=== PATIENT | female | born 1970 | race Caucasian/White ===

== ENCOUNTER → 2020-03-21 22:02 | Outpatient (CLI) | payer BC, SELFPAY ==
[2020-03-21 15:21] VITALS: BMI 25.7
[2020-03-24 16:47] LABS: HPV Reflexed? NOT INDICATED
== END ==
PROVIDERS: PCP Nurse Practitioner; Referring Provider Nurse Practitioner; Visit Provider Nurse Practitioner
DX: Z01.419 Encounter for gynecological examination (general) (routine) without abnormal findings (principal)
CPT/HCPCS: 88175; G0145

== ENCOUNTER → 2020-04-12 22:28 | Outpatient (CLI) | payer BC, SELFPAY ==
[2020-04-12 19:00] VITALS: BMI 26.8
[2020-04-12 22:37] LABS: Absolute Lymphocyte Count 1.25 X10^3/uL (0.83-4.51); Absolute Neutrophil Count 3.4 X10^3/uL (2.0-7.7); Basophil# 0.03 X10^3/uL; Basophil% 0.6 % (0-1); Eosinophil# 0.11 X10^3/uL; Eosinophils% 2.1 % (0-5); Hematocrit 29.5 % (37-47); Hemoglobin 8.8 g/dL (12.0-15.0); Lymphocyte # 1.25 X10^3/ul (4.0); Lymphocyte % 23.6 % (19-41); Mean Corp Hgb Conc 29.8 g/dL (32-36); Mean Corpuscular Hgb 23.1 pg (27.0-32.0); Mean Corpuscular Volume 77.4 fL (81-99); Monocyte# 0.45 X10^3/uL; Monocyte% 8.5 % (0-10); NRBC Flagged by Analyzer 0 % (0-5); Neutrophil # 3.44 X10^3/uL (2.7-7.7); Neutrophil % 64.8 % (47-70); Platelet Count 357 K/mm3 (150-450); RBC Distribution Width CV 15.8 % (11.6-14.6); RBC Distribution Width SD 42.4 fl (35.1-43.9); Red Blood Count 3.81 M/mm3 (4.2-5.4); White Blood Count 5.3 K/mm3 (4.4-11.0)
[2020-04-12 22:59] LABS: ALB/GLOB Ratio 1.3 RATIO (0.9-2.4); AST(SGOT) 9 U/L (15-37); Alanine Aminotransfer ALT/SGPT 24 U/L (13-56); Albumin, Serum 3.7 g/dL (3.2-5.0); Alkaline Phosphatase 51 U/L (45-117); Anion Gap 6 (5-15); BUN 19 mg/dL (7-18); BUN/Creat Ratio 19.6 RATIO (10-20); Calcium,Total 8.4 mg/dL (8.5-10.1); Chloride 109 mmol/L (98-107); Creatinine, Serum 0.97 mg/dL (0.55-1.02); EST Glomerular Filtration Rate 65 mL/min (>60); Est Glom Filt Rate - Afr Amer 79 mL/min (>60); Globulin 2.9 g/dL (2.2-4.2); Glucose 87 mg/dL (74-106); Potassium 3.9 mmol/L (3.5-5.1); Protein, Total 6.6 g/dL (6.4-8.2); Sodium Level 142 mmol/L (136-145); Thyroid Stim Hormone (TSH) 0.95 uIU/mL (0.358-3.74)
[2020-04-14 12:28] LABS: Ferritin 6 ng/mL (8-252); Iron Binding Capacity,Total 370 ug/dL (250-450)
[2020-04-15 10:33] LABS: EBV Acute VCA IgM < 36.0 U/mL (0.0-35.9); EBV Nuclear Antigen IgG < 18.0 U/mL (0.0-17.9); EBV-VCA IgG < 18.0 U/mL (0.0-17.9)
[2020-04-15 12:47] LABS: Vitamin D 1,25-Dihydroxy 40.1 pg/mL (19.9-79.3)
== END ==
PROVIDERS: PCP Nurse Practitioner; Referring Provider Nurse Practitioner; Visit Provider Nurse Practitioner
DX: E55.9 Vitamin D deficiency, unspecified (principal); D64.9 Anemia, unspecified; R42 Dizziness and giddiness; R53.83 Other fatigue; R06.02 Shortness of breath
CPT/HCPCS: 80053; 82652; 82728; 83550; 84443; 85025; 86664; 86665

== ENCOUNTER 2020-07-28 08:00 | Outpatient (RCR) | payer BC, SELFPAY ==
[2020-04-12 19:00] VITALS: BMI 26.8
== END 2020-10-10 23:59 ==
LOC: IMMUN 08:00
PROVIDERS: PCP Internal Medicine; Visit Provider Family Medicine
DX: Z23 Encounter for immunization (principal)
CPT/HCPCS: 0001A; 0002A; 91300

== ENCOUNTER 2020-11-23 09:25 | Day surgery (SDC) | payer BC, SELFPAY ==
[2020-04-12 19:00] VITALS: BMI 26.8
--- NOTE | 2020-11-17 11:53 | PCM.HP.BLA ---
History and Physical Date of Admission: 11/23/20 History and physical. Nataly West MD (Physician) ? ? SYNTHETIC [employer]ENT [employer]INNER Expand AllCollapse All Expand All by Default Amanda Dean is a 50 year old female who presents for concerns regarding heavy and irregular uterine bleeding. Patient had the Mirena IUD removed October 24, 2020 has since had episodes of heavy vaginal bleeding with clots. Patient states overall she was happy with the Mirena however emotionally she was struggling and felt that impacted her mood too much. Patient is interested in Ginny ablation. Patient states still feels dizzy but this is her normal. Patient offers no other concerns today. Denies any chest pain or shortness of breath. Patient is accompanied by her . Patient currently uses vasectomy for control. Pt would like to proceed with surgical intervention. ? PAST MEDICAL HISTORY PAST MEDICAL HISTORY Diagnosis Date ? Anemia ? ? COVID-19 ? ? Intractable migraine with aura ? ? Kidney stone ? ? PAST SURGICAL HISTORY PAST SURGICAL HISTORY Procedure Laterality Date ? COLONOSCOPY - DIAGNOSTIC ? 05/17/2020 ? EGD ? 05/17/2020 ? EYE SURGERY HX ? ? ? LASIK ? ? ? UNSPECIFIED ORAL SURGERY PROCEDURE, BY REPORT ? ? ? wisdom teeth ? FAMILY HISTORY FAMILY HISTORY Problem Relation Age of Onset ? Hypertension Mother ? ? Thyroid Mother ? ? Breast Cancer Mother ? ? Ischemic Heart Disease Father ? ? Diabetes Father ? ? Colon Cancer Father 63 ? Stroke Maternal Grandmother ? ? other (parkinson's) Maternal Grandfather ? ? Diabetes Paternal Grandmother ? ? Cancer Paternal Grandmother ? ? ovarian ? other (kidney stone) Sister ? ? Breast Cancer Paternal Aunt ? ? in her 60s ? SOCIAL HISTORY Social History ? Tobacco Use ? Smoking status: Never Smoker ? Smokeless tobacco: Never Used Vaping Use ? Vaping Use: Never used Substance Use Topics ? Alcohol use: Yes ? ? Comment: socially ? Drug use: No ? CURRENT MEDICATIONS Current Outpatient Medications Medication Sig ? ibuprofen (MOTRIN) 600 mg tablet Take 1 tablet by mouth every 6 hours as needed. ? levonorgestrel (MIRENA) 20 mcg/24 hours (6 yrs) 52 mg IUD 1 Each by INTRAUTERINE route as directed. (Patient not taking: Reported on 10/24/2020 ) ? loratadine (CLARITIN) 10 mg tablet Take 10 mg by mouth once daily. ? Cetirizine (ZYRTEC) 10 mg cap Take by mouth. ? diphenhydrAMINE (BENADRYL) 25 mg capsule Take 25 mg by mouth every 6 hours as needed. ? iron bis-glycinat/vit C/FA/B12 (GENTLE IRON ORAL) Take by mouth. ? OTC NUTRITIONAL SUPPLEMENT [employer] ? No current facility-administered medications for this visit. ? Allergies As of Date: 11/03/2020 (No Known Allergies) Fully Assessed 10/24/2020 ? ? REVIEW OF SYSTEMS ? Expanded ROS: GENERAL: Negative for fever Allergies and current medication updated:Yes ? EXAM: BP 110/60 Wt 149 lb (67.6kg) LMP 06/06/2020 GENERAL: pleasant, female in no apparent distress HEENT: Normocephalic, atraumatic, mucus membranes moist and no lesions NECK: full range of motion DERMATOLOGY: Normal and without lesions NEURO: alert and oriented x3,exam grossly non-focal EXTREMITIES: normal ? ASSESSMENT AND PLAN: AUB, chornic anemia plan for hysteroscopy, Endometrial ablation at [facility] on 11/23/20 Pt was counseled on risks of surgery including but not limted to infection, bleeding, perforation of uterus with subsequent injury to pelvic structures which includes bladder, bowel, vessels which could require laparoscopy. Failure of surgery reviewed with patient as well. Pre and post op instructions reviewed consent signed. Covid vaccinated. ?
[2020-11-20 15:37] LABS: Hematocrit 31.9 % (37-47); Hemoglobin 10.5 g/dL (12.0-15.0); Mean Corp Hgb Conc 32.9 g/dL (32-36); Mean Corpuscular Hgb 29.6 pg (27.0-32.0); Mean Corpuscular Volume 89.9 fL (81-99); Mean Platelet Vol. 9.7 fl (6.2-12.0); Platelet Count 298 K/mm3 (150-450); RBC Distribution Width CV 12.2 % (11.6-14.6); RBC Distribution Width SD 39.8 fl (35.1-43.9); Red Blood Count 3.55 M/mm3 (4.2-5.4)
[2020-11-23] VITALS (7 sets, daily range): BP systolic 103–117; BP diastolic 66–86; PULSE 64–80; RESP 16; TEMP 36.2–36.7; O2SAT 97–99; BMI 26.8
[2020-11-23 09:55] LABS: Internal QC Validated? YES +Cl - CLEAR BKGD; Pregnancy, Urine Negative Negative
[2020-11-23] MEDS: Lactated Ringers 1,000 ML 100 ML IV (10:12)
--- NOTE | 2020-11-23 11:41 | OP.PCM_ITS ---
Problems Associated Problem List Diagnoses (1) Abnormal uterine bleeding (AUB): (2) Chronic anemia: Report of Operation Date of Procedure: 11/23/20 Pre-Operative Diagnosis: AUB, chronic anemia Post-Operative Diagnosis: same Surgery/Procedure Performed:: Hysteroscopy, Ginny endometrial ablation Description of Surgical Findings:: retroverted uterus. Cavity length set at 6cm. Surgeon: Nataly Dobson physical therapy technician: None Type of Anesthesia: MAC Specimen's removed: none Drains: none Estimated Blood Loss (mL): <5cc Fluids Replaced: 800 Description of Procedure: After informed consent was obtained patient taken to the operating room she is placed in supine position she is given anesthesia simply self insert she is prepped draped normal sterile fashion. Bladder was drained prior to the start of the procedure. At this time the weighted speculum was placed the posterior fornix of the vagina then a single-tooth tenaculum was used to grasp the anterior lip of the cervix. At this time the uterus was sounded to approximately 11 cm the endocervical canal sounded to 5 cm. Next cervix was dilated in incremental fashion. Once adequate dilatation was achieved the hysteroscope was inserted using normal saline as distention medium. On hysteroscopy difficult visualization due to blood in cavity. howevere there were no gross abnormalities that i could see. At this time the Ginny device was opened. The Ginny was set at 6cm. The device was activated. Prior to activation the field test was performed and cavity was intact. The device was t hen fired and activated for 120 seconds. Once the 120 seconds was completed the device was removed intact and the tenaculum was removed. Good hemostasis was appreciated. Weighted speculum was removed. Vaginal sweep was performed is negative. There were no complications. Anticipated normal postoperative course for this patient. Instrument and lap count were correct ?2. Grafts/Implants Used: none Procedure Start Time: 11:32 Procedure Stop Time: 11:41 Complications none Admit VTE Documentation VTE Present on Admission: Yes VTE Mechan Device Prophylaxis: SCD's VTE Pharm Prophylaxis ordered?: No
--- NOTE | 2020-11-23 11:46 | EX.PCM.DISCH ---
Discharge Instructions Procedure D&C Diet Discharge Diet: No restrictions Activity May resume sexual activity in: 1 week Dressing / Incision Call your doctor if you observe: Fever of 101 or Higher, Inability to urinate, Using more than 1 pad per hour and Uncontrolled pain Follow Up Care Please Follow Up With: Nataly Dobson MD When: 1-2 weeks post OP if you need an appointment please call [phone] Test Results: Test results from this visit will be discussed in further detail at your follow-up appointment, if applicable. Discharge Plan Admission Attending Provider: Nataly Dobson Primary Care Provider: Desire Ugarte Discharge Orders/Prescriptions Prescriptions: No Action cetirizine [Zyrtec] 10 mg Tablet 10 mg PO QHS RF: 0 famotidine [Pepcid AC] 20 mg Tablet 20 mg PO DAILY RF: 0 diphenhydramine HCl [Benadryl] 25 mg Capsule 50 mg PO QHS RF: 0 Excedrin Migraine 250-250-65 mg Tablet 1 tab PO Q6H PRN (Reason: Migraine Headache) RF: 0 loratadine [Claritin] 10 mg Tablet 10 mg PO DAILY RF: 0 Iron Repair Plus 1 tab PO/SL DAILY RF: 0 Referrals / Follow Up: Desire Ugarte MD [Primary Care Provider] - Disposition Disposition (needs filled in before D/C Order can be placed): Home, Self Care
== END 2020-11-23 13:06 | disposition home or self-care (01) ==
LOC: SDC 09:30 → AC 09:31
PROVIDERS: PCP Internal Medicine; Referring Provider Obstetrics & Gynecology; Visit Provider Obstetrics & Gynecology
PROC: 0U5B8ZZ Destruction of Endometrium, Via Natural or Artificial Opening Endoscopic (ICD-10-PCS; CPT 58558; principal; 2020-11-23 10:45)
DX: N93.9 Abnormal uterine and vaginal bleeding, unspecified (principal); D64.9 Anemia, unspecified; N85.4 Malposition of uterus; Z79.1 Long term (current) use of non-steroidal anti-inflammatories (NSAID); Z79.3 Long term (current) use of hormonal contraceptives; Z80.3 Family history of malignant neoplasm of breast; Z82.49 Family history of ischemic heart disease and other diseases of the circulatory system; Z83.3 Family history of diabetes mellitus; Z87.442 Personal history of urinary calculi; Z83.49 Family history of other endocrine, nutritional and metabolic diseases; Z86.16 Personal history of COVID-19
CPT/HCPCS: 00952; 58563; 36415; 81025; 85027; J7120; J2405

== ENCOUNTER → 2024-10-25 | Outpatient (CLI) | payer OTHER, SELFPAY ==
--- OUTSIDE RECORDS SUMMARY | 2024-10-25 23:15 | XMS RPT_ITS | CCD ---
Author Organization [facility] Care Team Providers Care Bar Tacker Name Role Phone Aron Ugarte MD Primary Care Provider Shanel EASON, Tanya Avalos Primary Care Provider Shanel EASON, Tanya Avalos Primary Care Provider Shanel EASON, Aron Avalos Primary Care Provider Shanel EASON, Aron Avalos Primary Care Provider Unava ilable Shanel EASON, Aron Avalos Primary Care Provider [phone] Aron Ugarte MD Primary Care Provider Nuria Gabriel DO Primary Care Provider ELE CM Attending Unavailable BRI DOVE Referring Unavailable ARON UGARTE Primary Care Unavailable NURIA GABRIEL Primary Care Unavailab ELE Caro Referring Unavailable NURIA GABRIEL Primary Care Unavailab JAROD Chairez Attending Unavailable EDUARDO ALVAREZ Referring Unavailable BRI DOVE Attending Unavailable ARON UGARTE Primary Care Unavailable BRI DOVE Referring Unavailable BRI DOVE Attending Unavailable ARON UGARTE Primary Care Unavailable EDUARDO ALVAREZ Attending Unavailable BRI DOVE Referring Unavailable NURIA GABRIEL Primary Care Unavailab NURIA Holt Primary Care Unavailab ELE Caro Referring Unavailable BRI DOVE Referring Unavailable ARON UGARTE Primary Care Unavailable Shanel EASON, Dr. Phipps Primary Care Provider [phone] Dr. Aron Ugarte MD Referring Provider Ericka Bryant Attending Provider [phone] Allergies Allergy Classification Reported Allergen(s) Allergy Type Date of Onset Reaction(s) Facility (1 source) Levonorgestrel Drug Allergy 5 Bleeding [facility] (1 source) topiramate Drug Allergy 5 sores in mouth [facility] Medications Current Medications Medication Drug Class(es) Dates Sig (Normalized) Sig (Original) amantadine hydrochloride 100 mg oral capsule (11 sources) Influenza A M2 Protein Inhibitor Start: 12-26-2021 End: 02-01-2022 take 1 capsule by mouth once daily, then take 1 capsule by mouth twice daily amantadine HCl (SYMMETREL) 100 mg capsule Take 1 capsule by mouth once daily for 7 days, THEN 1 capsule twice daily. 67 capsule 0 12/26/2021 02/01/2022 Active Start: 06-01-2021 End: 12-03-2021 take 1 capsule by mouth once daily, then take 1 capsule by mouth twice daily amantadine HCl (SYMMETREL) 100 mg capsule Take 1 capsule by mouth once daily for 7 days, THEN 1 capsule twice daily. 67 capsule 0 06/01/2021 12/03/2021 Discontinued (Side Effects) Comment on above: Take 1 capsule by mo ut once daily for 7 days, THEN 1 capsule twice daily. bacillus coagulans [id number] unt / inulin 250 mg oral capsule (1 source) Start: 09-29-2024 Bacillus Coagulans-Inulin (Probiotic With Prebiotic) 1 billion-250 cell-mg capsule Active NMA PO September 29, 2024 12:00am Calcium (1 source) Phosphate Binder, Calcium Start: 09-29-2024 Calcium 300 mg tablet,chewable Active mg PO September 29, 2024 12:00am cholecalciferol, vitamin D3, (VITAMIN D3 ORAL) (20 sources) cholecalciferol, vitamin D3, (VITAMIN D3 ORAL) Take 250 mcg by mouth. Active cholecalciferol, vitamin D3, (VITAMIN D3 ORAL) Take 250 mcg by mouth. 0 Active Comment on above: Take 250 mcg by mout h. cyproheptadine hydrochloride 4 mg oral tablet (15 sources) Start: 2 End: 3 take 2 tablets by mouth once daily at bedtime cyproheptadine (PERIACTIN) 4 mg tablet Take 2 tablets by mouth daily at bedtime. 180 tablet 1 04/01/2022 09/28/2022 Active Start: 12-03-2021 End: 04-01-2022 take 1 tablet by mouth once daily at bedtime cyproheptadine (PERIACTIN) 4 mg tablet Take 1 tablet by mouth daily at bedtime. 90 tablet 1 03/01/2022 04/01/2022 Discontinued (Course of therapy completed) Comment on above: Take 1 tablet by inoc[facility] daily at bedtime. Take 2 tablets by [facility] daily at bedtime. gabapentin 600 mg oral tablet (20 sources) Anti-epileptic Agent Start: 09-29-2024 take 1 tablet by mouth once daily Gabapentin 600 mg tablet Active 600 mg PO daily September 29, 2024 12:00am Start: 12-17-2023 End: 12-12-2024 take 6 capsules by mouth once daily at bedtime gabapentin (NEURONTIN) 100 mg capsule Take 6 capsules by mouth daily at bedtime for 180 days. 540 capsule 1 06/15/2024 12/12/2024 Active Start: 10-14-2023 End: 12-11-2023 take 4 capsules by mouth once daily at bedtime, then take 5 capsules by mouth once daily at bedtime, then take 6 capsules by mouth once daily at bedtime gabapentin (NEURONTIN) 100 mg capsule Take 4 capsules by mouth daily at bedtime for 14 days, THEN 5 capsules daily at bedtime for 14 days, THEN 6 capsules daily at bedtime for 30 days. 306 capsule 0 10/14/2023 12/11/2023 Active Start: 10-11-2022 End: 10-14-2023 take 3 capsules by mouth twice daily gabapentin (NEURONTIN) 100 mg capsule Take 3 capsules by mouth twice daily for 180 days. 540 capsule 1 11/26/2022 10/14/2023 Discontinued Start: 05-22-2022 End: 05-22-2023 take 1 capsule by mouth twice daily gabapentin (NEURONTIN) 300 mg capsule Take 1 capsule by mouth twice daily. 180 capsule 3 05/22/2022 05/22/2023 Active Start: 02-11-2022 End: 05-12-2022 take 1 capsule by mouth twice daily gabapentin (NEURONTIN) 300 mg capsule Take 1 capsule by mouth twice daily for 90 days. 60 capsule 2 02/11/2022 05/12/2022 Active Start: 06-22-2021 End: 01-27-2022 take 1 capsule by mouth twice daily gabapentin (NEURONTIN) 300 mg capsule Take 1 capsule by mouth twice daily for 90 days. 60 capsule 2 10/29/2021 Active Comment on above: Take 1 capsule by [facility] twice daily for 90 days. Take 1 capsule by [facility] twice daily. Take 3 capsules by [facility] twice daily for 180 days. Bill extract (20 sources) Non-Standardized Food Allergenic Extract, Non-Standardized Plant Allergenic Extract BILL twice daily. Active BILL twice lorna ly. 0 Active Comment on above: twice daily. 24 hr guanFACINE 1 mg extended release oral tablet (1 source) Central alpha-2 Adrenergic Agonist Start: 4 End: 5 take 1 tablet by mouth once daily guanFACINE (INTUNIV) 1 mg ER 24 hr tablet(s) Take 1 tablet by mouth once daily. 30 tablet 04/16/2024 05/16/2024 Active ibuprofen 600 mg oral tablet (20 sources) Nonsteroidal Anti-inflammatory Drug Start: 1 take 1 tablet by mouth every six hours as needed ibuprofen (MOTRIN) 600 mg tablet Take 1 tablet by mouth every 6 hours as needed. 60 tablet 09/28/2020 Active Comment on above: Take 1 tablet by [facility] every 6 hours as needed. iron bis-glycinat/vit C/FA/B12 (GENTLE IRON ORAL) (20 sources) iron bis-glycinat/vit C/FA/B12 (GENTLE IRON ORAL) Take by mouth. Active iron bis-glycina t/vit C/FA/B12 (GENTLE IRON ORAL) Take by mouth. 0 Active Comment on above: Take by mouth. Magnesium glycinate (20 sources) take 350 mg by mouth once daily at bedtime MAGNESIUM GLYCINATE ORAL Take 350 mg by mouth daily at bedtime. Active take 350 mg by mouth once daily at bedtime MAGNESIUM GLYCINATE ORAL Take 350 mg by mouth daily at bedtime. 0 Active Comment on above: Take 350 mg by mouth daily at bedtime. mecobalamin 1 mg chewable tablet (1 source) Start: 09-29-2024 take 1 tablet by mouth once daily Mecobalamin (Vitamin B12) 1,000 mcg tablet,chewable Active 1000 ug PO daily September 29, 2024 12:00am melatonin 3 mg oral capsule (20 sources) Start: 09-29-2024 take 1 capsule by mouth at bedtime as needed Melatonin 3 mg capsule Active 3 mg PO BEDTIME as needed September 29, 2024 12:00am Melatonin 5 mg c ap Take by mouth. Active Comment on above: Take by mouth. memantine hydrochloride 5 mg oral tablet (1 source) U-yzpeeo-D-aspartat e Receptor Antagonist Start: 3 End: 4 take 1 tablet by mouth once daily, then take 1 tablet by mouth twice daily memantine (NAMENDA) 5 mg tablet Take 1 tablet by mouth once daily for 7 days, THEN 1 tablet two times a day. 67 tablet 0 04/07/2023 05/14/2023 Active Comment on above: Take 1 tablet by inocencia th once daily for 7 days, THEN 1 tablet two times a day. modafinil 100 mg oral tablet (3 sources) Sympathomimetic-lik e Agent Start: 2 End: 2 take 1 tablet by mouth once daily modafinil (PROVIGIL) 100 mg tablet Indications: Post-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) , Postviral fatigue syndrome Take 1 tablet by mouth once daily for 90 days. 30 tablet 2 01/28/2022 04/28/2022 Active Comment on above: Take 1 tablet by inocencia once daily for 90 days. Naltrexone (20 sources) Opioid Antagonist Start: 5 Naltrexone 4.5 mg capsule Active mg PO September 29, 2024 12:00am Start: 09-14-2024 take 1 tablet by inocencia th once daily naltrexone 6 mg (CPD) Indications: Post-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) , Malaise and fatigue , Brain fog , Myalgias , Dizziness Take 1 tablet by mouth once daily. 90 tablet 3 09/14/2024 Active take 1 capsule by mo ut once daily naltrexone capsule 4.5 mg (CPD) Take 4.5 mg by mouth once daily. Active take 1 capsule by mo uth once daily naltrexone capsule 4.5 mg (CPD) Take 4.5 mg by mouth once daily. 0 Active Comment on above: Take 4.5 mg by mouth once daily. [place]-3 Fatty Acids 1,000 mg capsule (1 source) Start: 09-29-2024 take 1 capsule by mouth once daily [place]-3 Fatty Acids 1,000 mg capsule Active 1000 mg PO daily September 29, 2024 12:00am riboflavin, vitamin B2, (VITAMIN B-2 ORAL) (20 sources) riboflavin, vitamin B2, (VITAMIN B-2 ORAL) Take by mouth. Active riboflavin, joe min B2, (VITAMIN B-2 ORAL) Take by mouth. 0 Active Comment on above: Take by mouth. SUMAtriptan 50 mg oral tablet (20 sources) Serotonin-1b and Serotonin-1d Receptor Agonist Start: 09-29-2024 take 1 tablet by mouth once Sumatriptan Succinate 50 mg tablet Active 50 mg PO ONCE September 29, 2024 12:00am Start: 02-25-2024 End: 08-23-2024 take 1 tablet by mouth every two hours as needed for headache SUMAtriptan (IMITREX) 50 mg tablet Indications: Menstrual migraine without status migrainosus, not intractable Take 1 tablet by mouth as needed (at onset of headache. May repeat after 2 hours.). 8 tablet 5 02/25/2024 08/23/2024 Active Start: 03-01-2022 End: 09-28-2022 take 1 tablet by mouth every two hours as needed for headache SUMAtriptan (IMITREX) 50 mg tablet Indications: Menstrual migraine without status migrainosus, not intractable Take 1 tablet by mouth as needed (at onset of headache. May repeat after 2 hours.). 8 tablet 5 04/01/2022 09/28/2022 Active Start: 10-05-2021 End: 12-30-2021 take 1 tablet by mouth every two hours as needed for headache SUMAtriptan (IMITREX) 50 mg tablet Indications: Menstrual migraine without status migrainosus, not intractable Take 1 tablet by mouth as needed (at onset of headache. May repeat after 2 hours.). 8 tablet 0 12/31/2021 Active Start: 08-17-2021 take 1 tablet by inocencia th every two hours as needed for headache SUMAtriptan (IMITREX) 50 mg tablet Indications: Menstrual migraine without status migrainosus, not intractable Take 1 tablet by mouth as needed (at onset of headache. May repeat after 2 hours.). 8 tablet 0 08/17/2021 Active Start: 07-11-2021 End: 08-17-2021 take 1 tablet by mouth every two hours as needed for headache SUMAtriptan (IMITREX) 50 mg tablet Indications: Menstrual migraine without status migrainosus, not intractable Take 1 tablet by mouth as needed (at onset of headache. May repeat after 2 hours.). 8 tablet 0 07/11/2021 08/17/2021 Discontinued Comment on above: Take 1 tablet by inocencia th as needed (at onset of headache. May repeat after 2 hours.). testosterone 200 mg drug implant (19 sources) Androgen testosterone 200 mg pllt by IMPLANTATION route. Active Comment on above: by IMPLANTATION rout e. tiZANidine 4 mg oral capsule (20 sources) Central alpha-2 Adrenergic Agonist Start: 09-30-19 take 2 capsules by mouth at bedtime as needed Tizanidine 4 mg capsule Active 8 mg PO AT BEDTIME as needed September 29, 2024 12:00am Start: 12-03-2021 End: 11-30-2024 take 2 tablets by mouth once daily at bedtime tiZANidine (ZANAFLEX) 4 mg tablet Take 2 tablets by mouth daily at bedtime. 180 tablet 3 12/01/2023 11/30/2024 Active Start: 10-30-2021 End: 11-29-2021 take 2 tablets by mouth once daily at bedtime tiZANidine (ZANAFLEX) 4 mg tablet Take 2 tablets by mouth daily at bedtime. 60 tablet 0 10/30/2021 11/29/2021 Active Start: 10-05-2021 End: 11-04-2021 take 1 tablet by mouth once daily at bedtime tiZANidine (ZANAFLEX) 4 mg tablet Take 1 tablet by mouth daily at bedtime. 30 tablet 0 10/05/2021 11/04/2021 Active Comment on above: Take 1 tablet by inocencia th daily at bedtime. Take 2 tablets by mo uth daily at bedtime. topiramate 25 mg oral tablet (2 sources) Start: 2 End: 2 take 1 tablet by mouth once daily at bedtime, then take 2 tablets by mouth once daily at bedtime, then take 3 tablets by mouth once daily at bedtime, then take 4 tablets by mouth once daily at bedtime topiramate (TOPAMAX) 25 mg tablet Take 1 tablet by mouth daily at bedtime for 7 days, THEN 2 tablets daily at bedtime for 7 days, THEN 3 tablets daily at bedtime for 7 days, THEN 4 tablets daily at bedtime for 7 days. 70 tablet 0 08/13/2021 09/10/2021 Active Comment on above: Take 1 tablet by inocencia th daily at bedtime for 7 days, THEN 2 tablets daily at bedtime for 7 days, THEN 3 tablets daily at bedtime for 7 days, THEN 4 tablets daily at bedtime for 7 days. ubidecarenone 10 mg oral capsule (1 source) Start: Coenzyme Q10 10 mg capsule Active 10 mg PO ONCE September 29, 2024 12:00am ubiquinol 200 mg oral capsule (20 sources) take 200 mg by mouth twice daily COQ10, UBIQUINOL, ORAL Take 200 mg by mouth twice daily. Active Comment on above: Take 200 mg by mouth twice daily. Completed/Discontinued Medications Medication Drug Class(es) Dates Sig (Normalized) Sig (Original) acetaminophen 250 mg / aspirin 250 mg / caffeine 65 mg oral tablet (1 source) Platelet Aggregation Inhibitor, Nonsteroidal Anti-inflammatory Drug, Central Nervous System Stimulant, Methylxanthine Start: 11-16-2020 End: 09-29-2024 Aspirin-Acetamino phen-Caffeine (Excedrin Migraine) 250-250-65 mg Tablet Discontinued 1 {tbl} PO EVERY 6 HOURS as needed for Migraine Headache November 16, 2020 12:00am September 29, 2024 8:55am 24 hr buPROPion hydrochloride 300 mg extended release oral tablet (13 sources) Aminoketone Start: 04-01-2022 End: 04-16-2024 take 1 tablet by mouth once daily buPROPion XL (WELLBUTRIN XL) 300 mg 24 hr tablet Take 1 tablet by mouth once daily. 90 tablet 1 04/01/2022 04/16/2024 Discontinued (Course of therapy completed) Start: 03-01-2022 End: 04-01-2022 take 1 tablet by mouth once daily buPROPion XL (WELLBUTRIN XL) 150 mg 24 hr tablet Take 1 tablet by mouth once daily. 30 tablet 2 03/01/2022 04/01/2022 Discontinued (Course of therapy completed) Comment on above: Take 1 tablet by inocencia once daily. cetirizine hydrochloride 10 mg oral tablet (20 sources) Histamine-1 Receptor Antagonist Start: End: 5 take 1 tablet by mouth at bedtime Cetirizine (Zyrtec) 10 mg Tablet Discontinued 10 mg PO AT BEDTIME November 16, 2020 12:00am September 29, 2024 8:54am End: 09-06-2024 Cetirizine (ZYRTEC) 10 mg ca p Take by mouth. 09/06/2024 Discontinued Comment on above: Take by mouth. diphenhydrAMINE hydrochloride 25 mg oral capsule (12 sources) Histamine-1 Receptor Antagonist Start: 021 End: 025 take 2 capsules by mouth at bedtime Diphenhydramine Hcl (Benadryl) 25 mg Capsule Discontinued 50 mg PO AT BEDTIME November 16, 2020 12:00September 29, 2024 8:54am End: 12-03-2021 take 1 capsule by mouth every six hours as needed diphenhydrAMINE (BENADRYL) 25 mg capsule Take 25 mg by mouth every 6 hours as needed. 0 12/03/2021 Discontinued (Course of therapy completed) Comment on above: Take 25 mg by mouth every 6 hours as needed. famotidine 20 mg oral tablet (1 source) Histamine-2 Receptor Antagonist Start: End: 5 take 1 tablet by mouth once daily before mealtime Famotidine (Pepcid Ac) 20 mg Tablet Discontinued 20 mg PO DAILY November 16, 2020 12:00am September 29, 2024 8:54am Iron Repair Plus (1 source) Start: 1 End: 5 Iron Repair Plus Discontinued 1 {tbl} SL/PO DAILY November 16, 2020 12:00am September 29, 2024 8:54am loratadine 10 mg oral tablet (20 sources) Start: End: 5 take 1 tablet by mouth once daily Loratadine (Claritin) 10 mg Tablet Discontinued 10 mg PO DAILY November 16, 2020 12:00am September 29, 2024 8:55am Comment on above: Take 10 mg by mouth once daily. magnesium F-umirqs-iwukdjgwyd e 42 mg (500 mg)- 250 mg TbER (20 sources) End: magnesium A-kyxope-aprmpewymvn 42 mg (500 mg)- 250 mg TbER Take by mouth. 09/06/2024 Discontinued magnesium L-thre on-niacinamide 42 mg (500 mg)- 250 mg TbER Take by mouth. Active magnesium L-thre on-niacinamide 42 mg (500 mg)- 250 mg TbER Take by mouth. 0 Active Comment on above: Take by mouth. metFORMIN hydrochloride 500 mg oral tablet (14 sources) Biguanide End: 09-07-19 take 1 tablet by mouth once daily at breakfast metFORMIN (GLUCOPHAGE) 500 mg tablet Take 500 mg by mouth daily with breakfast. 09/06/2024 Discontinued Comment on above: Take 500 mg by mouth daily with breakfast. predniSONE 20 mg oral tablet (2 sources) Start: 03-21-20 End: 03-31-20 take 2 tablets by mouth once daily Prednisone 20 mg tablet Discontinued 40 mg PO DAILY 21 02March 21, 2020 1:00am March 30, 2020 1:00am March 31, 2020 1:03am Start: 03-17-2020 End: 03-21-2020 take 2 tablets by mouth twice daily as needed, then take 1 tablet by mouth twice daily as needed, then take 0.5 tablet by mouth once daily as needed Prednisone 10 mg tablet Discontinued 20 mg PO TWICE A DAY as needed for pruritus 30 March 17, 2020 1:00am March 20, 2020 1:00am March 21, 2020 1:03am 2 po bid 4D,1 po bid for 4 D, 1 po qd for 4D 1/2 po qd for2 D progesterone 200 mg oral capsule (20 sources) Progesterone Start: 09-29-2024 End: 10-25-2024 take 1 capsule by mouth at bedtime Progesterone Micronized 200 mg capsule Discontinued 200 mg PO AT BEDTIME September 29, 2024 12:00am October 25, 2024 9:24am Start: 07-18-2024 take 1 capsule by [facility] once daily at bedtime progesterone micronized (PROMETRIUM) 200 mg capsule Take 200 mg by mouth daily at bedtime. 07/18/2024 Active End: 09-14-2024 take 1 capsule by mouth once daily progesterone micronized (PROMETRIUM) 100 mg capsule Take 100 mg by mouth once daily. 09/14/2024 Discontinued Comment on above: Take 100 mg by mouth once daily. 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 09/06/2024 Discontinued Comment on above: Take 15 mg by mouth once daily. Problems Active Problems Problem Classification Problem Date Documented Date Episodic/Chronic Allergic reactions (1 source) Allergic reaction; Translations: [Allergy, unspecified, initial encounter] 03-17-2020 Episodic Conditions associated with dizziness or vertigo (20 sources) Dizziness; Translations: [Dizziness and giddiness] Onset: 04-05-2021 04-05-2021 Episodic Deficiency and other anemia (1 source) Chronic anemia; Translations: [Anemia, unspecified] 11-23-2020 Episodic Headache; including migraine (7 sources) Menstrual migraine; Translations: [Menstrual migraine, not intractable, without status migrainosus] Chronic Headache; including migraine (5 sources) Chronic daily headache; Translations: [Chronic daily headache] Episodic Malaise and fatigue (10 sources) Postviral fatigue syndrome; Translations: [Postviral fatigue syndrome] Onset: 09-06-2024 Chronic Malaise and fatigue (11 sources) Fatigue; Translations: [Other fatigue] Onset: 09-13-2024 Episodic Menopausal disorders (2 sources) Perimenopausal disorder; Translations: [Unspecified menopausal and perimenopausal disorder] Onset: 09-06-2024 09-06-2024 Chronic Menstrual disorders (2 sources) Irregular periods; Translations: [Irregular menstruation, unspecified] 10-25-2024 Chronic Miscellaneous mental health disorders (1 source) Chronic insomnia; Translations: [Psychophysiologic insomnia] Chronic Nonmalignant breast conditions (3 sources) Calcification of breast; Translations: [Mammographic calcification found on diagnostic imaging of breast] Episodic Nutritional deficiencies (5 sources) Vitamin D deficiency; Translations: [Vitamin D deficiency, unspecified] Onset: 09-06-2024 09-06-2024 Chronic Other connective tissue disease (4 sources) Muscle pain; Translations: [Myalgia, unspecified site] 09-13-2024 Episodic Other connective tissue disease (1 source) Myalgia, unspecified site; Translations: [Myalgias] Onset: 09-13-2024 Episodic Other female genital disorders (1 source) Abnormal uterine bleeding; Translations: [Abnormal uterine and vaginal bleeding, unspecified] 11-23-2020 Chronic Other infections; including parasitic (11 sources) Late effects of other and unspecified infectious and parasitic diseases; 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)] Chronic Other inflammatory condition of skin (1 source) Pruritus of skin; Translations: [Pruritus, unspecified] 03-17-2020 Episodic Other lower respiratory disease (1 source) Dyspnea; Translations: [Shortness of breath] 04-12-2020 Episodic Other nervous system disorders (2 sources) Neuropathy; Translations: [Polyneuropathy, unspecified] 09-13-2024 Chronic Other nervous system disorders (3 sources) Poor concentration; Translations: [Attention and concentration deficit] 09-13-2024 Chronic Other nervous system disorders (1 source) Attention and concentration deficit; Translations: [Difficulty concentrating] Onset: 09-13-2024 Chronic Other nervous system disorders (1 source) Polyneuropathy, unspecified; Translations: [Neuropathy] Onset: 09-13-2024 Chronic Other nervous system disorders (4 sources) Impaired cognition; Translations: [Other symptoms and signs involving cognitive functions and awareness] 09-13-2024 Episodic Other nervous system disorders (1 source) Other symptoms and signs involving cognitive functions and awareness; Translations: [Brain fog] Onset: 09-13-2024 Episodic Other screening for suspected conditions (not mental disorders or infectious disease) (14 sources) Mammography abnormal; Translations: [Other abnormal and inconclusive findings on diagnostic imaging of breast] Onset: 09-06-2024 Episodic Residual codes; unclassified (3 sources) Activity intolerance; Translations: [Other general symptoms and signs] 09-06-2024 Episodic Residual codes; unclassified (3 sources) Disturbance in sleep behavior; Translations: [Sleep disorder, unspecified] 09-06-2024 Episodic Residual codes; unclassified (2 sources) Other general symptoms and signs; Translations: [Activity intolerance] Onset: 09-06-2024 Episodic Residual codes; unclassified (3 sources) Sleep disorder, unspecified; Translations: [Sleep disturbance] Onset: 09-06-2024 Episodic Residual codes; unclassified (1 source) Physical deconditioning 09-13-2024 Episodic Unclassified (7 sources) Post-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) 08-19-2024 Unclassified (3 sources) Post-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); 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)] Onset: 10-20-2023 Unclassified (1 source) Headaches; Translations: [Headaches] Onset: 09-13-2024 Past or Other Problems Problem Classification Problem Date Documented Date Episodic/Chronic Other nervous system disorders (20 sources) Impairment of balance; Translations: [Other abnormalities of gait and mobility] Onset: 04-05-2021 04-05-2021 Episodic Results Test Name Value Interpretation Reference Range Facility 25(OH)D3 [facility] 2024 25-hydroxyvitamin D3 [Mass/Vol] 59.5 ng/mL Normal 31.0-80.0 [place] Comment on above: Order Comment: Speci men Type: BLOOD SPECIMEN Ordering Facility: [facility] Address: [address] [place] [address] Result Comment: Clas sification of 25 OH Vitamin D status: Deficiency/Insufficiency: < or = 30 ng/ml. Sufficiency/Optimal Levels: 31-80 ng/mL Toxicity: > 100 ng/mL. Test performed by chemiluminescent immunoassay. Performed By: #### [id number] [facility] CLIA [id number] [address] [place] [address] [place] 25-hydroxyvitamin D3 [Mass/V ol]on 09-13-2024 Interpretation and review of laboratory results Normal [facility] The reference range interval was based on an analysis of samples from healthy adults and may not pertain to children from 0-18 years old. [facility] CNOVon 09-13-2024 CNOV Office Visit (PUMBHT ) AMANDA DEAN ([id number]) 1970 F Date Time Provider Department 09/13/24 9:00 AM [facility] today, we recorded the following information about you: Temperature Pulse Blood pressure Last Period 98 degrees 72/minute 125/72 09/03/24 Eduardo Alvarez APRN.FINANCE CONTROLLER 09/13/2024 11:57 AM Signed [facility] Initial Evaluation Amanda Dean [facility] at the request of Bri Dove MD for evaluation of prolonged, > 28 days, symptoms attributed to COVID-19 infection. They have requested this consultation via eConsult and will be communicated to via the EMR or [place] Post Office Correspondence. Positive COVID-19 Test: yes Date of Positive Test: : 03/08/2020 (presumed, tested positive in ER) 12/2022 HISTORY OF PRESENT ILLNESS HPI: Amanda Dean is a 53 year old female with primary symptoms as listed below: Description of their course of COVID-19 illness. 1. Symptoms began on 2019 2. Hospitalization? No 3. Was the patient on oxygen? No 4. Was patient discharged on oxygen? No 5. Was there an ICU stay? No 6. Was the patient intubated? No 7. Were there any COVID-19 medications given? No 8. Were there significant complications from the patients COVID-19 Illness? No 9. Has the patient received the COVID Vaccine? Initial series, not sure which vaccine. COVID-19 Symptom Review Shortness of Breath or Dyspnea on Exertion Recurred intermittent Cough Never Chest discomfort/chest pain Never Palpitations Never Exertional intolerance Recurred intermittent Fatigue Recurred persistent Exhaustion/Prolonged fatigue Recurred persistent Dizziness Recurred intermittent Syncope or Near syncope Never Fever Never Joint pain/Body aches Present prior to COVID-19 infection and Intermittent Altered taste/smell Resolved Lack of concentration/brain fog Recurred intermittent Memory deficits Recurred recall Headaches Present prior to COVID-19 infection and intermittent Diarrhea or nausea Never Difficulty sleeping Present prior to COVID-19 infection and intermittent HF Symptoms - Orthopnea/Edema Never Erectile Dysfunction n/a Changes in mood Never SIGNIFICANT/PERSISTENT SYMPTOMS She denies SOB, but states that if she attempted to sing or exercise so would be winded. Fatigue: All day long fatigue. Wakes up tired goes to bed tired. Gets worse as the day goes on. Fatigue after activities. Has to take frequent sitting rest breaks lasting various times. She will need to stop and take a break She has chronic fatigue, denies snoring, has never been tested for TARA. She has trouble falling asleep and staying asleep, she takes medication to help with sleeping at night. Reports that her sleep is not effective, she feels that her mind is racing. History of nerve issues and neuropathy, the gabapentin helps significantly for the neuropathy. She has a Cytokine storm in March 2020, she went to a walk in clinic and this was treated as a allergic reaction. She is following with a local neurologist. She gets the low dose naltrexone from an online pharmacy, however LDN was not prescribed as a tapering dose, she been on the 4.5 mg for at least 2 years and does not notice a benefit She has had bobbing vertigo since she had the Cytokine storm She has been through the testing for vestibular testing but this provokes a migraine so she stopped, she has not seen an ENT provider She has occasionally back pain an neck pain fro overcorrecting her balance. Brain fog: Difficulty remembering conversations. Difficulty with name and word recall. Difficulty focusing. Task take longer to complete 2/2 difficulty focusing. No safety concerns, such as forgetting to lock door, turn stove off, or getting lost while driving. Headaches: Headaches occur intermittent Denies light and noise sensitivity. Yes, history of hormonal medication migraines. She is following with a neurologist and currently on imitrex. Recent/previously completed testing (I have personally reviewed the findings on all imaging, PFTs, and labs) EKG: No results found for this or any previous visit (from the past 8760 hours). ECHO: No results found for this or any previous visit (from the past 57374 hours). PFT: No textual results found for the specified procedure(s). CXR: Last XR Chest - Impression Only XR CHEST 2V FRONTAL/LAT Exam End: 07/21/2020 10:34 AM (Final result) Impression: IMPRESSION: No acute radiographic abnormality. ... CT CHEST: Last CT Chest - Impression Only No resulted procedures found. LABS: Established with the following specialists: Neurology Dermatology General surgery Neuromuscular PT Wellness OBGYN Review of Systems Constitutional: Positive for activity change and fatigue. PAST MEDICAL HISTORY Diagnosis Date Anemia COVID (more content not included)... [facility] (PUMBHT) AMANDA DEAN ([id number]) 1970 F Date Time Provider Department 09/13/24 EDUARDO ALVAREZ [facility] During your visit today, we recorded the following information about you: Klarissa Jacobs, DARIN 09/13/2024 2:48 PM Signed ----- Message from Eduardo Alvarez APRN.FINANCE CONTROLLER sent at 09/13/2024 11:56 AM EDT ----- Hi there, Please assist with scheduling the following appointments/ consults as ordered; Virtual follow up with myself in 6-8 weeks. Please respond when done Thanks, Eduardo Alvarez APRN.Klarissa Stevenson, [facility] 09/13/2024 2:48 PM Signed Called patient to schedule 6 week virtual follow up with Eduardo Alvarez, 1st attempt, left . Paulina Tate 09/17/2024 10:41 AM Signed 2nd attempt: [facility] to schedule 3rd attempt: Sent MC message Allergies As of Date: 09/13/2024 (No Known Allergies) Date Reviewed: 09/13/2024 Reviewed by: Melani Tena OCCA - Fully Assessed Reason for Visit: Appointment [186] Prescriptions as of 09/17/2024 - progesterone micronized (PROMETRIUM) 200 mg capsule Take 200 mg by mouth daily at bedtime. - naltrexone 6 mg (CPD) Take 1 tablet by mouth once daily. - gabapentin (NEURONTIN) 100 mg capsule Take 6 capsules by mouth daily at bedtime for 180 days. - tiZANidine (ZANAFLEX) 4 mg tablet Take 2 tablets by mouth daily at bedtime. - testosterone 200 mg pllt by IMPLANTATION route. - naltrexone capsule 4.5 mg (CPD) Take 4.5 mg by mouth once daily. - MAGNESIUM GLYCINATE ORAL Take 350 mg by mouth daily at bedtime. - cholecalciferol, vitamin D3, (VITAMIN D3 ORAL) Take 250 mcg by mouth. - COQ10, UBIQUINOL, ORAL Take 200 mg by mouth twice daily. - riboflavin, vitamin B2, (VITAMIN B-2 ORAL) Take by mouth. - Melatonin 5 mg cap Take by mouth. - BILL twice daily. - ibuprofen (MOTRIN) 600 mg tablet Take 1 tablet by mouth every 6 hours as needed. - loratadine (CLARITIN) 10 mg tablet Take 10 mg by mouth as needed. - iron bis-glycinat/vit C/FA/B12 (GENTLE IRON ORAL) Take by mouth. Problem List As Of Date 09/13/2024 Noted Resolved Dizziness [R42] 04/05/2021 Imbalance [R26.89] 04/05/2021 Encounter Status:Closed by KLARISSA JACOBS on 09/17/24 Normal [place] CRP SerPl-ncon 09-13-2024 CRP [Mass/Vol] mg/L Normal <0.9 [place] Comment on above: Order Comment: Speci men Type: BLOOD SPECIMEN Ordering Facility: [facility] Address: [address] [place] [address] Performed By: #### 1 988-5, 54446-6 #### [facility] CLIA [id number] [address] [place] [address] [place] Comprehensive metabolic 2000 panelon 09-13-2024 Albumin [Mass/Vol] 4.7 g/dL Normal 3.9-4.9 [facility] Comment on above: Order Comment: Speci men Type: BLOOD SPECIMEN Ordering Facility: [facility] Address: [address] [place] [address] Performed By: #### 1 988-5, 24100-3 #### [facility] CLIA [id number] [address] [id number], [place] [address] [place] ALP [Catalytic activity/Vol] 53 U/L Normal 34-123 [place] Comment on above: Order Comment: Speci men Type: BLOOD SPECIMEN Ordering Facility: [facility] Address: [address] [place] [address] Performed By: #### 1 988-5, 39083-0 #### [facility] CLIA [id number] [address] [place] [address] [place] ALT [Catalytic activity/Vol] 16 U/L Normal 7-38 [place] Comment on above: Order Comment: Speci men Type: BLOOD SPECIMEN Ordering Facility: [facility] Address: [address] [place] [address] Performed By: #### 1 988-5, 57439-8 #### [facility] CLIA [id number] [address] [place] [address] [place] Anion gap [Moles/Vol] 11 mmol/L Normal 8-15 [place] Comment on above: Order Comment: Speci men Type: BLOOD SPECIMEN Ordering Facility: [facility] Address: [address] [place] [address] Performed By: #### 1 988-5, 76377-6 #### [facility] CLIA [id number] [address] [place] [address] [place] AST [Catalytic activity/Vol] 16 U/L Normal 13-35 [place] Comment on above: Order Comment: Speci men Type: BLOOD SPECIMEN Ordering Facility: [facility] Address: [address] [place] [id number] Performed By: #### 1 988-5, 14189-9 #### [facility] CLIA [id number] [address] [place] [address] [place] Bilirubin [Mass/Vol] 0.3 mg/dL Normal 0.2-1.3 [facility] Comment on above: Order Comment: Speci men Type: BLOOD SPECIMEN Ordering Facility: [facility] Address: [address] [place] [address] Performed By: #### 1 988-5, 46061-7 #### [facility] CLIA [id number] [address] [place] [address] [place] Calcium [Mass/Vol] 10.2 mg/dL Normal 8.5-10.2 [facility] Comment on above: Order Comment: Speci men Type: BLOOD SPECIMEN Ordering Facility: [facility] Address: [address] [place] [address] Performed By: #### 1 988-5, 73628-7 #### [facility] CLIA [id number] [address] [place] [address] [place] Chloride [Moles/Vol] 104 mmol/L Normal 98-107 [facility] Comment on above: Order Comment: Speci men Type: BLOOD SPECIMEN Ordering Facility: [facility] Address: [address] [place] [address] Performed By: #### 1 988-5, 09752-8 #### [facility] CLIA [id number] [address] [place] [address] [place] CO2 [Moles/Vol] 24 mmol/L Normal 22-30 [place] Comment on above: Order Comment: Speci men Type: BLOOD SPECIMEN Ordering Facility: [facility] Address: [address] [place] [address] Performed By: #### 1 988-5, 74210-2 #### [facility] CLIA [id number] [address] [place] [address] [place] Creatinine [Mass/Vol] 0.81 mg/dL Normal 0.58-0.96 [place] Comment on above: Order Comment: Speci men Type: BLOOD SPECIMEN Ordering Facility: [facility] Address: [address] [place] [address] Performed By: #### 1 988-5, 16092-6 #### [facility] CLIA [id number] [address] [place] [address] [place] Creatinine and Glomerular filtration rate.predicted panel (S/P/Bld) 88 mL/min/1.73m??? Normal >=60 [place] Comment on above: Order Comment: Dre vázquez Type: BLOOD SPECIMEN Ordering Facility: [facility] Address: [address] [place] [address] Result Comment: Yajaira mated Glomerular Filtration Rate (eGFR) is calculated using the 2020 CKD-EPI creatinine equation. This equation utilizes serum creatinine, sex, and age as parameters. The creatinine assay has traceable calibration to isotope dilution-mass spectrometry. Refer to KDIGO guidelines for clinical interpretation. In patients with unstable renal function, e.g. those with acute kidney injury, the eGFR may not accurately reflect actual GFR. Performed By: #### 1 988-5, 98669-2 #### [facility] IA [id number] [address] [place] [address] [place] Glucose [Mass/Vol] 95 mg/dL Normal 74-99 [facility] Comment on above: Order Comment: Dre vázquez Type: BLOOD SPECIMEN Ordering Facility: [facility] Address: [address] [place] [address] Result Comment: The [place] Diabetes Association (ADA) provides guidance for cutoff values for fasting glucose and random glucose. The ADA defines fasting as no caloric intake for at least 8 hours. Fasting plasma glucose results between 100 to 125 mg/dL indicate increased risk for diabetes (prediabetes). Fasting plasma glucose results greater than or equal to 126 mg/dL meet the criteria for diagnosis of diabetes. In the absence of unequivocal hyperglycemia, results should be confirmed by repeat testing. In a patient with classic symptoms of hyperglycemia or hyperglycemic crisis, random plasma glucose results greater than or equal to 200 mg/dL meet the criteria for diagnosis of diabetes. Reference: Standards of Medical Care in Diabetes 2016, [place] Diabetes Association. Diabetes Care. 2016.39(Suppl 1). Performed By: #### 1 988-5, 61793-2 #### [facility] CLIA [id number] [address] [place], [place] [address] [place] Potassium [Moles/Vol] 4.1 mmol/L Normal 3.7-5.1 [place] Comment on above: Order Comment: Speci men Type: BLOOD SPECIMEN Ordering Facility: [facility] Address: [address] [place] [address] Performed By: #### 1 988-5, 72769-9 #### [facility] CLIA [id number] [address] [place] [address] [place] Protein [Mass/Vol] 7.0 g/dL Normal 6.3-8.0 [facility] Comment on above: Order Comment: Speci men Type: BLOOD SPECIMEN Ordering Facility: [facility] Address: [address] [place] [address] Performed By: #### 1 988-5, 27723-7 #### [facility] CLIA [id number] [address] [place] [address] [place] Sodium [Moles/Vol] 139 mmol/L Normal 136-144 [facility] Comment on above: Order Comment: Speci men Type: BLOOD SPECIMEN Ordering Facility: [facility] Address: [address] [place] [address] Performed By: #### 1 988-5, 90571-5 #### [facility] CLIA [id number] [address] [place] [address] [place] Urea nitrogen [Mass/Vol] 12 mg/dL Normal 7-21 [place] Comment on above: Order Comment: Speci men Type: BLOOD SPECIMEN Ordering Facility: [facility] Address: [address] [place] [address] Performed By: #### 1 988-5, 58359-7 #### [facility] CLIA [id number] [address] [place], [place] [address] [place] VITAMIN Con 09-13-2024 VITAMIN C 58 umol/L Normal 23-114 [place] Comment on above: Order Comment: Speci men Type: BLOOD SPECIMEN Ordering Facility: [facility] Address: [address] [place] [address] Result Comment: Joe min C concentrations lower than 11 umol/L indicate deficiency. Concentrations between 11 and 23 umol/L are consistent with a moderate risk of deficiency due to inadequate tissue stores. Vitamin C concentration is reported as micromoles per liter (umol/L). To convert concentration to milligrams per deciliter (mg/dL), multiply the result by 0.0176. This test was developed and its performance characteristics determined by [facility]. It has not been cleared or approved by the [place] Food and Drug Administration. This test was performed in a CLIA certified laboratory and is intended for clinical purposes. Performed By: [facility] [address] [place] [address] Human Relations Manager: Surendra Garcia MD, PhD CLIA Number: [id number] Performed By: #### V ITC #### [facility] CLIA [id number] [address] [place] [address] VITAMIN D 25 HYDROXYon 09-13 25-hydroxyvitamin D3 [Mass/Vol] 59.5 ng/mL 31.0 - 80.0 ng/mL [facility] Comment on above: Classification of 25 [place] Vitamin D status: Deficiency/Insufficiency: < or = 30 ng/ml. Sufficiency/Optimal Levels: 31-80 ng/mL Toxicity: > 100 ng/mL. Test performed by chemiluminescent immunoassay. CBC W Auto Differential pane l (Bld)on 09-10-2024 Basophils (Bld) [#/Vol] 0.04 10*3/uL Normal <0.11 [facility] Comment on above: Order Comment: Dre vázquez Type: BLOOD SPECIMEN Ordering Facility: [facility] Address: [address] [place] [address] Performed By: #### 5 763-8 #### [facility] CLIA [id number] [address] [place] [address] [place] [address] [place] Basophils/100 WBC (Bld) 0.9 % Normal [facility] Comment on above: Order Comment: Dre vázquez Type: BLOOD SPECIMEN Ordering Facility: [facility] Address: [address] [place] [address] Performed By: #### 5 763-8 #### [facility] CLIA [id number] [address] [place] [address] [place] Differential cell count method Nom (Bld) Auto Normal [facility] Comment on above: Order Comment: Speci men Type: BLOOD SPECIMEN Ordering Facility: [facility] Address: [address] [place] [address] Performed By: #### 5 763-8 #### [facility] CLIA [id number] [address] [place] [address] [place] Eosinophils (Bld) [#/Vol] 0.06 10*3/uL Normal <0.46 [facility] Comment on above: Order Comment: Speci men Type: BLOOD SPECIMEN Ordering Facility: [facility] Address: [address] [place] [address] Performed By: #### 5 763-8 #### [facility] CLIA [id number] [address] [place] [address] [place] Eosinophils/100 WBC (Bld) 1.4 % Normal [facility] Comment on above: Order Comment: Speci men Type: BLOOD SPECIMEN Ordering Facility: [facility] Address: [address] [place] [address] Performed By: #### 5 763-8 #### [facility] CLIA [id number] [address] [place] [address] [place] Erythrocyte distribution width (RBC) [Ratio] 12.2 % Normal 11.5-15.0 [facility] Comment on above: Order Comment: Speci men Type: BLOOD SPECIMEN Ordering Facility: [facility] Address: [address] [place] [address] Performed By: #### 5 763-8 #### [facility] CLIA [id number] [address] [id number] [address] [place] Hematocrit (Bld) [Volume fraction] 42.0 % Normal 36.0-46.0 [facility] Comment on above: Order Comment: Speci men Type: BLOOD SPECIMEN Ordering Facility: [facility] Address: [address] [place] [address] Performed By: #### 5 763-8 #### [facility] CLIA [id number] [address] [place] [address] [place] Hemoglobin (Bld) [Mass/Vol] 14.0 g/dL Normal 11.5-15.5 [facility] Comment on above: Order Comment: Speci men Type: BLOOD SPECIMEN Ordering Facility: [facility] Address: [address] [place] [address] Performed By: #### 5 763-8 #### [facility] CLIA [id number] [address] [place] [address] [place] Immature granulocytes (Bld) [#/Vol] 10*3/uL Normal <0.10 [facility] Comment on above: Order Comment: Speci men Type: BLOOD SPECIMEN Ordering Facility: [facility] Address: [address] [place] [address] Performed By: #### 5 763-8 #### [facility] CLIA [id number] [address] [place] [address] [place] Immature granulocytes/100 WBC (Bld) 0.2 % Normal [facility] Comment on above: Order Comment: Speci men Type: BLOOD SPECIMEN Ordering Facility: [facility] Address: [address] [place] [address] Performed By: #### 5 763-8 #### [facility] CLIA [id number] [address] [place] [address] [place] Lymphocytes (Bld) [#/Vol] 1.11 10*3/uL Normal 1.00-4.00 [facility] Comment on above: Order Comment: Speci men Type: BLOOD SPECIMEN Ordering Facility: [facility] Address: [address] [place] [address] Performed By: #### 5 763-8 #### [facility] CLIA [id number] [address] [place] [address] [place] Lymphocytes/100 WBC (Bld) 26.3 % Normal [facility] Comment on above: Order Comment: Speci men Type: BLOOD SPECIMEN Ordering Facility: [facility] Address: [address] [place] [address] Performed By: #### 5 763-8 #### [facility] CLIA [id number] [address] [place] [address] [place] MCH (RBC) [Entitic mass] 29.7 pg Normal 26.0-34.0 [facility] Comment on above: Order Comment: Speci men Type: BLOOD SPECIMEN Ordering Facility: [facility] Address: [address] [place] [address] Performed By: #### 5 763-8 #### [facility] CLIA [id number] [address] [place] [address] [place] MCHC (RBC) [Mass/Vol] 33.3 g/dL Normal 30.5-36.0 [facility] Comment on above: Order Comment: Speci men Type: BLOOD SPECIMEN Ordering Facility: [facility] Address: [address] [place] [address] Performed By: #### 5 763-8 #### [facility] CLIA [id number] [address] [place] [address] [place] MCV (RBC) [Entitic vol] 89.0 fL Normal 80.0-100.0 [facility] Comment on above: Order Comment: Speci men Type: BLOOD SPECIMEN Ordering Facility: [facility] Address: [address] [place] [address] Performed By: #### 5 763-8 #### [facility] CLIA [id number] [address] [place] [address] [place] Monocytes (Bld) [#/Vol] 0.32 10*3/uL Normal <0.87 [facility] Comment on above: Order Comment: Speci men Type: BLOOD SPECIMEN Ordering Facility: [facility] Address: [address] [place] [address] Performed By: #### 5 763-8 #### [facility] CLIA [id number] [address] [place] [address] [place] Monocytes/100 WBC (Bld) 7.6 % Normal [facility] Comment on above: Order Comment: Speci men Type: BLOOD SPECIMEN Ordering Facility: [facility] Address: [address] [place] [address] Performed By: #### 5 763-8 #### [facility] CLIA [id number] [address] [place] [address] [place] Neutrophils (Bld) [#/Vol] 2.68 10*3/uL Normal 1.45-7.50 [facility] Comment on above: Order Comment: Speci men Type: BLOOD SPECIMEN Ordering Facility: [facility] Address: [address] [place] [address] Performed By: #### 5 763-8 #### [facility] CLIA [id number] [address] [place] [address] [place] Neutrophils/100 WBC (Bld) 63.6 % Normal [facility] Comment on above: Order Comment: Speci men Type: BLOOD SPECIMEN Ordering Facility: [facility] Address: [address] [place] [address] Performed By: #### 5 763-8 #### [facility] CLIA [id number] [address] [place] [address] [place] Nucleated RBC (Bld) [#/Vol] Normal [facility] Comment on above: Order Comment: Speci men Type: BLOOD SPECIMEN Ordering Facility: [facility] Address: [address] [place] [address] Performed By: #### 5 763-8 #### [facility] CLIA [id number] [address] [place] [address] [place] Nucleated RBC/100 WBC (Bld) [Ratio] Normal [facility] Comment on above: Order Comment: Speci men Type: BLOOD SPECIMEN Ordering Facility: [facility] Address: [address] [id number] Performed By: #### 5 763-8 #### [facility] CLIA [id number] [address] [place] [address] [place] Platelet mean volume (Bld) [Entitic vol] 9.9 fL Normal 9.0-12.7 [facility] Comment on above: Order Comment: Speci men Type: BLOOD SPECIMEN Ordering Facility: [facility] Address: [address] [place], [place] [address] Performed By: #### 5 763-8 #### [facility] CLIA [id number] [address] [place] [address] [place] Platelets (Bld) [#/Vol] 313 10*3/uL Normal 150-400 [facility] Comment on above: Order Comment: Speci men Type: BLOOD SPECIMEN Ordering Facility: [facility] Address: [address] [place] [address] Performed By: #### 5 763-8 #### [facility] CLIA [id number] [address] [place] [address] [place] RBC (Bld) [#/Vol] 4.72 10*6/uL Normal 3.90-5.20 [facility] Comment on above: Order Comment: Speci men Type: BLOOD SPECIMEN Ordering Facility: [facility] Address: [address] [place] [address] Performed By: #### 5 763-8 #### [facility] CLIA [id number] [address] [place] [address] [place] WBC (Bld) [#/Vol] 4.22 10*3/uL Normal 3.70-11.00 [facility] Comment on above: Order Comment: Speci men Type: BLOOD SPECIMEN Ordering Facility: [facility] Address: [address] [place] [address] Performed By: #### 5 763-8 #### [facility] CLIA [id number] [address] [place] [address] [place] CRP SerPl HS-mCncon 09-11-19 25 CRP High sensitivity method [Mass/Vol] 0.5 mg/L Normal <3.1 [facility] Comment on above: Order Comment: Speci men Type: BLOOD SPECIMEN Ordering Facility: [facility] Address: [address] [place] [address] Result Comment: hsCR P < 1.0 mg/L, relative risk is low hsCRP 1.0-3.0 mg/L, relative risk is average hsCRP > 3.0 mg/L, relative risk is high Reference: Hamm TA, Cong GA, Gabriel RW, et al. Markers of Inflammation and Cardiovascular Disease. Application to Clinical and Public Health Practice. A Statement for Healthcare Professionals from the Centers for Disease Control and Prevention and the [place] [employer]. Circulation 2003;107:499-511. Performed By: #### 3 051-0, 3024-7, 47915-7 #### [facility] CLIA [id number] [address] [place] Folate SerPl-mCncon 09-11-19 25 Folate [Mass/Vol] 17.7 ng/mL Normal >4.7 [facility] Comment on above: Order Comment: Speci men Type: BLOOD SPECIMEN Ordering Facility: [facility] Address: [address] [place] [address] Performed By: #### 2 132-9, 2284-8 #### [facility] CLIA [id number] [address] [place] GLUTATHIONE TOTALon 09-11-19 25 GLUTATHIONE, TOTAL 677 uM Normal 373-838 [facility] Comment on above: Order Comment: Speci men Type: BLOOD SPECIMEN Ordering Facility: [facility] Address: [address] [place] [address] Result Comment: The performance characteristics of the listed assay was validated by [facility]. The [place] FDA has not approved or cleared this test. The results of this assay can be used for clinical diagnosis without FDA approval. [facility] is a CLIA certified, CAP accredited laboratory for performing high complexity assays such as this one. Testing Performed at: [facility] [address] [place] [address] Performed By: #### G TA #### [facility] CLIA [id number] [address] [place] [address] Hcys SerPl-sCncon 09-10-2024 Homocysteine [Moles/Vol] 8.5 umol/L Normal <15.1 [facility] Comment on above: Order Comment: Speci men Type: BLOOD SPECIMEN Ordering Facility: [facility] Address: [address] [place] [address] Performed By: #### 1 3965-9 #### [facility] CLIA [id number] [address] [place] [address] [place] Magnesium SerPl-mCncon 09-10 Magnesium [Mass/Vol] 2.3 mg/dL Normal 1.7-2.3 [facility] Comment on above: Order Comment: Speci men Type: BLOOD SPECIMEN Ordering Facility: [facility] Address: [address] [place] [address] Performed By: #### 1 9123-9, 3016-3 #### [facility] CLIA [id number] [address] [place] [address] [place] OMEGACHECKon 09-10-2024 ARACHIDONIC ACID 14.7 % by wt Normal 8.6-15.6 [facility] Comment on above: Order Comment: Speci men Type: BLOOD SPECIMEN Ordering Facility: [facility] Address: [address] [place] [address] Performed By: #### O MEGA #### [facility] CLIA [id number] [address] [place] [address] ARACHIDONIC ACID/EPA RATIO 39.0 Normal 3.7-40.7 [facility] Comment on above: Order Comment: Speci men Type: BLOOD SPECIMEN Ordering Facility: [facility] Address: [address] [place], [place] [id number] Result Comment: Rece ived Date: Performed By: #### O MEGAC #### [facility] CLIA [id number] [address] [place] [address] DHA 1.8 % by wt Normal 1.4-5.1 [facility] Comment on above: Order Comment: Speci men Type: BLOOD SPECIMEN Ordering Facility: [facility] Address: [address] [place] [address] Performed By: #### O MEGAC #### [facility] CLIA [id number] [address] [place] [address] DPA 1.2 % by wt Normal 0.8-1.8 [facility] Comment on above: Order Comment: Speci men Type: BLOOD SPECIMEN Ordering Facility: [facility] Address: [address] [place] [address] Performed By: #### O MEGAC #### [facility] CLIA [id number] [address] [place] [address] EPA 0.4 % by wt Normal 0.2-2.3 [facility] Comment on above: Order Comment: Speci men Type: BLOOD SPECIMEN Ordering Facility: [facility] Address: [address] [place], [place] [address] Performed By: #### O MEGAC #### [facility] CLIA [id number] [address] [place] [address] LINOLEIC ACID 26.4 % by wt Normal 18.6-29.5 [facility] Comment on above: Order Comment: Speci men Type: BLOOD SPECIMEN Ordering Facility: [facility] Address: [address] [place], [place] [id number] Performed By: #### O MEGAC #### [facility] CLIA [id number] [address] [place] [address] OMEGA-3 TOTAL 3.3 % by wt Normal [facility] Comment on above: Order Comment: Speci men Type: BLOOD SPECIMEN Ordering Facility: [facility] Address: [address] [place], [place] [id number] Performed By: #### O MEGAC #### [facility] CLIA [id number] [address] [place] [address] OMEGA-6 TOTAL 44.5 % by wt Normal [facility] Comment on above: Order Comment: Speci men Type: BLOOD SPECIMEN Ordering Facility: [facility] Address: [address] [place] [address] Result Comment: [employer] measures a number of omega-6 fatty acids with AA and LA being the two most abundant forms reported. Performed By: #### O MEGAC #### [facility] CLIA [id number] [address] [place] [address] OMEGA-6/OMEGA-3 RATIO 13.3 Normal 3.7-14.4 [facility] Comment on above: Order Comment: Speci men Type: BLOOD SPECIMEN Ordering Facility: [facility] Address: [address] [place] [address] Performed By: #### O MEGAC #### [facility] CLIA [id number] [address] [place] [address] OMEGACHECK 3.3 % by wt Low >5.4 [facility] Comment on above: Order Comment: Speci men Type: BLOOD SPECIMEN Ordering Facility: [facility] Address: [address] [place] [address] Result Comment: Incr easing blood levels of long-chain n-3 fatty acids are associated with a lower risk of sudden cardiac (1). Based on the top (75th percentile) and bottom (25th percentile) quartiles of the [facility] reference population, the following relative risk categories were established for OmegaCheck: A cut-off of >=5.5% by wt defines a population at optimal relative risk, 3.8-5.4% by wt defines a population at moderate relative risk, and <=3.7% by wt defines a population at high relative risk of sudden cardiac . The totality of the scientific evidence demonstrates that when consumption of fish oils is limited to 3 g/day or less of EPA and DHA, there is no significant risk for increased bleeding time beyond the normal range. A daily dosage of 1 gram of EPA and DHA lowers the circulating triglycerides by about 7-10% within 2 to 3 weeks. (Reference: 1-Reggie et al. [facility]. 2002; 346: 9180-5669).This test was developed and its analytical performance characteristics have been determined by [facility]. It has not been cleared or approved by the U.S. Food and Drug Administration. This assay has been validated pursuant to the CLIA regulations and is used for clinical purposes. Performed By: #### O [facility] #### [facility] CLIA [id number] [address] [place] [address] T3Free SerPl-mCncon 09-11-19 25 Free T3 [Mass/Vol] 3.0 pg/mL Normal 2.3-4.1 [facility] Comment on above: Order Comment: Speci men Type: BLOOD SPECIMEN Ordering Facility: [facility] Address: [address] [place] [address] Performed By: #### 5 763-8 #### [facility] CLIA [id number] [address] [place] [address] [place] T4 Free SerPl-mCncon 025 Free T4 [Mass/Vol] 1.3 ng/dL Normal 0.9-1.7 [facility] Comment on above: Order Comment: Speci men Type: BLOOD SPECIMEN Ordering Facility: [facility] Address: [address] [place] [address] Performed By: #### 5 763-8 #### [facility] CLIA [id number] [address] [place] [address] [place] TSH SerPl-aCncon 09-10-2024 TSH Qn 1.160 m[IU]/L Normal 0.270-4.200 [facility] Comment on above: Order Comment: Speci men Type: BLOOD SPECIMEN Ordering Facility: [facility] Address: [address] [place] [address] Performed By: #### 1 9123-9, 3016-3 #### [facility] CLIA [id number] [address] [place] [address] [place] VITAMIN B6/PYRIDOXINon 09-10 VITAMIN B6 65.0 nmol/L Normal 20.0-125.0 [facility] Comment on above: Order Comment: Speci men Type: BLOOD SPECIMEN Ordering Facility: [facility] Address: [address] [place] [address] Result Comment: INTE RPRETIVE INFORMATION: Vitamin B6 (Pyridoxal 5-Phosphate) Pyridoxal 5'-phosphate measured in a specimen collected following an 8-hour or overnight fast accurately indicates vitamin B6 nutritional status. Non-fasting specimen concentration reflects recent vitamin intake. This test was developed and its performance characteristics determined by [facility]. It has not been cleared or approved by the US Food and Drug Administration. This test was performed in a CLIA certified laboratory and is intended for clinical purposes. Performed By: [facility] [address] [place] [address] Human Relations Manager: Surendra Garcia MD, PhD CLIA Number: [id number] Performed By: #### 5 763-8 #### [facility] CLIA [id number] [address] [place] [address] [place] Vit B12 SerPl-mCncon 025 Cobalamin (Vitamin B12) [Mass/Vol] 681 pg/mL Normal 232-1245 [facility] Comment on above: Order Comment: Speci [facility] Type: BLOOD SPECIMEN Ordering Facility: [facility] Address: [address] [place] [address] Performed By: #### 2 132-9, 2284-8 #### [facility] CLIA [id number] [address] [place] [address] [place] Zinc SerPl-mCncon 09-10-2024 Zinc [Mass/Vol] 82 ug/dL Normal 60-120 [facility] Comment on above: Order Comment: Dre vázquez Type: BLOOD SPECIMEN Ordering Facility: [facility] Address: [address] [place] [address] Result Comment: This test was developed, and its performance characteristics determined by the [facility] Department of Pathology and Laboratory Medicine. It has not been cleared or approved by the FDA. The [facility] Department of Pathology and Laboratory Medicine is regulated under CLIA as qualified to perform high-complexity testing. This test is used for clinical purposes. It should not be regarded as investigational or for research. Performed By: #### 5 763-8 #### [facility] CLIA [id number] [address] [place] [address] [place] CNPFrances 09-07-2024 CNPN Telephone (PUMT) AMANDA DEAN ([id number]) 1970 F Date Time Provider Department 09/07/24 [facility] During your visit today, we recorded the following information about you: Chiquis Hernandez RN 09/07/2024 10:56 AM Signed Is this upcoming visit related to a covid vaccine reaction? No Did the patient have confirmed or presumed COVID-19 infection after June 2019 and are continuing to have symptoms for at least 90 days (antibody testing NOT accepted): Yes Date of positive test and/or presumed infection(s): 03/08/2020 (presumed, tested positive in ER) 12/2022 Type of test (home test or PCR): home With which COVID infection(s) did your long COVID symptoms begin: 03/08/2020 COVID vaccine type and dates (if not already on file): on file We have a few questions about any ongoing symptoms to help prepare you and your provider for your visit. 3. Is the patient seeing us for taste/smell changes? No 4. Is patient traveling far (1 hour+) or coming from another state*: Yes 4A. Does the patient have SOB? No 4B. Does the patient have any chest pain or palpitations? No 5. Please verify the following are on file in patient's chart, and enter if not found - medication list Yes - allergies Yes - preferred pharmacy Yes - PCP Yes 6. Please inform patient of the below information if they have not been sent [facility] appt reminder: [facility] functions as a referral service. You will have an initial visit as well as one follow-up visit in which all [facility] testing, imaging, and labs will be discussed. From there on it is expected that you continue to follow up with your PCP and the specialist(s) established through this program. 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 [facility] intake team is not able to assist with disability requests, including work restrictions or clearances as we do not do active treatment and management of long-COVID symptoms, and are not actively involved in long-term care after your 2 visits. Your primary care provider and the consulted specialists we discuss during our visit(s) are better suited for assisting with disability requests. Those providers are welcome use our office note and testing to help support their plans of care. Patients will be expected to have labs, testing, and consults done through [facility]; we cannot fax orders to outside facilities, and do not have access to outside providers. Please be prepared that you may need to travel to [place] multiple times to get all testing done and see the consulted specialist(s). Please arrive 15 minutes early to your appointment. If you are more than 10 minutes late to your appointment you may be asked to reschedule. One week prior to your appointment you should pre-check in via [facility] to complete questionnaires that will provide valuable information to your provider to aid in your visit. You may receive a telephone call to remind you if we see they have not been completed in advance of your visit. If you have outside testing you would like to be entered into your chart, please fax it to [phone]. Records brought in same day of visit may not be reviewed until after the visit due to time constraints. *FYI Current [facility] states are [place], [place], [place], and [place] as of 11/2023. This means patients can only be seen in-person for consults AND follow-ups due to state laws. Allergies As of Date: 09/07/2024 (No Known Allergies) Date Reviewed: 09/07/2024 Reviewed by: Chiquis Hernandez RN - Fully Assessed Reason for Visit: Intake [[id number]] Cmt: [facility] pre-visit phone call Prescriptions as of 09/07/2024 - gabapentin (NEURONTIN) 100 mg capsule Take 6 capsules by mouth daily at bedtime for 180 days. - tiZANidine (ZANAFLEX) 4 mg tablet Take 2 tablets by mouth daily at bedtime. - testosterone 200 mg pllt by IMPLANTATION route. - naltrexone capsule 4.5 mg (CPD) Take 4.5 mg by mouth once daily. - progesterone micronized (PROMETRIUM) 100 mg capsule Take 100 mg by mouth once daily. - MAGNESIUM GLYCINATE ORAL Take 350 mg by mouth daily at bedtime. - cholecalciferol, vitamin D3, (VITAMIN D3 ORAL) Take 250 mcg by mouth. - COQ10, UBIQUINOL, ORAL Take 200 mg by mouth twice daily. - riboflavin, vitamin B2, (VITAMIN B-2 ORAL) Take by mouth. - Melatonin 5 mg cap Take by mouth. - BILL twice daily. - ibuprofen (MOTRIN) 600 mg tablet Take 1 tablet by mouth every 6 hours as needed. - loratadine (CLARITIN) 10 mg tablet Take 10 mg by mouth as needed. - iron bis-glycinat/vit C/FA/B12 (GENTLE IRON ORAL) Take by mouth. Problem List As Of Date 09/07/2024 Noted Resolved Dizziness [R42] 04/05/2021 Imbalance [R26.89] 04/05/2021 Encounter Status:Closed by CHIQUIS HERNANDEZ on 09/07/24 [facility] CNOVon 09-06-2024 CNOV Office Visit (WELLME ) AMANDA DEAN ([id number]) 1970 F Date Time Provider Department 09/06/24 1:00 PM ELE CM During your visit today, we recorded the following information about you: Blood pressure Last Period 127/78 09/03/24 Ele Cm PA-C 09/06/2024 1:56 PM Signed Wellness Consultation Ms.Angela Adrianna Dean is a 53 year old female is here for a wellness and preventive medicine initial consultation. Consultation requested by Dr. Bri Dove for an opinion regarding post covid fatigue and dizziness. My final recommendations will be communicated back to the requesting physician by way of shared Medical record. Recording using [employer] software for draft documentation of the visit was discussed with the patient/authorized maintenance representative; all questions welcomed and answered. Patient/authorized maintenance representative agreed to proceed Chief complaint: fatigue, dizziness HPI: Alesha is a 53-year-old female, with a history of long COVID, presenting for evaluation of persistent symptoms. Alesha reports a history of COVID-19 infection in March 2020, during which she experienced a cytokine storm that she believes burned through her nervous system. At the time, she was not formally diagnosed with COVID-19, but her was, and she experienced anosmia, ageusia, and fatigue. She was not hospitalized and had minimal respiratory symptoms. Since the initial infection, she has experienced persistent symptoms, including chronic fatigue, vertigo described as a constant bobbing sensation, and memory issues. She also reports some brain fog. These symptoms have not improved since the initial infection. She has a history of anemia following her COVID-19 infection and reports low ferritin levels recently. Her hemoglobin is currently normal. She is taking iron supplements. She also reports low vitamin D levels and is taking supplements, but her levels have not improved. She is perimenopausal and has been experiencing heavy periods, with one lasting 87 days. She is currently menstruating. She has been under the care of a neurologist, Dr. Dove, who started her on gabapentin 600 mg in February 2021, which has helped with migraines and nerve pain. She also tried vestibular therapy from April 2021 to July or August 2021, but it triggered continuous migraines. She has been on naltrexone for at least 2 years and had an ALA infusion that really helped as well. Nutrition: She has made dietary changes, including cutting out caffeine and alcohol in May and adopting a low-carb, high-protein, low-sugar diet in July. Despite these changes, she has not noticed any improvement in her symptoms. Since July 2024 low carb, high protein, +gluten, +dairy, +eggs, +soy B: protein shake, [employer] L: salad, chicken D: meat, vegetables F: berries V: >2/3day HF: avocado, nuts, cream cheese, british virgin islander yogurt LES: Eating window: Water: not great Alcohol: 05/2024 stopped Beverages: 05/2024 stopped caffeine, Diet Coke (caffiene free x 3/day) Sleep: Alesha reports poor sleep quality, which she attributes to her medications, including melatonin, magnesium, and gabapentin. She denies snoring but reports that her brain feels like it is racing all night. She has not had a sleep study. Exercise: She also reports post-exertional malaise, which limits her ability to exercise. 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 GI: She denies any issues with gluten, dairy, or soy products. She reports normal bowel movements and denies bloating or belching. Social/toxin: She has a history of silver fillings, which were replaced 20 years ago. She denies any clotting issues. She lives with her and has a couple of children at home. She is a nonsmoker and denies any recent exposure to toxins, but does not pay attention to toxins from cleaning/beauty products. Family history: She denies any family history of autoimmune diseases, Alzheimer's disease, or high stress levels. She has a history of seasonal allergies since childhood and had strep throat 2-3 times as a child. ALLERGIES No Known Allergies Current Outpatient Medications on File Prior to Visit Medication Sig gabapentin (NEURONTIN) 100 mg capsule Take 6 capsules by mouth daily at bedtime for 180 days. tiZANidine (ZANAFLEX) 4 mg tablet Take 2 tablets by mouth daily at bedtime. testosterone 200 mg pllt by IMPLANTATION route. naltrexone capsule 4.5 mg (CPD) Take 4.5 mg by mouth once daily. progesterone micronized (PROMETRIUM) 100 mg capsule Take 100 mg by mouth once daily. MAGNESIUM GLYCINATE ORAL Take 350 mg by mouth daily at bedtime. cholecalciferol, vitamin D3, (VITAMIN D3 ORAL) Take 250 mcg by mouth. COQ10, UBIQUINOL, ORAL Take 200 mg by mouth twice lorna (more content not included)... Normal [facility] CBC panel Auto (Bld)on 10-19 Erythrocyte distribution width (RBC) [Ratio] 12.4 % Normal 11.5-15.0 [facility] Comment on above: Order Comment: Speci men Type: BLOOD SPECIMEN Ordering Facility: [facility] Address: [address] [place] [address] Performed By: #### 5 8410-2 #### [facility] CLIA [id number] [address] [place] [address] [place] Hematocrit (Bld) [Volume fraction] 40.8 % Normal 36.0-46.0 [facility] Comment on above: Order Comment: Dre vázquez Type: BLOOD SPECIMEN Ordering Facility: [facility] Address: [address] [place] [address] Performed By: #### 5 8410-2 #### [facility] CLIA [id number] [address] [place] [address] [place] Hemoglobin (Bld) [Mass/Vol] 14.3 g/dL Normal 11.5-15.5 [facility] Comment on above: Order Comment: Speci men Type: BLOOD SPECIMEN Ordering Facility: [facility] Address: [address] [place] [address] Performed By: #### 5 8410-2 #### [facility] CLIA [id number] [address] [place] [address] [place] MCH (RBC) [Entitic mass] 31.2 pg Normal 26.0-34.0 [facility] Comment on above: Order Comment: Speci men Type: BLOOD SPECIMEN Ordering Facility: [facility] Address: [address] [place] [address] Performed By: #### 5 8410-2 #### [facility] CLIA [id number] [address] [place] [address] [place] MCHC (RBC) [Mass/Vol] 35.0 g/dL Normal 30.5-36.0 [facility] Comment on above: Order Comment: Speci men Type: BLOOD SPECIMEN Ordering Facility: [facility] Address: [address] [place] [address] Performed By: #### 5 8410-2 #### [facility] CLIA [id number] [address] [place] [address] [place] MCV (RBC) [Entitic vol] 89.1 fL Normal 80.0-100.0 [facility] Comment on above: Order Comment: Speci men Type: BLOOD SPECIMEN Ordering Facility: [facility] Address: [address] [place] [address] Performed By: #### 5 8410-2 #### [facility] CLIA [id number] [address] [place] [address] [place] Platelet mean volume (Bld) [Entitic vol] 9.8 fL Normal 9.0-12.7 [facility] Comment on above: Order Comment: Speci men Type: BLOOD SPECIMEN Ordering Facility: [facility] Address: [address] [place] [address] Performed By: #### 5 8410-2 #### [facility] CLIA [id number] [address] [place] [address] [place] Platelets (Bld) [#/Vol] 261 10*3/uL Normal 150-400 [facility] Comment on above: Order Comment: Speci men Type: BLOOD SPECIMEN Ordering Facility: [facility] Address: [address] [place] [address] Performed By: #### 5 8410-2 #### [facility] CLIA [id number] [address] [place] [address] [place] RBC (Bld) [#/Vol] 4.58 10*6/uL Normal 3.90-5.20 [facility] Comment on above: Order Comment: Speci men Type: BLOOD SPECIMEN Ordering Facility: [facility] Address: [address] [place] [address] Performed By: #### 5 8410-2 #### [facility] CLIA [id number] [address] [place] [address] [facility] [place] WBC (Bld) [#/Vol] 7.66 10*3/uL Normal 3.70-11.00 [facility] Comment on above: Order Comment: Speci men Type: BLOOD SPECIMEN Ordering Facility: [facility] Address: [address] [place] [address] Performed By: #### 5 8410-2 #### [facility] CLIA [id number] [address] [place] [address] [facility] Comprehensive metabolic 2000 panelon 10-20-2023 Albumin [Mass/Vol] 4.5 g/dL Normal 3.9-4.9 [facility] Comment on above: Order Comment: Speci men Type: BLOOD SPECIMEN Ordering Facility: [facility] Address: [address] [place] [address] Performed By: #### 5 763-8 #### [facility] CLIA [id number] [address] [place] [address] [place] ALP [Catalytic activity/Vol] 61 U/L Normal 34-123 [facility] Comment on above: Order Comment: Speci men Type: BLOOD SPECIMEN Ordering Facility: [facility] Address: [address] [place] [address] Performed By: #### 5 763-8 #### [facility] CLIA [id number] [address] [place], [place] [id number] [place] ALT With P-5'-P [Catalytic activity/Vol] 12 U/L Normal 7-38 [facility] Comment on above: Order Comment: Speci men Type: BLOOD SPECIMEN Ordering Facility: [facility] Address: [address] [place] [address] Performed By: #### 5 763-8 #### [facility] CLIA [id number] [address] [place], [place] [address] [place] Anion gap [Moles/Vol] 10 mmol/L Normal 8-15 [facility] Comment on above: Order Comment: Speci men Type: BLOOD SPECIMEN Ordering Facility: [facility] Address: [address] [place] [address] Performed By: #### 5 763-8 #### [facility] CLIA [id number] [address] [place] [address] [place] AST With P-5'-P [Catalytic activity/Vol] 13 U/L Normal 13-35 [facility] Comment on above: Order Comment: Speci men Type: BLOOD SPECIMEN Ordering Facility: [facility] Address: [address] [place] [address] Performed By: #### 5 763-8 #### [facility] CLIA [id number] [address] [place] [address] [place] Bilirubin [Mass/Vol] 0.2 mg/dL Normal 0.2-1.3 [facility] Comment on above: Order Comment: Speci men Type: BLOOD SPECIMEN Ordering Facility: [facility] Address: [address] [place] [address] Performed By: #### 5 763-8 #### [facility] CLIA [id number] [address] [place] [address] [place] Calcium [Mass/Vol] 9.4 mg/dL Normal 8.5-10.2 [facility] Comment on above: Order Comment: Speci men Type: BLOOD SPECIMEN Ordering Facility: [facility] Address: [address] [place] [address] Performed By: #### 5 763-8 #### [facility] CLIA [id number] [address] [place] [address] [place] Chloride [Moles/Vol] 105 mmol/L Normal 98-107 [facility] Comment on above: Order Comment: Speci men Type: BLOOD SPECIMEN Ordering Facility: [facility] Address: [address] [place] [address] Performed By: #### 5 763-8 #### [facility] CLIA [id number] [address] [place] [address] [place] CO2 [Moles/Vol] 24 mmol/L Normal 22-30 [facility] Comment on above: Order Comment: Speci men Type: BLOOD SPECIMEN Ordering Facility: [facility] Address: [address] [place] [address] Performed By: #### 5 763-8 #### [facility] CLIA [id number] [address] [place] [address] [place] Creatinine [Mass/Vol] 0.88 mg/dL Normal 0.58-0.96 [facility] Comment on above: Order Comment: Speci men Type: BLOOD SPECIMEN Ordering Facility: [facility] Address: [address] [place] [address] Performed By: #### 5 763-8 #### [facility] CLIA [id number] [address] [place] [address] [place] Creatinine and Glomerular filtration rate.predicted panel (S/P/Bld) 80 mL/min/1.73m??? Normal >=60 [facility] Comment on above: Order Comment: Speci men Type: BLOOD SPECIMEN Ordering Facility: [facility] Address: [address] [place] [address] Result Comment: Yajaira mated Glomerular Filtration Rate (eGFR) is calculated using the 2020 CKD-EPI creatinine equation. This equation utilizes serum creatinine, sex, and age as parameters. The creatinine assay has traceable calibration to isotope dilution-mass spectrometry. Refer to KDIGO guidelines for clinical interpretation. In patients with unstable renal function, e.g. those with acute kidney injury, the eGFR may not accurately reflect actual GFR. Performed By: #### 5 763-8 #### [facility] CLIA [id number] [address] [place] [address] [place] Glucose [Mass/Vol] 104 mg/dL High 74-99 [facility] Comment on above: Order Comment: Dre vázquez Type: BLOOD SPECIMEN Ordering Facility: [facility] Address: [address] [place] [address] Result Comment: The [place] Diabetes Association (ADA) provides guidance for cutoff values for fasting glucose and random glucose. The ADA defines fasting as no caloric intake for at least 8 hours. Fasting plasma glucose results between 100 to 125 mg/dL indicate increased risk for diabetes (prediabetes). Fasting plasma glucose results greater than or equal to 126 mg/dL meet the criteria for diagnosis of diabetes. In the absence of unequivocal hyperglycemia, results should be confirmed by repeat testing. In a patient with classic symptoms of hyperglycemia or hyperglycemic crisis, random plasma glucose results greater than or equal to 200 mg/dL meet the criteria for diagnosis of diabetes. Reference: Standards of Medical Care in Diabetes 2016, [place] Diabetes Association. Diabetes Care. 2016.39(Suppl 1). Performed By: #### 5 763-8 #### [facility] CLIA [id number] [address] [place] [address] [place] Potassium [Moles/Vol] 4.1 mmol/L Normal 3.7-5.1 [facility] Comment on above: Order Comment: Dre vázquez Type: BLOOD SPECIMEN Ordering Facility: [facility] Address: [address] [place] [address] Performed By: #### 5 763-8 #### [facility] CLIA [id number] [address] [place] [address] [place] Protein [Mass/Vol] 6.8 g/dL Normal 6.3-8.0 [facility] Comment on above: Order Comment: Dre vázquez Type: BLOOD SPECIMEN Ordering Facility: [facility] Address: [address] [place] [address] Performed By: #### 5 763-8 #### [facility] CLIA [id number] [address] [place] [address] [place] Sodium [Moles/Vol] 139 mmol/L Normal 136-144 [facility] Comment on above: Order Comment: Speci men Type: BLOOD SPECIMEN Ordering Facility: [facility] Address: [address] [place] [address] Performed By: #### 5 763-8 #### [facility] CLIA [id number] [address] [place], [place] [address] [place] [facility] Urea nitrogen [Mass/Vol] 9 mg/dL Normal 7-21 [facility] Comment on above: Order Comment: Speci men Type: BLOOD SPECIMEN Ordering Facility: [facility] Address: [address] [place] [address] Performed By: #### 5 763-8 #### [facility] CLIA [id number] [address] [place] [address] [place] [facility] RTon 11-28-19 [facility] Discharge Instructionon 11-03 Discharge Instruction [facility] Medical Records Department [address] [place] [address] Instructions for Home/Discharge Instructions 11/23/20 1146 MR#: [id number] Acct: [id number] Name: AMANDA DEAN OCTOBER Rep #: [id number] : 1970 50 From: Nataly Dobson MD PCP: Dr. Aron Ugarte MD Status:[facility] Discharge Instructions Procedure D C Diet Discharge Diet: No restrictions Activity May resume sexual activity in: 1 week Dressing / Incision Call your doctor if you observe: Fever of 101 or Higher, Inability to urinate, Using more than 1 pad per hour and Uncontrolled pain Follow Up Care Please Follow Up With: Adi Dobson MD When: 1-2 weeks post OP if you need an appointment please call [phone] Test Results: Test results from this visit will be discussed in further detail at your follow-up appointment, if applicable. Discharge Plan Admission Attending Provider: Adi Dobson Primary Care Provider: Aron Ugarte Discharge Orders/Prescriptions Prescriptions: No Action cetirizine [Zyrtec] 10 mg Tablet 10 mg PO QHS RF: 0 famotidine [Pepcid AC] 20 mg Tablet 20 mg PO DAILY RF: 0 diphenhydramine HCl [Benadryl] 25 mg Capsule 50 mg PO QHS RF: 0 Excedrin Migraine 250-250-65 mg Tablet 1 tab PO Q6H PRN (Reason: Migraine Headache) RF: 0 loratadine [Claritin] 10 mg Tablet 10 mg PO DAILY RF: 0 Iron Repair Plus 1 tab PO/SL DAILY RF: 0 Referrals / Follow Up: Aron Ugarte MD [Primary Care Provider] - Disposition Disposition (needs filled in before D/C Order can be placed): Home, Self Care 11/23/20 1147 Nataly Dobson MD CC: Dr. Aron Ugarte MD Signed Normal [facility] Operative Reporton Operative Report [facility] Medical Records Department [address] [place] [address] Operative Report 11/23/20 1141 MR#: [id number] Acct: [id number] Name: AMANDA DEAN OCTOBER Rep #: [id number] : 1970 50 From: Nataly Dobson MD PCP: Dr. Aron Ugarte MD Status:[facility] Location: [place] [address] Problems Associated Problem List Diagnoses (1) Abnormal uterine bleeding (AUB): (2) Chronic anemia: Report of Operation Date of Procedure: 11/23/20 Pre-Operative Diagnosis: AUB, chronic anemia Post-Operative Diagnosis: same Surgery/Procedure Performed:: Hysteroscopy, Ginny endometrial ablation Description of Surgical Findings:: retroverted uterus. Cavity length set at 6cm. Surgeon: Adi Dobson insole rasper: None Type of Anesthesia: MAC Specimen's removed: none Drains: none Estimated Blood Loss (mL): <5cc Fluids Replaced: 800 Description of Procedure: After informed consent was obtained patient taken to the operating room she is placed in supine position she is given anesthesia simply self insert she is prepped draped normal sterile fashion. Bladder was drained prior to the start of the procedure. At this time the weighted speculum was placed the posterior fornix of the vagina then a single-tooth tenaculum was used to grasp the anterior lip of the cervix. At this time the uterus was sounded to approximately 11 cm the endocervical canal sounded to 5 cm. Next cervix was dilated in incremental fashion. Once adequate dilatation was achieved the hysteroscope was inserted using normal saline as distention medium. On hysteroscopy difficult visualization due to blood in cavity. howevere there were no gross abnormalities that i could see. At this time the Ginny device was opened. The Ginny was set at 6cm. The device was activated. Prior to activation the field test was performed and cavity was intact. The device was then fired and activated for 120 seconds. Once the 120 seconds was completed the device was removed intact and the tenaculum was removed. Good hemostasis was appreciated. Weighted speculum was removed. Vaginal sweep was performed is negative. There were no complications. Anticipated normal postoperative course for this patient. Instrument and lap count were correct ???2. Grafts/Implants Used: none Procedure Start Time: 11:32 Procedure Stop Time: 11:41 Complications none Admit VTE Documentation VTE Present on Admission: Yes VTE Mechan Device Prophylaxis: SCD's VTE Pharm Prophylaxis ordered?: No 11/23/20 1145 Cosigner Signature (if applicable): CC: Edmar Dobson; Dr. Aron Ugarte MD Signed Normal [facility] ,Urineon 11-23-2020 Beta HCG ( test) Ql (U) Negative Normal [facility] Comment on above: Result Comment: Very dilute urine specimens, as indicated by a low specific gravity, may not contain maintenance representative levels of hCG. If is still suspected, a first morning urine specimen should be collected 48 hours later and tested. Performed By: #### L 400.7600 #### [facility] [address] [place], [address] CBC-Complete Blood Cnt No Di ffon 11-20-2020 Erythrocyte distribution width (RBC) [Ratio] 12.2 % Normal 11.6-14.6 [facility] Comment on above: Performed By: #### L 100.0500 #### [facility] [address] [place], [address] Hematocrit (Bld) [Volume fraction] 31.9 % Low 37-47 [facility] Comment on above: Performed By: #### L 100.0500 #### [facility] [address] [place], [address] Hemoglobin (Bld) [Mass/Vol] 10.5 g/dL Low 12.0-15.0 [facility] Comment on above: Performed By: #### L 100.0500 #### [facility] [address] [place], [address] MCH (RBC) [Entitic mass] 29.6 pg Normal 27.0-32.0 [facility] Comment on above: Performed By: #### L 100.0500 #### [facility] [address] [place], [address] MCHC (RBC) [Mass/Vol] 32.9 g/dL Normal 32-36 [facility] Comment on above: Performed By: #### L 100.0500 #### [facility] [address] [place], [address] MCV (RBC) [Entitic vol] 89.9 fL Normal 81-99 [facility] Comment on above: Performed By: #### L 100.0500 #### [facility] [address] [place], [address] Platelet mean volume (Bld) [Entitic vol] 9.7 fL Normal 6.2-12.0 [facility] Comment on above: Performed By: #### L 100.0500 #### [facility] [address] [place], [address] Platelets (Bld) [#/Vol] 298 10*3/uL Normal 150-450 [facility] Comment on above: Performed By: #### L 100.0500 #### [facility] [address] [place], [address] RBC (Bld) [#/Vol] 3.55 10*6/uL Low 4.2-5.4 [facility] Comment on above: Performed By: #### L 100.0500 #### [facility] [address] [place], [place], [address] RDW SD 39.8 fl Normal 35.1-43.9 [facility] Comment on above: Performed By: #### L 100.0500 #### [facility] [address] [place], [address] WBC (Bld) [#/Vol] 5.0 10*3/uL Normal 4.4-11.0 [facility] Comment on above: Performed By: #### L 100.0500 #### [facility] [address] [place], [place], [address] Vital Signs Date Time Vital Sign Value Performing Clinician Facility 10-25-2024 09:01-0400 Body height 160.[address] Aron Uagrte MD Work Phone: [facility] 10-25-2024 08:57-0400 Body mass index (BMI) [Ratio] 26.5 kg/m2 Dr. Aron Ugarte MD Work Phone: [facility] 10-25-2024 08:57-0400 Body weight 68.[address] Aron Ugarte MD Work Phone: [facility] 10-25-2024 08:57-0400 Diastolic blood pressure 73 mm[Hg] Dr. Aron Ugarte MD Work Phone: [facility] 10-25-2024 08:57-0400 Systolic blood pressure 113 mm[Hg] Dr. Aron Ugarte MD Work Phone: [facility] 09-13-2024 08:40-0400 Body temperature 98.01 [degF] Eduardo Alvarez APRN.FINANCE CONTROLLER Work Phone: [facility] 09-13-2024 08:40-0400 Diastolic blood pressure 72 mm[Hg] Eduardo Cartagenabliss MEDICAL RECEPTION SPECIALIST.FINANCE CONTROLLER Work Phone: [facility] 09-13-2024 08:40-0400 Heart rate 72 /min Eduardo Ayalaiss MEDICAL RECEPTION SPECIALIST.FINANCE CONTROLLER Work Phone: [facility] 09-13-2024 08:40-0400 SaO2% (BldA) [Mass fraction] 99 % Eduardo Cartagenabliss MEDICAL RECEPTION SPECIALIST.FINANCE CONTROLLER Work Phone: [facility] 09-13-2024 08:40-0400 Systolic blood pressure 125 mm[Hg] Eduardo Cartagenabliss MEDICAL RECEPTION SPECIALIST.FINANCE CONTROLLER Work Phone: [facility] 09-06-2024 13:29-0400 Diastolic blood pressure 78 mm[Hg] Ele Cm PA-C Work Phone: [facility] 09-06-2024 13:29-0400 Systolic blood pressure 127 mm[Hg] Eleyair Cm PA-C Work Phone: [facility] 04-07-2023 11:27-0500 Diastolic blood pressure 82 mm[Hg] Bri Dove MD Work Phone: [facility] 04-07-2023 11:27-0500 Heart rate 81 /min Bri Dove MD Work Phone: [facility] 04-07-2023 11:27-0500 Respiratory rate 16 /min Bri Dove MD Work Phone: [facility] 04-07-2023 11:27-0500 SaO2% (BldA) [Mass fraction] 100 % Bri Dove MD Work Phone: [facility] 04-07-2023 11:27-0500 Systolic blood pressure 124 mm[Hg] Bri Dove MD Work Phone: [facility] 12-03-2021 11:09-0400 Body weight 75.3 kg Bri Dove MD Work Phone: [facility] 12-03-2021 11:09-0400 Diastolic blood pressure 73 mm[Hg] Bri Dove MD Work Phone: [facility] 12-03-2021 11:09-0400 Heart rate 81 /min Bri Dove MD Work Phone: [facility] 12-03-2021 11:09-0400 SaO2% (BldA) [Mass fraction] 99 % Bri Dove MD Work Phone: [facility] 12-03-2021 11:09-0400 Systolic blood pressure 139 mm[Hg] Bri Dove MD Work Phone: [facility] 08-13-2021 16:37-0400 Body weight 73.94 kg Bri Dove MD Work Phone: [facility] 08-13-2021 16:37-0400 Diastolic blood pressure 68 mm[Hg] Bri Dove MD Work Phone: [facility] 08-13-2021 16:37-0400 Heart rate 82 /min Bri Dove MD Work Phone: [facility] 08-13-2021 16:37-0400 SaO2% (BldA) [Mass fraction] 100 % Bri Dove MD Work Phone: [facility] 08-13-2021 16:37-0400 Systolic blood pressure 107 mm[Hg] Bri Dove MD Work Phone: [facility] Encounters Encounter Date Encounter Type Care Provider Facility Start: 10-25-2024 End: 10-25-[address] 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); Malaise and fatigue; Brain fog; Myalgias; Dizziness Start: 09-13-2024 End: 09-17-2024 Telephone encounter Eduardo Alvarez APRN.CNP Work Phone: [facility] Comment on above: Appointment Start: 09-13-2024 End: 09-13-2024 ambulatory NURIA GABRIEL Facility:[facility] Start: 09-13-2024 End: 09-13-2024 Office outpatient new 60 minutes Eduardo Alvarez APRN.CNP Work Phone: [facility] Comment on above: Malaise and fatigue (Primary Dx); Post-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); Myalgias; Lightheadedness; Physical deconditioning; Activity intolerance; Sleep disturbance; Dizziness; Difficulty concentrating; Brain fog; Headaches; Vitamin D deficiency; Vertigo; Chronic fatigue syndrome; Neuropathy Start: 09-13-2024 End: 09-13-2024 ambulatory EDUARDO ALVAREZ Facility:[facility] Start: 09-10-2024 End: 09-10-2024 E-mail encounter from caregiver Eduardo Alvarez APRN.CNP Work Phone: [facility] Start: 09-10-2024 End: 09-10-2024 Patient encounter procedure Eduardo Alvarez APRN.CNP Work Phone: [facility] Comment on above: Welcome to [facility]! 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); Chronic fatigue, unspecified; Activity intolerance; Dizziness; Screening for endocrine, nutritional, metabolic and immunity disorder; Sleep disturbance; Perimenopausal disorder; Vitamin D deficiency Start: 09-06-2024 End: 09-06-2024 ambulatory ELE CM Facility:[facility] Start: 08-18-2024 End: 08-19-2024 ambulatory Bri Dove MD Work Phone: Neurology Start: 08-18-2024 End: 08-19-2024 Patient encounter procedure Bri Dove MD Work Phone: Neurology Comment on above: Referral to Marjan vazquez [facility] Start: 08-11-2024 End: 08-11-2024 ambulatory Bri Dove MD Work Phone: Neurology Comment on above: Medical Records Start: 07-22-2024 End: 07-28-2024 ambulatory Bri Dove MD Work Phone: Neurology Comment on above: guanFACINE Update Start: 06-15-2024 End: 06-15-2024 Refill Bri Dove MD Work Phone: Neurology Comment on above: Refill Request Start: 04-16-2024 End: 04-16-2024 ambulatory Bri Dove MD Work Phone: Neurology Comment on above: Post-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) Start: 04-16-2024 End: 04-16-2024 Telemedicine consultation with patient Bri Dove MD Work Phone: Neurology Start: 02-25-2024 End: 02-25-2024 Refill Bri Dove MD Work Phone: Neurology Comment on above: Refill Request Start: 12-16-2023 Refill Bri Dove MD Work Phone: Neurology Comment on above: Refill Request Start: 11-28-2023 Refill Bri Dove MD Work Phone: Neurology Comment on above: Refill Request Start: 10-20-2023 End: 10-20-2023 ambulatory BRI DOVE Facility:[facility] Start: 10-14-2023 End: 10-14-2023 ambulatory Bri Dove MD Work Phone: Neurology Comment on above: 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) Start: 10-14-2023 End: 10-14-2023 Telemedicine consultation with patient Bri Dove MD Work Phone: Neurology Start: 04-07-2023 End: 04-07-2023 Patient encounter procedure Bri Dove MD Work Phone: Neurology Comment on above: 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); Chronic daily headache Start: 12-04-2022 Refill Bri Dove MD Work Phone: Neurology Comment on above: Refill Request Start: 11-12-2022 ambulatory Bri Dove MD Work Phone: Neurology Comment on above: Appt Needs Reschedul ed : 04/18/2023 Start: 11-12-2022 E-mail encounter fro m caregiver Bri Dove MD Work Phone: [facility] Start: 11-12-2022 Telephone encounter Bri Vazquez Work Phone: Neurology Start: 07-03-2022 ambulatory Bri Dove MD Work Phone: Neurology Comment on above: Health Update Start: 05-21-2022 Refill Bri Dove MD Work Phone: Neurology Comment on above: Refill Request Start: 04-05-2022 ambulatory Nataly West MD Work Phone: OB/Gynecology Comment on above: Mammogram Start: 04-01-2022 Telephone encounter Bri Vazquez Work Phone: Neurology Comment on above: Appointment Start: 04-01-2022 End: 04-01-2022 ambulatory Bri Dove MD Work Phone: Neurology Comment on above: 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 Start: 02-08-2022 Refill Bri Dove MD Work Phone: Neurology Comment on above: Refill Request Start: 01-29-2022 Telephone encounter Bri Vazquez Work Phone: Neurology Comment on above: Insurance Authorizat ion Start: 01-28-2022 Refill Bri Dove MD Work Phone: Neurology Comment on above: Refill Request Start: 01-25-2022 ambulatory Bir Dove MD Work Phone: Neurology Comment on above: Amantadine Update Start: 12-30-2021 Refill Bri Dove MD Work Phone: Neurology Comment on above: Refill Request Start: 12-25-2021 ambulatory Bri Dove MD Work Phone: Neurology Comment on above: Update Start: 12-03-2021 End: 12-03-2021 Patient encounter procedure Bri Dove MD Work Phone: Neurology Comment on above: 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); Menstrual migraine without status migrainosus, not intractable; Chronic daily headache Start: 11-30-2021 Refill Bri Dove MD Work Phone: Neurology Comment on above: Refill Request Start: 11-27-2021 Telephone encounter Melanie burnett APRN.FINANCE CONTROLLER Work Phone: OB/Gynecology Comment on above: Orders Start: 11-27-2021 End: 11-27-2021 Subsequent hospital visit by physician Diagnostic Mammo [facility] Mammogram Comment on above: Breast calcification s [R92.1] Start: 11-19-2021 Refill Bri Dove MD Work Phone: Neurology Comment on above: Refill Request Start: 10-29-2021 Refill Bri Dove MD Work Phone: Neurology Comment on above: Refill Request Start: 10-23-2021 Telephone encounter Nataly West MD Work Phone: Mammogram Comment on above: Orders Start: 08-16-2021 ambulatory Bri Dove MD Work Phone: [facility] Start: 08-16-2021 Follow-up encounter Bri Vazquez Work Phone: Neurology Comment on above: Follow-Up Question Start: 08-13-2021 End: 08-13-2021 Patient encounter procedure Bri Dove MD Work Phone: Neurology Comment on above: 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 Luann Ugarte MD Work Phone: [facility] Procedures Date Procedure Procedure Detail Performing Clinician Start: 12-01-2021 Adult depression scr eening assessment Bri Dove MD Work Phone: Start: 11-27-2021 Diagnostic mammograp hy computer-aided detcj uni Melanie Murciaf MEDICAL RECEPTION SPECIALIST.FINANCE CONTROLLER Work Phone: Start: 02-26-2021 Adult depression scr eening assessment Bri Dove MD Work Phone: Start: 07-21-2020 Lipid 1996 panel - S jan or Plasma Bri Dove MD Work Phone: Start: 05-17-2020 Colonoscopy Bri Vazquez Work Phone: Start: 03-28-2020 Mammography Bri Vazquez Work Phone: Plan of Treatment Date Care Activity Detail Author Start: 09-14-2027 Diabetes Screening Diabetes Screening [facility] Start: 10-19-2026 Diabetes Screening Diabetes Screening [facility] Start: 03-09-2026 HPV TESTING HPV TESTING [facility] Start: 03-09-2026 PAP TESTING PAP TESTING [facility] Start: 03-09-2026 Screening for malignant neoplasm of cervix Cervical Cancer Screening [facility] Start: 10-14-2025 DIABETES SCREEN DIABETES SCREEN [facility] Start: 10-14-2025 Diabetes Screening Diabetes Screening [facility] Start: 07-21-2025 Lipid 1996 panel - Serum or Plasma Lipid Screening [facility] Start: 07-21-2025 Lipid panel Lipid Screening [facility] Start: 07-21-2025 LIPID SCREEN LIPID SCREEN [facility] Start: 05-17-2025 Colonoscopy COLONOSCOPY [facility] Start: 05-17-2025 COLORECTAL CANCER SCREENING COLORECTAL CANCER SCREENING [facility] Start: 05-17-2025 Screening for malignant neoplasm of colon [facility] Start: 01-24-2025 End: 01-24-2025 Patient encounter procedure 01/24/2025 11:00 AM EDT Office Visit Sleep Disorders [facility] [address] [place] [address] Ally Martin DO [address] [place] [address] Dx: Post-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) [U09.9]; Malaise and fatigue [R53.81, R53.83]; Myalgias [M79.10]; Chronic fatigue syndrome [G93.32]; Neuropathy [G62.9] Sleep Disorders [facility] Comment on above: Dx: Post-acute 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 (PAS C) [U09.9]; Malaise and fatigue [R53.81, R53.83]; Myalgias [M79.10]; Chronic fatigue syndrome [G93.32]; Neuropathy [G62.9] Start: 01-03-2025 Influenza vaccination Influenza Vaccine (Season Ended) [facility] Start: 12-17-2024 End: 12-17-2024 Patient encounter procedure 12/17/2024 1:30 PM EDT Office Visit Otolaryngology [address] [address] Fortino Valderrama MD [address] [place] [address] Dx: Post-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) [U09.9]; Dizziness [R42]; Vertigo [R42] Otolaryngology Comment on above: Dx: Post-acute 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 (PAS C) [U09.9]; Dizziness [R42]; Vertigo [R42] Start: 12-17-2024 End: 12-17-2024 Patient encounter procedure Audiology Comment on above: Dx: Post-acute 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 (PAS C) [U09.9]; Dizziness [R42]; Vertigo [R42] Start: 11-23-2024 End: 11-23-2024 Patient encounter procedure 11/23/2024 11:30 AM EDT Office Visit Rheumatology [address] [address] Linda Headley PA-C [address] [place] [address] Dx: Post-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) [U09.9]; Malaise and fatigue [R53.81, R53.83]; Chronic fatigue syndrome [G93.32] Rheumatology Comment on above: Dx: Post-acute 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 (PAS C) [U09.9]; Malaise and fatigue [R53.81, R53.83]; Chronic fatigue syndrome [G93.32] Start: 11-01-2024 End: 11-01-2024 ambulatory 11/01/2024 11:30 AM EDT [facility] Neurology [address] [place] [address] Bri Dove MD [address] [place] [address] PASC f/u Neurology Comment on above: PASC f/u Start: 10-29-2024 End: 10-29-2024 Patient encounter procedure 10/29/2024 11:30 AM EDT Office Visit Neurology [address] [place] [address] Bri Dove MD [address] [place] [address] PASC f/u Neurology Comment on above: PASC f/u Start: 10-04-2024 End: 10-04-2024 ambulatory 10/04/2024 8:30 AM EDT OT/PT/Speech Visit Speech Therapy [facility] [address] [place] [address] Marina Bonilla, [facility] [employer]AT[employer] WORKER [address] [place] [address] Dx: Post-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) [U09.9]; Difficulty concentrating [R41.840]; Brain fog [R41.89] Speech Therapy [facility] Comment on above: Dx: Post-acute 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 (PAS C) [U09.9]; Difficulty concentrating [R41.840]; Brain fog [R41.89] Start: 09-14-2024 End: 09-14-2024 ambulatory 09/14/2024 2:30 PM EDT [facility] [address] [place] [address] Jarod Gordon MD [address] [place] [address] Dx: Post-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) [U09.9]; Malaise and fatigue [R53.81, R53.83]; Myalgias [M79.10]; Lightheadedness [R42]; Physical deconditioning [R53.81]; Activity intolerance [R68.89]; Sleep disturbance [G47.9]; Dizziness [R42]; Difficulty concentrating [R41.840]; Brain fog [R41.89]; Headaches [R51.9]; Vitamin D deficiency [E55.9]; Vertigo [R42]; Chronic fatigue syndrome [G93.32] [facility] Comment on above: Dx: Post-acute 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 (PAS C) [U09.9]; Malaise and fatigue [R53.81, R53.83]; Myalgias [M79.10]; Lightheadedness [R42]; Physical deconditioning [R53.81]; Activity intolerance [R68.89]; Sleep disturbance [G47.9]; Dizziness [R42]; Difficulty concentrating [R41.840]; Brain fog [R41.89]; Headaches [R51.9]; Vitamin D deficiency [E55.9]; Vertigo [R42]; Chronic fatigue syndrome [G93.32] Start: 09-13-2024 End: 12-13-2024 C reactive protein [Mass/volume] in Serum or Plasma [facility] Work Phone: Comment on above: Expected: 09/13/2024, Expires: Start: 09-13-2024 End: 09-13-2024 Patient encounter procedure Pulmonology [facility] Comment on above: [facility], [facility] Covid [facility], [facility], Start: 09-06-2024 End: 12-06-2024 Ascorbate [Mass/volume] in Serum or Plasma VITAMIN C Lab Routine Chronic fatigue, unspecified Activity intolerance Expected: 09/06/2024, Expires: 12/06/2024 [facility] Comment on above: Expected: 09/06/2024, Expires: Start: 09-06-2024 End: 12-06-2024 C reactive protein [Mass/volume] in Serum or Plasma by High sensitivity method HIGH SENSITIVITY C-REACTIVE PROTEIN Lab Routine Chronic fatigue, unspecified Screening for endocrine, nutritional, metabolic and immunity disorder Expected: 09/06/2024 (Approximate), Expires: 12/06/2024 [facility] Comment on above: Expected: 09/06/2024 (Approximate), Expi res: 12/06/2024 Start: 09-06-2024 End: 12-06-2024 CBC W Auto Differential panel - Blood COMPLETE BLOOD COUNT AND DIFFERENTIAL Lab Routine Chronic fatigue, unspecified Expected: 09/06/2024, Expires: 12/06/2024 [facility] Comment on above: Expected: 09/06/2024, Expires: Start: 09-06-2024 End: 12-06-2024 Cobalamin (Vitamin B12) [Mass/volume] in Serum or Plasma VITAMIN B12 Lab Routine Chronic fatigue, unspecified Screening for endocrine, nutritional, metabolic and immunity disorder Expected: 09/06/2024, Expires: 12/06/2024 [facility] Comment on above: Expected: 09/06/2024, Expires: Start: 09-06-2024 End: 12-06-2024 Comprehensive metabolic 2000 panel - Serum or Plasma COMPREHENSIVE METABOLIC PANEL Lab Routine Chronic fatigue, unspecified Expected: 09/06/2024, Expires: 12/06/2024 [facility] Comment on above: Expected: 09/06/2024, Expires: Start: 09-06-2024 End: 12-06-2024 Folate [Mass/volume] in Serum or Plasma FOLATE, SERUM Lab Routine Chronic fatigue, unspecified Screening for endocrine, nutritional, metabolic and immunity disorder Expected: 09/06/2024, Expires: 12/06/2024 [facility] Comment on above: Expected: 09/06/2024, Expires: Start: 09-06-2024 End: 12-06-2024 GLUTATHIONE TOTAL GLUTATHIONE TOTAL Lab Routine Chronic fatigue, unspecified Screening for endocrine, nutritional, metabolic and immunity disorder Expected: 09/06/2024, Expires: 12/06/2024 [facility] Comment on above: Expected: 09/06/2024, Expires: Start: 09-06-2024 End: 12-06-2024 Homocysteine [Moles/volume] in Serum or Plasma HOMOCYSTEINE Lab Routine Chronic fatigue, unspecified Screening for endocrine, nutritional, metabolic and immunity disorder Expected: 09/06/2024, Expires: 12/06/2024 [facility] Comment on above: Expected: 09/06/2024, Expires: Start: 09-06-2024 End: 12-06-2024 Magnesium [Mass/volume] in Serum or Plasma MAGNESIUM Lab Routine Chronic fatigue, unspecified Sleep disturbance Expected: 09/06/2024, Expires: 12/06/2024 [facility] Comment on above: Expected: 09/06/2024, Expires: Start: 09-06-2024 End: 12-06-2024 OMEGACHECK OMEGACHECK Lab Routine Chronic fatigue, unspecified Screening for endocrine, nutritional, metabolic and immunity disorder Expected: 09/06/2024, Expires: 12/06/2024 [facility] Comment on above: Expected: 09/06/2024, Expires: Start: 09-06-2024 End: 12-06-2024 Pyridoxine [Mass/volume] in Serum or Plasma VITAMIN B6/PYRIDOXIN Lab Routine Chronic fatigue, unspecified Screening for endocrine, nutritional, metabolic and immunity disorder Expected: 09/06/2024, Expires: 12/06/2024 [facility] Comment on above: Expected: 09/06/2024, Expires: Start: 09-06-2024 End: 12-06-2024 Thyrotropin [Units/volume] in Serum or Plasma THYROID STIMULATING HORMONE Lab Routine Chronic fatigue, unspecified Screening for endocrine, nutritional, metabolic and immunity disorder Expected: 09/06/2024, Expires: 12/06/2024 [facility] Comment on above: Expected: 09/06/2024, Expires: Start: 09-06-2024 End: 12-06-2024 Thyroxine (T4) free [Mass/volume] in Serum or Plasma T4 FREE/FREE THYROXINE Lab Routine Chronic fatigue, unspecified Screening for endocrine, nutritional, metabolic and immunity disorder Expected: 09/06/2024, Expires: 12/06/2024 [facility] Comment on above: Expected: 09/06/2024, Expires: Start: 09-06-2024 End: 12-06-2024 Triiodothyronine (T3) Free [Mass/volume] in Serum or Plasma T3, FREE Lab Routine Chronic fatigue, unspecified Screening for endocrine, nutritional, metabolic and immunity disorder Expected: 09/06/2024, Expires: 12/06/2024 [facility] Comment on above: Expected: 09/06/2024, Expires: Start: 09-06-2024 End: 12-06-2024 Zinc [Mass/volume] in Serum or Plasma ZINC BLD Lab Routine Chronic fatigue, unspecified Screening for endocrine, nutritional, metabolic and immunity disorder Expected: 09/06/2024, Expires: 12/06/2024 [facility] Work Phone: Comment on above: Expected: 09/06/2024, Expires: Start: 04-16-2024 End: 04-16-2024 ambulatory 04/16/2024 4:00 PM [facility] Neurology [address] [id number] Bri Dove MD [address] [id number] [facility] f/u Neurology Comment on above: [facility] Start: 01-04-2024 Covid-19 Vaccine () Covid-19 Vaccine () [facility] Start: 01-04-2024 Influenza vaccination [facility] Start: 10-20-2023 End: 10-20-2023 ambulatory 10/20/2023 1:00 PM EDT Results Only [facility] [address] [place] [id number] [facility] Start: 10-14-2023 End: 01-13-2024 CBC panel - Blood by Automated count COMPLETE BLOOD COUNT Lab Routine Post-acute 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 ([facility]) Expected: 10/14/2023, Expires: 01/13/2024 [facility] Work Phone: Comment on above: Expected: 10/14/2023, Expires: Start: 10-14-2023 End: 01-13-2024 Comprehensive metabolic 2000 panel - Serum or Plasma COMPREHENSIVE METABOLIC PANEL Lab Routine Post-acute 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 ([facility]) Expected: 10/14/2023, Expires: 01/13/2024 [facility] Comment on above: Expected: 10/14/2023, Expires: Start: 07-22-2023 DIABETES SCREEN DIABETES SCREEN [facility] Start: 06-12-2023 Screening for malignant neoplasm of breast Mammogram Screening [facility] Start: 05-05-2023 Behavioral Health Screening Behavioral Health Screening [facility] Start: 01-03-2023 Covid-19 Vaccine ( season) Covid-19 Vaccine ( season) [facility] Start: 01-03-2023 Influenza vaccination [facility] Start: 12-01-2022 Adult depression screening assessment DEPRESSION SCREENING [facility] Start: 2022 Pneumococcal Vaccine: 50+ (1 of 1 - PCV) Pneumococcal Vaccine: 50+ (1 of 1 - PCV) [facility] Start: 2022 SHINGRIX VACCINE (1 of 2) SHINGRIX VACCINE (1 of 2) [facility] Start: 05-05-2022 DEPRESSION ASSESSMENT DEPRESSION ASSESSMENT [facility] Start: 02-26-2022 Adult depression screening assessment DEPRESSION SCREENING [facility] Start: 01-08-2022 Urine microalbumin profile [facility] Start: 01-03-2022 Influenza vaccination INFLUENZA (#1) [facility] Start: 05-05-2021 DEPRESSION ASSESSMENT DEPRESSION ASSESSMENT [facility] Start: 03-28-2021 Mammography [facility] Start: 01-18-2021 COVID-19 VACCINE (3 - Booster for Pfizer series) COVID-19 VACCINE (3 - Booster for Pfizer series) [facility] Start: 10-13-2020 COVID-19 VACCINE (3 - Booster for Pfizer series) COVID-19 VACCINE (3 - Booster for Pfizer series) [facility] Start: 10-13-2020 COVID-19 VACCINE (3 - Pfizer series) COVID-19 VACCINE (3 - Pfizer series) [facility] Start: 2017 COLOGUARD (FIT-DNA) COLOGUARD (FIT-DNA) [facility] Start: [address] COLONOGRAPHY [facility] Start: 2017 FECAL OCCULT BLOOD FECAL OCCULT BLOOD [facility] Start: 2017 Screening for malignant neoplasm of colon [facility] Start: 2017 SIGMOIDOSCOPY SIGMOIDOSCOPY [facility] Start: 10-07-1991 Hepatitis B Vaccine (1 of 3 - 19+ 3-dose series) Hepatitis B Vaccine (1 of 3 - 19+ 3-dose series) [facility] Start: 1990 Anxiety Screening Anxiety Screening [facility] Start: 1990 Depression Screening Depression Screening [facility] Start: 1972 HEPATITIS B (1 of 3 - 3-dose series) HEPATITIS B (1 of 3 - 3-dose series) [facility] Start: 1972 Hepatitis B Vaccine (1 of 3 - 3-dose series) Hepatitis B Vaccine (1 of 3 - 3-dose series) [facility] CBC W Auto Different ial panel - Blood [facility] Comprehensive metabo lic 2000 panel - Serum or Plasma [facility] End: 11-22-2022 Diagnostic mammography computer-aided detcj uni [facility] DIAGNOSTIC RT Radiology Routine Breast calcifications 1 Occurrences starting 10/23/2021 until 11/22/2022 [facility] Work Phone: Comment on above: 1 Occurrences starting 10/23/2021 until 11/22/2022 End: 12-27-2022 Diagnostic mammography computer-aided detcj uni ELYSE DIAGNOSTIC RT Radiology Routine Follow-up examination of abnormal mammogram 1 Occurrences starting 11/27/2021 until 12/27/2022 [facility] Work Phone: Comment on above: 1 Occurrences starting 11/27/2021 until 12/27/2022 Liquid based cervica l cytology screening [facility] End: 05-05-2023 ELYSE SCREENING W DEBRA ELYSE SCREENING W DEBRA Radiology Routine Encounter for screening mammogram for malignant neoplasm of breast 1 Occurrences starting 04/08/2022 until 05/05/2023 [facility] Work Phone: Comment on above: 1 Occurrences starting 04/08/2022 until 05/05/2023 T4 free measurement [facility] Thyroid stimulating hormone measurement [facility] End: 12-27-2022 Us breast uni real time with image limited US BREAST LTD RT Radiology Routine Follow-up examination of abnormal mammogram 1 Occurrences starting 11/27/2021 until 12/27/2022 [facility] Work Phone: Comment on above: 1 Occurrences starting 11/27/2021 until 12/27/2022 US Pelvis [facility] Immunizations Immunization Date Immunization Notes Care Provider [place] 03-09-2021 influenza, injectabl e, quadrivalent, contains preservative Bri Dove MD Work Phone: [facility] 03-09-2021 influenza virus vaccine, unspecified formulation Bri Dove MD Work Phone: [facility] 08-18-2020 COVID-19 vaccine, ag e 12+ yr (PFIZER-BIONTECH - PURPLE TOP) Bri Dove MD Work Phone: [facility] Work Phone: 07-28-2020 COVID-19 vaccine, ag e 12+ yr (PFIZER-BIONTECH - PURPLE TOP) Bri Dove MD Work Phone: [facility] Work Phone: 01-09-2012 influenza virus vaccine, unspecified formulation Bri Dove MD Work Phone: [facility] 01-09-2012 tetanus toxoid, redu thiago diphtheria toxoid, and acellular pertussis vaccine, adsorbed Bri Dove MD Work Phone: [facility] Payers Date Payer Category Payer Private Health Insurance [employer] PPO [id number] 2024 Unknown [id number] 2020 [employer] BLUE ACCE PPO [id number] 2020 Unknown [facility] [id number] 2020-Present [phone] [address] [place] [id number] O [id number] 2020 Unknown [facility] [id number] 2020-Present [phone] [address] [place] [address] [facility] [id number] 2020 Unknown [id number] Social History Date Type Detail Facility Start: 01-09-2012 End: 10-25-2024 Tobacco smoking status NHIS Never smoked tobacco [facility] Start: 01-09-2012 Tobacco use and exposure Smoke less tobacco non-user [facility] Start: 06-01-2021 End: 09-13-2024 Alcohol intake Current drinker of alcohol (finding) [facility] Start: 01-09-2012 History SDOH Alcohol Comment socially [facility] Start: 1970 Sex Assigned At Female [facility] Start: 08-03-2021 End: 12-03-2021 Exposure to SARS-CoV-2 (event) Not sure [facility] Start: 10-11-2022 End: 09-07-2024 History of Social function [facility] [facility] Start: 10-11-2022 End: 09-07-2024 Tobacco use panel [facility] Adult Depression Screening Assessment 1 [facility] Start: 03-26-2020 Gender identity Identifies as female gender (finding) [facility] Start: 03-26-2020 Sexual orientation Heterosexual (gagan abarca) [facility] Clinical Notes 11-17-2020 to 09-17-2024 Telephone Encounter - Paulina Tate - 09/17/2024 10:41 AM EDTTelephone Encounter - Paulina Tate - 09/17/2024 10:41 AM EDTTelephone Encounter - Klarissa Jacobs PSS - 09/13/2024 2:48 PM EDT Note Date & Type Note Facility 09-17-2024 Telephone encounter Note 2nd attempt: LVM to schedule 3rd attempt: Sent MC message [facility] 09-17-2024 Miscellaneous Notes 2nd attempt: LVM to schedule 3rd attempt: Sent MC message Called patient to schedule 6 week virtual follow up with Eduardo Alvarez, 1st attempt, left VM. ----- Message from Eduardo Alvarez APRN.CNP sent at 09/13/2024 11:56 AM EDT ----- Hi there, Please assist with scheduling the following appointments/ consults as ordered; Virtual follow up with myself in 6-8 weeks. Please respond when done Thanks, Gilmar Alvarez APRN.CNP documented in this encounter [facility] 09-14-2024 History of Present illness Narrative Images from the original note were not included. Consultation requested by Eduardo Antonio, MEDICAL RECEPTION SPECIALIST, FINANCE CONTROLLER for an opinion regarding Long COVID. My final recommendations will be communicated back to the requesting physician by way of shared Medical record or letter to requesting physician via [place] mail. 53 year old female virtual visit for an Integrative Medicine consultation (Dept of Wellness & Preventive Medicine, [facility]) I have communicated my name and active licensure. The patient's identity and physical location were verified at the time of this visit. Either the patient or their legal maintenance representative has been informed of the risks and benefits of -- and alternatives to -- treatment through a remote evaluation and consents to proceed with the evaluation remotely. 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 Will increase LDN from 4.5 mg to 6 mg per day Add N-acetyl cysteine 600 mg 2 times a day Follow up after 2-3 weeks from the start date of LDN 6 mg (via Akimbo message) HISTORY OF PRESENT ILLNESS: Chief complaint -- Long COVID BW around 165 lbs Presumed COVID infection in Mar 2020 ( had COVID), tested positive in Dec 2022 Feeling lingering sx of fatigue, brain fog, dizziness, insomnia, myalgia since 2019 Has seen a holistic doctor Started LDN 4.5 mg per day since 2022 Migraine and insomnia got partially better but there was no improvement in fatigue and brain fog Saw Ele Barrett PA-C at Wellness dept on 09/06/2024 Visited [facility] first time on 09/14/2024 Patient-Entered Questionnaires 07/17/2021 04/13/2024 08/30/2024 [facility] Physical Function PROMIS Physical Function T-Score 41 (mild dysfunction) 44 (mild dysfunction) 41 (mild dysfunction) 03/26/2022 08/30/2024 [facility] Pain Interference PROMIS Pain Interference T-Score (range: 10 - 90) 62 (moderate) 53 (within normal limits) 06/13/2021 07/17/2021 08/30/2024 [facility] Fatigue PROMIS Fatigue T-Score 63 (moderate) 63 (moderate) 69 (moderate) 06/13/2021 07/17/2021 08/30/2024 [facility] Satisfaction with Social Roles PROMIS - Satisfaction with Participation in Social Roles T-Score 45 (Average) 42 (Average) 39 (Low) 08/30/2024 [facility] Anxiety PROMIS Anxiety T-Score 52 (within normal limits) 02/26/2021 08/30/2024 [facility] Sleep Disturbance PROMIS Sleep Disturbance T-Score 63 (moderate) 72 (severe) 08/30/2024 04/13/2024 10/12/2023 PROMIS NEUROQOL COGNITIVE T-SCORE PROMIS Neuroqol Cognitive T-Score 48 (within normal limits) 44 (mild dysfunction) 44 (mild dysfunction) REVIEW OF SYSTEMS See flow sheet for details GENERAL: + fatigue. No fever. No weight loss. HEENT: No headache, No Nasal congestion NECK: No neck pain RESPIRATORY: No cough or SOB. CARDIOVASCULAR: No CP, palpitations, or skipped heart beat. GI: no N/V. No Constipation, bloating, heartburn. No gassiness or pain. : No pain or frequency. MUSCULOSKELETAL: No Joint pain. No muscle aches and pain, arthritis, stiffness, or weakness. SKIN: No rash or hives. No hair loss. PSYCH: No anxiety, no depression. NEURO: + dizziness. PHYSICAL EXAMINATION (virtual) General Pleasant and in no acute distress, Well appearing, Alert, Well dressed and groomed HEENT Head normocephalic Chest and Lungs Symmetrical chest rise, Unlabored breathing, Speaking in full sentences, Neuro Normal in appearance Alert and oriented x 3, Normal gait, Normal speech Psych Normal motor behavior, Good eye contact, Attentive, Normal thought processes, Follows commands appropriately PAST MEDICAL HISTORY Diagnosis Date Anemia COVID-19 Intractable migraine with aura Kidney stone PAST SURGICAL HISTORY Procedure Laterality Date COLONOSCOPY - DIAGNOSTIC 05/17/2020 EGD 05/17/2020 EYE SURGERY HX HYSTEROSCOPY, DIAGNOSTIC (SEPARATE 11/23/2020 LASIK S ABLATION GINNY [id number] 11/23/2020 Hysteroscopy, Ginny endometrial ablation @ [facility]-Dr. West UNSPECIFIED ORAL SURGERY PROCEDURE, BY REPORT wisdom teeth ALLERGIES No Known Allergies Current Outpatient Medications on File Prior to Visit Medication Sig gabapentin (NEURONTIN) 100 mg capsule Take 6 capsules by mouth daily at bedtime for 180 days. tiZANidine (ZANAFLEX) 4 mg tablet Take 2 tablets by mouth daily at bedtime. testosterone 200 mg pllt by IMPLANTATION route. naltrexone capsule 4.5 mg (CPD) Take 4.5 mg by mouth once daily. progesterone micronized (PROMETRIUM) 100 mg capsule Take 100 mg by mouth once daily. MAGNESIUM GLYCINATE ORAL Take 350 mg by mouth daily at bedtime. cholecalciferol, vitamin D3, (VITAMIN D3 ORAL) Take 250 mcg by mouth. COQ10, UBIQUINOL, ORAL Take 200 mg by mouth twice daily. riboflavin, vitamin B2, (VITAMIN B-2 ORAL) Take by mouth. Melatonin 5 mg cap Take by mouth. BILL twice daily. ibuprofen (MOTRIN) 600 mg tablet Take 1 tablet by mouth every 6 hours as needed. loratadine (CLARITIN) 10 mg tablet Take 10 mg by mouth as needed. iron bis-glycinat/vit C/FA/B12 (GENTLE IRON ORAL) Take by mouth. No current facility-administered medications on file prior to visit. FAMILY HISTORY Problem Relation Age of Onset Hypertension Mother Thyroid Mother Breast Cancer Mother Ischemic Heart Disease Father Diabetes Father Colon Cancer Father 63 Stroke Maternal Grandmother other (parkinson's) Maternal Grandfather Diabetes Paternal Grandmother Cancer Paternal Grandmother ovarian other (kidney stone) Sister Breast Cancer Paternal Aunt in her 60s (Assessment and Plan are described above) I spent a total of 40 minutes on the date of the service which included preparing to see the patient, [id number] patient care, completing clinical documentation, obtaining and/or reviewing separately obtained history, performing a medically appropriate examination, counseling and educating the patient/family/caregiver, and ordering medications, tests, or procedures. Jarod Gordon MD 09/14/2024 Weight 144 5ft 3in documented in this encounter [facility] 09-14-2024 Note HNO ID: [id number] Author: JAROD GORDON MD Service: ? Author Type: Physician Type: Progress Notes Filed: 09/14/2024 14:59 Note Text: Consultation requested by Eduardo Alvarez APRN, ASMITA for an opinion regarding Long COVID. My final recommendations will be communicated back to the requesting physician by way of shared Medical record or letter to requesting physician via [place] mail. 53 year old female virtual visit for an Integrative Medicine consultation (Dept of Wellness AND Preventive Medicine, [facility]) I have communicated my name and active licensure. The patient's identity and physical location were verified at the time of this visit. Either the patient or their legal maintenance representative has been informed of the risks and benefits of -- and alternatives to -- treatment through a remote evaluation and consents to proceed with the evaluation remotely. 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 Will increase LDN from 4.5 mg to 6 mg per day Add N-acetyl cysteine 600 mg 2 times a day Follow up after 2-3 weeks from the start date of LDN 6 mg (via Akimbo message) HISTORY OF PRESENT ILLNESS: Chief complaint -- Long COVID BW around 165 lbs Presumed COVID infection in Mar 2020 ( had COVID), tested positive in Dec 2022 Feeling lingering sx of fatigue, brain fog, dizziness, insomnia, myalgia since 2019 Has seen a holistic doctor Started LDN 4.5 mg per day since 2022 Migraine and insomnia got partially better but there was no improvement in fatigue and brain fog Saw Ele Barrett PA-C at Wellness dept on 09/06/2024 Visited [facility] first time on 09/14/2024 Patient-Entered Questionnaires 07/17/2021 04/13/2024 08/30/2024 [facility] Physical Function PROMIS Physical Function T-Score 41 (mild dysfunction) 44 (mild dysfunction) 41 (mild dysfunction) 03/26/2022 08/30/2024 [facility] Pain Interference PROMIS Pain Interference T-Score (range: 10 - 90) 62 (moderate) 53 (within normal limits) 06/13/2021 07/17/2021 08/30/2024 [facility] Fatigue PROMIS Fatigue T-Score 63 (moderate) 63 (moderate) 69 (moderate) 06/13/2021 07/17/2021 08/30/2024 [facility] Satisfaction with Social Roles PROMIS - Satisfaction with Participation in Social Roles T-Score 45 (Average) 42 (Average) 39 (Low) 08/30/2024 [facility] Anxiety PROMIS Anxiety T-Score 52 (within normal limits) 02/26/2021 08/30/2024 [facility] Sleep Disturbance PROMIS Sleep Disturbance T-Score 63 (moderate) 72 (severe) 08/30/2024 04/13/2024 10/12/2023 PROMIS NEUROQOL COGNITIVE T-SCORE PROMIS Neuroqol Cognitive T-Score 48 (within normal limits) 44 (mild dysfunction) 44 (mild dysfunction) REVIEW OF SYSTEMS See flow sheet for details GENERAL: + fatigue. No fever. No weight loss. HEENT: No headache, No Nasal congestion NECK: No neck pain RESPIRATORY: No cough or SOB. CARDIOVASCULAR: No CP, palpitations, or skipped heart beat. GI: no N/V. No Constipation, bloating, heartburn. No gassiness or pain. : No pain or frequency. MUSCULOSKELETAL: No Joint pain. No muscle aches and pain, arthritis, stiffness, or weakness. SKIN: No rash or hives. No hair loss. PSYCH: No anxiety, no depression. NEURO: + dizziness. PHYSICAL EXAMINATION (virtual) General Pleasant and in no acute distress, Well appearing, Alert, Well dressed and groomed HEENT Head normocephalic Chest and Lungs Symmetrical chest rise, Unlabored breathing, Speaking in full sentences, Neuro Normal in appearance Alert and oriented x 3, Normal gait, Normal speech Psych Normal motor behavior, Good eye contact, Attentive, Normal thought processes, Follows commands appropriately PAST MEDICAL HISTORY Diagnosis Date Anemia COVID-19 Intractable migraine with aura Kidney stone PAST SURGICAL HISTORY Procedure Laterality Date COLONOSCOPY - DIAGNOSTIC 05/17/2020 EGD 05/17/2020 EYE SURGERY HX HYSTEROSCOPY, DIAGNOSTIC (SEPARATE 11/23/2020 LASIK S ABLATION GINNY [id number] 11/23/2020 [facility] UNSPECIFIED ORAL SURGERY PROCEDURE, BY REPORT wisdom teeth ALLERGIES No Known Allergies Current Outpatient Medications on File Prior to Visit Medication Sig gabapentin (NEURONTIN) 100 mg capsule Take 6 capsules by mouth daily at bedtime for 180 days. tiZANidine (ZANAFLEX) 4 mg tablet Take 2 tablets by mouth daily at bedtime. testosterone 200 mg pllt by IMPLANTATION route. naltrexone capsule 4.5 mg (CPD) Take 4.5 mg by mouth once daily. progesterone micronized (PROMETRIUM) 100 mg capsule Take 100 mg by mouth once daily. MAGNESIUM GLYCINATE ORAL Take 350 mg by mouth daily at bedtime. cholecalciferol, vitamin D3, (VITAMIN D3 ORAL) Take 250 mcg by mouth. COQ10, UBIQUINOL, ORAL Take 200 mg by mouth twice daily. riboflavin, (more content not included)... [place] 09-14-2024 Note HNO ID: [id number] Author: NAYANA MONCADA MA Service: ? Author Type: Yeast Supervisor Type: Progress Notes Filed: 09/14/2024 14:59 Note Text: Weight 144 5ft 3in [place] 09-13-2024 Telephone encounter Note Called patient to schedule 6 week virtual follow up with Eduardo Alvarez, 1st attempt, left VM. [facility] 09-13-2024 Telephone encounter Note ----- Message from Eduardo Alvarez APRN.FINANCE CONTROLLER sent at 09/13/2024 11:56 AM EDT ----- Hi there, Please assist with scheduling the following appointments/ consults as ordered; Virtual follow up with myself in 6-8 weeks. Please respond when done Thanks, Gilmar Alvarez APRN.FINANCE CONTROLLER [facility] 09-13-2024 Instructions Eduardo Alvarez APRN.CNP - 09/13/2024 9:28 AM EDT Welcome to [facility]! The 'COV' represents SARS-CoV-2, also known as COVID-19. Our clinic's mission is to assess and guide individuals who are experiencing long-term effects of COVID-19 to state of the art care paths tailored to fit each person. You just had your initial visit with the [facility]! Next, you will be undergoing additional tests to further assess your current symptoms. Once you have these tests completed, you will have another visit to review these results. We will then direct you down the appropriate care path with a specialist for further treatment based on those results and your current symptoms. We would like to continue to monitor your health over the next 12 months following your visit to the [facility] Recovery Department. You will receive an invitation in your [employer] account asking you to complete questionnaires at 3, 6. 9 and 12 months after your visit to the department. The questionnaires will be similar to those you completed prior to your visit asking about fatigue, mental function, sleep disturbance, depression, anxiety and your quality of life. - The [facility] Team You may have your labs as walk-in appointments at a [facility] facility. We will schedule you for and our virtual follow up today before you leave. If you need to reach us the best way is to call [phone] and ask for [facility]. documented in this encounter [facility] 09-13-2024 History of Present illness Narrative Images from the original note were not included. [facility] Initial Evaluation Amanda Dean presents to [facility] at the request of Bri Dove MD for evaluation of prolonged, > 28 days, symptoms attributed to COVID-19 infection. They have requested this consultation via eConsult and will be communicated to via the EMR or [place] Post Office Correspondence. Positive COVID-19 Test: yes Date of Positive Test: : 03/08/2020 (presumed, tested positive in ER) 12/2022 HISTORY OF PRESENT ILLNESS HPI: Amanda Dean is a 53 year old female with primary symptoms as listed below: Description of their course of COVID-19 illness. 1. Symptoms began on 2019 2. Hospitalization? No 3. Was the patient on oxygen? No 4. Was patient discharged on oxygen? No 5. Was there an ICU stay? No 6. Was the patient intubated? No 7. Were there any COVID-19 medications given? No 8. Were there significant complications from the patients COVID-19 Illness? No 9. Has the patient received the COVID Vaccine? Initial series, not sure which vaccine. COVID-19 Symptom Review Shortness of Breath or Dyspnea on Exertion Recurred intermittent Cough Never Chest discomfort/chest pain Never Palpitations Never Exertional intolerance Recurred intermittent Fatigue Recurred persistent Exhaustion/Prolonged fatigue Recurred persistent Dizziness Recurred intermittent Syncope or Near syncope Never Fever Never Joint pain/Body aches Present prior to COVID-19 infection and Intermittent Altered taste/smell Resolved Lack of concentration/brain fog Recurred intermittent Memory deficits Recurred recall Headaches Present prior to COVID-19 infection and intermittent Diarrhea or nausea Never Difficulty sleeping Present prior to COVID-19 infection and intermittent HF Symptoms - Orthopnea/Edema Never Erectile Dysfunction n/a Changes in mood Never SIGNIFICANT/PERSISTENT SYMPTOMS She denies SOB, but states that if she attempted to sing or exercise so would be winded. Fatigue: All day long fatigue. Wakes up tired goes to bed tired. Gets worse as the day goes on. Fatigue after activities. Has to take frequent sitting rest breaks lasting various times. She will need to stop and take a break She has chronic fatigue, denies snoring, has never been tested for TARA. She has trouble falling asleep and staying asleep, she takes medication to help with sleeping at night. Reports that her sleep is not effective, she feels that her mind is racing. History of nerve issues and neuropathy, the gabapentin helps significantly for the neuropathy. She has a Cytokine storm in March 2020, she went to a walk in clinic and this was treated as a allergic reaction. She is following with a local neurologist. She gets the low dose naltrexone from an online pharmacy, however LDN was not prescribed as a tapering dose, she been on the 4.5 mg for at least 2 years and does not notice a benefit She has had bobbing vertigo since she had the Cytokine storm She has been through the testing for vestibular testing but this provokes a migraine so she stopped, she has not seen an ENT provider She has occasionally back pain an neck pain fro overcorrecting her balance. Brain fog: Difficulty remembering conversations. Difficulty with name and word recall. Difficulty focusing. Task take longer to complete 2/2 difficulty focusing. No safety concerns, such as forgetting to lock door, turn stove off, or getting lost while driving. Headaches: Headaches occur intermittent Denies light and noise sensitivity. Yes, history of hormonal medication migraines. She is following with a neurologist and currently on imitrex. Recent/previously completed testing (I have personally reviewed the findings on all imaging, PFTs, and labs) EKG: No results found for this or any previous visit (from the past 8760 hours). ECHO: No results found for this or any previous visit (from the past 92953 hours). PFT: No textual results found for the specified procedure(s). CXR: Last XR Chest - Impression Only XR CHEST 2V FRONTAL/LAT Exam End: 07/21/2020 10:34 AM (Final result) Impression: IMPRESSION: No acute radiographic abnormality. ... CT CHEST: Last CT Chest - Impression Only No resulted procedures found. LABS: Established with the following specialists: Neurology Dermatology General surgery Neuromuscular PT Wellness OBGYN Review of Systems Constitutional: Positive for activity change and fatigue. PAST MEDICAL HISTORY Diagnosis Date Anemia COVID-19 Intractable migraine with aura Kidney stone CURRENT MEDICATIONS AND ALLERGIES Current Outpatient Medications on File Prior to Visit Medication Sig gabapentin (NEURONTIN) 100 mg capsule Take 6 capsules by mouth daily at bedtime for 180 days. tiZANidine (ZANAFLEX) 4 mg tablet Take 2 tablets by mouth daily at bedtime. testosterone 200 mg pllt by IMPLANTATION route. naltrexone capsule 4.5 mg (CPD) Take 4.5 mg by mouth once daily. progesterone micronized (PROMETRIUM) 100 mg capsule Take 100 mg by mouth once daily. MAGNESIUM GLYCINATE ORAL Take 350 mg by mouth daily at bedtime. cholecalciferol, vitamin D3, (VITAMIN D3 ORAL) Take 250 mcg by mouth. COQ10, UBIQUINOL, ORAL Take 200 mg by mouth twice daily. riboflavin, vitamin B2, (VITAMIN B-2 ORAL) Take by mouth. Melatonin 5 mg cap Take by mouth. BILL twice daily. ibuprofen (MOTRIN) 600 mg tablet Take 1 tablet by mouth every 6 hours as needed. loratadine (CLARITIN) 10 mg tablet Take 10 mg by mouth as needed. iron bis-glycinat/vit C/FA/B12 (GENTLE IRON ORAL) Take by mouth. No current facility-administered medications on file prior to visit. ALLERGIES No Known Allergies Objective Findings: Vitals: BP 125/72 (BP Site: Right Arm, BP Position: Sitting, BP Cuff Size: Regular Adult) Pulse 72 Temp 36.7 C (98 F) (Temporal) LMP 09/03/2024 (Exact Date) SpO2 99% Initial Screening Questionaires review: Patient Entered Questionnaires 09/07/2024 COVID Symptoms Onset: 03/08/2020 PROMIS/NeuroQoL Score Percentiles 08/30/2024 07/17/2021 06/13/2021 Physical Health Fatigue Percentile 3 10 10 Sleep Percentile 1 04/13/2024 10/12/2023 04/06/2023 Mental Health NeuroQol Cognitive Function Percentile 27* 27* 24* 09/07/2024 04/13/2024 10/12/2023 PROMIS Global Health Scale Physical Health Percentile 10 22* 31 Mental Health Percentile 43 43 43 Patient-reported Percentiles provide an indication of how a patient s score ranks in relation to the [place] general population. > 31st percentile is within normal limits or better * < 31st percentile is at least SD worse than population, which may be clinically relevant < 16th percentile is at least 1 SD worse than population and warrants attention 09/07/2024 04/13/2024 10/12/2023 PHQ-9 PHQ-2 Score 0 0 0 PHQ-9 Score 8 8 09/07/2024 12/01/2021 MANN - 2/7 SCORES MANN-2 Score 2 1 MANN-7 Score 2 Physical Examination: Physical Exam ASSESSMENT AND PLAN 1. Malaise and fatigue - ICD9: 780.79, ICD10: R53.81, R53.83 (primary diagnosis) 2. Post-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) - ICD9: 139.8, ICD10: U09.9 3. Myalgias - ICD9: 729.1, ICD10: M79.10 4. Lightheadedness - ICD9: 780.4, ICD10: R42 5. Physical deconditioning - ICD9: 799.3, ICD10: R53.81 6. Activity intolerance - ICD9: 780.99, ICD10: R68.89 7. Sleep disturbance - ICD9: 780.50, ICD10: G47.9 8. Dizziness - ICD9: 780.4, ICD10: R42 9. Difficulty concentrating - ICD9: 799.51, ICD10: R41.840 10. Brain fog - ICD9: 799.59, ICD10: R41.89 11. Headaches - ICD9: 784.0, ICD10: R51.9 12. Vitamin D deficiency - ICD9: 268.9, ICD10: E55.9 13. Vertigo - ICD9: 780.4, ICD10: R42 14. Chronic fatigue syndrome - ICD9: 780.71, ICD10: G93.32 15. Neuropathy - ICD9: 355.9, ICD10: G62.9 ASSESSMENT/PLAN: - C-REACTIVE PROTEIN - CONSULT TO WELLNESS PHYSICIAN - CONSULT TO RHEUM/IMMUN DISEASE - CONSULT TO SLEEP MEDICINE - ADULT - The patient and I reviewed the below testing in detail. We discussed indications for testing and the benefits of results in directing the plan of care - Will await test results and discuss at our follow up visit - The patient will then follow up with consulted specialists and their PCP - Patient encouraged to continue following with established specialists The patient was informed of how [facility] functions. We are a referral service. As a referral service, we cannot determine work restrictions, complete FMLA/disability forms, or provide surgical clearance. The patient will have an initial visit as well as one follow up virtual visit in which all testing, imaging, and labs will be discussed. From there on it is expected that they continue to follow up with their PCP and the specialists established through this program. Patient will be sent questionnaires every 3 months for 1 year to monitor their progress. Once a questionnaire is completed, a member of our team may reach out to them to review. Consults initiated today: - CONSULT TO WELLNESS PHYSICIAN- PASC, All symptoms - CONSULT TO RHEUM/IMMUN DISEASE- joint pain and body aches - CONSULT TO SLEEP MEDICINE - ADULT- chronic fatigue syndrome No follow-ups on file. Plan reviewed with patient, who verbalized understanding and is in agreement. I spent a total of 60 minutes on the date of the service which included preparing to see the patient, [id number] patient care, completing clinical documentation, obtaining and/or reviewing separately obtained history, performing a medically appropriate examination, counseling and educating the patient/family/caregiver, ordering medications, tests, or procedures, independently interpreting results (not separately reported), communicating results to the patient/family/caregiver, and care coordination (not separately reported). Gilmar Alvarez APRN.FINANCE CONTROLLER CC: Nuria Gabriel DO, DO & Bri Dove [address] [facility] [id number] documented in this encounter [facility] 09-13-2024 Note HNO ID: [id number] Author: EDUARDO ALVAREZ APRN.FINANCE CONTROLLER Service: ? Author Type: Nurse Practitioner Type: Progress Notes Filed: 09/13/2024 11:57 Note Text: [facility] Initial Evaluation Amanda Dean presents [facility] at the request of Bri Dove MD for evaluation of prolonged, > 28 days, symptoms attributed to COVID-19 infection. They have requested this consultation via eConsult and will be communicated to via the EMR or [place] Post Office Correspondence. Positive COVID-19 Test: yes Date of Positive Test: : 03/08/2020 (presumed, tested positive in ER) 12/2022 HISTORY OF PRESENT ILLNESS HPI: Amanda Dean is a 53 year old female with primary symptoms as listed below: Description of their course of COVID-19 illness. 1. Symptoms began on 2019 2. Hospitalization? No 3. Was the patient on oxygen? No 4. Was patient discharged on oxygen? No 5. Was there an ICU stay? No 6. Was the patient intubated? No 7. Were there any COVID-19 medications given? No 8. Were there significant complications from the patients COVID-19 Illness? No 9. Has the patient received the COVID Vaccine? Initial series, not sure which vaccine. COVID-19 Symptom Review Shortness of Breath or Dyspnea on Exertion Recurred intermittent Cough Never Chest discomfort/chest pain Never Palpitations Never Exertional intolerance Recurred intermittent Fatigue Recurred persistent Exhaustion/Prolonged fatigue Recurred persistent Dizziness Recurred intermittent Syncope or Near syncope Never Fever Never Joint pain/Body aches Present prior to COVID-19 infection and Intermittent Altered taste/smell Resolved Lack of concentration/brain fog Recurred intermittent Memory deficits Recurred recall Headaches Present prior to COVID-19 infection and intermittent Diarrhea or nausea Never Difficulty sleeping Present prior to COVID-19 infection and intermittent HF Symptoms - Orthopnea/Edema Never Erectile Dysfunction n/a Changes in mood Never SIGNIFICANT/PERSISTENT SYMPTOMS She denies SOB, but states that if she attempted to sing or exercise so would be winded. Fatigue: All day long fatigue. Wakes up tired goes to bed tired. Gets worse as the day goes on. Fatigue after activities. Has to take frequent sitting rest breaks lasting various times. She will need to stop and take a break She has chronic fatigue, denies snoring, has never been tested for TARA. She has trouble falling asleep and staying asleep, she takes medication to help with sleeping at night. Reports that her sleep is not effective, she feels that her mind is racing. History of nerve issues and neuropathy, the gabapentin helps significantly for the neuropathy. She has a Cytokine storm in March 2020, she went to a walk in clinic and this was treated as a allergic reaction. She is following with a local neurologist. She gets the low dose naltrexone from an online pharmacy, however LDN was not prescribed as a tapering dose, she been on the 4.5 mg for at least 2 years and does not notice a benefit She has had bobbing vertigo since she had the Cytokine storm She has been through the testing for vestibular testing but this provokes a migraine so she stopped, she has not seen an ENT provider She has occasionally back pain an neck pain fro overcorrecting her balance. Brain fog: Difficulty remembering conversations. Difficulty with name and word recall. Difficulty focusing. Task take longer to complete 2/2 difficulty focusing. No safety concerns, such as forgetting to lock door, turn stove off, or getting lost while driving. Headaches: Headaches occur intermittent Denies light and noise sensitivity. Yes, history of hormonal medication migraines. She is following with a neurologist and currently on imitrex. Recent/previously completed testing (I have personally reviewed the findings on all imaging, PFTs, and labs) EKG: No results found for this or any previous visit (from the past 8760 hours). ECHO: No results found for this or any previous visit (from the past 61255 hours). PFT: No textual results found for the specified procedure(s). CXR: Last XR Chest - Impression Only XR CHEST 2V FRONTAL/LAT Exam End: 07/21/2020 10:34 AM (Final result) Impression: IMPRESSION: No acute radiographic abnormality. ... CT CHEST: Last CT Chest - Impression Only No resulted procedures found. LABS: Established with the following specialists: Neurology Dermatology General surgery Neuromuscular PT Wellness OBGYN Review of Systems Constitutional: Positive for activity change and fatigue. PAST MEDICAL HISTORY Diagnosis Date Anemia COVID-19 Intractable migraine with aura Kidney stone CURRENT MEDICATIONS AND ALLERGIES Current Outpatient Medications on File Prior to Visit Medication Sig gabapentin (NEURONTIN) 100 mg capsule Take 6 capsules by mouth daily at bedtime for 180 days. tiZANidine ( (more content not included)... [place] 09-07-2024 Telephone encounter Note Is this upcoming visit related to a covid vaccine reaction? No Did the patient have confirmed or presumed COVID-19 infection after June 2019 and are continuing to have symptoms for at least 90 days (antibody testing NOT accepted): Yes Date of positive test and/or presumed infection(s): 03/08/2020 (presumed, tested positive in ER) 12/2022 Type of test (home test or PCR): home With which COVID infection(s) did your long COVID symptoms begin: 03/08/2020 COVID vaccine type and dates (if not already on file): on file We have a few questions about any ongoing symptoms to help prepare you and your provider for your visit. 3. Is the patient seeing us for taste/smell changes? No 4. Is patient traveling far (1 hour+) or coming from another state*: Yes 4A. Does the patient have SOB? No 4B. Does the patient have any chest pain or palpitations? No 5. Please verify the following are on file in patient's chart, and enter if not found - medication list Yes - allergies Yes - preferred pharmacy Yes - PCP Yes 6. Please inform patient of the below information if they have not been sent Ubisense appt reminder: [facility] functions as a referral service. You will have an initial visit as well as one follow-up visit in which all [facility] testing, imaging, and labs will be discussed. From there on it is expected that you continue to follow up with your PCP and the specialist(s) established through this program. We do not manage symptoms or follow patients residential. [facility] intake team is not able to assist with disability requests, including work restrictions or clearances as we do not do active treatment and management of long-COVID symptoms, and are not actively involved in long-term care after your 2 visits. Your primary care provider and the consulted specialists we discuss during our visit(s) are better suited for assisting with disability requests. Those providers are welcome use our office note and testing to help support their plans of care. Patients will be expected to have labs, testing, and consults done through [facility]; we cannot fax orders to outside facilities, and do not have access to outside providers. Please be prepared that you may need to travel to [place] multiple times to get all testing done and see the consulted specialist(s). Please arrive 15 minutes early to your appointment. If you are more than 10 minutes late to your appointment you may be asked to reschedule. One week prior to your appointment you should pre-check in via Ubisense to complete questionnaires that will provide valuable information to your provider to aid in your visit. You may receive a telephone call to remind you if we see they have not been completed in advance of your visit. If you have outside testing you would like to be entered into your chart, please fax it to [phone]. Records brought in same day of visit may not be reviewed until after the visit due to time constraints. *FYI Current [facility] states are [place], [place], [place], and [place] as of 11/2023. This means patients can only be seen in-person for consults AND follow-ups due to state laws. [facility] 09-07-2024 Miscellaneous Notes Is this upcoming visit related to a covid vaccine reaction? No Did the patient have confirmed or presumed COVID-19 infection after June 2019 and are continuing to have symptoms for at least 90 days (antibody testing NOT accepted): Yes Date of positive test and/or presumed infection(s): 03/08/2020 (presumed, tested positive in ER) 12/2022 Type of test (home test or PCR): home With which COVID infection(s) did your long COVID symptoms begin: 03/08/2020 COVID vaccine type and dates (if not already on file): on file We have a few questions about any ongoing symptoms to help prepare you and your provider for your visit. 3. Is the patient seeing us for taste/smell changes? No 4. Is patient traveling far (1 hour+) or coming from another state*: Yes 4A. Does the patient have SOB? No 4B. Does the patient have any chest pain or palpitations? No 5. Please verify the following are on file in patient's chart, and enter if not found - medication list Yes - allergies Yes - preferred pharmacy Yes - PCP Yes 6. Please inform patient of the below information if they have not been sent Ubisense appt reminder: [facility] functions as a referral service. You will have an initial visit as well as one follow-up visit in which all [facility] testing, imaging, and labs will be discussed. From there on it is expected that you continue to follow up with your PCP and the specialist(s) established through this program. 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 [facility] intake team is not able to assist with disability requests, including work restrictions or clearances as we do not do active treatment and management of long-COVID symptoms, and are not actively involved in long-term care after your 2 visits. Your primary care provider and the consulted specialists we discuss during our visit(s) are better suited for assisting with disability requests. Those providers are welcome use our office note and testing to help support their plans of care. Patients will be expected to have labs, testing, and consults done through [facility]; we cannot fax orders to outside facilities, and do not have access to outside providers. Please be prepared that you may need to travel to [place] multiple times to get all testing done and see the consulted specialist(s). Please arrive 15 minutes early to your appointment. If you are more than 10 minutes late to your appointment you may be asked to reschedule. One week prior to your appointment you should pre-check in via Ubisense to complete questionnaires that will provide valuable information to your provider to aid in your visit. You may receive a telephone call to remind you if we see they have not been completed in advance of your visit. If you have outside testing you would like to be entered into your chart, please fax it to [phone]. Records brought in same day of visit may not be reviewed until after the visit due to time constraints. *FYI Current [facility] states are [place], [place], [place], [facility] as of 11/2023. This means patients can only be seen in-person for consults AND follow-ups due to state laws. documented in this encounter [facility] 09-06-2024 Instructions Ele Cm PA-C - 09/06/2024 1:15 PM EDT Alesha, I would like to thank you for spending time with me today and taking time to invest in your health. Below I have outlined some recommendations, I highly encourage you to work on. My recommendations only go so far, you have to do the work. Please reach our for support and questions via Ubisense. Nutrition: It is also very important to eat an anti-inflammatory diet (<25 grams added sugars), fruits, vegetables, lean meat, salmon, fish, chicken. Healthy fats such as avocado, nuts and seeds support cell membrane health. Drink 60 oz fluid/day. Add an electrolyte pack once a day if you have dizziness when changing positions. Mitochondrial support diet Diet Sleep: It is also important to get 8 hours of restful sleep everynight (if melatonin is needed that is ok). Sleep hygiene recommendations: - Create a consistent sleep-wake schedule of 7-9 hours per night. Go to bed and wake up around the same time each day, including on weekends. - Avoid all electronics for 30-60 minutes before bed (TV, tablet, computer, smartphone, Fara) because the light from the screens can disrupt sleep. Move your TV out of the bedroom to help with sleep. - Use that time before bed for calming activities like yoga, stretching, meditation, reading a book, or taking an Epsom salt bath. You can also exercise before bed if it helps with sleep. - If you are awake during the night for more than 30 minutes, go to another room and do something relaxing (see list above). Avoid using electronics during this time. Return to bed when sleepy. - Sleep in a cool (60-70 degrees), dark and quiet bedroom. Use earplugs and an eye mask if needed. Use night-lights in the bedroom and bathroom to avoid turning on the light at night. - Avoid food and beverages 2-3 hours before bed. Movement: Many post covid patients lose all endurance. Think of just going for a 1/2 mile walk as training for a marathon. You need to start slowly and work your way up. Depending on how bad it is, focus on just walking 5 minutes a day consistently. When you can do this without needing to nap or get winded, increase to 7 minutes, then 10 minutes and the goal is to work your way up to 30 minutes or more at a time. Stress: It is extremely important to calm your immune system by working on calming activities. [facility] wellness videos Go to [email or web address] or Insight Timer is a great free chantel Yoga - Come As You Are (gentle chair yoga) Kg Chi Relaxation for chronic pain - guided meditations Relieve, Relax, Recharge - different meditations available Additional support as recommended by a healing patient: [email or web address]?source_code=SVAMMDI889684241 [email or web address]_[email or web address]=player_overflow It is also very important to eat an anti-inflammatory diet (<25 grams added sugars), fruits, vegetables, lean meat, salmon, fish, chicken. Healthy fats such as avocado, nuts and seeds support cell membrane health. Move daily with walks, yoga. Don't overstress while healing. documented in this encounter [facility] 09-06-2024 History of Present illness Narrative Images from the original note were not included. Wellness Consultation Ms.Angela Adrianna Dean is a 53 year old female is here for a wellness and preventive medicine initial consultation. Consultation requested by Dr. Bri Dove for an opinion regarding post covid fatigue and dizziness. My final recommendations will be communicated back to the requesting physician by way of shared Medical record. Recording using [employer] software for draft documentation of the visit was discussed with the patient/authorized maintenance representative; all questions welcomed and answered. Patient/authorized maintenance representative agreed to proceed Chief complaint: fatigue, dizziness HPI: Alesha is a 53-year-old female, with a history of long COVID, presenting for evaluation of persistent symptoms. Alesha reports a history of COVID-19 infection in March 2020, during which she experienced a cytokine storm that she believes burned through her nervous system. At the time, she was not formally diagnosed with COVID-19, but her was, and she experienced anosmia, ageusia, and fatigue. She was not hospitalized and had minimal respiratory symptoms. Since the initial infection, she has experienced persistent symptoms, including chronic fatigue, vertigo described as a constant bobbing sensation, and memory issues. She also reports some brain fog. These symptoms have not improved since the initial infection. She has a history of anemia following her COVID-19 infection and reports low ferritin levels recently. Her hemoglobin is currently normal. She is taking iron supplements. She also reports low vitamin D levels and is taking supplements, but her levels have not improved. She is perimenopausal and has been experiencing heavy periods, with one lasting 87 days. She is currently menstruating. She has been under the care of a neurologist, Dr. Dove, who started her on gabapentin 600 mg in February 2021, which has helped with migraines and nerve pain. She also tried vestibular therapy from April 2021 to July or August 2021, but it triggered continuous migraines. She has been on naltrexone for at least 2 years and had an ALA infusion that really helped as well. Nutrition: She has made dietary changes, including cutting out caffeine and alcohol in May and adopting a low-carb, high-protein, low-sugar diet in July. Despite these changes, she has not noticed any improvement in her symptoms. Since July 2024 low carb, high protein, +gluten, +dairy, +eggs, +soy B: protein shake, Fairlife L: salad, chicken D: meat, vegetables F: berries V: >2/3day HF: avocado, nuts, cream cheese, british virgin islander yogurt LES: Eating window: Water: not great Alcohol: 05/2024 stopped Beverages: 05/2024 stopped caffeine, Diet Coke (caffiene free x 3/day) Sleep: Alesha reports poor sleep quality, which she attributes to her medications, including melatonin, magnesium, and gabapentin. She denies snoring but reports that her brain feels like it is racing all night. She has not had a sleep study. Exercise: She also reports post-exertional malaise, which limits her ability to exercise. 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 GI: She denies any issues with gluten, dairy, or soy products. She reports normal bowel movements and denies bloating or belching. Social/toxin: She has a history of silver fillings, which were replaced 20 years ago. She denies any clotting issues. She lives with her and has a couple of children at home. She is a nonsmoker and denies any recent exposure to toxins, but does not pay attention to toxins from cleaning/beauty products. Family history: She denies any family history of autoimmune diseases, Alzheimer's disease, or high stress levels. She has a history of seasonal allergies since childhood and had strep throat 2-3 times as a child. ALLERGIES No Known Allergies Current Outpatient Medications on File Prior to Visit Medication Sig gabapentin (NEURONTIN) 100 mg capsule Take 6 capsules by mouth daily at bedtime for 180 days. tiZANidine (ZANAFLEX) 4 mg tablet Take 2 tablets by mouth daily at bedtime. testosterone 200 mg pllt by IMPLANTATION route. naltrexone capsule 4.5 mg (CPD) Take 4.5 mg by mouth once daily. progesterone micronized (PROMETRIUM) 100 mg capsule Take 100 mg by mouth once daily. MAGNESIUM GLYCINATE ORAL Take 350 mg by mouth daily at bedtime. cholecalciferol, vitamin D3, (VITAMIN D3 ORAL) Take 250 mcg by mouth. COQ10, UBIQUINOL, ORAL Take 200 mg by mouth twice daily. riboflavin, vitamin B2, (VITAMIN B-2 ORAL) Take by mouth. Melatonin 5 mg cap Take by mouth. BILL twice daily. ibuprofen (MOTRIN) 600 mg tablet Take 1 tablet by mouth every 6 hours as needed. loratadine (CLARITIN) 10 mg tablet Take 10 mg by mouth once daily. (Patient taking differently: Take 10 mg by mouth once daily. As needed) iron bis-glycinat/vit C/FA/B12 (GENTLE IRON ORAL) Take by mouth. No current facility-administered medications on file prior to visit. Patient-Entered Questionnaires Higher Score is Better 08/30/2024 04/13/2024 07/17/2021 [facility] Physical Function PROMIS Physical Function T-Score 41 (mild dysfunction) 44 (mild dysfunction) 41 (mild dysfunction) 08/30/2024 07/17/2021 06/13/2021 [facility] Satisfaction with Social Roles PROMIS - Satisfaction with Participation in Social Roles T-Score 39 (Low) 42 (Average) 45 (Average) 08/30/2024 04/13/2024 10/12/2023 [facility] NEUROQOL COGNITIVE T-SCORE PROMIS Neuroqol Cognitive T-Score 48 (within normal limits) 44 (mild dysfunction) 44 (mild dysfunction) Lower Score is Better 08/30/2024 [facility] Anxiety PROMIS Anxiety T-Score 52 (within normal limits) 08/30/2024 02/26/2021 [facility] Sleep Disturbance PROMIS Sleep Disturbance T-Score 72 (severe) 63 (moderate) 08/30/2024 [facility] Depression PROMIS Depression T-Score 49 (within normal limits) 08/30/2024 03/26/2022 [facility] Pain Interference PROMIS Pain Interference T-Score (range: 10 - 90) 53 (within normal limits) 62 (moderate) 08/30/2024 07/17/2021 06/13/2021 [facility] Fatigue PROMIS Fatigue T-Score 69 (moderate) 63 (moderate) 63 (moderate) REVIEW OF SYSTEMS: Constitutional: (+) fatigue, (+) sleep disturbance Head: (+) migraines - much improved now Ears/Nose/Mouth/Throat: (+) seasonal allergies Gastrointestinal: (-) GI complaints (no bloating, no belching, normal bowel movements) Genitourinary: (+) heavy/prolonged menses Neurological: (+) vertigo (bobbing), (+) nerve pain, (+) brain fog, (+) memory problems Physical Exam BP 127/78 (BP Site: Right Arm, BP Cuff Size: Regular Adult) LMP 09/03/2024 GENERAL: Well groomed, well appearing, no acute distress, pleasant, cooperative, no notable issues with conversation HEENT: pink tongue, sclera anicteric NEURO: Non-antalgic gait, alert and oriented x 3 EXT: Normal extremities, 2+ radial pulses, SKIN: clears face and arms, NAILS: appear healthy TEETH: appear healthy, no loss of enamel HAIR: appears strong and healthy PREVIOUS STUDIES: Latest Ref Rng 10/14/2022 10/20/2023 WBC 3.70 - 11.00 k/uL 5.13 7.66 RBC 3.90 - 5.20 m/uL 4.74 4.58 Hemoglobin 11.5 - 15.5 g/dL 14.3 14.3 Hematocrit 36.0 - 46.0 % 41.8 40.8 MCV 80.0 - 100.0 fL 88.2 89.1 MCH 26.0 - 34.0 pg 30.2 31.2 MCHC 30.5 - 36.0 g/dL 34.2 35.0 RDW-CV 11.5 - 15.0 % 11.7 12.4 Platelet Count 150 - 400 k/uL 254 261 Latest Ref Rng 10/14/2022 10/20/2023 Protein, Total 6.3 - 8.0 g/dL 6.7 6.8 Albumin 3.9 - 4.9 g/dL 4.5 4.5 Calcium 8.5 - 10.2 mg/dL 9.5 9.4 Bilirubin, Total 0.2 - 1.3 mg/dL 0.4 0.2 Alkaline Phosphatase 34 - 123 U/L 63 61 AST 13 - 35 U/L 17 13 ALT 7 - 38 U/L 22 12 Glucose 74 - 99 mg/dL 105 (H) 104 (H) *not fasting BUN 7 - 21 mg/dL 15 9 Creatinine 0.58 - 0.96 mg/dL 0.98 (H) 0.88 Sodium 136 - 144 mmol/L 136 139 Potassium 3.7 - 5.1 mmol/L 4.2 4.1 Chloride 98 - 107 mmol/L 105 105 Latest Ref Rng 07/17/2020 07/21/2020 10/05/2020 04/11/2021 Iron 41 - 186 ug/dL 59 162 TIBC 232 - 386 ug/dL 284 280 Transferrin Saturation 15 - 57 % 21 58 (H) Latest Ref Rng 07/21/2020 10/05/2020 TSH 0.270 - 4.200 uU/mL 1.420 Vitamin B12 232-1,245 pg/mL 595 Vitamin D 25 Hydroxy 30.0 - 100.0 ng/mL 29.5 (L) IMPRESSION: Ms. Amanda Dean is a 53 year old year old female referred by Dr. Bri Dove for a wellness and preventive medicine consultation regarding post covid fatigue and dizziness. She is already doing many of the things I would typically entertain including LDN, ALA and even had an NAD infusion. We will look at some labs for some signs of poor absorption and/or impaired intestina permeability and approach that as well. Also, briefly discussed [facility] to for resting her autonomic nervous system. A wellness and preventive medicine approach was discussed with the patient including risks, benefits, and alternatives. She agrees to proceed. It was emphasized that she should continue with all of her current treating caregivers's recommendations. 1. 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 Previous vestibular therapy exacerbated migraines. Currently managed with gabapentin 600 mg, naltrexone, and various supplements. Diet is low-carb, high-protein, and low-sugar. Patient has tried multiple treatments including alpha lipoic acid and NAD+ infusions with limited success. - Ordered comprehensive lab panel including homocysteine, B12, zinc, and glutathione levels to assess for potential deficiencies contributing to symptoms. - Recommended continuation of current diet and advised increasing water intake while reducing Diet Coke consumption. - Discussed potential benefits of compression stockings and electrolytes for dizziness. - Advised gradual increase in physical activity using the Mobile [employer] chantel to monitor and manage activity levels. - Previously referred to COVID recovery clinic for further evaluation and management by pulmonologists. - She inquired about nicotine patches as a potential treatment for chronic fatigue based on recent studies she has read, but I am unfamiliar at this time. - Follow-up after lab results to discuss further management options. 2. Screening for endocrine, nutritional, metabolic and immunity disorder (Z13.29) Recent labs showed low ferritin and B12 levels. Vitamin D levels remain low despite supplementation. No recent thyroid panel available. - Ordered lab tests for magnesium, and a full thyroid panel. - Advised taking vitamin D3 with food to improve absorption. - Recommended holding off on additional supplements until lab results are available. 3. Sleep disturbance (G47.9) Restless sleep with racing thoughts at night. Currently taking melatonin, magnesium glycinate, and gabapentin for sleep. No sleep study performed yet. - Considered ordering a sleep study to evaluate for underlying sleep disorders. - Discussed potential addition of low-dose trazodone or phosphatidylserine to improve sleep quality. 4. Perimenopausal disorder (N95.9) Experiencing irregular and prolonged menstrual periods. Currently on hormone therapy including progesterone and testosterone. - Continue current hormone therapy. - Monitor menstrual cycle and symptoms. 5. Vitamin D deficiency (E55.9) Persistent low vitamin D levels despite supplementation. - Increase vitamin D3 supplementation to 5000 IU daily. - Recheck vitamin D levels in follow-up labs. It has been a pleasure to see Ms. Amanda Dean for a wellness and preventive medicine consultation. I have asked Amanda Dean to return to see me 3 months . Thank you for the referral or interest in caring for your whole body and mind. I spent a total of 57 minutes on the date of the service which included preparing to see the patient, [id number] patient care, completing clinical documentation, obtaining and/or reviewing separately obtained history, performing a medically appropriate examination, counseling and educating the patient/family/caregiver, ordering medications, tests, or procedures, communicating with other HCPs (not separately reported), independently interpreting results (not separately reported), and communicating results to the patient/family/caregiver. documented in this encounter [facility] 09-06-2024 Note HNO ID: [id number] Author: EEL CM PA-C Service: ? Author Type: Physician Wheat Washer Type: Progress Notes Filed: 09/06/2024 13:56 Note Text: Wellness Consultation Ms.Angela Adrianna Dean is a 53 year old female is here for a wellness and preventive medicine initial consultation. Consultation requested by Dr. Bri Dove for an opinion regarding post covid fatigue and dizziness. My final recommendations will be communicated back to the requesting physician by way of shared Medical record. Recording using [employer] software for draft documentation of the visit was discussed with the patient/authorized maintenance representative; all questions welcomed and answered. Patient/authorized maintenance representative agreed to proceed Chief complaint: fatigue, dizziness HPI: Alesha is a 53-year-old female, with a history of long COVID, presenting for evaluation of persistent symptoms. Alesha reports a history of COVID-19 infection in March 2020, during which she experienced a cytokine storm that she believes burned through her nervous system. At the time, she was not formally diagnosed with COVID-19, but her was, and she experienced anosmia, ageusia, and fatigue. She was not hospitalized and had minimal respiratory symptoms. Since the initial infection, she has experienced persistent symptoms, including chronic fatigue, vertigo described as a constant bobbing sensation, and memory issues. She also reports some brain fog. These symptoms have not improved since the initial infection. She has a history of anemia following her COVID-19 infection and reports low ferritin levels recently. Her hemoglobin is currently normal. She is taking iron supplements. She also reports low vitamin D levels and is taking supplements, but her levels have not improved. She is perimenopausal and has been experiencing heavy periods, with one lasting 87 days. She is currently menstruating. She has been under the care of a neurologist, Dr. Dove, who started her on gabapentin 600 mg in February 2021, which has helped with migraines and nerve pain. She also tried vestibular therapy from April 2021 to July or August 2021, but it triggered continuous migraines. She has been on naltrexone for at least 2 years and had an ALA infusion that really helped as well. Nutrition: She has made dietary changes, including cutting out caffeine and alcohol in May and adopting a low-carb, high-protein, low-sugar diet in July. Despite these changes, she has not noticed any improvement in her symptoms. Since July 2024 low carb, high protein, +gluten, +dairy, +eggs, +soy B: protein shake, [employer] L: salad, chicken D: meat, vegetables F: berries V: >2/3day HF: avocado, nuts, cream cheese, british virgin islander yogurt LES: Eating window: Water: not great Alcohol: 05/2024 stopped Beverages: 05/2024 stopped caffeine, Diet Coke (caffiene free x 3/day) Sleep: Alesha reports poor sleep quality, which she attributes to her medications, including melatonin, magnesium, and gabapentin. She denies snoring but reports that her brain feels like it is racing all night. She has not had a sleep study. Exercise: She also reports post-exertional malaise, which limits her ability to exercise. 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 GI: She denies any issues with gluten, dairy, or soy products. She reports normal bowel movements and denies bloating or belching. Social/toxin: She has a history of silver fillings, which were replaced 20 years ago. She denies any clotting issues. She lives with her and has a couple of children at home. She is a nonsmoker and denies any recent exposure to toxins, but does not pay attention to toxins from cleaning/beauty products. Family history: She denies any family history of autoimmune diseases, Alzheimer's disease, or high stress levels. She has a history of seasonal allergies since childhood and had strep throat 2-3 times as a child. ALLERGIES No Known Allergies Current Outpatient Medications on File Prior to Visit Medication Sig gabapentin (NEURONTIN) 100 mg capsule Take 6 capsules by mouth daily at bedtime for 180 days. tiZANidine (ZANAFLEX) 4 mg tablet Take 2 tablets by mouth daily at bedtime. testosterone 200 mg pllt by IMPLANTATION route. naltrexone capsule 4.5 mg (CPD) Take 4.5 mg by mouth once daily. progesterone micronized (PROMETRIUM) 100 mg capsule Take 100 mg by mouth once daily. MAGNESIUM GLYCINATE ORAL Take 350 mg by mouth daily at bedtime. cholecalciferol, vitamin D3, (VITAMIN D3 ORAL) Take 250 mcg by mouth. COQ10, UBIQUINOL, ORAL Take 200 mg by mouth twice daily. riboflavin, vitamin B2, (VITAMIN B-2 ORAL) Take by mouth. Melatonin 5 mg cap Take by mouth. BILL twice daily. ibuprofen (MOTRIN) 600 mg tablet Take 1 tablet by mouth every 6 hours as needed. loratadine (CLARITIN) 1 (more content not included)... [facility] 08-19-2024 Telephone encounter Note SARAH: 04/16/2024 NOV: 11/01/2024 [facility] 08-19-2024 Miscellaneous Notes SARAH: 04/16/2024 NOV: 11/01/2024 documented in this encounter [facility] 07-22-2024 Telephone encounter Note SARAH: 04/16/2024 NOV: 11/01/2024 trial guanfacine 1mg daily, side effects reviewed, patient to provide update in 1mo [facility] 07-22-2024 Miscellaneous Notes SARAH: 04/16/2024 NOV: 11/01/2024 trial guanfacine 1mg daily, side effects reviewed, patient to provide update in 1mo documented in this encounter [facility] 06-15-2024 Telephone encounter Note Last office visit 04/07/23 Future Appt 11/01/24 [facility] 06-15-2024 Miscellaneous Notes Last office visit 04/07/23 Future Appt 11/01/24 documented in this encounter [facility] 04-16-2024 History of Present illness Narrative Images from the original note were not included. General Neurology Outpatient Clinic - virtual f/u visit Date: April 16, 2024 Patient Name: Amanda Dean Referring physician: Bri Dove [address] [facility] [address] Primary physician: Aron Ugarte [address] [facility] [place] [place] [address] Reason for Evaluation: [facility] f/u I have communicated my name and active licensure. The patient's identity and physical location were verified at the time of this visit. Either the patient or their legal maintenance representative has been informed of the risks and benefits of -- and alternatives to -- treatment through a remote evaluation and consents to proceed with the evaluation remotely. Initially seen 03/01/2021 for evaluation of PASC. Most troublesome symptoms included: dizziness/imbalance, fatigue, paresthesias, headaches. Started on GBP for symptomatic management. Referred to vestibular therapy and advised to use elbow brace on right arm. EMG without neuropathy, US RUE without nerve compression. Most recently seen , plan to increase night-time GBP for dizziness Prior headache medicines: TPM (burning mouth side effects), amantadine (also for fatigue, did not help, felt worse), zonisamide (did not help), periactin (helped but had bothersome weight gain side effect) Current headache preventive: GBP 600mg qhs (doesn't help with headaches but helps with paresthesias and brain buzzing), tizanidine 8mg qhs, coQ10 Current headache abortive: sumatriptan 50mg Prior fatigue medication trial: amantadine, provigil, wellbutrin 300mg daily, namenda 10mg bid Current fatigue medication: none Interval History: She changed to gabapentin at night with stronger dose and it's really helping with sleep. Headaches are mostly with periods or dental work/vision test. Overall doing better. Right arm can still have the nerve pain randomly at times. Sharp zings hurt the most, more tingling or numbness. Overall stable. Fatigue about the same. Would be willing to try guanfacine though she typically runs low with SBP in the 110s. OUTPATIENT MEDICATIONS Current Outpatient Medications on File Prior to Visit Medication Sig SUMAtriptan (IMITREX) 50 mg tablet Take 1 tablet by mouth as needed (at onset of headache. May repeat after 2 hours.). gabapentin (NEURONTIN) 100 mg capsule Take 6 capsules by mouth daily at bedtime for 180 days. tiZANidine (ZANAFLEX) 4 mg tablet Take 2 tablets by mouth daily at bedtime. testosterone 200 mg pllt by IMPLANTATION route. thyroid (MOTORCOACH DRIVER THYROID) 15 mg tablet Take 15 mg by mouth once daily. naltrexone capsule 4.5 mg (CPD) Take 4.5 mg by mouth once daily. progesterone micronized (PROMETRIUM) 100 mg capsule Take 100 mg by mouth once daily. metFORMIN (GLUCOPHAGE) 500 mg tablet Take 500 mg by mouth daily with breakfast. buPROPion XL (WELLBUTRIN XL) 300 mg 24 hr tablet Take 1 tablet by mouth once daily. MAGNESIUM GLYCINATE ORAL Take 350 mg by mouth daily at bedtime. cholecalciferol, vitamin D3, (VITAMIN D3 ORAL) Take 250 mcg by mouth. magnesium B-kxaltp-priidqkhsgi 42 mg (500 mg)- 250 mg TbER Take by mouth. COQ10, UBIQUINOL, ORAL Take 200 mg by mouth twice daily. riboflavin, vitamin B2, (VITAMIN B-2 ORAL) Take by mouth. Melatonin 5 mg cap Take by mouth. BILL twice daily. ibuprofen (MOTRIN) 600 mg tablet Take 1 tablet by mouth every 6 hours as needed. loratadine (CLARITIN) 10 mg tablet Take 10 mg by mouth once daily. Cetirizine (ZYRTEC) 10 mg cap Take by mouth. iron bis-glycinat/vit C/FA/B12 (GENTLE IRON ORAL) Take by mouth. No current facility-administered medications on file prior to visit. MEDICAL HISTORY PAST MEDICAL HISTORY Diagnosis Date Anemia COVID-19 Intractable migraine with aura Kidney stone SURGICAL HISTORY PAST SURGICAL HISTORY Procedure Laterality Date COLONOSCOPY - DIAGNOSTIC 05/17/2020 EGD 05/17/2020 EYE SURGERY HX HYSTEROSCOPY, DIAGNOSTIC (SEPARATE 11/23/2020 LASIK S ABLATION GINNY [id number] 11/23/2020 Hysteroscopy, Ginny endometrial ablation @ [facility]-Dr. West UNSPECIFIED ORAL SURGERY PROCEDURE, BY REPORT wisdom teeth SOCIAL HISTORY Social History Tobacco Use Smoking status: Never Smokeless tobacco: Never Vaping Use Vaping status: Never Used Substance Use Topics Alcohol use: Yes Comment: socially Drug use: No FAMILY HISTORY FAMILY HISTORY Problem Relation Age of Onset Hypertension Mother Thyroid Mother Breast Cancer Mother Ischemic Heart Disease Father Diabetes Father Colon Cancer Father 63 Stroke Maternal Grandmother other (parkinson's) Maternal Grandfather Diabetes Paternal Grandmother Cancer Paternal Grandmother ovarian other (kidney stone) Sister Breast Cancer Paternal Aunt in her 60s ALLERGIES ALLERGIES No Known Allergies REVIEW OF SYSTEMS: No fevers, chills No CP No SOB +falls with vertigo No head trauma PHYSICAL EXAM: LMP 03/03/2021 General appearance: Well appearing, alert, in no acute distress Neurological exam: Mental Status: Alert, oriented to person, place and time and Follows commands. Cranial Nerves: face symmetric, no facial droop or ptosis, no dysarthria, and tongue protrudes midline. Motor: BUE antigravity 10/10 seconds LABS/DATA: Latest Ref Rng 10/20/2023 Protein, Total 6.3 - 8.0 g/dL 6.8 Albumin 3.9 - 4.9 g/dL 4.5 Calcium 8.5 - 10.2 mg/dL 9.4 Bilirubin, Total 0.2 - 1.3 mg/dL 0.2 Alkaline Phosphatase 34 - 123 U/L 61 AST 13 - 35 U/L 13 ALT 7 - 38 U/L 12 Glucose 74 - 99 mg/dL 104 (H) BUN 7 - 21 mg/dL 9 Creatinine 0.58 - 0.96 mg/dL 0.88 Sodium 136 - 144 mmol/L 139 Potassium 3.7 - 5.1 mmol/L 4.1 Chloride 98 - 107 mmol/L 105 CO2 22 - 30 mmol/L 24 Anion Gap 8 - 15 mmol/L 10 eGFR >=60 mL/min/1.73m 80 WBC 3.70 - 11.00 k/uL 7.66 RBC 3.90 - 5.20 m/uL 4.58 Hemoglobin 11.5 - 15.5 g/dL 14.3 Hematocrit 36.0 - 46.0 % 40.8 MCV 80.0 - 100.0 fL 89.1 MCH 26.0 - 34.0 pg 31.2 MCHC 30.5 - 36.0 g/dL 35.0 RDW-CV 11.5 - 15.0 % 12.4 Platelet Count 150 - 400 k/uL 261 MPV 9.0 - 12.7 fL 9.8 Legend: (H) High ASSESSMENT: 53 year old RH female with a history of menstrual migraines who presents for follow-up of [facility]. Sleep improved on increased dose of GBP, tolerating without side effects. Would be open to trying another agent for cognitive symptoms PLAN: - continue GBP 600mg qhs - trial guanfacine 1mg daily, side effects reviewed, patient to provide update in 1mo - f/u 6mo virtually I spent a total of 20 minutes on the date of the service which included preparing to see the patient, [id number] patient care, completing clinical documentation, obtaining and/or reviewing separately obtained history, performing a medically appropriate examination, counseling and educating the patient/family/caregiver, ordering medications, tests, or procedures, independently interpreting results (not separately reported), and care coordination (not separately reported). Bri Dove MD Staff, General Neurology Pager: [phone] CC: Referring Physician: Bri Dove [address] [place] [address] PCP: Aron Ugarte [id number] [place] [phone] documented in this encounter [facility] 04-16-2024 Note HNO ID: [id number] Author: BRI DOVE MD Service: ? Author Type: Physician Type: Progress Notes Filed: 04/16/2024 16:07 Note Text: General Neurology Outpatient Clinic - virtual f/u visit Date: April 16, 2024 Patient Name: Amanda Dean Referring physician: Bri Dove [address] [place] [address] Primary physician: Aron Ugarte [employer] [place] [phone] Reason for Evaluation: [facility] f/u I have communicated my name and active licensure. The patient's identity and physical location were verified at the time of this visit. Either the patient or their legal maintenance representative has been informed of the risks and benefits of -- and alternatives to -- treatment through a remote evaluation and consents to proceed with the evaluation remotely. Initially seen 03/01/2021 for evaluation of [facility]. Most troublesome symptoms included: dizziness/imbalance, fatigue, paresthesias, headaches. Started on GBP for symptomatic management. Referred to vestibular therapy and advised to use elbow brace on right arm. EMG without neuropathy, US RUE without nerve compression. Most recently seen , plan to increase night-time GBP for dizziness Prior headache medicines: TPM (burning mouth side effects), amantadine (also for fatigue, did not help, felt worse), zonisamide (did not help), periactin (helped but had bothersome weight gain side effect) Current headache preventive: GBP 600mg qhs (doesn't help with headaches but helps with paresthesias and brain buzzing), tizanidine 8mg qhs, coQ10 Current headache abortive: sumatriptan 50mg Prior fatigue medication trial: amantadine, provigil, wellbutrin 300mg daily, namenda 10mg bid Current fatigue medication: none Interval History: She changed to gabapentin at night with stronger dose and it's really helping with sleep. Headaches are mostly with periods or dental work/vision test. Overall doing better. Right arm can still have the nerve pain randomly at times. Sharp zings hurt the most, more tingling or numbness. Overall stable. Fatigue about the same. Would be willing to try guanfacine though she typically runs low with SBP in the 110s. OUTPATIENT MEDICATIONS Current Outpatient Medications on File Prior to Visit Medication Sig SUMAtriptan (IMITREX) 50 mg tablet Take 1 tablet by mouth as needed (at onset of headache. May repeat after 2 hours.). gabapentin (NEURONTIN) 100 mg capsule Take 6 capsules by mouth daily at bedtime for 180 days. tiZANidine (ZANAFLEX) 4 mg tablet Take 2 tablets by mouth daily at bedtime. testosterone 200 mg pllt by IMPLANTATION route. thyroid (MOTORCOACH DRIVER THYROID) 15 mg tablet Take 15 mg by mouth once daily. naltrexone capsule 4.5 mg (CPD) Take 4.5 mg by mouth once daily. progesterone micronized (PROMETRIUM) 100 mg capsule Take 100 mg by mouth once daily. metFORMIN (GLUCOPHAGE) 500 mg tablet Take 500 mg by mouth daily with breakfast. buPROPion XL (WELLBUTRIN XL) 300 mg 24 hr tablet Take 1 tablet by mouth once daily. MAGNESIUM GLYCINATE ORAL Take 350 mg by mouth daily at bedtime. cholecalciferol, vitamin D3, (VITAMIN D3 ORAL) Take 250 mcg by mouth. magnesium B-usauok-yoggqztywcr 42 mg (500 mg)- 250 mg TbER Take by mouth. COQ10, UBIQUINOL, ORAL Take 200 mg by mouth twice daily. riboflavin, vitamin B2, (VITAMIN B-2 ORAL) Take by mouth. Melatonin 5 mg cap Take by mouth. BILL twice daily. ibuprofen (MOTRIN) 600 mg tablet Take 1 tablet by mouth every 6 hours as needed. loratadine (CLARITIN) 10 mg tablet Take 10 mg by mouth once daily. Cetirizine (ZYRTEC) 10 mg cap Take by mouth. iron bis-glycinat/vit C/FA/B12 (GENTLE IRON ORAL) Take by mouth. No current facility-administered medications on file prior to visit. MEDICAL HISTORY PAST MEDICAL HISTORY Diagnosis Date Anemia COVID-19 Intractable migraine with aura Kidney stone SURGICAL HISTORY PAST SURGICAL HISTORY Procedure Laterality Date COLONOSCOPY - DIAGNOSTIC 05/17/2020 EGD 05/17/2020 EYE SURGERY HX HYSTEROSCOPY, DIAGNOSTIC (SEPARATE 11/23/2020 LASIK S ABLATION GINNY [id number] 11/23/2020 Hysteroscopy, Ginny endometrial ablation @ [facility]-Dr. West UNSPECIFIED ORAL SURGERY PROCEDURE, BY REPORT wisdom teeth SOCIAL HISTORY Social History Tobacco Use Smoking status: Never Smokeless tobacco: Never Vaping Use Vaping status: Never Used Substance Use Topics Alcohol use: Yes Comment: socially Drug use: No FAMILY HISTORY FAMILY HISTORY Problem Relation Age of Onset Hypertension Mother Thyroid Mother Breast Cancer Mother Ischemic Heart Disease Father Diabetes Father Colon Cancer Father 63 Stroke Maternal Grandmother other (parkinson's) Maternal Grandfather Diabetes Paternal Grandmother Cancer Paternal Grandmother ovarian other (kidney stone) Sister Breast Cancer Paternal Aunt in her 60s ALLERGIES ALLERGIES No Known Al (more content not included)... [place] 02-25-2024 Telephone encounter Note Last office visit 10-14-23 Future appts 04-16-24 [facility] 02-25-2024 Miscellaneous Notes Last office visit 10-14-23 Future appts 04-16-24 documented in this encounter [facility] 12-17-2023 Telephone encounter Note Last office visit 04/07/23 Future Appt 04/16/24 [facility] 12-17-2023 Miscellaneous Notes Last office visit 04/07/23 Future Appt 04/16/24 documented in this encounter [facility] 12-01-2023 Telephone encounter Note Last office visit 04/07/23 Future Appt 04/16/24 [facility] 12-01-2023 Miscellaneous Notes Last office visit 04/07/23 Future Appt 04/16/24 documented in this encounter [facility] 10-14-2023 History of Present illness Narrative Images from the original note were not included. General Neurology Outpatient Clinic - virtual f/u visit Date: October 14, 2023 Patient Name: Amanda Dean Referring physician: No referring provider defined for this encounter. Primary physician: Aron Ugarte [address] [place] [address] [address] [facility] [place] [address] Reason for Evaluation: [facility] f/u I have communicated my name and active licensure. The patient's identity and physical location were verified at the time of this visit. Either the patient or their legal maintenance representative has been informed of the risks and benefits of -- and alternatives to -- treatment through a remote evaluation and consents to proceed with the evaluation remotely. Initially seen 03/01/2021 for evaluation of PASC. Most troublesome symptoms included: dizziness/imbalance, fatigue, paresthesias, headaches. Started on GBP for symptomatic management. Referred to vestibular therapy and advised to use elbow brace on right arm. EMG without neuropathy, US RUE without nerve compression. Most recently seen 04/07/2023, plan for namenda trial Prior headache medicines: TPM (burning mouth side effects), amantadine (also for fatigue, did not help, felt worse), zonisamide (did not help), periactin (helped but had bothersome weight gain side effect) Current headache preventive: GBP 300mg qhs (doesn't help with headaches but helps with paresthesias and brain buzzing), tizanidine 8mg qhs, coQ10 Current headache abortive: sumatriptan 50mg Prior fatigue medication trial: amantadine, provigil, wellbutrin 300mg daily, namenda 10mg bid Current fatigue medication: none Interval History: Namenda didn't make much difference so she discontinued Her migraines have really improved in the interim. She has less than 1-2x/mo, not even with her periods. Now she's more bothered by her vertigo and her fatigue. She still has some nerve pain in her arms but that's more triggered by specific things like editing on the computer, driving. So she relies on her left hand more. She still does also have insomnia which the gabapentin and tizanidine help with. She stopped GBP in the daytime. She's on vacation currently but it's storming out OUTPATIENT MEDICATIONS Current Outpatient Medications on File Prior to Visit Medication Sig memantine (NAMENDA) 5 mg tablet Take 1 tablet by mouth once daily for 7 days, THEN 1 tablet two times a day. tiZANidine (ZANAFLEX) 4 mg tablet Take 2 tablets by mouth daily at bedtime. gabapentin (NEURONTIN) 100 mg capsule Take 3 capsules by mouth twice daily for 180 days. testosterone 200 mg pllt by IMPLANTATION route. thyroid (MOTORCOACH DRIVER THYROID) 15 mg tablet Take 15 mg by mouth once daily. naltrexone capsule 4.5 mg (CPD) Take 4.5 mg by mouth once daily. progesterone micronized (PROMETRIUM) 100 mg capsule Take 100 mg by mouth once daily. metFORMIN (GLUCOPHAGE) 500 mg tablet Take 500 mg by mouth daily with breakfast. buPROPion XL (WELLBUTRIN XL) 300 mg 24 hr tablet Take 1 tablet by mouth once daily. MAGNESIUM GLYCINATE ORAL Take 350 mg by mouth daily at bedtime. cholecalciferol, vitamin D3, (VITAMIN D3 ORAL) Take 250 mcg by mouth. magnesium C-xnxchy-uzzksekfapy 42 mg (500 mg)- 250 mg TbER Take by mouth. COQ10, UBIQUINOL, ORAL Take 200 mg by mouth twice daily. riboflavin, vitamin B2, (VITAMIN B-2 ORAL) Take by mouth. Melatonin 5 mg cap Take by mouth. BILL twice daily. ibuprofen (MOTRIN) 600 mg tablet Take 1 tablet by mouth every 6 hours as needed. loratadine (CLARITIN) 10 mg tablet Take 10 mg by mouth once daily. Cetirizine (ZYRTEC) 10 mg cap Take by mouth. iron bis-glycinat/vit C/FA/B12 (GENTLE IRON ORAL) Take by mouth. No current facility-administered medications on file prior to visit. MEDICAL HISTORY PAST MEDICAL HISTORY Diagnosis Date Anemia COVID-19 Intractable migraine with aura Kidney stone SURGICAL HISTORY PAST SURGICAL HISTORY Procedure Laterality Date COLONOSCOPY - DIAGNOSTIC 05/17/2020 EGD 05/17/2020 EYE SURGERY HX HYSTEROSCOPY, DIAGNOSTIC (SEPARATE 11/23/2020 LASIK S ABLATION GINNY [id number] 11/23/2020 Hysteroscopy, Ginny endometrial ablation @ [facility]-Dr. West UNSPECIFIED ORAL SURGERY PROCEDURE, BY REPORT wisdom teeth SOCIAL HISTORY Social History Tobacco Use Smoking status: Never Smokeless tobacco: Never Vaping Use Vaping Use: Never used Substance Use Topics Alcohol use: Yes Comment: socially Drug use: No FAMILY HISTORY FAMILY HISTORY Problem Relation Age of Onset Hypertension Mother Thyroid Mother Breast Cancer Mother Ischemic Heart Disease Father Diabetes Father Colon Cancer Father 63 Stroke Maternal Grandmother other (parkinson's) Maternal Grandfather Diabetes Paternal Grandmother Cancer Paternal Grandmother ovarian other (kidney stone) Sister Breast Cancer Paternal Aunt in her 60s ALLERGIES ALLERGIES No Known Allergies REVIEW OF SYSTEMS: No fevers, chills No chest pain No SOB Some imbalance No head trauma PHYSICAL EXAM: LMP 03/03/2021 General appearance: Well appearing, alert, in no acute distress Neurological exam: Mental Status: Alert, oriented to person, place and time and Follows commands. Cranial Nerves: face symmetric, no facial droop or ptosis, no dysarthria, and tongue protrudes midline. Motor: BUE antigravity 10/10 seconds ASSESSMENT: 52 year old RH female with a history of menstrual migraines who presents for follow-up of [facility]. She's had improvement in migraines but unfortuantely did not benefit from namenda for fatigue. Still has dizziness and intermittent pareshtesias. PLAN: - update CBC, CMP - increase night-time dose of GBP - f/u 6mo virtually I spent a total of 20 minutes on the date of the service which included preparing to see the patient, [id number] patient care, completing clinical documentation, obtaining and/or reviewing separately obtained history, performing a medically appropriate examination, counseling and educating the patient/family/caregiver, ordering medications, tests, or procedures, and care coordination (not separately reported). Bri Dove MD Staff, General Neurology Pager: [phone] CC: Referring Physician: No referring provider defined for this encounter. PCP: Aron Schuster[address] [place] [address] documented in this encounter [facility] 10-14-2023 Note HNO ID: [id number] Author: BRI DOVE MD Service: ? Author Type: Physician Type: Progress Notes Filed: 10/14/2023 16:12 Note Text: General Neurology Outpatient Clinic - virtual f/u visit Date: October 14, 2023 Patient Name: Amanda Dean Referring physician: No referring provider defined for this encounter. Primary physician: Aron Ugarte [address] [place] [address] Reason for Evaluation: [facility] f/u I have communicated my name and active licensure. The patient's identity and physical location were verified at the time of this visit. Either the patient or their legal maintenance representative has been informed of the risks and benefits of -- and alternatives to -- treatment through a remote evaluation and consents to proceed with the evaluation remotely. Initially seen 03/01/2021 for evaluation of PASC. Most troublesome symptoms included: dizziness/imbalance, fatigue, paresthesias, headaches. Started on GBP for symptomatic management. Referred to vestibular therapy and advised to use elbow brace on right arm. EMG without neuropathy, US RUE without nerve compression. Most recently seen 04/07/2023, plan for namenda trial Prior headache medicines: TPM (burning mouth side effects), amantadine (also for fatigue, did not help, felt worse), zonisamide (did not help), periactin (helped but had bothersome weight gain side effect) Current headache preventive: GBP 300mg qhs (doesn't help with headaches but helps with paresthesias and brain buzzing), tizanidine 8mg qhs, coQ10 Current headache abortive: sumatriptan 50mg Prior fatigue medication trial: amantadine, provigil, wellbutrin 300mg daily, namenda 10mg bid Current fatigue medication: none Interval History: Namenda didn't make much difference so she discontinued Her migraines have really improved in the interim. She has less than 1-2x/mo, not even with her periods. Now she's more bothered by her vertigo and her fatigue. She still has some nerve pain in her arms but that's more triggered by specific things like editing on the computer, driving. So she relies on her left hand more. She still does also have insomnia which the gabapentin and tizanidine help with. She stopped GBP in the daytime. She's on vacation currently but it's storming out OUTPATIENT MEDICATIONS Current Outpatient Medications on File Prior to Visit Medication Sig memantine (NAMENDA) 5 mg tablet Take 1 tablet by mouth once daily for 7 days, THEN 1 tablet two times a day. tiZANidine (ZANAFLEX) 4 mg tablet Take 2 tablets by mouth daily at bedtime. gabapentin (NEURONTIN) 100 mg capsule Take 3 capsules by mouth twice daily for 180 days. testosterone 200 mg pllt by IMPLANTATION route. thyroid (MOTORCOACH DRIVER THYROID) 15 mg tablet Take 15 mg by mouth once daily. naltrexone capsule 4.5 mg (CPD) Take 4.5 mg by mouth once daily. progesterone micronized (PROMETRIUM) 100 mg capsule Take 100 mg by mouth once daily. metFORMIN (GLUCOPHAGE) 500 mg tablet Take 500 mg by mouth daily with breakfast. buPROPion XL (WELLBUTRIN XL) 300 mg 24 hr tablet Take 1 tablet by mouth once daily. MAGNESIUM GLYCINATE ORAL Take 350 mg by mouth daily at bedtime. cholecalciferol, vitamin D3, (VITAMIN D3 ORAL) Take 250 mcg by mouth. magnesium V-hnmshz-jgznblezfbd 42 mg (500 mg)- 250 mg TbER Take by mouth. COQ10, UBIQUINOL, ORAL Take 200 mg by mouth twice daily. riboflavin, vitamin B2, (VITAMIN B-2 ORAL) Take by mouth. Melatonin 5 mg cap Take by mouth. BILL twice daily. ibuprofen (MOTRIN) 600 mg tablet Take 1 tablet by mouth every 6 hours as needed. loratadine (CLARITIN) 10 mg tablet Take 10 mg by mouth once daily. Cetirizine (ZYRTEC) 10 mg cap Take by mouth. iron bis-glycinat/vit C/FA/B12 (GENTLE IRON ORAL) Take by mouth. No current facility-administered medications on file prior to visit. MEDICAL HISTORY PAST MEDICAL HISTORY Diagnosis Date Anemia COVID-19 Intractable migraine with aura Kidney stone SURGICAL HISTORY PAST SURGICAL HISTORY Procedure Laterality Date COLONOSCOPY - DIAGNOSTIC 05/17/2020 EGD 05/17/2020 EYE SURGERY HX HYSTEROSCOPY, DIAGNOSTIC (SEPARATE 11/23/2020 LASIK S ABLATION GINNY [id number] 11/23/2020 Hysteroscopy, Ginny endometrial ablation @ [facility]-Dr. West UNSPECIFIED ORAL SURGERY PROCEDURE, BY REPORT wisdom teeth SOCIAL HISTORY Social History Tobacco Use Smoking status: Never Smokeless tobacco: Never Vaping Use Vaping Use: Never used Substance Use Topics Alcohol use: Yes Comment: socially Drug use: No FAMILY HISTORY FAMILY HISTORY Problem Relation Age of Onset Hypertension Mother Thyroid Mother Breast Cancer Mother Ischemic Heart Disease Father Diabetes Father Colon Cancer Father 63 Stroke Maternal Grandmother other (parkinson's) Maternal Grandfather Diabetes Paternal Grandmother Cancer Paternal Grandmother ovarian other (kidney stone) (more content not included)... [place] 04-07-2023 History of Present illness Narrative General Neurology Outpatient Clinic - f/u visit Date: April 07, 2023 Patient Name: Amanda Dean Referring physician: No referring provider defined for this encounter. Primary physician: Aron Ugarte NO FORWARDING ADDRESS Reason for Evaluation: [facility] f/u Initially seen 03/01/2021 for evaluation of PASC. Most troublesome symptoms included: dizziness/imbalance, fatigue, paresthesias, headaches. Started on GBP for symptomatic management. Referred to vestibular therapy and advised to use elbow brace on right arm. EMG without neuropathy, US RUE without nerve compression. Most recently seen with clinical improvement after starting progesterone, testosterone pellets, low dose naltrexone, metformin with [facility] doctor. Planning daughter's wedding in November Prior headache medicines: TPM (burning mouth side effects), amantadine (also for fatigue, did not help, felt worse), zonisamide (did not help), periactin (helped but had bothersome weight gain side effect) Current headache preventive: GBP 300mg qhs(doesn't help with headaches but helps with paresthesias and brain buzzing), tizanidine 8mg qhs Current headache abortive: sumatriptan 50mg Prior fatigue medication trial: amantadine, provigil, ellbutrin 300mg daily Current fatigue medication: none Interval History: Saw herbalist 11/25/2022 but decided not to pursue that venue Daughter's wedding in November went well Headaches doing better. About 4x/mo now. Triggered by eye or dental appointments, menstrual cycle. Sumatriptan still effective as abortive. Has weaned down to gabapentin 300mg qhs Still doesn't sleep well, trouble falling asleep Would like to try namenda OUTPATIENT MEDICATIONS Current Outpatient Medications on File Prior to Visit Medication Sig testosterone 200 mg pllt by IMPLANTATION route. thyroid (MOTORCOACH DRIVER THYROID) 15 mg tablet Take 15 mg by mouth once daily. naltrexone capsule 4.5 mg (CPD) Take 4.5 mg by mouth once daily. progesterone micronized (PROMETRIUM) 100 mg capsule Take 100 mg by mouth once daily. metFORMIN (GLUCOPHAGE) 500 mg tablet Take 500 mg by mouth daily with breakfast. gabapentin (NEURONTIN) 100 mg capsule Take 3 capsules by mouth twice daily for 180 days. buPROPion XL (WELLBUTRIN XL) 300 mg 24 hr tablet Take 1 tablet by mouth once daily. tiZANidine (ZANAFLEX) 4 mg tablet Take 2 tablets by mouth daily at bedtime. MAGNESIUM GLYCINATE ORAL Take 350 mg by mouth daily at bedtime. cholecalciferol, vitamin D3, (VITAMIN D3 ORAL) Take 250 mcg by mouth. magnesium O-rpyhrz-fnyrfqrqoei 42 mg (500 mg)- 250 mg TbER Take by mouth. COQ10, UBIQUINOL, ORAL Take 200 mg by mouth twice daily. riboflavin, vitamin B2, (VITAMIN B-2 ORAL) Take by mouth. (Patient not taking: Reported on 08/13/2021 ) Melatonin 5 mg cap Take by mouth. BILL twice daily. ibuprofen (MOTRIN) 600 mg tablet Take 1 tablet by mouth every 6 hours as needed. loratadine (CLARITIN) 10 mg tablet Take 10 mg by mouth once daily. Cetirizine (ZYRTEC) 10 mg cap Take by mouth. iron bis-glycinat/vit C/FA/B12 (GENTLE IRON ORAL) Take by mouth. No current facility-administered medications on file prior to visit. MEDICAL HISTORY PAST MEDICAL HISTORY Diagnosis Date Anemia COVID-19 Intractable migraine with aura Kidney stone SURGICAL HISTORY PAST SURGICAL HISTORY Procedure Laterality Date COLONOSCOPY - DIAGNOSTIC 05/17/2020 EGD 05/17/2020 EYE SURGERY HX HYSTEROSCOPY, DIAGNOSTIC (SEPARATE 11/23/2020 LASIK S ABLATION GINNY [id number] 11/23/2020 Hysteroscopy, Ginny endometrial ablation @ [facility]-Dr. West UNSPECIFIED ORAL SURGERY PROCEDURE, BY REPORT wisdom teeth SOCIAL HISTORY Social History Tobacco Use Smoking status: Never Smokeless tobacco: Never Vaping Use Vaping Use: Never used Substance Use Topics Alcohol use: Yes Comment: socially Drug use: No FAMILY HISTORY FAMILY HISTORY Problem Relation Age of Onset Hypertension Mother Thyroid Mother Breast Cancer Mother Ischemic Heart Disease Father Diabetes Father Colon Cancer Father 63 Stroke Maternal Grandmother other (parkinson's) Maternal Grandfather Diabetes Paternal Grandmother Cancer Paternal Grandmother ovarian other (kidney stone) Sister Breast Cancer Paternal Aunt in her 60s ALLERGIES ALLERGIES No Known Allergies REVIEW OF SYSTEMS: No fevers, chills No chest pain +imbalance: bobbing sensation persists No falls No head trauma PHYSICAL EXAM: BP 124/82 (BP Site: Left Arm, BP Position: Sitting, BP Cuff Size: Regular Adult) Pulse 81 Resp 16 LMP 03/03/2021 SpO2 100% General appearance: Well appearing, alert, in no acute distress Head: Normocephalic, atraumatic. MSK: +tight cervical paraspinal muscles Neurological exam: Mental Status: Alert, oriented to person, place and time and Follows commands. Cranial Nerves: PERRL, visual ro intact to confrontation, extraocular movements intact, facial sensation intact, face symmetric, no facial droop or ptosis, hearing intact to finger rub bilaterally, no dysarthria, palate elevate symmetrically, tongue protrudes midline, and shoulder shrug intact and symmetric. Motor: Right Upper: Left Upper: Deltoid: 5 Deltoid: 5 Triceps: 5 Triceps: 5 Biceps: 5 Biceps: 5 Sheet Rock Applicator: 5 Sheet Rock Applicator: 5 Finger abduction: 5 Finger abduction: 5 Finger adduction: 5 Finger adduction: 5 Right Lower: Left Lower: Iliopsoas: 5 Iliopsoas: 5 Knee flexor: 5 Knee flexor: 5 Knee extensor: 5 Knee extensor: 5 Dorsiflexion: 5 Dorsiflexion: 5 Plantarflexion: 5 Plantarflexion: 5 Motor Tone: Right Upper: Normal tone Left Upper: Normal tone Right Lower: Normal tone Left Lower: Normal tone Reflexes: 2/4 biceps, brachioradialis, patellars Sensation: intact BUE to touch, temperature, vibration, proprioception Coordination: Finger-to- nose-finger intact bilaterally and Tidw-qc-bqry intact bilaterally. Gait: normal-based. Normal tiptoe, heel. Mildly unsteady tandem but independently performed Romberg: neg LABS/DATA: Component Latest Ref Rng & Units 10/14/2022 WBC 3.70 - 11.00 k/uL 5.13 RBC 3.90 - 5.20 m/uL 4.74 Hemoglobin 11.5 - 15.5 g/dL 14.3 Hematocrit 36.0 - 46.0 % 41.8 MCV 80.0 - 100.0 fL 88.2 MCH 26.0 - 34.0 pg 30.2 MCHC 30.5 - 36.0 g/dL 34.2 RDW-CV 11.5 - 15.0 % 11.7 Platelet Count 150 - 400 k/uL 254 MPV 9.0 - 12.7 fL 10.0 Neut% % 63.2 Abs Neut (ANC) 1.45 - 7.50 k/uL 3.24 Lymph% % 25.3 Abs Lymph 1.00 - 4.00 k/uL 1.30 Brantley% % 7.6 Abs Brantley <0.87 k/uL 0.39 Eosin% % 2.7 Abs Eosin <0.46 k/uL 0.14 Baso% % 0.6 Abs Baso <0.11 k/uL 0.03 Immature Gran % % 0.6 IMMATURE GRANS (ABS) <0.10 k/uL 0.03 DTYPE Auto Protein, Total 6.3 - 8.0 g/dL 6.7 Albumin 3.9 - 4.9 g/dL 4.5 Calcium 8.5 - 10.2 mg/dL 9.5 Bilirubin, Total 0.2 - 1.3 mg/dL 0.4 Alkaline Phosphatase 34 - 123 U/L 63 AST 13 - 35 U/L 17 ALT 7 - 38 U/L 22 Glucose 74 - 99 mg/dL 105 (H) BUN 7 - 21 mg/dL 15 Creatinine 0.58 - 0.96 mg/dL 0.98 (H) Sodium 136 - 144 mmol/L 136 Potassium 3.7 - 5.1 mmol/L 4.2 Chloride 97 - 105 mmol/L 105 CO2 22 - 30 mmol/L 23 Anion Gap 9 - 18 mmol/L 8 (L) eGFR >=60 mL/min/1.73m 70 ASSESSMENT: 52 year old RH female with a history of menstrual migraines who presents for follow-up of [facility]. Headaches improved in interim, able to wean down on GBP dosing. PLAN: - continue gabapentin 300mg qhs, tizanidine 8mg qhs - continue sumatriptan 50mg prn - trial namenda, side effects reviewed, uptitrate as needed/tolerated - f/u 6mo virtually I spent a total of 25 minutes on the date of the service which included preparing to see the patient, [id number] patient care, completing clinical documentation, obtaining and/or reviewing separately obtained history, performing a medically appropriate examination, counseling and educating the patient/family/caregiver, ordering medications, tests, or procedures, and independently interpreting results (not separately reported). Bri Dove MD Staff, General Neurology Pager: [phone] CC: Referring Physician: No referring provider defined for this encounter. PCP: Aron Ugarte NO FORWARDING ADDRESS documented in this encounter [facility] 12-04-2022 Miscellaneous Notes Last office visit 10-11-22 No Future appt documented in this encounter [facility] 07-04-2022 Miscellaneous Notes SARAH: 04/01/22 NOV: 10/11/22 documented in this encounter [facility] 05-22-2022 Miscellaneous Notes Patient requesting refills as follows: Requested Prescriptions Pending Prescriptions Disp Refills gabapentin (NEURONTIN) 300 mg capsule 60 capsule 2 Sig: Take 1 capsule by mouth twice daily for 90 days. SARAH: 04/01/2022 ([facility]) Upcoming Appointment: 10/11/2022 Please review and advise. Thank You, Tona Simon Ma May 22, 2022 7:48 AM documented in this encounter [facility] 04-10-2022 Miscellaneous Notes Patient scheduled. documented in this encounter [facility] 04-08-2022 Miscellaneous Notes Signed. See pended order below. Pt wanting to schedule. Rebecca Arora LPN documented in this encounter [facility] 04-01-2022 History of Present illness Narrative Images from the original note were not included. General Neurology Outpatient Clinic - virtual f/u visit Date: April 01, 2022 Patient Name: Amanda Dean Referring physician: Bri Dove [address] [facility] [address] Primary physician: Aron Ugarte [address] [place] [id number] Reason for Evaluation: PASC, headaches f/u Initially seen 03/01/2021 for evaluation of PASC. Most troublesome symptoms included: dizziness/imbalance, fatigue, paresthesias, headaches. Started on GBP for symptomatic management. Referred to vestibular therapy and advised to use elbow brace on right arm. EMG without neuropathy, US RUE without nerve compression. Most recently seen 12/03/2021 with overall improvement in headache frequency. Plan to stop benadryl which patient has been taking for sleep and start periactin which may also help with headaches Prior headache medicines: TPM (burning mouth side effects), amantadine (also for fatigue, did not help, felt worse), zonisamide (did not help) Current headache preventive: GBP 300mg bid (doesn't help with headaches but helps with paresthesias and brain buzzing), tizanidine 8mg qhs, periactin 4mg qhs Current headache abortive: sumatriptan 50mg Prior fatigue medication trial: amantadine, provigil Current fatigue medication: wellbutrin 150mg daily Interval History: Feeling overall about the same. Still has dizziness and fatigue. No response to wellbutrin thus far, no side effects. It's been a bad month for migraines. She had a routine dental cleaning March 12 and that lead to a 4 day migraine. She did also have her period about this time. She can't use her electric toothbrush. She felt like the combination of periactin, gabapentin, and tizanidine were helping really well with her migraines until her tooth cleaning. Periactin was helping helping with insomnia well. Dry mouth is a problem still. She's wondering if more cleanings would help with cavities. OUTPATIENT MEDICATIONS Current Outpatient Medications on File Prior to Visit Medication Sig cyproheptadine (PERIACTIN) 4 mg tablet Take 1 tablet by mouth daily at bedtime. SUMAtriptan (IMITREX) 50 mg tablet Take 1 tablet by mouth as needed (at onset of headache. May repeat after 2 hours.). buPROPion XL (WELLBUTRIN XL) 150 mg 24 hr tablet Take 1 tablet by mouth once daily. gabapentin (NEURONTIN) 300 mg capsule Take 1 capsule by mouth twice daily for 90 days. tiZANidine (ZANAFLEX) 4 mg tablet Take 2 tablets by mouth daily at bedtime. MAGNESIUM GLYCINATE ORAL Take 350 mg by mouth daily at bedtime. cholecalciferol, vitamin D3, (VITAMIN D3 ORAL) Take 250 mcg by mouth. magnesium X-efujyb-xyjkkcbzxnd 42 mg (500 mg)- 250 mg TbER Take by mouth. (Patient not taking: Reported on 08/13/2021 ) COQ10, UBIQUINOL, ORAL Take 200 mg by mouth twice daily. riboflavin, vitamin B2, (VITAMIN B-2 ORAL) Take by mouth. (Patient not taking: Reported on 08/13/2021 ) Melatonin 5 mg cap Take by mouth. BILL twice daily. ibuprofen (MOTRIN) 600 mg tablet Take 1 tablet by mouth every 6 hours as needed. loratadine (CLARITIN) 10 mg tablet Take 10 mg by mouth once daily. Cetirizine (ZYRTEC) 10 mg cap Take by mouth. iron bis-glycinat/vit C/FA/B12 (GENTLE IRON ORAL) Take by mouth. No current facility-administered medications on file prior to visit. MEDICAL HISTORY PAST MEDICAL HISTORY Diagnosis Date Anemia COVID-19 Intractable migraine with aura Kidney stone SURGICAL HISTORY PAST SURGICAL HISTORY Procedure Laterality Date COLONOSCOPY - DIAGNOSTIC 05/17/2020 EGD 05/17/2020 EYE SURGERY HX HYSTEROSCOPY, DIAGNOSTIC (SEPARATE 11/23/2020 LASIK S ABLATION GINNY [id number] 11/23/2020 Hysteroscopy, Ginny endometrial ablation @ [facility]-Dr. West UNSPECIFIED ORAL SURGERY PROCEDURE, BY REPORT wisdom teeth SOCIAL HISTORY Social History Tobacco Use Smoking status: Never Smoker Smokeless tobacco: Never Used Vaping Use Vaping Use: Never used Substance Use Topics Alcohol use: Yes Comment: socially Drug use: No FAMILY HISTORY FAMILY HISTORY Problem Relation Age of Onset Hypertension Mother Thyroid Mother Breast Cancer Mother Ischemic Heart Disease Father Diabetes Father Colon Cancer Father 63 Stroke Maternal Grandmother other (parkinson's) Maternal Grandfather Diabetes Paternal Grandmother Cancer Paternal Grandmother ovarian other (kidney stone) Sister Breast Cancer Paternal Aunt in her 60s ALLERGIES ALLERGIES No Known Allergies REVIEW OF SYSTEMS: No fevers, chills No chest pain, palpitations No SOB No coughing, sneezing No constipation, diarrhea +chronic dizziness, imbalance No interval head trauma PHYSICAL EXAM: LMP 03/03/2021 General appearance: Well appearing, alert, in no acute distress Head: Normocephalic, atraumatic. Neurological exam: Mental Status: Alert, oriented to person, place and time and Follows commands. Cranial Nerves: face symmetric, no dysarthria, and tongue protrudes midline. Motor: BUE antigravity 10/10 seconds without drift ASSESSMENT: 51 year old RH female with a history of menstrual migraines who presents for follow-up of [facility]. She has had benefit from mediations for headaches though has had some worsening after a dental procedure. She has also had benefit from periactin on her chronic insomnia even after stopping benadryl. Discussed that COVID virus seems to be neurotropic and seems to correlate with central sensitization which can be contributing to her persistent symptoms. PLAN: - increase periactin 8mg qhs - increase wellbutrin to 300mg daily - continue other medications - f/u 6mo in person for updated exam I spent a total of 30 minutes on the date of the service which included preparing to see the patient, [id number] patient care, completing clinical documentation, obtaining and/or reviewing separately obtained history, performing a medically appropriate examination, counseling and educating the patient/family/caregiver, ordering medications, tests, or procedures, and care coordination (not separately reported). Bri Dove MD Staff, General Neurology Pager: [phone] CC: Referring Physician: Bri Dove [address] [place] [id number] PCP: Aron Ugarte [address] [place] [id number] documented in this encounter [facility] 02-11-2022 Miscellaneous Notes Last office visit 03-01-21 Future appts 04-01-22 documented in this encounter [facility] 01-29-2022 Miscellaneous Notes [id number] Last name Jermaine Manuel 1970 Modafinil 100 mg tablets PA Case: [id number], Status: Approved, Coverage Starts on: 01/29/2022 12:00:00 AM, Coverage Ends on: 01/29/2023 12:00:00 AM. documented in this encounter [facility] 01-29-2022 Miscellaneous Notes Last office visit 03-01-21 Future appts 04-01-22 documented in this encounter [facility] 01-25-2022 Miscellaneous Notes Please review and advise. Thank You, Tona Simon Ma January 25, 2022 1:09 PM documented in this encounter [facility] 12-31-2021 Miscellaneous Notes Last office visit: 12/03/21 Next office visit: 04/01/22 Patient phones requesting refills as follows: Requested Prescriptions Pending Prescriptions Disp Refills SUMAtriptan (IMITREX) 50 mg tablet 8 tablet 0 Sig: Take 1 tablet by mouth as needed (at onset of headache. May repeat after 2 hours.). cyproheptadine (PERIACTIN) 4 mg tablet 30 tablet 0 Sig: Take 1 tablet by mouth daily at bedtime. Please review and advise. Susan Barrera documented in this encounter [facility] 12-26-2021 Miscellaneous Notes SARAH: 12/03/2021 Please review and advise. Thank You, Tona Simon Ma December 26, 2021 8:51 AM documented in this encounter [facility] 12-03-2021 Instructions Bri Dove MD - 12/03/2021 11:31 AM EDT I'm so glad the headaches are better! We're going to switch you from benadryl at night to a medicine called periactin. It is also a histamine. We often use it for kids with migraines or ladies who have migraines. We'll start at 4mg at bedtime but we can certainly increase or decrease the dose as needed. Please keep me updated on how you do! We'll see each other in 3 months virtually for an update but please don't hesitate to reach out before then! documented in this encounter [facility] 12-03-2021 History of Present illness Narrative Images from the original note were not included. General Neurology Outpatient Clinic - f/u visit Date: December 03, 2021 Patient Name: Amanda Dean Referring physician: No referring provider defined for this encounter. Primary physician: Aron Ugarte [address] [place] [id number] Reason for Evaluation: PASC f/u Initially seen 03/01/2021 for evaluation of PASC. Most troublesome symptoms included: dizziness/imbalance, fatigue, paresthesias, headaches. Started on GBP for symptomatic management. Referred to vestibular therapy and advised to use elbow brace on right arm. EMG without neuropathy, US RUE without nerve compression. Most recently seen 08/13/2021, patient noted some menstrual patter to headaches though also had headaches outside her cycles. Prior headache medicines: gabapentin (did not help with headaches, does help with paresthesias), TPM (burning mouth side effects), amantadine (also for fatigue, did not help, felt worse), zonisamide (did not help) Current headache preventive: GBP 300mg bid (doesn't help with headaches but helps with paresthesias and brain buzzing), tizanidine 8mg qhs Current headache abortive: sumatriptan 50mg Interval History: Patient did not have benefit from zonisamide and so switched to tizanidine for headache preventive. She does feel neck tightness. Did help some, dose increased to 8mg qhs and has had benefit on overall frequency of headaches. Now at 8-10/mo but these always abort with imitrex. 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 She's wondering if she should wean off it but is also afraid to since her current medication regimen has been beneficial for her symptoms. Her paresthesias and her fatigue remain present but overall stable No interval illness, hospitalizations, or ER visits OUTPATIENT MEDICATIONS Current Outpatient Medications on File Prior to Visit Medication Sig SUMAtriptan (IMITREX) 50 mg tablet Take 1 tablet by mouth as needed (at onset of headache. May repeat after 2 hours.). gabapentin (NEURONTIN) 300 mg capsule Take 1 capsule by mouth twice daily for 90 days. MAGNESIUM GLYCINATE ORAL Take 350 mg by mouth daily at bedtime. cholecalciferol, vitamin D3, (VITAMIN D3 ORAL) Take 250 mcg by mouth. magnesium R-gcyxzk-rlxoluqqbba 42 mg (500 mg)- 250 mg TbER Take by mouth. (Patient not taking: Reported on 08/13/2021 ) COQ10, UBIQUINOL, ORAL Take 200 mg by mouth twice daily. riboflavin, vitamin B2, (VITAMIN B-2 ORAL) Take by mouth. (Patient not taking: Reported on 08/13/2021 ) Melatonin 5 mg cap Take by mouth. BILL twice daily. ibuprofen (MOTRIN) 600 mg tablet Take 1 tablet by mouth every 6 hours as needed. loratadine (CLARITIN) 10 mg tablet Take 10 mg by mouth once daily. Cetirizine (ZYRTEC) 10 mg cap Take by mouth. diphenhydrAMINE (BENADRYL) 25 mg capsule Take 25 mg by mouth every 6 hours as needed. iron bis-glycinat/vit C/FA/B12 (GENTLE IRON ORAL) Take by mouth. No current facility-administered medications on file prior to visit. MEDICAL HISTORY PAST MEDICAL HISTORY Diagnosis Date Anemia COVID-19 Intractable migraine with aura Kidney stone SURGICAL HISTORY PAST SURGICAL HISTORY Procedure Laterality Date COLONOSCOPY - DIAGNOSTIC 05/17/2020 EGD 05/17/2020 EYE SURGERY HX HYSTEROSCOPY, DIAGNOSTIC (SEPARATE 11/23/2020 LASIK S ABLATION GINNY [id number] 11/23/2020 Hysteroscopy, Ginny endometrial ablation @ [facility]-Dr. West UNSPECIFIED ORAL SURGERY PROCEDURE, BY REPORT wisdom teeth SOCIAL HISTORY Social History Tobacco Use Smoking status: Never Smoker Smokeless tobacco: Never Used Vaping Use Vaping Use: Never used Substance Use Topics Alcohol use: Yes Comment: socially Drug use: No FAMILY HISTORY FAMILY HISTORY Problem Relation Age of Onset Hypertension Mother Thyroid Mother Breast Cancer Mother Ischemic Heart Disease Father Diabetes Father Colon Cancer Father 63 Stroke Maternal Grandmother other (parkinson's) Maternal Grandfather Diabetes Paternal Grandmother Cancer Paternal Grandmother ovarian other (kidney stone) Sister Breast Cancer Paternal Aunt in her 60s ALLERGIES ALLERGIES No Known Allergies REVIEW OF SYSTEMS: Denies fevers, chills Denies chest pain, palpitations Denies SOB Denies abdominal pain +RUE paresthesias, stable +fatigue, stable +headaches, improved frequency PHYSICAL EXAM: BP 139/73 Pulse 81 Wt 75.3 kg (166 lb) LMP 03/03/2021 SpO2 99% BMI 29.41 kg/m General appearance: Well appearing, alert, in no acute distress Head: Normocephalic, atraumatic. Neurological exam: Mental Status: Alert, oriented to person, place and time and Follows commands. Able to recite months backwards. Able to recall 3/3 words without cues needed Cranial Nerves: PERRL, visual ro intact to confrontation, extraocular movements intact, facial sensation intact, face symmetric, no facial droop or ptosis, hearing intact to finger rub bilaterally, no dysarthria and shoulder shrug intact and symmetric. Motor: Right Upper: Left Upper: Deltoid: 5 Deltoid: 5 Triceps: 5 Triceps: 5 Biceps: 5 Biceps: 5 Sheet Rock Applicator: 5 Sheet Rock Applicator: 5 Finger abduction: 5 Finger abduction: 5 Finger adduction: 5 Finger adduction: 5 Right Lower: Left Lower: Iliopsoas: 5 Iliopsoas: 5 Knee flexor: 5 Knee flexor: 5 Knee extensor: 5 Knee extensor: 5 Dorsiflexion: 5 Dorsiflexion: 5 Plantarflexion: 5 Plantarflexion: 5 Motor Tone: Right Upper: Normal tone Left Upper: Normal tone Right Lower: Normal tone Left Lower: Normal tone Reflexes: 2/4 biceps, brachioradialis, patellars, ankles. downgoing plantars. No clonus Sensation: intact BUE and BLE to touch, temperature, vibration, proprioception, pinprick Coordination: Finger-to- nose-finger intact bilaterally and Vynk-jt-kmak intact bilaterally. Gait: normal-based. Normal tiptoe, heel, tandem gait Romberg: neg ASSESSMENT: 51 year old RH female with a history of menstrual migraines who presents for follow-up of [facility]. Her fatigue and RUE paresthesias remain stable. Her sensation of brain buzzing has been helped by GBP. Headache frequency has decreased overall in tizanidine. She is curious if she should wean off benadryl which she has been using for sleeping. Discussed possibility of initiating periactin, which can also help with headaches, to replace benadryl since it's also an anti-histamine. Patient would like to try PLAN: - continue GBP 300mg bid - continue tizanidine 8mg qhs, sumatriptan 50mg prn for headaches - stop benadryl - start periactin 4mg qhs, reviewed side effects, titrate as needed/tolerated - f/u 3mo virtually for update I spent a total of 25 minutes on the date of the service which included preparing to see the patient, sutr-[id number] patient care, completing clinical documentation, obtaining and/or reviewing separately obtained history, performing a medically appropriate examination, counseling and educating the patient/family/caregiver and ordering medications, tests, or procedures. Bri oDve MD Staff, General Neurology Pager: [phone] CC: Referring Physician: No referring provider defined for this encounter. PCP: Aron Ugarte [address] [place] [address] documented in this encounter [facility] 11-20-2021 Miscellaneous Notes Patient requesting refills as follows: Pending Prescriptions Disp Refills SUMATRIPTAN 50 MG TABLET 8 tablet 0 Sig: Take 1 tablet by mouth as needed (at onset of headache. May repeat after 2 hours.). VIV: No SARAH: 08/13/2021 Upcoming Appointment: 12/03/2021 Please review and advise. Thank You, Tona Simon Ma November 20, 2021 8:09 AM documented in this encounter [facility] 10-29-2021 Miscellaneous Notes Patient requesting refills as follows: Pending Prescriptions Disp Refills GABAPENTIN 300 MG CAPSULE 60 capsule 2 Sig: Take 1 capsule by mouth twice daily for 90 days. VIV: No SARAH: 08/13/2021 Upcoming Appointment: 12/03/2021 Please review and advise. Thank You, Tona Simon Ma October 29, 2021 8:10 AM documented in this encounter [facility] 10-23-2021 Miscellaneous Notes Orders filed. Melaine Medina APRN.ASMITA Please see pended order below. Pt scheduled for this. Rebecca Arora LPN Pt is due for her 6 month fu of right breast. Please enter Diagnostic Mammogram of Right (calcifications so no US needed) tx! documented in this encounter [facility] 08-17-2021 Miscellaneous Notes SARAH: 08/13/2021 Please review and advise. Thank You, Tona Simon Ma August 17, 2021 8:51 AM documented in this encounter [facility] 08-13-2021 Instructions Bri Dove MD - 08/13/2021 5:02 PM EDT We're going to start topamax at bedtime to see if it can help with the headaches. It can cause more numbness/tingling which usually improves with time. It can cause dizziness and sleepiness as well documented in this encounter [facility] 08-13-2021 History of Present illness Narrative Images from the original note were not included. 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 Most troublesome symptoms included: dizziness/imbalance, fatigue, paresthesias, headaches. Started on GBP for symptomatic management. Referred to vestibular therapy and advised to use elbow brace on right arm. Most recently seen 06/01/2021 for follow-up, plan for amantadine trial for fatigue and switch to naratriptan for menstrual migraines Interval History: Stopped amantadine in June because it wasn't helping symptomatically and actually made her feel worse. Completed total 13 PT sessions for dizziness. Discontinued by patient because she thought it was worsening her migraines. She does have headaches outside of with her cycles that have been pretty much daily since May. Still starts in the neck and then becomes bifrontal pressure. She did try gabapentin 500mg bid for a couple of days and did not find it helpful for the headaches. She's wondering if topamax would be reasonable to try. Other symptoms are about the same, she's accepted it as a new normal. The GBP still helps with the brain buzzing though it does make her tired OUTPATIENT MEDICATIONS Current Outpatient Medications on File Prior to Visit Medication Sig MAGNESIUM GLYCINATE ORAL Take 350 mg by mouth daily at bedtime. cholecalciferol, vitamin D3, (VITAMIN D3 ORAL) Take 250 mcg by mouth. gabapentin (NEURONTIN) 300 mg capsule Take 1 capsule by mouth twice daily for 90 days. SUMAtriptan (IMITREX) 50 mg tablet Take 1 tablet by mouth as needed (at onset of headache. May repeat after 2 hours.). COQ10, UBIQUINOL, ORAL Take 200 mg by mouth twice daily. Melatonin 5 mg cap Take by mouth. BILL twice daily. ibuprofen (MOTRIN) 600 mg tablet Take 1 tablet by mouth every 6 hours as needed. loratadine (CLARITIN) 10 mg tablet Take 10 mg by mouth once daily. Cetirizine (ZYRTEC) 10 mg cap Take by mouth. diphenhydrAMINE (BENADRYL) 25 mg capsule Take 25 mg by mouth every 6 hours as needed. iron bis-glycinat/vit C/FA/B12 (GENTLE IRON ORAL) Take by mouth. amantadine HCl (SYMMETREL) 100 mg capsule Take 1 capsule by mouth once daily for 7 days, THEN 1 capsule twice daily. magnesium D-crttlp-zoqpzpfttbi 42 mg (500 mg)- 250 mg TbER Take by mouth. (Patient not taking: Reported on 08/13/2021 ) riboflavin, vitamin B2, (VITAMIN B-2 ORAL) Take by mouth. (Patient not taking: Reported on 08/13/2021 ) No current facility-administered medications on file prior to visit. MEDICAL HISTORY PAST MEDICAL HISTORY Diagnosis Date Anemia COVID-19 Intractable migraine with aura Kidney stone SURGICAL HISTORY PAST SURGICAL HISTORY Procedure Laterality Date COLONOSCOPY - DIAGNOSTIC 05/17/2020 EGD 05/17/2020 EYE SURGERY HX HYSTEROSCOPY, DIAGNOSTIC (SEPARATE 11/23/2020 LASIK S ABLATION GINNY [id number] 11/23/2020 Hysteroscopy, Ginny endometrial ablation @ [facility]-Dr. West UNSPECIFIED ORAL SURGERY PROCEDURE, BY REPORT wisdom teeth SOCIAL HISTORY Social History Tobacco Use Smoking status: Never Smoker Smokeless tobacco: Never Used Vaping Use Vaping Use: Never used Substance Use Topics Alcohol use: Yes Comment: socially Drug use: No FAMILY HISTORY FAMILY HISTORY Problem Relation Age of Onset Hypertension Mother Thyroid Mother Breast Cancer Mother Ischemic Heart Disease Father Diabetes Father Colon Cancer Father 63 Stroke Maternal Grandmother other (parkinson's) Maternal Grandfather Diabetes Paternal Grandmother Cancer Paternal Grandmother ovarian other (kidney stone) Sister Breast Cancer Paternal Aunt in her 60s ALLERGIES ALLERGIES No Known Allergies REVIEW OF SYSTEMS: Denies fevers, chills Denies chest pain Denies SOB Denies constipation, diarrhea PHYSICAL EXAM: BP 107/68 (BP Site: Left Arm, BP Position: Sitting, BP Cuff Size: Regular Adult) Pulse 82 Wt 73.9 kg (163 lb) LMP 03/03/2021 SpO2 100% BMI 28.87 kg/m General appearance: Well appearing, alert, in no acute distress Head: Normocephalic, atraumatic. Neurological exam: Mental Status: Alert, oriented to person, place and time and Follows commands. Able to recite days of week backwards. Able to recall 3/3 words Cranial Nerves: PERRL, visual ro intact to confrontation, extraocular movements intact, facial sensation intact, face symmetric, no facial droop or ptosis, hearing intact to finger rub bilaterally, no dysarthria and shoulder shrug intact and symmetric. Motor: Right Upper: Left Upper: Deltoid: 5 Deltoid: 5 Triceps: 5 Triceps: 5 Biceps: 5 Biceps: 5 Sheet Rock Applicator: 5 Sheet Rock Applicator: 5 Finger abduction: 5 Finger abduction: 5 Finger adduction: 5 Finger adduction: 5 Right Lower: Left Lower: Iliopsoas: 5 Iliopsoas: 5 Knee flexor: 5 Knee flexor: 5 Knee extensor: 5 Knee extensor: 5 Dorsiflexion: 5 Dorsiflexion: 5 Plantarflexion: 5 Plantarflexion: 5 Motor Tone: Right Upper: Normal tone Left Upper: Normal tone Right Lower: Normal tone Left Lower: Normal tone Reflexes: 2/4 biceps, brachioradialis, patellars Sensation: intact BUE to touch, temperature, vibration, proprioception Coordination: Finger-to- nose-finger intact bilaterally and Rqfi-kq-apiz intact bilaterally. Gait: normal-based. Normal tiptoe, tandem gait Romberg: neg LABS/DATA: 03/16/2022 EMG Electrodiagnostic examination of the right upper limb, with additional nerve conduction studies of the left upper limb, reveals: 1. No definite evidence of right or left median neuropathy at or distal to the wrist (ie: carpal tunnel syndrome). 2. No definite evidence of a right cervical (including C5-T1) motor radiculopathy, although an intraspinal canal lesion affecting only sensory nerve root fibers cannot be excluded based on this study. IMAGIN06/20/2021 US ulnar nerve 1. No ultrasonographic evidence of entrapment or other focal pathology along the studied course of the right ulnar and median nerves. 2. No ultrasonographic evidence of significant focal abnormality of the adjacent tendons or bone is identified. ASSESSMENT: a 50 year old RH female with a history of menstrual migraines who presents for follow-up of post-COVID syndrome. EMG without median neruopathy or cervical radiculopathy. Paresthesias manageable on GBP. She has been having almost daily headaches since May similar to her menstrual migraines. Mild but annoying PLAN: - continue GBP 300mg bid - add TPM qhs for headaches - f/u 3mo I spent a total of 30 minutes on the date of the service which included preparing to see the patient, [id number] patient care, completing clinical documentation, obtaining and/or reviewing separately obtained history, performing a medically appropriate examination, counseling and educating the patient/family/caregiver, ordering medications, tests, or procedures and independently interpreting results (not separately reported). Bri Dove MD Staff, General Neurology Pager: [phone] CC: Referring Physician: Bri Dove [address] [facility] [id number] PCP: Aron Ugarte [address] [place] [id number] documented in this encounter [facility] 08-02-2021 History of Present illness Narrative Episode Visit Count: 13 Therapist That Will Oversee The Plan Of Care: Irene Farrell Start of Care Date: 03/12/21 Onset Date: 03/19/20 Patient Identified by Name and Date of : Yes [facility] PHYSICAL THERAPY DISCONTINUANCE OF CARE PLAN OF CARE UPDATE: Assessment: Amanda Dean is discontinued from Physical Therapy services due to goal achievement and maximal benefit.. Patient was seen for 13 visits from Start of Care Date: 03/12/21 to 08/03/2021 and treatment included: Therapeutic exercise, Neuromuscular re-education, Manual therapy, Therapeutic activities, Self-assisted management, Gait training and Patient/Family/Caregiver Education. Patient continues to have dizziness sensation but tolerates movement better. Feels her cardio endurance has improved well. She continues to have frequent migraines and daily [place] which she will continue to work with neuro. She feels in better control/acceptance mentally and emotionally with better understanding of how her body is functioning and the symptoms she has continued to experience post COVID. Pt feels content with continuing with HEP. Goals for Episode of Care: UPDATED 08/02/2021: created on 03/12/21 Patient will improve FGA to 29/30 in order to perform functional tasks with improved stability: Not met: . Patient will demonstrate normal active cervical spine range of motion to restore posture and complete ADLS with trace report of dizziness/imbalance: MOSTLY MET: ROM WFL but she adopts a mildly forward head posture in sitting. Improved awareness and self correction. Dizziness unchanged with cervical ROM and is at min-moderate levels. Patient will be independent with home exercise program and progression: met: Reviewed. Patient will return to prior level of function with all activities of daily living with trace reports of dizziness: Not met. Doing all ADLs/IADLs independently but dizziness is minimal to moderate and constant. Patient will deny dizziness with supine to sit;driving;walking;working;when on the move; computer work.: partially met --driving is when she does not notice dizziness. Walking does not change dizziness. Breif increases with position changes at times and computer work still bad--? Migraine related. Patient will tolerate 20 to 30 minutes of aerobic activity via biking or walking to promote improved tolerance for household and work related activities. MET: patient states she can tolerate 30 min of ex well. Pushes through her fatigue symptoms. SUBJECTIVE: Patient Reason for Visit: last week was last Migraine. Imitrex continues to help. <24 hours duration with Imitrex. Still with daily [place] which limits tolerance to activities and doing ex. Dizziness is still constant, daily. Somewhat worse. Has a new puppy and has been more active. Notices more balance deficits in the dark. Denies falls. Neck ROM feels pretty good today. Definitely feels as cardio has improved since initiation of PT but still feels generally fatigued all the time but pushes through it. Still not sleeping well. Trial of blue light glasses not successful as she needs to determine colors clearly and glasses with pink tint, obscuring her color detection. Vestibular Description: off sensation (boat rocking) Rating of current symptoms: 5/10 (4 1/2) Pain: Pain Pain Level: 2 Pain Location: (head, neck, back) Description: Aching;Pressure;Sore Frequency: Continuous Post Treatment Pain Post Treatment Pain Level: No Change Post Treatment Symptoms: no change in dizziness. PROMIS Scales Higher is Better 05/10/2021 06/13/2021 07/17/2021 Phys Func - Score 38 (moderate dysfunction) 39 (moderate dysfunction) 41 (mild dysfunction) Phys Func - Percentile 12 % 14 % 18 % Social Roles - Score 37 (moderate dysfunction) 45 (within normal limits) 42 (mild dysfunction) Social Role - Percentile 10 % 31 % 21 % GH Physical - Score - 37.4 (Fair) - GH Physical - Percentile - 10 % - GH Mental - Score - 41.1 (Good) - GH Mental - Percentile - 19 % - Self-Eff Symptom - Score 43 (Average) 43 (Average) 43 (Average) Self-Eff Symptom - Percentile 24 % 24 % 24 % T-scores: mean of general population = 50. 5 points is clinically meaningfully difference Percentiles provide an indication of how the patient's score ranks in relation to the general population. Higher percentile rankings indicate better function/quality of life. 50th percentile is the average of the general population and indicates half of respondents had a worse score. Lower is Better 05/10/2021 06/13/2021 07/17/2021 Fatigue - Score 64 (moderate) 63 (moderate) 63 (moderate) Fatigue - Percentile 8 % 10 % 10 % T-scores: mean of general population = 50. 5 points is clinically meaningfully difference Percentiles provide an indication of how the patient's score ranks in relation to the general population. Higher percentile rankings indicate better function/quality of life. 50th percentile is the average of the general population and indicates half of respondents had a worse score. OBJECTIVE MEASURES WITH LEVEL OF FUNCTION: Posture / Alignment Posture: Comments (mild forward head in sitting. Self corrects. Good posture walking.) Oculomotor Testing Fixation Present Convergence (Distance): 2 inches SVA: line 11 DVA: line 9 Cervical Spine ROM Cervical Flexion AROM: Normal Cervical Extension AROM: Normal Cervical Side-Bend Right AROM: Normal Cervical Side-Bend Left AROM: Normal Cervical Rotation Right AROM: Normal Cervical Rotation Left AROM: Normal Gait Gait Observation: WNL pattern. Mildly slow ivana. Functional Performance Test Results 10 Meter Walk Test Trial 1 (seconds): 5.53 10 Meter Walk Test Average (m/sec): 1.08 10 Meter Walk Test Fast Gait Trial 1 (seconds): 4.8 10 Meter Walk Test Fast Gait Average (m/sec): 1.25 Functional Gait Assessment Gait level surface : 3 - Normal- walks 20' no assist device, good speed, no imbalance, normal gait pattern Change in gait speed: 2 - Mild impairment- is able to change speed but demonstrates mild gait deviations or no gait deviations but unable to achieve a significant change in velocity, or uses an assistive device (minor speed change) Gait and horizontal head turns: 3 - Normal- performs R/L head turns smoothly with no change in gait Gait and vertical head turns: 2 - Mild impairment- performs up/ down head turns smoothly with slight change in gait velocity, minor disruption to smooth gait path or uses assistive device (slight velocity change, minor veer with head down) Gait and pivot: 3 - Normal- pivot turn safely within 3 sec, stops quickly, no loss of balance Step over obstacle: 3 - Normal- is able to steop over box without changing speed, no evidence of imbalance Gait with narrow base of support : 3 - Normal- is able to ambulate 10 steps heel to toe with no staggering Gait with eyes closed : 3 - Normal- walks 20' no assist device, good speed, no imbalance, normal gait pattern Ambulates backward : 2 - Mild impairment- walks 20', uses assist device, slower speed, mild gait deviations, deviates 6-10 [address] 12 [address] Steps: 3 - Normal- alternating feet, no rail Functional Gait Assessment Total : 27 TREATMENT: Neuromuscular Re-Education: 1: FGA 2: SVA/DVA 3: Review of HEP: oculomotor vs VOR/VORc and balance ex 4: education on speaking with MD for trial of Meclizine at night 5: Arnie strin point and progressive convergence. 6: education/review on COVID and complex issues due to underlying Migraines. Pt to discuss with neuro alternate Migraine meds as pt feels that if she can reduce daily [place] and reduce OTC pain med use that her dizziness would feel better too. 7: VORc on compliant surface 10 reps x 3 sets horizontal, 10 reps x 1 set vertical Skilled Intervention: Skilled judgment used to assess appropriate program for balance and coordination activity. Education in proprioceptive/kinesthetic awareness during standing and dynamic activities. Insured patient safety with use of proper guarding Reviewed and educated patient on additions/changes for home program as noted above with an (*). Patient education as noted. Billing Neuromuscular Re-Education Treatment Minutes: 54 Total Treatment Time Minutes (timed and untimed codes) : 56 Irene Farrell PT documented in this encounter [facility] 07-24-2021 Miscellaneous Notes Patient requesting refills as follows: Pending Prescriptions Disp Refills GABAPENTIN 300 MG CAPSULE 60 capsule 2 Sig: Take 1 capsule by mouth twice daily for 90 days. VIV: No SARAH: 06/01/2021 Upcoming Appointment: 08/31/2021 Please review and advise. Thank You, Tona Simon Ma July 24, 2021 8:23 AM documented in this encounter [facility] 11-17-2020 Note [facility] Medical Records Department [address] [place] [address] History Physical Exam 11/17/20 1153 MR#: [id number] Acct: [id number] Name: AMANDA DEAN OCTOBER Rep #: [id number] : 1970 50 From: Nataly Dobson MD PCP: Dr. Aron Ugarte MD Status:[facility] Location: [place] [address] History and Physical Date of Admission: 11/23/20 History and physical. Nataly West MD (Physician) ? PASTRYCOOK'S ASSISTANT Expand AllCollapse All Expand All by Default Amanda Dean is a 50 year old female who presents for concerns regarding heavy and irregular uterine bleeding. Patient had the Mirena IUD removed October 24, 2020 has since had episodes of heavy vaginal bleeding with clots. Patient states overall she was happy with the Mirena however emotionally she was struggling and felt that impacted her mood too much. Patient is interested in Ginny ablation. Patient states still feels dizzy but this is her normal. Patient offers no other concerns today. Denies any chest pain or shortness of breath. Patient is accompanied by her . Patient currently uses vasectomy for control. Pt would like to proceed with surgical intervention. ??? PAST MEDICAL HISTORY PAST MEDICAL HISTORY Diagnosis Date ??? Anemia ? COVID-19 ? Intractable migraine with aura ? Kidney stone ? PAST SURGICAL HISTORY PAST SURGICAL HISTORY Procedure Laterality Date ??? COLONOSCOPY - DIAGNOSTIC ??? 05/17/2020 ??? EGD ??? 05/17/2020 ??? EYE SURGERY HX ? LASIK ? UNSPECIFIED ORAL SURGERY PROCEDURE, BY REPORT ? wisdom teeth ??? FAMILY HISTORY FAMILY HISTORY Problem Relation Age of Onset ??? Hypertension Mother ? Thyroid Mother ? Breast Cancer Mother ? Ischemic Heart Disease Father ? Diabetes Father ? Colon Cancer Father 63 ??? Stroke Maternal Grandmother ? other (parkinson's) Maternal Grandfather ? Diabetes Paternal Grandmother ? Cancer Paternal Grandmother ? ovarian ??? other (kidney stone) Sister ? Breast Cancer Paternal Aunt ? in her 60s ??? SOCIAL HISTORY Social History ??? Tobacco Use ??? Smoking status: Never Smoker ??? Smokeless tobacco: Never Used Vaping Use ??? Vaping Use: Never used Substance Use Topics ??? Alcohol use: Yes ? Comment: socially ??? Drug use: No ??? CURRENT MEDICATIONS Current Outpatient Medications Medication Sig ??? ibuprofen (MOTRIN) 600 mg tablet Take 1 tablet by mouth every 6 hours as needed. ??? levonorgestrel (MIRENA) 20 mcg/24 hours (6 yrs) 52 mg IUD 1 Each by INTRAUTERINE route as directed. (Patient not taking: Reported on 10/24/2020 ) ??? loratadine (CLARITIN) 10 mg tablet Take 10 mg by mouth once daily. ??? Cetirizine (ZYRTEC) 10 mg cap Take by mouth. ??? diphenhydrAMINE (BENADRYL) 25 mg capsule Take 25 mg by mouth every 6 hours as needed. ??? iron bis-glycinat/vit C/FA/B12 (GENTLE IRON ORAL) Take by mouth. ??? OTC NUTRITIONAL SUPPLEMENT [employer] ??? No current facility-administered medications for this visit. ??? Allergies As of Date: 11/03/2020 (No Known Allergies) Fully Assessed 10/24/2020 ? REVIEW OF SYSTEMS ??? Expanded ROS: GENERAL: Negative for fever Allergies and current medication updated:Yes ??? EXAM: BP 110/60 Wt 149 lb (67.6kg) LMP 06/06/2020 GENERAL: pleasant, female in no apparent distress HEENT: Normocephalic, atraumatic, mucus membranes moist and no lesions NECK: full range of motion DERMATOLOGY: Normal and without lesions NEURO: alert and oriented x3,exam grossly non-focal EXTREMITIES: normal ??? ASSESSMENT AND PLAN: AUB, chornic anemia plan for hysteroscopy, Endometrial ablation at [facility] on 11/23/20 Pt was counseled on risks of surgery including but not limted to infection, bleeding, perforation of uterus with subsequent injury to pelvic structures which includes bladder, bowel, vessels which could require laparoscopy. Failure of surgery reviewed with patient as well. Pre and post op instructions reviewed consent signed. Covid vaccinated. ??? 11/17/20 1157 Cosigner Signature (if applicable): CC: Edmar Dobson; Dr. Aron Ugarte MD Signed ADDENDUM by M Dr. Nataly Dobson on 11/23/20 at 1116 Addendum I have re-examined the patient. There are no clinical changes since date of exam. 11/23/20 1116 Cosigner Signature (if applicable): cc: Edmar Dobson; Dr. Aron Ugarte MD * Signed [facility] Evaluation note Diagnosis Dizziness- Primary Dizziness and giddiness Imbalance Abnormality of gait [facility] Diagnosis 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 Menstrual migraine without status migrainosus, not intractable Menstrual migraine, without mention of intractable migraine without mention of status migrainosus [facility] Diagnosis Menstrual migraine without status migrainosus, not intractable Menstrual migraine, without mention of intractable migraine without mention of status migrainosus [facility] Diagnosis Breast calcifications- Primary Other (abnormal) findings on radiological examination of breast [facility] Diagnosis Menstrual migraine without status migrainosus, not intractable Menstrual migraine, without mention of intractable migraine without mention of status migrainosus [facility] Diagnosis Follow-up examination of abnormal mammogram- Primary Abnormal mammogram, unspecified [facility] Diagnosis Breast calcifications Other (abnormal) findings on radiological examination of breast [facility] Diagnosis 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 Menstrual migraine without status migrainosus, not intractable Menstrual migraine, without mention of intractable migraine without mention of status migrainosus Chronic daily headache Headache [facility] Diagnosis 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 Other fatigue [facility] Diagnosis Menstrual migraine without status migrainosus, not intractable Menstrual migraine, without mention of intractable migraine without mention of status migrainosus [facility]* Diagnosis 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 Chronic daily headache Headache Chronic insomnia Insomnia, unspecified Postviral fatigue syndrome Chronic fatigue syndrome Menstrual migraine without status migrainosus, not intractable Menstrual migraine, without mention of intractable migraine without mention of status migrainosus [facility]* Diagnosis Encounter for screening mammogram for malignant neoplasm of breast- Primary Other screening mammogram [facility]* Diagnosis 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 Chronic daily headache Headache [facility]* Diagnosis 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 [facility] Diagnosis Menstrual migraine without status migrainosus, not intractable Menstrual migraine, without mention of intractable migraine without mention of status migrainosus [facility]* Diagnosis Post-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) [facility]* Diagnosis 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 [facility]* Diagnosis 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 Chronic fatigue, unspecified Activity intolerance Other general symptoms Dizziness Dizziness and giddiness Screening for endocrine, nutritional, metabolic and immunity disorder Screening for other and unspecified endocrine, nutritional, metabolic, and immunity disorders Sleep disturbance Sleep disturbance, unspecified Perimenopausal disorder Unspecified menopausal and postmenopausal disorder Vitamin D deficiency Unspecified vitamin D deficiency [facility] Diagnosis Malaise and fatigue- Primary Other malaise and fatigue Post-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) Myalgias Lightheadedness Dizziness and giddiness Physical deconditioning Debility, unspecified Activity intolerance Other general symptoms Sleep disturbance Sleep disturbance, unspecified Dizziness Dizziness and giddiness Difficulty concentrating Attention or concentration deficit Brain fog Headaches Vitamin D deficiency Unspecified vitamin D deficiency Vertigo Dizziness and giddiness Chronic fatigue syndrome Neuropathy Mononeuritis of unspecified site [facility] Diagnosis 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 Malaise and fatigue Other malaise and fatigue Brain fog Myalgias Dizziness Dizziness and giddiness documented [facility] Diagnosis Onset Date Resolution Status Admit Date Irregular menstrual bleeding acute October 25, 2024 8:42am Screening for colon cancer acute October 25, 2024 8:42am Encounter for routine gynecological examination noneactive October 042024 8:42am [facility] Work Phone: Reason for referral (narrative)* Diagnostic Procedure Only (Routine) - Pending Review Specialty Diagnoses / Procedures Referred By Bre eckert Referred To Contact [facility] Diagnoses Breast calcifications Procedures ELYSE DIAGNOSTIC RT DIAGNOSTIC MAMMOGRAPHY COMPUTER-AIDED DETCJ UNI Melanie Medina APRN.FINANCE CONTROLLER [address] [address] [facility] [address] [place] [phone] Referral ID Status Reason Start Date Expiration Date Visits Requested Visits Authorized [id number] Pending Review Auto-Generat ed Referral 10/23/2021 11/22/2022 1 1 [facility] for referral (narrative)* Diagnostic Procedure Only (Routine) - Pending Review Specialty Diagnoses / Procedures Referred By Bre eckert Referred To Contact [facility] Diagnoses Follow-up examination of abnormal mammogram Procedures US BREAST LTD RT US BREAST UNI REAL TIME WITH IMAGE LIMITED Melanie Medina APRN.FINANCE CONTROLLER [address] [place] [address] [facility] [address] [place] [address] Referral ID Status Reason Start Date Expiration Date Visits Requested Visits Authorized [id number] Pending Review Auto-Generat ed Referral 11/27/2021 12/27/2022 1 1 * Diagnostic Procedure Only (Routine) - Pending Review Specialty Diagnoses / Procedures Referred By Contac t Referred To Contact [facility] Diagnoses Follow-up examination of abnormal mammogram Procedures ELYSE DIAGNOSTIC RT DIAGNOSTIC MAMMOGRAPHY COMPUTER-AIDED [facility] Melanie Medina APRN.FINANCE CONTROLLER [address] [place] [address] [facility] [address] [place] [address] Referral ID Status Reason Start Date Expiration Date Visits Requested Visits Authorized [id number] Pending Review Auto-Generat ed Referral 11/27/2021 12/27/2022 1 1 [facility] for referral (narrative)* Diagnostic Procedure Only (Routine) - Closed Specialty Diagnoses / Procedures Referred By Contac t Referred To Contact [facility] Diagnoses Breast calcifications Procedures ELYSE DIAGNOSTIC RT DIAGNOSTIC MAMMOGRAPHY COMPUTER-AIDED [facility] Melanie Medina APRN.FINANCE CONTROLLER [address] [place] [address] [facility] [address] [place] [address] Referral ID Status Reason Start Date Expiration Date V isits Requested Visits Authorized [id number] Closed Auto-Generate d Referral 10/23/2021 11/22/2022 1 1 [facility] for referral (narrative)* Diagnostic Procedure Only (Routine) - Authorized Specialty Diagnoses / Procedures Referred By Contac t Referred To Contact [facility] Diagnoses Encounter for screening mammogram for malignant neoplasm of breast Procedures ELYSE SCREENING W DEBRA SCREENING DIGITAL BREAST TOMOSYNTHESIS BI SCREENING MAMMOGRAPHY BI 2-VIEW BREAST INC CAD Nataly Baker MD [address] [place] [address] [facility] [address] [place] [address] Referral ID Status Reason Start Date Expiration Date Visits Requested Visits Authorized [id number] Authorized Auto-Generat ed Referral 04/08/2022 05/05/2023 1 1 [facility] ([facility])No reason for referral information availableDanville Go D[facility] Services Work Phone: Reason for visit Narrative* Diagnostic Procedure Only (Routine) - Closed Specialty Diagnoses / Procedures Referred By Bre eckert Referred To Contact [facility] Diagnoses Breast calcifications Procedures ELYSE DIAGNOSTIC RT DIAGNOSTIC MAMMOGRAPHY COMPUTER-AIDED DETCJ [facility], MEDICAL RECEPTION SPECIALIST.FINANCE CONTROLLER [address] [place] [address] [facility] [address] [place] [address] Referral ID Status Reason Start Date Expiration Date V isits Requested Visits Authorized [id number] Closed Auto-Generate d Referral 10/23/2021 11/22/2022 1 1 [facility] Summary Purpose Family History Relationship Condition Age at Onset Recorded Date/T vivien Not Specified Kidney disorder Unknown Family history of hypercholesterolemia Un known Family history of migraine headaches Unkn own Disorder of thyroid Unknown sister Anemia Unknown grandmother Malignant neoplasm of cervix Unknown father Malignant neoplasm of colon Unknown Myocardial infarction 59 Diabetes mellitus Unknown Cardiac disease Unknown Anemia Unknown Angina at rest Unknown mother Malignant neoplasm of breast Unknown Hypertension Unknown Advance Directives Documents on File Type Date Recorded Patient Alignment Technician Expl anation Advance Directive(s) 05/17/2020 9:07 AM Advance Directive(s) 05/17/2020 9:09 AM Advance Directive(s) 05/04/2020 2:41 PM Documents on File Type Date Recorded Patient Alignment Technician Expl anation Advance Directive(s) 05/17/2020 9:07 AM Advance Directive(s) 05/17/2020 9:09 AM Advance Directive(s) 05/04/2020 2:41 PM Reason for Referral Specialty Diagnoses / Procedures Referred By Bre t Referred To Contact Diagnoses Post-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) Procedures PROVIDER ORDERED FOLLOW UP OFFICE/OUTPATIENT [facility] 60 MINUTES Bri Dove MD [address] [id number] Referral ID Status Reason Start Date Expiration Date Visits Requested Visits Authorized [id number] Authorized PCP Requested Referral 10/13/2024 1 1 Referral ID Status Reason Start Date Expiration Date Visits Requested Visits Authorized [id number] Authorized PCP Requested Referral 10/15/2024 04/16/2025 1 1 Chief Complaint and Reason for Visit Chief Complaint Admit Date Annual (SOLE SCRAPER) October 25, 2024 8:42 am Reason for Visit Admit Date Irregular menstrual bleeding October 25, 2024 8:42am Screening for colon cancer October 25 8:42am Encounter for routine gynecological exam ination October 25, 2024 8:42am Additional Source Comments INFORMATION SOURCE (unrecogn ized section and content) DATE CREATED AUTHOR 06/19/2021 [facility] DATE CREATED AUTHOR AUTHOR'S ORGANIZ ATION 09/09/2024 [facility] DATE CREATED AUTHOR AUTHOR'S ORGANIZ ATION 09/19/2024 [place] DATE CREATED AUTHOR AUTHOR'S ORGANIZ ATION 10/01/2024 [facility] Source Comments (unrecognize d section and content) In the event this informatio n is protected by the Federal Confidentiality of Alcohol and Drug Abuse Patient Records regulations: The Federal rules restrict any use of the information to criminally investigate or prosecute any alcohol or drug abuse patient.[facility] the event this information is protected by the Federal Confidentiality of Alcohol and Drug Abuse Patient Records regulations: The Federal rules restrict any use of the information to criminally investigate or prosecute any alcohol or drug abuse patient.[facility] the event this information is protected by the Federal Confidentiality of Alcohol and Drug Abuse Patient Records regulations: The Federal rules restrict any use of the information to criminally investigate or prosecute any alcohol or drug abuse patient.[facility] the event this information is protected by the Federal Confidentiality of Alcohol and Drug Abuse Patient Records regulations: The Federal rules restrict any use of the information to criminally investigate or prosecute any alcohol or drug abuse patient.[facility] the event this information is protected by the Federal Confidentiality of Alcohol and Drug Abuse Patient Records regulations: The Federal rules restrict any use of the information to criminally investigate or prosecute any alcohol or drug abuse patient.[facility] Center[facility] the event this information is protected by the Federal Confidentiality of Alcohol and Drug Abuse Patient Records regulations: The Federal rules restrict any use of the information to criminally investigate or prosecute any alcohol or drug abuse patient.[facility] Center[facility] the event this information is protected by the Federal Confidentiality of Alcohol and Drug Abuse Patient Records regulations: The Federal rules restrict any use of the information to criminally investigate or prosecute any alcohol or drug abuse patient.[facility] Center[facility] the event this information is protected by the Federal Confidentiality of Alcohol and Drug Abuse Patient Records regulations: The Federal rules restrict any use of the information to criminally investigate or prosecute any alcohol or drug abuse patient.[facility] Center[facility] the event this information is protected by the Federal Confidentiality of Alcohol and Drug Abuse Patient Records regulations: The Federal rules restrict any use of the information to criminally investigate or prosecute any alcohol or drug abuse patient.[facility] Center[facility] the event this information is protected by the Federal Confidentiality of Alcohol and Drug Abuse Patient Records regulations: The Federal rules restrict any use of the information to criminally investigate or prosecute any alcohol or drug abuse patient.[facility] Center[facility] the event this information is protected by the Federal Confidentiality of Alcohol and Drug Abuse Patient Records regulations: The Federal rules restrict any use of the information to criminally investigate or prosecute any alcohol or drug abuse patient.[facility] Center[facility] the event this information is protected by the Federal Confidentiality of Alcohol and Drug Abuse Patient Records regulations: The Federal rules restrict any use of the information to criminally investigate or prosecute any alcohol or drug abuse patient.[facility] Center[facility] the event this information is protected by the Federal Confidentiality of Alcohol and Drug Abuse Patient Records regulations: The Federal rules restrict any use of the information to criminally investigate or prosecute any alcohol or drug abuse patient.[facility] Center[facility] the event this information is protected by the Federal Confidentiality of Alcohol and Drug Abuse Patient Records regulations: The Federal rules restrict any use of the information to criminally investigate or prosecute any alcohol or drug abuse patient.[facility] Center[facility] the event this information is protected by the Federal Confidentiality of Alcohol and Drug Abuse Patient Records regulations: The Federal rules restrict any use of the information to criminally investigate or prosecute any alcohol or drug abuse patient.[facility] Center[facility] the event this information is protected by the Federal Confidentiality of Alcohol and Drug Abuse Patient Records regulations: The Federal rules restrict any use of the information to criminally investigate or prosecute any alcohol or drug abuse patient.[facility] CenterIn the event this information is protected by the Federal Confidentiality of Alcohol and Drug Abuse Patient Records regulations: The Federal rules restrict any use of the information to criminally investigate or prosecute any alcohol or drug abuse patient.[facility] CenterIn the event this information is protected by the Federal Confidentiality of Alcohol and Drug Abuse Patient Records regulations: The Federal rules restrict any use of the information to criminally investigate or prosecute any alcohol or drug abuse patient.[facility] CenterIn the event this information is protected by the Federal Confidentiality of Alcohol and Drug Abuse Patient Records regulations: The Federal rules restrict any use of the information to criminally investigate or prosecute any alcohol or drug abuse patient.[facility] CenterIn the event this information is protected by the Federal Confidentiality of Alcohol and Drug Abuse Patient Records regulations: The Federal rules restrict any use of the information to criminally investigate or prosecute any alcohol or drug abuse patient.[facility] CenterIn the event this information is protected by the Federal Confidentiality of Alcohol and Drug Abuse Patient Records regulations: The Federal rules restrict any use of the information to criminally investigate or prosecute any alcohol or drug abuse patient.[facility] CenterIn the event this information is protected by the Federal Confidentiality of Alcohol and Drug Abuse Patient Records regulations: The Federal rules restrict any use of the information to criminally investigate or prosecute any alcohol or drug abuse patient.[facility] CenterIn the event this information is protected by the Federal Confidentiality of Alcohol and Drug Abuse Patient Records regulations: The Federal rules restrict any use of the information to criminally investigate or prosecute any alcohol or drug abuse patient.[facility] CenterIn the event this information is protected by the Federal Confidentiality of Alcohol and Drug Abuse Patient Records regulations: The Federal rules restrict any use of the information to criminally investigate or prosecute any alcohol or drug abuse patient.[facility] CenterIn the event this information is protected by the Federal Confidentiality of Alcohol and Drug Abuse Patient Records regulations: The Federal rules restrict any use of the information to criminally investigate or prosecute any alcohol or drug abuse patient.[facility] CenterIn the event this information is protected by the Federal Confidentiality of Alcohol and Drug Abuse Patient Records regulations: The Federal rules restrict any use of the information to criminally investigate or prosecute any alcohol or drug abuse patient.[facility] CenterIn the event this information is protected by the Federal Confidentiality of Alcohol and Drug Abuse Patient Records regulations: The Federal rules restrict any use of the information to criminally investigate or prosecute any alcohol or drug abuse patient.[facility] CenterIn the event this information is protected by the Federal Confidentiality of Alcohol and Drug Abuse Patient Records regulations: The Federal rules restrict any use of the information to criminally investigate or prosecute any alcohol or drug abuse patient.[facility] the event this information is protected by the Federal Confidentiality of Alcohol and Drug Abuse Patient Records regulations: The Federal rules restrict any use of the information to criminally investigate or prosecute any alcohol or drug abuse patient.[facility] CenterIn the event this information is protected by the Federal Confidentiality of Alcohol and Drug Abuse Patient Records regulations: The Federal rules restrict any use of the information to criminally investigate or prosecute any alcohol or drug abuse patient.[facility] CenterIn the event this information is protected by the Federal Confidentiality of Alcohol and Drug Abuse Patient Records regulations: The Federal rules restrict any use of the information to criminally investigate or prosecute any alcohol or drug abuse patient.[facility] CenterIn the event this information is protected by the Federal Confidentiality of Alcohol and Drug Abuse Patient Records regulations: The Federal rules restrict any use of the information to criminally investigate or prosecute any alcohol or drug abuse patient.[facility] CenterIn the event this information is protected by the Federal Confidentiality of Alcohol and Drug Abuse Patient Records regulations: The Federal rules restrict any use of the information to criminally investigate or prosecute any alcohol or drug abuse patient.[facility] CenterIn the event this information is protected by the Federal Confidentiality of Alcohol and Drug Abuse Patient Records regulations: The Federal rules restrict any use of the information to criminally investigate or prosecute any alcohol or drug abuse patient.[facility] CenterIn the event this information is protected by the Federal Confidentiality of Alcohol and Drug Abuse Patient Records regulations: The Federal rules restrict any use of the information to criminally investigate or prosecute any alcohol or drug abuse patient.[facility] CenterIn the event this information is protected by the Federal Confidentiality of Alcohol and Drug Abuse Patient Records regulations: The Federal rules restrict any use of the information to criminally investigate or prosecute any alcohol or drug abuse patient.[facility] CenterIn the event this information is protected by the Federal Confidentiality of Alcohol and Drug Abuse Patient Records regulations: The Federal rules restrict any use of the information to criminally investigate or prosecute any alcohol or drug abuse patient.[facility] CenterIn the event this information is protected by the Federal Confidentiality of Alcohol and Drug Abuse Patient Records regulations: The Federal rules restrict any use of the information to criminally investigate or prosecute any alcohol or drug abuse patient.[facility] CenterIn the event this information is protected by the Federal Confidentiality of Alcohol and Drug Abuse Patient Records regulations: The Federal rules restrict any use of the information to criminally investigate or prosecute any alcohol or drug abuse patient.[facility] CenterIn the event this information is protected by the Federal Confidentiality of Alcohol and Drug Abuse Patient Records regulations: The Federal rules restrict any use of the information to criminally investigate or prosecute any alcohol or drug abuse patient.[facility] CenterIn the event this information is protected by the Federal Confidentiality of Alcohol and Drug Abuse Patient Records regulations: The Federal rules restrict any use of the information to criminally investigate or prosecute any alcohol or drug abuse patient.[facility] Reason for Visit (unrecogniz ed section and content) Reason Onset Date Comments Refill Request 07/24/2021 Reason Comments PT Discharge Specialty Diagnoses / Procedures Referred By Bre t Referred To Contact [facility] Diagnoses Dizziness Imbalance Procedures PT REHAB FOLLOW UP ORDER THERAPEUTIC EXERCISES RE, EA 15 MIN. Bri Dove MD [address] [place] [address] [facility] [place] [address] Referral ID Status Reason Start Date Expiration Date Visits Requested Visits Authorized [id number] Authorized PCP Requested Referral Auto-Generate d Referral 05/05/2021 05/04/2022 20 20 Reason Comments Established Patient Patient reports havi ng headaches all the time. She says that she gets more headaches in addition to the hormonal ones. Vestibular therapy was making it worse. Follow Up GBP helps with her n erve pain. Imitrex helps with migraines helps but uses sparingly. Reason Comments Orders Reason Onset Date Comments Refill Request 10/29/2021 Reason Onset Date Comments Refill Request 11/19/2021 Reason Comments Orders Reason Onset Date Comments Refill Request 11/30/2021 Reason Comments Established Patient follow up migraines Reason Onset Date Comments Refill Request 12/30/2021 Reason Onset Date Comments Refill Request 01/28/2022 Reason Comments Insurance Authorization Reason Onset Date Comments Refill Request 02/08/2022 Reason Comments Follow Up Reason Comments Appointment Reason Onset Date Comments Refill Request 05/21/2022 Reason Onset Date Comments Refill Request 12/04/2022 Reason Comments Follow Up Reason Onset Date Comments Refill Request 11/28/2023 Reason Onset Date Comments Refill Request 12/16/2023 Reason Comments Refill Request Reason Comments Follow Up Established Patient Specialty Diagnoses / Procedures Referred By Contac t Referred To Contact Diagnoses Post-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) Procedures PROVIDER ORDERED FOLLOW UP OFFICE/OUTPATIENT [facility] 60 [place] [address] [place], [place] [id number] Referral ID Status Reason Start Date Expiration Date V isits Requested Visits Authorized [id number] Closed PCP Requested Referral 04/14/2024 10/13/2024 1 1 Reason Onset Date Comments Refill Request 06/15/2024 Reason Comments fatigue and vertigo Specialty Diagnoses / Procedures Referred By Contac t Referred To Contact Diagnoses Post-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) Procedures [facility]PAT[facility] 60 [place] [address] [place], [place] [id number] Phone: tel: fax: Referral ID Status Reason Start Date Expiration Date V isits Requested Visits Authorized [id number] Closed PCP Requested Referral 08/19/2024 08/19/2025 1 1 Reason Comments Intake [facility] pre-visit phone call Reason Comments Consult Post Covid Symptoms Specialty Diagnoses / Procedures Referred By Contac t Referred To Contact [facility] Diagnoses Post-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) Procedures [place] [address] [place] [id number] Phone: tel: fax: [facility] [address] [place], [place] [id number] Phone: tel: fax: Referral ID Status Reason Start Date Expiration Date Visits Requested Visits Authorized [id number] Authorized PCP Requested Referral 08/19/2024 08/19/2025 3 3 Reason Comments New Patient Long covid Specialty Diagnoses / Procedures Referred By Bre t Referred To Contact Diagnoses Post-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) Malaise and fatigue Myalgias Lightheadedness Physical deconditioning Activity intolerance Sleep disturbance Dizziness Difficulty concentrating Brain fog Headaches Vitamin D deficiency Vertigo Chronic fatigue syndrome Procedures CONSULT TO [facility] OFFICE/OUTPATIENT [facility] 60 MINUTES Eduardo Alvarez, MEDICAL RECEPTION SPECIALIST.FINANCE CONTROLLER [address] [place] [address] Phone: tel: fax: Referral ID Status Reason Start Date Expiration Date V isits Requested Visits Authorized [id number] Closed PCP Requested Referral 09/13/2024 09/13/2025 1 1 Care Teams (unrecognized sec tion and content) Bar Tacker Relationship Specialty Start Date End Date Aron Ugarte MD [address] [place] [address] PCP - General Internal Medicine 07/20/20 Bar Tacker Relationship Specialty Start Date End Date Aron Ugarte MD [address] [place] [address] PCP - General Internal Medicine 07/20/20 Bar Tacker Relationship Specialty Start Date End Date Aron Ugarte MD [address] [place] [address] PCP - General Internal Medicine 07/20/20 Bar Tacker Relationship Specialty Start Date End Date Aron Ugarte MD [address] [place] [address] PCP - General Internal Medicine 07/20/20 Bar Tacker Relationship Specialty Start Date End Date Tanya Ugarte MD [address] [place] [address] PCP - General Internal Medicine 07/20/20 Bar Tacker Relationship Specialty Start Date End Date Tanya Ugarte MD [address] [place] [address] PCP - General Internal Medicine 07/20/20 Bar Tacker Relationship Specialty Start Date End Date Tanya Ugarte MD [address] [place] [address] PCP - General Internal Medicine 07/20/20 Bar Tacker Relationship Specialty Start Date End Date Tanya Ugarte MD [address] [place] [address] PCP - General Internal Medicine 07/20/20 Bar Tacker Relationship Specialty Start Date End Date Tanya Ugarte MD [address] [place] [address], [place] [address] PCP - General Internal Medicine 07/20/20 Bar Tacker Relationship Specialty Start Date End Date Tanya Ugarte MD [address] [place] [address] PCP - General Internal Medicine 07/20/20 Bar Tacker Relationship Specialty Start Date End Date Tanya Ugarte MD [address] [place] [address] PCP - General Internal Medicine 07/20/20 Bar Tacker Relationship Specialty Start Date End Date Tanya Ugarte MD [address] [place] [address] PCP - General Internal Medicine 07/20/20 Bar Tacker Relationship Specialty Start Date End Date Tanya Ugarte MD [address] [place] [address] PCP - General Internal Medicine 07/20/20 Bar Tacker Relationship Specialty Start Date End Date Aron Ugarte MD PCP - General Internal Medicine 07/20/20 Bar Tacker Relationship Specialty Start Date End Date Aron Ugarte MD PCP - General Internal Medicine 07/20/20 Bar Tacker Relationship Specialty Start Date End Date Aron Ugarte MD PCP - General Internal Medicine 07/20/20 Bar Tacker Relationship Specialty Start Date End Date Aron Ugarte MD PCP - General Internal Medicine 07/20/20 Bar Tacker Relationship Specialty Start Date End Date Aron Ugarte MD PCP - General Internal Medicine 07/20/20 Bar Tacker Relationship Specialty Start Date End Date Aron Uagrte MD PCP - General Internal Medicine 07/20/20 Bar Tacker Relationship Specialty Start Date End Date Aron Ugarte MD PCP - General Internal Medicine 07/20/20 Bar Tacker Relationship Specialty Start Date End Date Aron Ugarte MD PCP - General Internal Medicine 07/20/20 Bar Tacker Relationship Specialty Start Date End Date Aron Ugarte MD PCP - General Internal Medicine 07/20/20 Bar Tacker Relationship Specialty Start Date End Date Aron Ugarte MD PCP - General Internal Medicine 07/20/20 Bar Tacker Relationship Specialty Start Date End Date Aron Ugarte MD PCP - General Internal Medicine 07/20/20 Bar Tacker Relationship Specialty Start Date End Date Aron Ugarte MD PCP - General Internal Medicine 07/20/20 Bar Tacker Relationship Specialty Start Date End Date Aron Ugarte MD PCP - General Internal Medicine 07/20/20 Bar Tacker Relationship Specialty Start Date End Date Nuria Gabriel DO [address] [place] [address] PCP - General Internal Medicine 09/07/24 Bar Tacker Relationship Specialty Start Date End Date Nuria Gabriel DO [address] [facility] [address] [place] [address] PCP - General Internal Medicine 09/07/24 Bar Tacker Relationship Specialty Start Date End Date Nuria Gabriel DO [address] [facility] [address] [place] [address] PCP - General Internal Medicine 09/07/24 Bar Tacker Relationship Specialty Start Date End Date Nuria Gabriel DO [address] [facility] [address] [place] [address] PCP - General Internal Medicine 09/07/24 Bar Tacker Relationship Specialty Start Date End Date Nurai Gabriel DO [address] [facility] [address] [place] [address] PCP - General Internal Medicine 09/07/24 Team Status: Active Member Role Status Dates Dr. Aron Ugarte MD Primary Care Provider Active Team Status: Inactive Member Role Status Dates Dr. Aron Ugarte MD Primary Care Provider Active Start: October 25, 2024 End: October 25, 2024 Dr. Aron Ugarte MD Referring Provider Active Start: October 25, 2024 End: October 25, 2024 DOROTHY Nolasco Attending Provider Active Start: October 25, 2024 End: October 25, 2024 Goals (unrecognized section and content) Goals may be documented in a n alternate section FOR RECORDS PERTAINING TO PATIENTS WHO ARE OR HAVE BEEN ENROLLED IN A CHEMICAL DEPENDENCY/SUBSTANCEABUSE PROGRAM, SOME INFORMATION MAY BE OMITTED. This clinical summary was aggregated from multiple sources. Caution should be exercised in using it in the provision of clinical care. This summary normalizes information from multiple sources, and as a consequence, information in this document may materially change the coding, format and clinical context of patient data. In addition, data may be omitted in some cases. CLINICAL DECISIONS SHOULD BE BASED ON THE PRIMARY CLINICAL RECORDS. [facility] [employer] [facility]. provides no warranty or guarantee of the accuracy or completeness of information in this document.
[2024-10-29 10:08] LABS: HPV APTIMA, High Risk Negative (Negative)
== END | disposition home or self-care (01) ==
LOC: US 16:51
PROVIDERS: PCP Internal Medicine; Visit Provider Nurse Practitioner Family
DX: Z12.4 Encounter for screening for malignant neoplasm of cervix (principal)
CPT/HCPCS: 87624; 88175; G0145

== ENCOUNTER → 2024-11-03 | Outpatient (CLI) | payer OTHER, SELFPAY ==
--- NOTE | 2024-11-03 07:44 | US_ITS ---
PROCEDURE: PELVIC W/ TRANSVAGINAL 11/03/2024 REASON FOR EXAM: ABNORMAL UTERINE BLEEDING TECHNIQUE: PELVIC W/ TRANSVAGINAL FINDINGS: The uterus is anteverted and measures 11.4 x 7.8 x 9 cm. Posterior/fundal fibroid measuring 5 x 3.9 x 4.1 cm is noted. Endometrium measures 20 mm. Endometrium appears hyperechoic. Endometrial fluid is noted. Endometrium mass/polyp measuring 0.7 x 0.6 x 0.6 cm is noted. Lower uterine segment calcification measuring 0.5 x 0.6 x 0.2 cm is noted. Right ovary measures 4.3 x 3.3 x 2.5 cm. Normal blood flow is noted. Cyst measuring 3 x 2.4 x 2.1 cm is noted. Left ovary measures 4 x 3.6 x 2.6 cm. Normal flow is noted. Cyst measuring 2.4 x 2.5 x 2.2 cm. No free fluid in the posterior cul-de-sac. US/Pelvic w/ Transvaginal IMPRESSION: Thickened endometrium with possible endometrium best/polyp. Endometrial fluid is noted. MRI is advised. Uterine fibroid. Bilateral ovarian cysts. Reading [facility]
--- NOTE | 2024-11-03 07:44 | US_ITS ---
PROCEDURE: PELVIC W/ TRANSVAGINAL 11/03/2024 REASON FOR EXAM: ABNORMAL UTERINE BLEEDING TECHNIQUE: PELVIC W/ TRANSVAGINAL FINDINGS: The uterus is anteverted and measures 11.4 x 7.8 x 9 cm. Posterior/fundal fibroid measuring 5 x 3.9 x 4.1 cm is noted. Endometrium measures 20 mm. Endometrium appears hyperechoic. Endometrial fluid is noted. Endometrium mass/polyp measuring 0.7 x 0.6 x 0.6 cm is noted. Lower uterine segment calcification measuring 0.5 x 0.6 x 0.2 cm is noted. Right ovary measures 4.3 x 3.3 x 2.5 cm. Normal blood flow is noted. Cyst measuring 3 x 2.4 x 2.1 cm is noted. Left ovary measures 4 x 3.6 x 2.6 cm. Normal flow is noted. Cyst measuring 2.4 x 2.5 x 2.2 cm. No free fluid in the posterior cul-de-sac. US/Pelvic w/ Transvaginal IMPRESSION: Thickened endometrium with possible endometrium best/polyp. Endometrial fluid is noted. MRI is advised. Uterine fibroid. Bilateral ovarian cysts. Reading Location[facility]
--- NOTE | 2024-11-03 07:45 | BI_ITS ---
EXAM: SCRN MAMM (CAD)W/DEBRA BILAT DATE: 11/03/2024 CLINICAL HISTORY: F, Age 54 y/o , SCREENING BREAST CANCER TECHNIQUE: SCRN MAMM (CAD)W/DEBRA BILAT COMPARISON: Prior exam(s) were compared FINDINGS: TISSUE DENSITY: The breasts are extremely dense, which lowers the sensitivity of mammography. Bilateral Breast Mammographic Findings: No suspicious masses, calcifications or other abnormalities are identified. BI/SCRN MAMM (CAD)W/DEBRA BILAT IMPRESSION: No mammographic evidence of malignancy in either breast. OVERALL FINAL ASSESSMENT BI-RADS 1: NEGATIVE. RECOMMEND ANNUAL MAMMOGRAPHIC SCREENING. RECOMMENDATION: Routine annual follow-up in 1 Year A letter with findings and recommendations will be mailed to the patient. Reading Location: [id number]
--- NOTE | 2024-11-03 07:45 | BI_ITS ---
EXAM: SCRN MAMM (CAD)W/DEBRA BILAT DATE: 11/03/2024 CLINICAL HISTORY: F, Age 54 y/o , SCREENING BREAST CANCER TECHNIQUE: SCRN MAMM (CAD)W/DEBRA BILAT COMPARISON: Prior exam(s) were compared FINDINGS: TISSUE DENSITY: The breasts are extremely dense, which lowers the sensitivity of mammography. Bilateral Breast Mammographic Findings: No suspicious masses, calcifications or other abnormalities are identified. BI/SCRN MAMM (CAD)W/DEBRA BILAT IMPRESSION: No mammographic evidence of malignancy in either breast. OVERALL FINAL ASSESSMENT BI-RADS 1: NEGATIVE. RECOMMEND ANNUAL MAMMOGRAPHIC SCREENING. RECOMMENDATION: Routine annual follow-up in 1 Year A letter with findings and recommendations will be mailed to the patient. Reading Location: [id number]
== END | disposition home or self-care (01) ==
PROVIDERS: PCP Internal Medicine; Referring Provider Nurse Practitioner Family; Visit Provider Nurse Practitioner Family
DX: Z12.31 Encounter for screening mammogram for malignant neoplasm of breast (principal); N92.6 Irregular menstruation, unspecified; N93.9 Abnormal uterine and vaginal bleeding, unspecified
CPT/HCPCS: 76830; 76856; 77063; 77067

== ENCOUNTER → 2024-11-15 | Outpatient (CLI) | payer OTHER, SELFPAY ==
--- NOTE | 2024-11-15 15:35 | EMB_PTH ---
PATIENT: MELISSA GUNN LUCIA LOC: [facility] U#:[id number] AGE/SX: 54/F ROOM: RE11/15/[address]: Dr. Narcisa Chaudhary DO : 1970 BED: DIS: 11/15/2024 SPEC #: [id number] RECD: 11/15/24 16:46 STATUS: SALVADOR REQ #: [id number] JOSE C: 11/15/24 15:[address]: Narcisa Chaudhary DEPT: SURGICAL PATHOLOGY RECD BY: Brielle Alonso ENTERED: 11/16/24 10:48 SP TYPE: ENDOM BX/C ALEXIS DR: Dr. Nuria Hurt DO Tissues: Endometrium, NOS Procedures: Surgery Specimen Level IV HEADER OPERATION: Endometrial biopsy PRE-OP DIAGNOSIS: Thickened endometrium TISSUE SUBMITTED: A- Endometrial tissue MICROSCOPIC DIAGNOSIS A. Endometrium, biopsy: * Inactive endometrium MICROSCOPIC DESCRIPTION Slides are reviewed. GROSS DESCRIPTION A. Received in formalin labeled with the patient's name and date of . Designated as EMB is a 2.3 x 1.1 x 0.1 cm aggregate of dark red congested tissue fragments and clotted blood. Entirely submitted in 1 cassette. MN 11/16/2024 CPT:61902
== END | disposition home or self-care (01) ==
LOC: LABSPEC 16:38
PROVIDERS: PCP Internal Medicine; Visit Provider Obstetrics & Gynecology
DX: R93.89 Abnormal findings on diagnostic imaging of other specified body structures (principal)
CPT/HCPCS: 88305

== ENCOUNTER 2024-12-24 05:26 | Day surgery (SDC) | payer OTHER, SELFPAY ==
[2024-12-17 17:07] LABS: Hematocrit 38.1 % (37-47); Hemoglobin 12.9 g/dL (12.0-15.0); Mean Corp Hgb Conc 33.9 g/dL (32-36); Mean Corpuscular Volume 86.4 fL (81-99); Mean Platelet Vol. 10.4 fl (6.2-12.0); Platelet Count 278 K/mm3 (150-450); RBC Distribution Width CV 12.2 % (11.6-14.6); RBC Distribution Width SD 38.7 fl (35.1-43.9); Red Blood Count 4.41 M/mm3 (4.2-5.4); White Blood Count 5.7 K/mm3 (4.4-11.0)
[2024-12-17 17:10] LABS: Magnesium 2.2 mg/dL (1.5-2.2)
--- NOTE | 2024-12-21 11:53 | EKG12_ITS ---
Test Reason : PREOP Blood Pressure : */* mmHG Vent. Rate : 73 BPM Atrial Rate : 73 BPM P-R Int : 138 ms QRS Dur : 64 ms QT Int : 386 ms P-R-T Axes : -1 50 47 degrees QTcB Int : 425 ms Normal sinus rhythm Low voltage QRS Borderline ECG Confirmed by CAIN SEQUEIRA MD ([id number]), order editor MATHEW DOMINIQUE ([id number]) on 12/22/2024 9:34:20 AM Referred By: Narcisa Chaudhary Confirmed By: CAIN SEQUEIRA MD
--- NOTE | 2024-12-22 12:46 | PAT.ANE_ITS ---
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 When Was Last Pacemaker Check QUESTION #4 FULL TEXT: You/Your Family Experience fever (hyperthermia) with Anesthesia Last Oral Intake Last Oral intake: Last Oral Intake NPO since Meds taken in AM with sips of water? Meds patient instructed to take am of surgery PONV PONV - litigation legal secretary: PONV - litigation legal secretary Female Yes 12/10/24 09:28 HX of Motion Sickness Yes 12/10/24 09:28 HX of N/V After Surgery No 12/10/24 09:28 Non-Smoker Yes 12/10/24 09:28 Duration of Surgery greater Yes 12/10/24 09:28 than 60 minutes Number of Risk Factors 4 12/10/24 09:28 PONV Score Severe Risk 12/10/24 09:28 Height & Weight Height & Weight: Anesthesia: Height & Weight Height 5 ft 3 in 11/15/24 15:10 Respiratory Assessment Respiratory Assessment - litigation legal secretary: Respiratory Tract Infection Hx - litigation legal secretary Hx Respiratory Tract Infection No 12/10/24 09:28 STOP Sleep Apnea STOP Sleep Apnea - litigation legal secretary: STOP Sleep Apnea - litigation legal secretary Hx Hypertension No 12/10/24 09:28 Hx Sleep Apnea No 12/10/24 09:28 CPAP BIPAP Do you snore loudly (louder No 12/10/24 09:28 than talking or can be heard Do you often feel tired/ No 12/10/24 09:28 fatigued/ sleepy during daytime? Has anyone observed you stop No 12/10/24 09:28 breathing during sleep? STOP Results Negative 12/10/24 09:28 QUESTION #5 FULL TEXT : Do you snore loudly (louder than talking or can be heard through closed doors)? 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 Specify any problems Hx of Preganancy in last 3 No 12/10/24 09:28 Months Nurse Filling Out Transfusion JZOLLINGE 12/10/24 09:28 & Questions: Date: 12/10/24 12/10/24 09:28 Time: 09:30 12/10/24 09:28 Patient unable to answer at this time (ie. confused, unrespo /Reproduction History /Reproductive History - litigation legal secretary: /Reproductive Hx- litigation legal secretary Hx Now No 12/10/24 09:28 Gestational Age (in weeks): EDC: Hx Hx Para Hx Section SAB No 12/10/24 09:28 [facility] Medical History Post-menopausal History of COVID-19 Post-COVID syndrome Anxiety Alcohol use Anemia Migraine headache Non-smoker Leg cramps Seasonal allergies Home Medications ?Medication ?Instructions ?Recorded ?Last Taken ?Type gabapentin 600 mg tablet 600 mg PO QDAY 09/29/24 Unkn own History melatonin 3 mg capsule 3 mg PO HS PRN sleep 5 Unknown History naltrexone 4.5 mg capsule 6 mg PO .hs 09/29/24 Unknown History sumatriptan succinate 50 mg tablet 50 mg PO ONCE PRN m igraine headache 09/29/24 Unknown History tizanidine 4 mg capsule 8 mg PO QHS PRN muscle spast icity 09/29/24 Unknown History Allergy/AdvReac Type Severity Reaction Status Date / Time topiramate Allergy Severe sores in Verified 12/17/24 13:00 mouth levonorgestrel (From Mirena) AdvReac Bleeding Verified 12/17/24 13:00 Family History Sister Anemia Grandmother Cervical cancer Father Colon cancer Myocardial infarction, Onset Age: 59 Diabetes Heart disease Anemia Angina at rest Mother Breast cancer Hypertension Other FH: migraines Family history of high cholesterol Kidney disease Thyroid disorder Surgical History H/O endoscopy H/O prior ablation treatment History of colonoscopy History of esophagogastroduodenoscopy (EGD) Hx of LASIK [place] teeth extracted Social History adopted: No household members: family housing: house number of children: 4 current occupational status: employed current occupation: [employer] current occupational exposures/hazards: No pets and animals: Yes pets and animals: cat(s) and dog(s) history of recent travel: No sexually active: Yes Smoking Status: Never smoker substance use type: does not use diet: low carbohydrate well-balanced diet: daily or most days caffeine: No eating out: 1-3 times/week during the past year weight has: decreased > 10 lbs what type of physical activity do you participate in: walking jacque/congregational: [employer] seatbelt use: always do you feel safe at home: Yes additional social history: - Bill Audit: Pertinent Findings Pertinent Findings EKG Perinent findings: December 21, 2024. Normal sinus rhythm. Recommendation Anesthesia Recommendation Anesthesia recommendation: OPTIMIZED for anesthesia
[2024-12-24] VITALS (13 sets, daily range): BP systolic 114–136; BP diastolic 66–85; PULSE 62–92; RESP 16–20; TEMP 36.1–37.1; O2SAT 95–100; BMI 27.4
--- OUTSIDE RECORDS SUMMARY | 2024-12-24 05:29 | XMS RPT_ITS | CCD ---
Author Organization [facility] Care Team Providers Care Chartered Accountant Name Role Phone Shanel EASON, Aron Avalos Primary Care Provider [phone] Tanya Ugarte MD Primary Care Provider [phone] Tanya Ugarte MD Primary Care Provider [phone] Aron Ugarte MD Primary Care Provider Shanel EASON, Aron Avalos Primary Care Provider Unava ilable Shanel EASON, Aron Avalos Primary Care Provider Aron Ugarte MD Primary Care Provider Nuria Gabriel DO Primary Care Provider NURIA GABRIEL Primary Care Unavailab ELE Caro Referring Unavailable BRI DOVE Referring Unavailable ARON UGARTE Primary Care Unavailable Dr. Aron Ugarte MD Primary Care Provider Dr. Aron Ugarte MD Referring Provider Ericka Bryant Attending Provider Dr. Nuria Gabriel DO Primary Care Provider Ericka Bryant Referring Provider [phone] Dr. Nuria Gabriel DO Referring Provider Dr. Narcisa Chaudhary DO Attending Provider LINDA MARCANO Referring Unavailable NURIA GABRIEL Primary Care Unavailab ELE Caro Attending Unavailable PROVIDER, UNKNOWN Referring Unavailable ARON UGARTE Primary Care Unavailable NERY, NURIA ROBINSON Primary Care Unavailab ELE Caro Referring Unavailable EDUARDO ALVAREZ Attending Unavailable BRI DOVE Referring Unavailable NERY, NURIA ROBINSON Primary Care Unavailab BRI Brito Referring Unavailable RBI DOVE Attending Unavailable SHANEL, ARON G Primary Care Unavailable NERY, NURIA ROBINSON Primary Care Unavailab ALICE Grajeda Attending Unavailable LINDA MARCANO Referring Unavailable NERY, NURIA ROBINSON Primary Care Unavailab LINDA Khoury Attending Unavailable ANTONIO, EDUARDO Referring Unavailable BRI DOVE Referring Unavailable BRI DOVE Attending Unavailable NERY, NURIA ROBINSON Primary Care Unavailab le NERY, NURIA ROBINSON Primary Care Unavailab JAROD Chairez Attending Unavailable ANTONIO, EDUARDO Referring Unavailable Nery, Nuria Primary Care Unavailable Ericka Lafleur Attending Unavailable Nery, Nuria Referring Unavailable Pearl Min Attending Unavailable Nery, Nuria Primary Care Unavailable Nery, Nuria Referring Unavailable Narcisa Chaudhary Attending Unavailabl e Nery, Nuria Primary Care Unavailable Nery, Nuria Referring Unavailable Nery, Nuria Primary Care Unavailable Narcisa Chaudhary Attending UnavailEricka Gomez Attending Unavailable [place], Aron Primary Care Unavailable Shanel, Aron Referring Unavailable VandNarcisa Mcgregor Attending Unavailabl e Nery, Nuria Referring Unavailable Nery, Nuria Primary Care Unavailable Narcisa Chaudhary Attending Unavailhilda e Narcisa Chaudhary Referring Unavailabl e Nery, Nuria Primary Care Unavailable Narcisa Chaudhary Attending Unavailabl e Nery, Nuria Primary Care Unavailable Nery, Nuria Primary Care Unavailable Ericka Lafleur Attending Unavailable Ericka Lafleur Referring Unavailable Allergies Allergy Classification Reported Allergen(s) Allergy Type Date of Onset Reaction(s) Facility (6 sources) Levonorgestrel Drug Allergy 5 Bleeding [facility] (6 sources) topiramate Drug Allergy 5 sores in mouth [facility] (1 source) Levonorgestrel Drug Allergy 5 [facility] Rep[facility] (1 source) topiramate Drug Allergy 5 [facility] Rep[facility] Medications Current Medications Medication Drug Class(es) Dates [...] on above: Take 1 capsule by mo uth once daily for 7 days, THEN 1 capsule twice daily. cholecalciferol, vitamin D3, (VITAMIN D3 ORAL) (20 [...] tablets by mo uth daily at bedtime. DULoxetine 30 mg delayed release oral capsule (2 sources) Serotonin and Norepinephrine Reuptake Inhibitor Start: 5 End: 5 take 1 capsule by mouth once daily DULoxetine DR (CYMBALTA) 30 mg capsule Indications: Chronic fatigue syndrome , Chronic pain syndrome Take 1 capsule by mouth once daily. 90 capsule 12/19/2024 03/19/2025 Active gabapentin 600 mg oral tablet (20 sources) Anti-epileptic Agent Start: End: take 1 tablet by mouth once daily at bedtime gabapentin (NEURONTIN) 600 mg tablet Take 1 tablet by mouth daily at bedtime for 180 days. 90 tablet 1 12/20/2024 06/18/2025 Active Start: 09-29-2024 take 1 tablet by inocencia th once daily Gabapentin 600 mg tablet Active 600 mg PO daily September 29, 2024 12:00am Start: 12-17-2023 End: 12-20-2024 take 6 capsules by mouth once daily at bedtime gabapentin (NEURONTIN) 100 mg capsule Take 6 capsules by mouth daily at bedtime for 180 days. 540 capsule 1 06/15/2024 12/20/2024 Discontinued Start: 10-14-2023 End: 12-11-2023 take 4 capsules [...] on above: Take [address] [facility] twice daily for 90 days. Take [address] [facility] twice daily. Take 3 capsules by [facility] twice daily for 180 days. Bill extract [...] Comment on above: Take 1 tablet by [facility] every 6 hours as needed. iron bis-glycinat/vit [...] 350 mg by mouth daily at bedtime. melatonin 3 mg oral capsule (20 sources) Start: 09-29-2024 take 1 capsule by mouth at bedtime as needed for sleep Melatonin 3 mg capsule Active 3 mg PO BEDTIME as needed for sleep September 29, 2024 12:00am Melatonin 5 mg c ap Take by mouth. Active Comment on above: Take by mouth. memantine hydrochloride 5 mg oral tablet (1 source) F-kzmzrd-W-aspartat e Receptor Antagonist Start: 3 End: 4 [...] tablet by inocencia th once daily for 90 days. Naltrexone (20 sources) Opioid Antagonist Start: 5 take 1 capsule by mouth at bedtime Naltrexone 4.5 mg capsule Active 6 mg PO .hs September 29, 2024 12:00am Start: 09-29-2024 Naltrexone 4.5 mg capsule Active mg PO September 29, 2024 12:00am Start: 09-14-2024 take 1 tablet by inocencia th once daily naltrexone 6 mg (CPD) Indications: Post-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) , Malaise and fatigue , Brain fog , Myalgias , Dizziness Take 1 tablet by mouth once daily. 90 tablet 3 09/14/2024 Active End: 12-19-2024 take 1 capsule by mouth once daily naltrexone capsule 4.5 mg (CPD) Take 4.5 mg by mouth once daily. 12/19/2024 Discontinued (Course of therapy completed) take [address] [facility] once daily naltrexone capsule 4.5 mg (CPD) Take 4.5 mg by mouth once daily. Active take 1 capsule by mo uth once daily naltrexone capsule 4.5 mg (CPD) Take 4.5 mg by mouth once daily. 0 Active Comment on above: Take 4.5 mg by mouth once daily. riboflavin, vitamin B2, (VITAMIN B-2 ORAL) (20 sources) riboflavin, joe min B2, (VITAMIN B-2 ORAL) Take by mouth. Active riboflavin, joe min B2, (VITAMIN B-2 ORAL) Take by mouth. 0 Active Comment on above: Take by mouth. SUMAtriptan 50 mg oral tablet (20 sources) Serotonin-1b and Serotonin-1d Receptor Agonist Start: take 1 tablet by mouth once as needed for headache Sumatriptan Succinate 50 mg tablet Active 50 mg PO ONCE as needed for migraine headache September 29, 2024 12:00am Start: 02-25-2024 End: [...] of headache. May repeat after 2 hours.). tiZANidine 4 mg oral tablet (20 sources) Central alpha-2 Adrenergic Agonist Start: take 2 capsules by mouth at bedtime as needed Tizanidine 4 mg capsule Active 8 mg PO AT BEDTIME as needed for muscle spasticity September 29, 2024 12:00am Start: 12-03-2021 End: 11-29-2025 take 2 tablets by mouth once daily at bedtime tiZANidine (ZANAFLEX) 4 mg tablet Take 2 tablets by mouth daily at bedtime. 180 tablet 3 11/29/2024 11/29/2025 Active Start: 10-30-2021 End: 11-29-2021 take 2 [...] 25 mg oral tablet (2 sources) Start: 08-13-2021 End: 09-10-2021 take 1 tablet by mouth once daily [...] tablets daily at bedtime for 7 days. ubiquinol 200 mg oral capsule (20 sources) take 200 mg by mouth twice daily COQ10, UBIQUINOL, ORAL Take 200 mg by mouth twice daily. Active Comment on above: Take 200 mg by mouth twice daily. Completed/Discontinued Medications Medication Drug Class(es) Dates Sig (Normalized) Sig (Original) acetaminophen 250 mg / aspirin 250 mg / caffeine 65 mg oral tablet (6 sources) Platelet Aggregation Inhibitor, Nonsteroidal Anti-inflammatory Drug, Central Nervous System Stimulant, Methylxanthine Start: 11-16-2020 End: 09-29-2024 Aspirin-Acetamino phen-Caffeine (Excedrin Migraine) 250-250-65 mg Tablet Discontinued 1 {tbl} PO EVERY 6 HOURS as needed for Migraine Headache November 16, 2020 12:00am September 29, 2024 8:55am bacillus coagulans [id number] unt / inulin 250 mg oral capsule (6 sources) Start: 09-29-2024 End: 12-10-2024 Bacillus Coagulans-Inulin (Probiotic With Prebiotic) 1 billion-250 cell-mg capsule Discontinued NMA PO September 29, 2024 12:00am December 10, 2024 9:23am 24 hr buPROPion hydrochloride 300 mg extended [...] Take 1 tablet by inocencia once daily. Calcium (6 sources) Phosphate Binder, Calcium Start: 09-29-2024 End: 12-10-2024 Calcium 300 mg tablet,chewable Discontinued mg PO September 29, 2024 12:00am December 10, 2024 9:23am Start: 09-29-2024 Calcium 300 mg tablet,chewable Active mg PO September 29, 2024 12:00am cetirizine hydrochloride 10 mg oral tablet (20 sources) Histamine-1 Receptor Antagonist Start: 11-16-2020 End: 09-29-2024 take 1 tablet by mouth at bedtime Cetirizine (Zyrtec) 10 mg Tablet Discontinued 10 mg PO AT BEDTIME November 16, 2020 12:00am September 29, 2024 8:54am End: 09-06-2024 Cetirizine (ZYRTEC) 10 mg ca p Take by mouth. 09/06/2024 Discontinued Comment on above: Take by mouth. diphenhydrAMINE hydrochloride 25 mg oral capsule (17 sources) Histamine-1 Receptor Antagonist Start: 021 End: 025 take 2 capsules by mouth at bedtime Diphenhydramine Hcl (Benadryl) 25 mg Capsule Discontinued 50 mg PO AT BEDTIME November 16, 2020 12:00am September 29, 2024 8:54am End: 12-03-2021 take 1 capsule by mouth every six hours as needed diphenhydrAMINE (BENADRYL) 25 mg capsule Take 25 mg by mouth every 6 hours as needed. 0 12/03/2021 Discontinued (Course of therapy completed) Comment on above: Take 25 mg by mouth every 6 hours as needed. famotidine 20 mg oral tablet (6 sources) Histamine-2 Receptor Antagonist Start: 1 End: take 1 tablet by mouth once daily before mealtime Famotidine (Pepcid Ac) 20 mg Tablet Discontinued 20 mg PO DAILY November 16, 2020 12:00am September 29, 2024 8:54am seasonal allergies Iron Repair Plus (6 sources) Start: 1 End: 5 Iron Repair Plus Discontinued 1 {tbl} SL/PO DAILY November 16, 2020 12:00am September 29, 2024 8:54am anemia Start: 11-16-2020 End: 09-29-2024 Iron Repair Plus Discontinue d 1 {tbl} SL/PO DAILY November 16, 2020 12:00am September 29, 2024 8:54am loratadine 10 mg oral tablet (20 sources) Start: 11-16-2020 End: 09-29-2024 take 1 tablet by mouth once daily Loratadine (Claritin) 10 mg Tablet Discontinued 10 mg PO DAILY November 16, 2020 12:00am September 29, 2024 8:55am Comment on above: Take 10 mg by mouth once daily. magnesium M-suoece-rdyaxyfnqv e 42 mg (500 mg)- 250 mg TbER (20 sources) End: 09-06-2024 magnesium A-yvvkok-adczjlqzmvo 42 mg (500 mg)- 250 mg TbER Take by mouth. 09/06/2024 Discontinued magnesium L-thre on-niacinamide 42 mg (500 mg)- 250 mg TbER Take by mouth. Active magnesium L-thre on-niacinamide 42 mg (500 mg)- 250 mg TbER Take by mouth. 0 Active Comment on above: Take by mouth. mecobalamin 1 mg chewable tablet (6 sources) Start : 09-29 End: 12-10 take 1 tablet by mouth once daily Mecobalamin (Vitamin B12) 1,000 mcg tablet,chewable Discontinued 1000 ug PO daily September 29, 2024 12:00am December 10, 2024 9:23am metFORMIN hydrochloride 500 mg oral tablet (14 sources) Biguanide End: 09-06 take 1 tablet by mouth once daily at breakfast metFORMIN (GLUCOPHAGE) 500 mg tablet Take 500 mg by mouth daily with breakfast. 09/06/2024 Discontinued Comment on above: Take 500 mg by mouth daily with breakfast. methylPREDNISolone 4 mg oral tablet (2 sources) Corticosteroid Start : 11-15 End: 12-10 take 1 tablet by mouth once Methylprednisolone (Medrol (Louis)) 4 mg tablets,dose pack Discontinued 0 PO per package directions 21 0 November 15, 2024 12:00am December 10, 2024 9:24am PO PER PKG DIR Sanford-3 Fatty Acids 1,000 mg capsule (6 sources) Start : 09-29 End: 12-10 take 1 capsule by mouth once daily Sanford-3 Fatty Acids 1,000 mg capsule Discontinued 1000 mg PO daily September 29, 2024 12:00am December 10, 2024 9:25am Start: 09-29-2024 take 1 capsule by mouth once d aily Sanford-3 Fatty Acids 1,000 mg capsule Active 1000 mg PO daily September 29, 2024 12:00am predniSONE 20 mg oral tablet (12 sources) Start: 03-21-2020 End: 03-31-2020 take 2 tablets by mouth once daily Prednisone 20 mg tablet Discontinued 40 mg PO DAILY 20 10 March 21, 2020 1:00am March 30, 2020 1:00am March 31, 2020 1:03am Start: 03-17-2020 End: 03-21-2020 take 2 tablets by mouth twice daily as needed, then take 1 tablet by mouth twice daily as needed, then take 0.5 tablet by mouth once daily as needed Prednisone 10 mg tablet Discontinued 20 mg PO TWICE A DAY as needed for pruritus 30 4 March 17, 2020 1:00am March 20, 2020 1:00am March 21, 2020 1:03am Pruritus, unspecified 2 po bid 4D,1 po bid for 4 D, 1 po qd for 4D 1/2 po qd for2 D progesterone 200 mg oral capsule (20 sources) Progesterone Start: 07-18-2024 End: 12-19-2024 take 1 capsule by mouth once daily at bedtime progesterone micronized (PROMETRIUM) 200 mg capsule Take 200 mg by mouth daily at bedtime. 07/18/2024 12/19/2024 Discontinued (Course of therapy completed) End: 09-14-2024 take 1 capsule by mouth once daily progesterone micronized (PROMETRIUM) 100 mg capsule Take 100 mg by mouth once daily. 09/14/2024 Discontinued Comment on above: Take 100 mg by mouth once daily. testosterone 200 mg drug implant (20 sources) Androgen End: 12-20-19 testosterone 200 mg pllt by IMPLANTATION route. 12/19/2024 Discontinued (Course of therapy completed) Comment on above: by IMPLANTATION rout e. thyroid (correction) 15 mg oral tablet (14 sources) End: 09-07-19 take 1 tablet by mouth once daily thyroid (DRUMS TEACHER THYROID) 15 mg tablet Take 15 mg by mouth once daily. 09/06/2024 Discontinued Comment on above: Take 15 mg by mouth once daily. ubidecarenone 10 mg oral capsule (6 sources) Start: 09-30-19 End: 12-11-19 Coenzyme Q10 10 mg capsule Discontinued 10 mg PO ONCE September 29, 2024 12:00am December 10, 2024 9:23am Problems Active Problems Problem Classification Problem Date Documented Date Episodic/Chronic Allergic reactions (10 sources) Allergic reaction; Translations: [Allergy, unspecified, initial encounter] 03-17-2020 Episodic Benign neoplasm of uterus (7 sources) Uterine leiomyoma; Translations: [Leiomyoma of uterus, unspecified] Onset: 12-17-2024 11-10-2024 Episodic Deficiency and other anemia (6 sources) Chronic anemia; Translations: [Anemia, unspecified] 11-23-2020 Episodic Deficiency and other anemia (1 source) Anemia, unspecified; Translations: [Anemia, unspecified] Onset: 10-25-2024 Episodic Headache; including migraine (7 sources) Menstrual migraine; Translations: [Menstrual migraine, not intractable, without status migrainosus] Chronic Headache; including migraine (5 sources) Chronic daily headache; Translations: [Chronic daily headache] Episodic Malaise and fatigue (14 sources) Postviral fatigue syndrome; Translations: [Postviral fatigue syndrome] Onset: 09-06-2024 Chronic Menopausal disorders (2 sources) Perimenopausal disorder; Translations: [Unspecified menopausal and perimenopausal disorder] Onset: 09-06-2024 09-06-2024 Chronic Menstrual disorders (10 sources) Irregular periods; Translations: [Irregular menstruation, unspecified] Onset: 10-25-2024 10-25-2024 Chronic Miscellaneous mental health disorders (1 source) Chronic insomnia; Translations: [Psychophysiologic insomnia] Chronic Nonmalignant breast conditions (8 sources) Calcification of breast; Translations: [Mammographic calcification found on diagnostic imaging of breast] Episodic Nutritional deficiencies (5 sources) Vitamin D deficiency; Translations: [Vitamin D deficiency, unspecified] Onset: 09-06-2024 09-06-2024 Chronic Other connective tissue disease (4 sources) Muscle pain; Translations: [Myalgia, unspecified site] 09-13-2024 Episodic Other connective tissue disease (1 source) Pain in right hand; Translations: [Pain in right hand] 12-19-2024 Episodic Other connective tissue disease (1 source) Pain in right arm; Translations: [Pain in right arm] 12-19-2024 Episodic Other female genital disorders (14 sources) Abnormal uterine bleeding; Translations: [Abnormal uterine and vaginal bleeding, unspecified] 11-23-2020 Chronic Other female genital disorders (1 source) Abnormal uterine and vaginal bleeding, unspecified; Translations: [Abnormal uterine and vaginal bleeding, unspecified] Onset: 12-17-2024 Chronic Other infections; including parasitic (12 sources) Late effects of other and unspecified infectious and parasitic diseases; 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)] Chronic Other infections; including parasitic (1 source) Post-viral disorder; Translations: [[id number] condition] 12-19-2024 Chronic Other inflammatory condition of skin (6 sources) Pruritus of skin; Translations: [Pruritus, unspecified] 03-17-2020 Episodic Other lower respiratory disease (6 sources) Dyspnea; Translations: [Shortness of breath] 04-12-2020 Episodic Other nervous system disorders (2 sources) Neuropathy; Translations: [Polyneuropathy, unspecified] 09-13-2024 Chronic Other nervous system disorders (3 sources) Poor concentration; Translations: [Attention and concentration deficit] 09-13-2024 Chronic Other nervous system disorders (3 sources) Chronic pain syndrome; Translations: [Chronic pain syndrome] 12-19-2024 Chronic Other nervous system disorders (1 source) Chronic pain syndrome; Translations: [Chronic pain syndrome] Onset: 12-19-2024 Chronic Other nervous system disorders (1 source) Attention and concentration deficit; Translations: [Difficulty concentrating] Onset: 09-13-2024 Chronic Other nervous system disorders (1 source) Polyneuropathy, unspecified; Translations: [Neuropathy] Onset: 09-13-2024 Chronic Other nervous system disorders (4 sources) Impaired cognition; Translations: [Other symptoms and signs involving cognitive functions and awareness] 09-13-2024 Episodic Other screening for suspected conditions (not mental disorders or infectious disease) (6 sources) Endometrium thickened; Translations: [Abnormal findings on diagnostic imaging of other specified body structures] Onset: 11-19-2024 11-10-2024 Chronic Other screening for suspected conditions (not mental disorders or infectious disease) (20 sources) Mammography abnormal; Translations: [Other abnormal and inconclusive findings on diagnostic imaging of breast] Onset: 09-06-2024 Episodic Ovarian cyst (6 sources) Cyst of ovary; Translations: [Unspecified ovarian cyst, right side] Onset: 12-17-2024 11-10-2024 Episodic Residual codes; unclassified (1 source) Insomnia co-occurrent and due to medical condition; Translations: [Insomnia due to medical condition] 12-19-2024 Chronic Residual codes; unclassified (3 sources) Activity intolerance; Translations: [Other general symptoms and signs] 09-06-2024 Episodic Residual codes; unclassified (3 sources) Disturbance in sleep behavior; Translations: [Sleep disorder, unspecified] 09-06-2024 Episodic Residual codes; unclassified (1 source) Physical deconditioning 09-13-2024 Episodic Spondylosis; intervertebral disc disorders; other back problems (1 source) Chronic low back pain; Translations: [Lumbago with sciatica, unspecified side] 12-19-2024 Episodic Unclassified (8 sources) Post-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) 08-19-2024 Unclassified (3 sources) Post-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); 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)] Onset: 10-20-2023 Unclassified (5 sources) Encounter for screening for malignant neoplasm of colon Unclassified (10 sources) Z12.11 - Encounter for screening for malignant neoplasm of colon Unclassified (1 source) Headaches; Translations: [Headaches] Onset: 09-13-2024 Past or Other Problems Problem Classification Problem Date Documented Date Episodic/Chronic Conditions associated with dizziness or vertigo (20 sources) Dizziness; Translations: [Dizziness and giddiness] Onset: 04-05-2021 04-05-2021 Episodic Malaise and fatigue (18 sources) Fatigue; Translations: [Other fatigue] Onset: 09-13-2024 Episodic Other connective tissue disease (1 source) Myalgia, unspecified site; Translations: [Myalgias] Onset: 09-13-2024 Episodic Other nervous system disorders (20 sources) Impairment of balance; Translations: [Other abnormalities of gait and mobility] Onset: 04-05-2021 04-05-2021 Episodic Other nervous system disorders (1 source) Other symptoms and signs involving cognitive functions and awareness; Translations: [Brain fog] Onset: 09-13-2024 Episodic Residual codes; unclassified (3 sources) Sleep disorder, unspecified; Translations: [Sleep disturbance] Onset: 09-06-2024 Episodic Residual codes; unclassified (2 sources) Other general symptoms and signs; Translations: [Activity intolerance] Onset: 09-06-2024 Episodic Results Test Name Value Interpretation Reference Range Facility MR/PATGianfranco 12-22-2024 MR/PAT.[facility] Medical Records Department [address] [place] [address] PAT - Anesthesia 12/22/24 1246 MR#: [id number] Acct: [id number] Name: AMANDA GUNN LUCIA Rep #: [id number] : 1970 54 From: J Carlos Beltre MD PCP: Dr. Nuria Gabriel, DO Status:PRE [facility] Y Race: C Location: [facility] Pre-Assessment Diagnosis/Proposed Procedure Planned Operative Procedure(s): (B) Lap Total Robotic Hysterectomy Rehan Salping, Cystoscopy Anesthesia History Anesthesia History - customer advisor: Anesthesia History - customer advisor Hx Hospitalization No 12/10/24 09:28 Any Problems With Anesthesia No 12/10/24 09:28 Cholinesterase deficiency No 12/10/24 09:28 You/Your Family Experience No 12/10/24 09:28 fever (hyperthermia) with Relationship Recent Exposure to Contagious No 11/12/24 09:58 Disease Does patient have nerve No 12/10/24 09:28 stimulator Patient instructed to have device shut off --Does patient have Pacemaker or ICD? When Was Last Pacemaker Check QUESTION #4 FULL TEXT: You/Your Family Experience fever (hyperthermia) with Anesthesia Last Oral Intake Last Oral intake: Last Oral Intake NPO since Meds taken in AM with sips of water? Meds patient instructed to take am of surgery PONV PONV - customer advisor: PONV - customer advisor Female Yes 12/10/24 09:28 HX of Motion Sickness Yes 12/10/24 09:28 HX of N/V After Surgery No 12/10/24 09:28 Non-Smoker Yes 12/10/24 09:28 Duration of Surgery greater Yes 12/10/24 09:28 than 60 minutes Number of Risk Factors 4 12/10/24 09:28 PONV Score Severe Risk 12/10/24 09:28 Height Weight Height Weight: Anesthesia: Height Weight Height 5 ft 3 in 11/15/24 15:10 Respiratory Assessment Respiratory Assessment - customer advisor: Respiratory Tract Infection Hx - customer advisor Hx Respiratory Tract Infection No 12/10/24 09:28 STOP Sleep Apnea STOP Sleep Apnea - customer advisor: STOP Sleep Apnea - customer advisor Hx Hypertension No 12/10/24 09:28 Hx Sleep Apnea No 12/10/24 09:28 CPAP BIPAP Do you snore loudly (louder No 12/10/24 09:28 than talking or can be heard Do you often feel tired/ No 12/10/24 09:28 fatigued/ sleepy during daytime? Has anyone observed you stop No 12/10/24 09:28 breathing during sleep? STOP Results Negative 12/10/24 09:28 QUESTION #5 FULL TEXT : Do you snore loudly (louder than talking or can be heard through closed doors)? 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 Specify any problems Hx of Preganancy in last 3 No 12/10/24 09:28 Months Nurse Filling Out Transfusion ANAHI 12/10/24 09:28 Questions: Date: 12/10/24 12/10/24 09:28 Time: 09:30 12/10/24 09:28 Patient unable to answer at this time (ie. confused, unrespo /Reproduction History /Reproductive History - customer advisor: /Reproductive Hx- customer advisor Hx Now No 12/10/24 09:28 Gestational Age (in weeks): EDC: Hx Hx Para Hx Section SAB No 12/10/24 09:28 [facility] Medical History Post-menopausal History of COVID-19 Post-COVID syndrome Anxiety Alcohol use Anemia Migraine headache Non-smoker Leg cramps Seasonal allergies Home Medications ???Medication ???Instructions ???Recorded ???Last Taken ???Type gabapentin 600 mg tablet 600 mg PO QDAY 09/29/24 Unknown Hi story melatonin 3 mg capsule 3 mg PO HS PRN sleep 09/29/24 Unkn own History naltrexone 4.5 mg capsule 6 mg PO .hs 09/29/24 Unknown Histo ry sumatriptan succinate 50 mg tablet 50 mg PO ONCE PRN migraine heada robby 09/29/24 Unknown History tizanidine 4 mg capsule 8 mg PO QHS PRN muscle spasticity 09/29/24 Unknown History Allergy/AdvReac Type Severity Reaction Status Date / Time topiramate Allergy Severe sores in Verified 12/17/24 13:00 mouth levonorgestrel (From Mirena) AdvReac Bleeding Verified 12/17/24 13:00 Fa (more content not included)... Normal [facility] 12 Lead EKGon 12-21-2024 12 Lead EKG [facility] Cardiovascular Services [address] [place] [address] 12 Lead EKG 12/21/24 1202 MR#: [id number] Acct: [id number] Name: AMANDA GUNN OCTOBER Rep #: [id number] : 1970 54 From: Samuel Nur MD Attending Dr: Dr. Narcisa Chaudhary DO Statu s: PRE SDC Ordering Dr: J Carlos Beltre MD Date: 12/21/24 Location: [facility] Sex: F C Admitted: Test Reason : PREOP Blood Pressure : */* mmHG Vent. Rate : 73 BPM Atrial Rate : 73 BPM P-R Int : 138 ms QRS Dur : 64 ms QT Int : 386 ms P-R-T Axes : -1 50 47 degrees QTcB Int : 425 ms Normal sinus rhythm Low voltage QRS Borderline ECG Confirmed by FABBY EASONSAMUEL ([id number]), editor in chief MATHEW DOMINIQUE ([id number]) on 12/22/2024 9:34:20 AM Referred By: Narcisa Chaudhary Confirmed By: SAMUEL NUR MD 12/22/24 0934 Date Samuel Nur MD CC: Dr. J Carlos Beltre MD; Dr. Narcisa Chaudhary DO; Dr. Nuria Gabriel DO Signed Normal [facility] CBC-Complete Blood Cnt No Di ffon 12-17-2024 Erythrocyte distribution width (RBC) [Ratio] 12.2 % Normal 11.6-14.6 [facility] Comment on above: Performed By: #### L 100.0500, BTSPAT #### [facility] Laboratory [address] [place], [address] Hematocrit (Bld) [Volume fraction] 38.1 % Normal 37-47 [facility] Comment on above: Performed By: #### L 100.0500, BTSPAT #### [facility] [address] [place], [address] Hemoglobin (Bld) [Mass/Vol] 12.9 g/dL Normal 12.0-15.0 [facility] Comment on above: Performed By: #### L 100.0500, BTSPAT #### [facility] [address] [place], [address] MCH (RBC) [Entitic mass] 29.3 pg Normal 27.0-32.0 [facility] Comment on above: Performed By: #### L 100.0500, BTSPAT #### [facility] [address] [place], [address] MCHC (RBC) [Mass/Vol] 33.9 g/dL Normal 32-36 [facility] Comment on above: Performed By: #### L 100.0500, BTSPAT #### [facility] [address] [place], [address] MCV (RBC) [Entitic vol] 86.4 fL Normal 81-99 [facility] Comment on above: Performed By: #### L 100.0500, BTSPAT #### [facility] [address] [place], [address] Platelet mean volume (Bld) [Entitic vol] 10.4 fL Normal 6.2-12.0 [facility] Comment on above: Performed By: #### L 100.0500, BTSPAT #### [facility] [address] [place], [address] Platelets (Bld) [#/Vol] 278 10*3/uL Normal 150-450 [facility] Comment on above: Performed By: #### L 100.0500, BTSPAT #### [facility] [address] [place], [address] RBC (Bld) [#/Vol] 4.41 10*6/uL Normal 4.2-5.4 [facility] Comment on above: Performed By: #### L 100.0500, BTSPAT #### [facility] [address] [place], [address] RDW SD 38.7 fl Normal 35.1-43.9 [facility] Comment on above: Performed By: #### L 100.0500, BTSPAT #### [facility] [address] [place], [address] WBC (Bld) [#/Vol] 5.7 10*3/uL Normal 4.4-11.0 [facility] Comment on above: Performed By: #### L 100.0500, BTSPAT #### [facility] [address] [place], [address] Magnesiumon 12-17-2024 Magnesium [Mass/Vol] 2.2 mg/dL Normal 1.5-2.2 [facility] Comment on above: Performed By: #### L 501.5200 #### [facility] [address] [place], [address] [facility] Office Visit Reporton 12-17-2024 [facility] Office Visit Report [facility] [address], [address] [place] [address] OFFICE VISIT Date of Service: 12/17/24 MR#: [id number] Acct: [id number] Name: AMANDA GUNN OCTOBER Rep #: [id number] : 1970 Provider: Dr. Narcisa Clifton DO Age/Sex: 54/F Location: [facility] Status: Signed Intake Vital Signs 11/15/24 15:10 12/17/24 13:00 12/17/24 13:02 Height 5 ft 3 in 5 ft 3 in 5 ft 3 in Weight: 151 lb 4 oz 155 lb 1 oz BMI 26.8 27.4 BP 134/85 H 130/82 H Intake Visit Reasons: TRH BS Cysto Design Lead Required: No Is patient in pain?: No Allergies topiramate Allergy (Severe, Verified 12/17/24 13:00) sores in mouth levonorgestrel (From Mirena) Adverse Reaction (Verified 12/17/24 13:00) Bleeding Medications ???Medication ???Instructions ???Recorded ???Confirmed ???Type gabapentin 600 mg tablet 600 mg PO QDAY 09/29/24 12/17/24 H istory melatonin 3 mg capsule 3 mg PO HS PRN sleep 09/29/2412/03 History naltrexone 4.5 mg capsule 6 mg PO .hs 09/29/24 12/17/24 Hist ory sumatriptan succinate 50 mg tablet 50 mg PO ONCE PRN migraine heada robby 09/29/24 12/17/24 History tizanidine 4 mg capsule 8 mg PO QHS PRN muscle spasticity 09/29/24 12/17/24 History Post menopausal: No Patient : No : No [facility] Medical History Post-menopausal History of COVID-19 Post-COVID syndrome Anxiety Alcohol use Anemia Migraine headache Non-smoker Leg cramps Seasonal allergies Surgical History H/O endoscopy H/O prior ablation treatment History of colonoscopy History of esophagogastroduodenoscopy (EGD) Hx of [facility] [place] teeth extracted Family History Sister Anemia Grandmother Cervical cancer Father Colon cancer Myocardial infarction, Onset Age: 59 Diabetes Heart disease Anemia Angina at rest Mother Breast cancer Hypertension Other FH: migraines Family history of high cholesterol Kidney disease Thyroid disorder Social History adopted: No household members: family housing: house number of children: 4 current occupational status: employed current occupation: [employer] current occupational exposures/hazards: No pets and animals: Yes pets and animals: cat(s) and dog(s) history of recent travel: No sexually active: Yes Smoking Status: Never smoker substance use type: does not use diet: low carbohydrate well-balanced diet: daily or most days caffeine: No eating out: 1-3 times/week during the past year weight has: decreased > 10 lbs what type of physical activity do you participate in: walking jacque/druze: Judaism seatbelt use: always do you feel safe at home: Yes additional social history: - Bill HPI TRH BS Cysto Details: AMANDA GUNN is a 54 year old (vaginal) who presents for discussion about hysterectomy and EMB. She reports she has irregular menses. She has 23 day cycles typically; however prior to this her cycles was 30 and prior 27. Within these she has had 11 days of bleeding; 13 days bleeding, and then an 87 long bleed time earlier this year (-Jul 01). Most recent blood work was completed in September (on Mychart) which CBC was stable; TSH, T4 stable. She reports she suffers from long haul covid--fatigue; lightheaded/dizzy from this but does not feel exacerbated during her menses. Previous vaginal deliveries. History of ablation (2020) s/p IUD mirena where she had reaction and bled out from this. She recently (past 2 years) was having treatment through a different provider with testosterone pellets as well as progesterone therapy. Did not notice any improvement or changes with this. Originally started due to fatigue secondary to long haul Covid. Last PAP: 2019; normal/negative. History of abnormal PAP: none. ultrasound shows the following: FINDINGS: The uterus is anteverted and measures 11.4 x 7.8 x 9 cm. Posterior/fundal fibroid measuring 5 x 3.9 x 4.1 cm is noted. Endometrium measures 20 mm. Endometrium appears hyperechoic. Endometrial fluid is noted. Endometrium mass/polyp measuring 0.7 x 0.6 x 0.6 cm is noted. Lower uterine segment calcification measuring 0.5 x 0.6 x 0.2 cm is noted. Right ovary measures 4.3 x 3.3 x 2.5 cm. Normal blood flow is noted. Cyst measuring 3 x 2.4 x 2.1 cm is noted. Left ovary measures 4 x 3.6 x 2.6 cm. Normal flow is noted. Cyst measuring 2.4 x 2.5 x 2.2 cm. No free fluid in the posterior cul-de-sac. US/Pelvic w/ Transvaginal IMPRESSION: Thickened endometrium with possible endometrium best/polyp. Endometrial fluid is noted. MRI is advised. Uterine fibroid. (more content not included)... Normal [facility] Type AND Screen - PAT ONLYon 12-17-2024 Ab SCREEN GEL Negative Normal [facility] Comment on above: Order Comment: Reaso n for Laboratory Test pre op [id number] No N N S HYSTERECTOMY Performed By: #### L 100.0500, BTSPAT #### [facility] [address] [place], [address] JOSUÉ BY IFA SCREENon 11-24-19 Nuclear Ab Ql (S) Negative Normal Negative [facility] Comment on above: Order Comment: Speci men Type: BLOOD SPECIMEN Ordering Facility: [facility] Address: [address], [place] [address] Result Comment: Anti -nuclear antibody test is used as an aid in diagnosis of systemic autoimmune diseases. Where positive and clinically warranted, follow-up using disease-specific testing is recommended. Low positive titers are not uncommon with advanced age, certain chronic infections, and malignancies among others. Test methodology: Indirect fluorescence immunoassay (IFA) using HEp-2 cells. Performed By: #### A ALIS #### [facility] CLIA [id number] [address] [place] [address] [place] CBC W Auto Differential pane l (Bld)on 11-23-2024 Basophils (Bld) [#/Vol] 0.06 10*3/uL Normal <0.11 [facility] Comment on above: Order Comment: Speci men Type: BLOOD SPECIMEN Ordering Facility: [facility] Address: [address] [place] [address] Performed By: #### 5 7021-8 #### [facility] CLIA [id number] [address] Basophils/100 WBC (Bld) 0.9 % Normal [facility] Comment on above: Order Comment: Speci men Type: BLOOD SPECIMEN Ordering Facility: [facility] Address: [address] [place] [address] Performed By: #### 5 7021-8 #### [facility] CLIA [id number] [address] Differential cell count method Nom (Bld) Auto Normal [facility] Comment on above: Order Comment: Speci men Type: BLOOD SPECIMEN Ordering Facility: [facility] Address: [address] [place] [address] Performed By: #### 5 7021-8 #### [facility] CLIA [id number] [address] [place] [address] [place] [facility] Eosinophils (Bld) [#/Vol] 0.04 10*3/uL Normal <0.46 [facility] Comment on above: Order Comment: Speci men Type: BLOOD SPECIMEN Ordering Facility: [facility] Address: [address] [place] [address] Performed By: #### 5 7021-8 #### [facility] CLIA [id number] [address] [place] Eosinophils/100 WBC (Bld) 0.6 % Normal [facility] Comment on above: Order Comment: Speci men Type: BLOOD SPECIMEN Ordering Facility: [facility] Address: [address] [place] [address] Performed By: #### 5 7021-8 #### [facility] CLIA [id number] [address] [place] Erythrocyte distribution width (RBC) [Ratio] 11.7 % Normal 11.5-15.0 [facility] Comment on above: Order Comment: Speci men Type: BLOOD SPECIMEN Ordering Facility: [facility] Address: [address] [place] [address] Performed By: #### 5 7021-8 #### [facility] CLIA [id number] [address] Hematocrit (Bld) [Volume fraction] 40.7 % Normal 36.0-46.0 [facility] Comment on above: Order Comment: Speci men Type: BLOOD SPECIMEN Ordering Facility: [facility] Address: [address] [place] [address] Performed By: #### 5 7021-8 #### [facility] CLIA [id number] [address] [place] Hemoglobin (Bld) [Mass/Vol] 13.4 g/dL Normal 11.5-15.5 [facility] Comment on above: Order Comment: Speci men Type: BLOOD SPECIMEN Ordering Facility: [facility] Address: [address] [place] [address] Performed By: #### 5 7021-8 #### [facility] CLIA [id number] [address] Immature granulocytes (Bld) [#/Vol] 0.03 10*3/uL Normal <0.10 [facility] Comment on above: Order Comment: Speci men Type: BLOOD SPECIMEN Ordering Facility: [facility] Address: [address] [place] [address] Performed By: #### 5 7021-8 #### [facility] CLIA [id number] [address] [place] [address] [place] Immature granulocytes/100 WBC (Bld) 0.5 % Normal [facility] Comment on above: Order Comment: Speci men Type: BLOOD SPECIMEN Ordering Facility: [facility] Address: [facility] [place] [address] Performed By: #### 5 7021-8 #### [facility] CLIA [id number] [address] [place] Lymphocytes (Bld) [#/Vol] 0.97 10*3/uL Low 1.00-4.00 [facility] Comment on above: Order Comment: Speci men Type: BLOOD SPECIMEN Ordering Facility: [facility] Address: [address] [place] [address] Performed By: #### 5 7021-8 #### [facility] CLIA [id number] [address] Lymphocytes/100 WBC (Bld) 14.6 % Normal [facility] Comment on above: Order Comment: Speci men Type: BLOOD SPECIMEN Ordering Facility: [facility] Address: [address] [place] [address] Performed By: #### 5 7021-8 #### [facility] CLIA [id number] [address] MCH (RBC) [Entitic mass] 28.6 pg Normal 26.0-34.0 [facility] Comment on above: Order Comment: Speci men Type: BLOOD SPECIMEN Ordering Facility: [facility] Address: [address] [place] [address] Performed By: #### 5 7021-8 #### [facility] CLIA [id number] [address] [place] MCHC (RBC) [Mass/Vol] 32.9 g/dL Normal 30.5-36.0 [facility] Comment on above: Order Comment: Speci men Type: BLOOD SPECIMEN Ordering Facility: [facility] Address: [address] [place] [address] Performed By: #### 5 7021-8 #### [facility] CLIA [id number] [address] [place] MCV (RBC) [Entitic vol] 86.8 fL Normal 80.0-100.0 [facility] Comment on above: Order Comment: Speci men Type: BLOOD SPECIMEN Ordering Facility: [facility] Address: [facility] [place] [address] Performed By: #### 5 7021-8 #### [facility] CLIA [id number] [address] [place] [address] [place] Monocytes (Bld) [#/Vol] 0.47 10*3/uL Normal <0.87 [facility] Comment on above: Order Comment: Speci men Type: BLOOD SPECIMEN Ordering Facility: [facility] Address: [address] [place] [address] Performed By: #### 5 7021-8 #### [facility] CLIA [id number] [address] [place] Monocytes/100 WBC (Bld) 7.1 % Normal [facility] Comment on above: Order Comment: Speci men Type: BLOOD SPECIMEN Ordering Facility: [facility] Address: [address] [place] [address] Performed By: #### 5 7021-8 #### [facility] CLIA [id number] [address] [place] [address] [place] Neutrophils (Bld) [#/Vol] 5.09 10*3/uL Normal 1.45-7.50 [facility] Comment on above: Order Comment: Speci men Type: BLOOD SPECIMEN Ordering Facility: [facility] Address: [address] [place] [address] Performed By: #### 5 7021-8 #### [facility] CLIA [id number] [address] [place] [address] [place] Neutrophils/100 WBC (Bld) 76.3 % Normal [facility] Comment on above: Order Comment: Speci men Type: BLOOD SPECIMEN Ordering Facility: [facility] Address: [address] [place] [address] Performed By: #### 5 7021-8 #### [facility] CLIA [id number] [address] [place] [address] [place] Nucleated RBC (Bld) [#/Vol] 10*3/uL Normal <0.01 [facility] Comment on above: Order Comment: Speci men Type: BLOOD SPECIMEN Ordering Facility: [facility] Address: [address] [place] [address] Performed By: #### 5 7021-8 #### [facility] CLIA [id number] [address] [place] Nucleated RBC/100 WBC (Bld) [Ratio] 0.0 /100 WBC Normal [facility] Comment on above: Order Comment: Speci men Type: BLOOD SPECIMEN Ordering Facility: [facility] Address: [address] [place] [address] Performed By: #### 5 7021-8 #### [facility] CLIA [id number] [address] Platelet mean volume (Bld) [Entitic vol] 10.1 fL Normal 9.0-12.7 [facility] Comment on above: Order Comment: Speci men Type: BLOOD SPECIMEN Ordering Facility: [facility] Address: [address] [place] [address] Performed By: #### 5 7021-8 #### [facility] CLIA [id number] [address] [place] Platelets (Bld) [#/Vol] 312 10*3/uL Normal 150-400 [facility] Comment on above: Order Comment: Speci men Type: BLOOD SPECIMEN Ordering Facility: [facility] Address: [address] [place] [address] Performed By: #### 5 7021-8 #### [facility] CLIA [id number] [address] [place] RBC (Bld) [#/Vol] 4.69 10*6/uL Normal 3.90-5.20 [facility] Comment on above: Order Comment: Speci men Type: BLOOD SPECIMEN Ordering Facility: [facility] Address: [address] [place] [address] Performed By: #### 5 7021-8 #### [facility] CLIA [id number] [address] [place] WBC (Bld) [#/Vol] 6.66 10*3/uL Normal 3.70-11.00 [facility] Comment on above: Order Comment: Dre vázquez Type: BLOOD SPECIMEN Ordering Facility: [facility] Address: [address] [place] [address] Performed By: #### 5 7021-8 #### [facility] CLIA [id number] [address] [place] [address] [facility] CNOVon 11-23-2024 CNOV Office Visit ([facility] ) AMANDA GUNN ([id number]) 1970 F Date Time Provider Department 11/23/24 11:30 AM LINDA MARCANO [facility] During your visit today, we recorded the following information about you: Pulse Blood pressure Weight Height 70/minute 122/83 67.9 kg 1.6 m Linda Marcano PA-C 12/07/2024 3:13 PM Signed [facility] Department of Rheumatic and Immunologic Diseases New Patient Date of Service: 11/23/2024 Patient: Amanda Gunn Medical Record: [id number] Primary Care Physician: Nuria Gabriel DO, DO Referring Physician: Eduardo Alvarez CNP Last Rheumatology visit: None at [facility] This consult was requested by the doctor listed for an opinion regarding the chief complaint listed below, and my final recommendations will be communicated to the requesting health care provider by way of the shared medical record for internal providers or letter via the U.S. Postal Service for external providers. Recording using [employer] software for draft documentation of the visit was discussed with the patient/authorized brand representative; all questions welcomed and answered. Patient/authorized brand representative agreed to proceed SUBJECTIVE CC: Long COVID syndrome History of Present Illness Patient is a 54 year-old female presenting for evaluation of long-COVID syndrome. Patient is the primary historian. Patient has a significant past medical history of long-COVID syndrome, chronic pain syndrome, nephrolithiasis, vertigo, and intractable migraine with aura Relevant Serology Results: 09/13/2024: Vitamin D 25 hydroxy: 59.5 09/13/2024: CRP: <0.3 Most recent renal function panel: 09/13/2024 GFR: 88 mL/min/m Cr: 0.81 mg/dL CrCl [per Cockcroft-Gault formula]: 87 mL/min Current Pertinent Medications: Gabapentin 100-mg: take 6 capsules by mouth daily at bedtime Naltrexone 6-mg: take 1 tablet by mouth once daily Ibuprofen 600-mg: take 1 tablet by mouth every 6 hours as needed for pain Past Rheumatologic Medications: none per chart review Alesha reports persistent fatigue, insomnia, vertigo, and brain fog since experiencing a severe COVID-19 infection in March 2020, which she describes as a cytokine storm affecting her nervous system. 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 She notes that the vertigo is constant, described as a bobbing sensation, and feels normal only when in water or on a boat. She is currently taking naltrexone to manage fatigue, insomnia, and vertigo. She has tried vestibular therapy, which exacerbated her migraines, leading to nearly 6 months of continuous migraines. Her neurologist has since managed the migraines with a rescue medication and a muscle relaxer taken at night. She has a history of migraines associated with her menstrual cycle. Alesha also experiences nerve pain, primarily in her right arm, which is being treated with gabapentin. She denies any musculoskeletal pain unrelated to overuse of her hands. She had a second COVID-19 infection in December 2022, which was mild and did not result in long-term effects. She received one COVID-19 vaccination but had adverse reactions and has not been vaccinated since. She is perimenopausal and has been experiencing gynecological issues for about a year. She is scheduled for a total hysterectomy, with plans to preserve her ovaries, in the next few months. She has been intermittently anemic for the past 3 years. She denies photosensitivity, Raynaud's phenomenon, or any new joint pain. She notes that her hands become cold and appear pale. Current Outpatient Medications on File Prior to Visit Medication Sig naltrexone 6 mg (CPD) Take 1 tablet by mouth once daily. gabapentin (NEURONTIN) 100 mg capsule Take 6 capsules by mouth daily at bedtime for 180 days. tiZANidine (ZANAFLEX) 4 mg tablet Take 2 tablets by mouth daily at bedtime. naltrexone capsule 4.5 mg (CPD) Take 4.5 mg by mouth once daily. MAGNESIUM GLYCINATE [...] C/FA/B12 (GENTLE IRON ORAL) Take by mouth. progesterone micronized (PROMETRIUM) 200 mg capsule Take 200 mg by mouth daily at bedtime. (Patient not taking: Reported on 11/23/2024) testosterone 200 mg pllt by IMPLANTATION route. (Patient not taking: Reported on 11/23/2024) No current facility-administered medications on file prior to visit. (more content not included)... Normal [facility] CRP SerPl-mCncon 11-23-2024 CRP [Mass/Vol] mg/L Normal <0.9 [facility] Comment on above: Order Comment: Dre vázquez Type: BLOOD SPECIMEN Ordering Facility: [facility] Address: [address] [place] [address] Performed By: #### 1 988-5, 38497-9 #### [facility] CLIA [id number] [address] [place] [address] [place] Centromere Ab IF Ql (S)on Centromere Ab Qn (S) <0.2 Normal <1.0 [facility] Comment on above: Order Comment: Dre vázquez Type: BLOOD SPECIMENOrdering Facility: [facility] Address: [address] [place] [address] Result Comment: Anti -centromere antibody is used as in aid in diagnosis of systemic sclerosis. Clinical correlation is required. Test Methodology: Multiplex flow immunoassay. Performed By: #### 5 1775-5, 96051-7, 15160-8, 25891-2, 28851-9, 58819-0, 65603-7, 43597-3 ####[facility]CLIA [id number] [place] [address] [place] CENTROMERE AB QUAL Negative Normal Negative [facility] Comment on above: Order Comment: Speci men Type: BLOOD SPECIMENOrdering Facility: [facility] Address: [address] [place] [address] Performed By: #### 5 1775-5, 56630-5, 70453-8, 41198-7, 13851-4, 36810-6, 56638-5, 56245-2 ####[facility] LABCLIA [id number] [place] [address] [place] Chromatin Ab Qnon 11-23-2024 CHROMATIN AB QUAL Negative Normal Negative [facility] Comment on above: Order Comment: Speci men Type: BLOOD SPECIMEN Ordering Facility: [facility] Address: [address] [place] [address] Performed By: #### 5 5-5, 32026-7, 27621-2, 96845-8, 00424-1, 99342-7, 90669-8, 09701-2 #### [facility] CLIA [id number] [address] [place] [address] [place] Chromatin Ab SerPl-aCncon Chromatin Ab Qn <0.2 Normal <1.0 [facility] Comment on above: Order Comment: Speci men Type: BLOOD SPECIMEN Ordering Facility: [facility] Address: [address] [place] [address] Result Comment: Test Methodology: Multiplex flow immunoassay. Performed By: #### 5 1775-5, 35961-3, 90149-1, 65147-1, 10573-8, 76316-7, 12059-2, 24049-6 #### [facility] CLIA [id number] [address] [place] [address] [place] Comprehensive metabolic 2000 panelon 11-23-2024 Albumin [Mass/Vol] 4.5 g/dL Normal 3.9-4.9 [facility] Comment on above: Order Comment: Speci men Type: BLOOD SPECIMEN Ordering Facility: [facility] Address: [address] [place] [address] Performed By: #### 1 988-5, 02146-7 #### [facility] CLIA [id number] [address] [place] [address] [place] ALP [Catalytic activity/Vol] 61 U/L Normal 34-123 [facility] Comment on above: Order Comment: Speci men Type: BLOOD SPECIMEN Ordering Facility: [facility] Address: [address] [place] [address] Performed By: #### 1 988-5, 94353-0 #### [facility] CLIA [id number] [address] STATES [facility] ALT [Catalytic activity/Vol] 14 U/L Normal 7-38 [facility] Comment on above: Order Comment: Speci men Type: BLOOD SPECIMEN Ordering Facility: [facility] Address: [address] [place] [address] Performed By: #### 1 988-5, 24288-5 #### [facility] CLIA [id number] [address] STATES [facility] Anion gap [Moles/Vol] 10 mmol/L Normal 8-15 [facility] Comment on above: Order Comment: Speci men Type: BLOOD SPECIMEN Ordering Facility: [facility] Address: [address] [place] [address] Performed By: #### 1 988-5, 08641-4 #### [facility] CLIA [id number] [address] [place] [address] [place] AST [Catalytic activity/Vol] 12 U/L Low 13-35 [facility] Comment on above: Order Comment: Speci men Type: BLOOD SPECIMEN Ordering Facility: [facility] Address: [address] [place] [address] Performed By: #### 1 988-5, 68123-1 #### [facility] CLIA [id number] [address] [place] [address] [place] Bilirubin [Mass/Vol] 0.3 mg/dL Normal 0.2-1.3 [facility] Comment on above: Order Comment: Speci men Type: BLOOD SPECIMEN Ordering Facility: [facility] Address: [address] [place] [address] Performed By: #### 1 988-5, 99413-1 #### [facility] CLIA [id number] [address] [place] [address] [place] Calcium [Mass/Vol] 9.6 mg/dL Normal 8.5-10.2 [facility] Comment on above: Order Comment: Speci men Type: BLOOD SPECIMEN Ordering Facility: [facility] Address: [address] [place] [address] Performed By: #### 1 988-5, #### [facility] CLIA [id number] [address] [place] [address] [place] Chloride [Moles/Vol] 103 mmol/L Normal 98-107 [facility] Comment on above: Order Comment: Speci men Type: BLOOD SPECIMEN Ordering Facility: [facility] Address: [address] [place] [address] Performed By: #### 1 988-5, #### [facility] CLIA [id number] [address] [place] [address] [place] CO2 [Moles/Vol] 26 mmol/L Normal 22-30 [facility] Comment on above: Order Comment: Speci men Type: BLOOD SPECIMEN Ordering Facility: [facility] Address: [address] [place] [address] Performed By: #### 1 988-5, #### [facility] CLIA [id number] [address] [place] [address] [place] Creatinine [Mass/Vol] 0.84 mg/dL Normal 0.58-0.96 [facility] Comment on above: Order Comment: Speci men Type: BLOOD SPECIMEN Ordering Facility: [facility] Address: [address] [place] [address] Performed By: #### 1 988-5, 42011-9 #### [facility] CLIA [id number] [address] eGFRcr SerPlBld CKD-EPI 2020 84 mL/min/1.73m??? Normal >=60 [facility] Comment on above: Order Comment: Dre vázquez Type: BLOOD SPECIMEN Ordering Facility: [facility] Address: [address] [place] [address] Result Comment: Yajaira mated Glomerular Filtration Rate [...] actual GFR. Performed By: #### 1 988-5, 74850-8 #### [facility] CLIA [id number] [address] STATES [facility] Glucose [Mass/Vol] 99 mg/dL Normal 74-99 [facility] Comment on above: Order Comment: Dre vázquez Type: BLOOD SPECIMEN Ordering Facility: [facility] Address: [address] [place] [address] Result Comment: The [place] Diabetes Association (ADA) provides guidance for cutoff [...] Standards of Medical Care in Diabetes 2016, [place] [employer]. Diabetes Care. 2016.39(Suppl 1). Performed By: #### 1 988-5, 99181-8 #### [facility] CLIA [id number] [address] [place] Potassium [Moles/Vol] 4.4 mmol/L Normal 3.7-5.1 [facility] Comment on above: Order Comment: Speci men Type: BLOOD SPECIMEN Ordering Facility: [facility] Address: [address] [place] [address] Performed By: #### 1 988-5, 00746-1 #### [facility] CLIA [id number] [address] [place] [address] [place] Protein [Mass/Vol] 7.3 g/dL Normal 6.3-8.0 [facility] Comment on above: Order Comment: Speci men Type: BLOOD SPECIMEN Ordering Facility: [facility] Address: [address] [place] [address] Performed By: #### 1 988-5, 02368-0 #### [facility] CLIA [id number] [address] [place] Sodium [Moles/Vol] 139 mmol/L Normal 136-144 [facility] Comment on above: Order Comment: Speci men Type: BLOOD SPECIMEN Ordering Facility: [facility] Address: [address] [place] [address] Performed By: #### 1 988-5, 47177-5 #### [facility] CLIA [id number] [address] [place] Urea nitrogen [Mass/Vol] 13 mg/dL Normal 7-21 [facility] Comment on above: Order Comment: Speci men Type: BLOOD SPECIMEN Ordering Facility: [facility] Address: [address] [place] [address] Performed By: #### 1 988-5, 40052-7 #### [facility] CLIA [id number] [address] [place] [address] [place] Cyclic citrullinated peptide IgG Qnon 11-23-2024 CCP ANTIBODY IGG QUALITATIVE Negative Normal Negative [facility] Comment on above: Order Comment: Speci men Type: BLOOD SPECIMEN Ordering Facility: [facility] Address: [address] [place] [address] Performed By: #### 3 3935-8 #### [facility] CLIA [id number] [address] [place] [address] [place] APRIL Jo1 Ab Ser-aCncon 2024 Marcie-1 extractable nuclear Ab Qn (S) <0.2 Normal <1.0 [facility] Comment on above: Order Comment: Speci men Type: BLOOD SPECIMENOrdering Facility: [facility] Address: [address] [place] [address] Performed By: #### 5 1775-5, 86084-2, 93366-2, 60443-6, 37352-8, 24225-9, 92923-0, 47161-0 ####[facility] LABCLIA [id number] [place] [address] [place] APRIL CLAIM AUDITOR Ab Ser-aCncon 2024 Ribonucleoprotein extractable nuclear Ab Qn (S) <0.2 Normal <1.0 [facility] Comment on above: Order Comment: Speci men Type: BLOOD SPECIMEN Ordering Facility: [facility] Address: [address] [place] [address] Performed By: #### 5 1775-5, 61431-8, 94933-5, 43412-9, 67628-6, 70564-7, 82123-9, 49180-1 #### [facility] CLIA [id number] [address] [place] [address] [place] Ribonucleoprotein extractable nuclear Ab Qn (S) 0.8 AI Normal <1.0 [facility] Comment on above: Order Comment: Speci men Type: BLOOD SPECIMENOrdering Facility: [facility] Address: [address] [place] [address] Performed By: #### 5 1775-5, 85522-1, 49135-0, 57123-6, 05024-9, 48852-2, 35104-9, 05845-2 ####[facility]CLIA [id number] [place] [address] [place] APRIL SM IgG Ser-aCncon 2024 Lr extractable nuclear IgG Qn (S) <0.2 Normal <1.0 [facility] Comment on above: Order Comment: Speci men Type: BLOOD SPECIMENOrdering Facility: [facility] Address: [address] [place] [address] Performed By: #### 5 1775-5, 72558-9, 58130-3, 19066-0, 79223-1, 69495-4, 10790-2, 07371-6 ####[facility] LABIA [id number] [address] [place] APRIL SS-A Ab Ser-aCncon 11-23 Sjogrens syndrome-A extractable nuclear Ab Qn (S) <0.2 Normal <1.0 [facility] Comment on above: Order Comment: Speci [facility] Type: BLOOD SPECIMENOrdering Facility: [facility] Address: [address] [place] [address] Result Comment: Test Methodology: Multiplex flow immunoassay. Performed By: #### 5 5-5, 00944-9, 44264-6, 83614-7, 54835-1, 87496-3, 91426-2, 32325-6 ####[facility] LABIA [id number] [address] [place] APRIL SS-B Ab Ser-aCncon 11-23 Sjogrens syndrome-B extractable nuclear Ab Qn (S) <0.2 Normal <1.0 [facility] Comment on above: Order Comment: Speci [facility] Type: BLOOD SPECIMENOrdering Facility: [facility] Address: [address] [place] [address] Result Comment: Anti -SSB (anti-La) antibody is used as an aid in diagnosis of a variety of systemic autoimmune diseases, especially for Sjogren's syndrome and systemic lupus erythematosus. Clinical correlation is required. Test Methodology: Multiplex flow immunoassay. Performed By: #### 5 1775-5, 24150-6, 61045-5, 93643-0, 45471-2, 87801-1, 25648-5, 82412-7 ####[facility] LABCLIA [id number] [place] [address] [place] ESR Westergren method (Bld) [Velocity]on 11-23-2024 ESR (Bld) [Velocity] 2 mm/h Normal 0-20 [facility] Comment on above: Order Comment: Specmarisol vázqeuz Type: BLOOD SPECIMENOrdering Facility: [facility] Address: [address] [place] [address] Performed By: #### 4 537-7 ####[facility] LABCLIA [id number] [place] [address] [place] Marcie-1 extractable nuclear Ab Qn (S)on 11-23-2024 MARCIE 1 ANTIBODY QUAL Negative Normal Negative [facility] Comment on above: Order Comment: Dre vázquez Type: BLOOD SPECIMENOrdering Facility: [facility] Address: [address] [place] [address] Result Comment: Anti -MARCIE-1 antibody is used as an aid in diagnosis of polymyositis and dermatomyositis especially with pulmonary involvement. A negative result cannot rule out polymyositis or dermatomyositis. Clinical correlation is required. Test Methodology: Multiplex flow immunoassay. Performed By: #### 5 1775-5, 84000-0, 86275-2, 24244-4, 64321-2, 62790-4, 84814-1, 99031-8 ####[facility] LABCLIA [id number] [place] [address] [place] Rheumatoid fact SerPl-aCncon 11-23-2024 Rheumatoid factor Qn [IU]/mL Normal <16 [facility] Comment on above: Order Comment: Dre vázquez Type: BLOOD SPECIMEN Ordering Facility: [facility] Address: [address] [place] [address] Performed By: #### 1 1572-5 #### [facility] CLIA [id number] [address] [place] [address] [place] Ribonucleoprotein extractabl e nuclear Ab Qn (S)on 11-23-2024 ANTI-CLAIM AUDITOR QUAL Negative Normal Negative [facility] Comment on above: Order Comment: Specmarisol vázquez Type: BLOOD SPECIMENOrdering Facility: [facility] Address: [address] [place] [address] Performed By: #### 5 1775-5, 69955-3, 66070-4, 56461-5, 59550-9, 31591-0, 89615-1, 60510-8 ####[facility] LABCLIA [id number] [address] [address] [place] RIBOSOMAL CLAIM AUDITOR QUAL Negative Normal Negative [facility] Comment on above: Order Comment: Dre vázquez Type: BLOOD SPECIMEN Ordering Facility: [facility] Address: [address] [place] [address] Result Comment: Anti -Ribosomal RNA (Ribosomal P) antibody is used as an aid in diagnosis of systemic autoimmune diseases especially systemic lupus erythematosus and mixed connective tissue disease. Cross-reactivity with Anti-lr antibody is not uncommon. Clinical correlation is required. Test Methodology: Multiplex flow immunoassay. Performed By: #### 5 1775-5, 52681-6, 50556-9, 35226-7, 82259-2, 54477-7, 69147-4, 28534-2 #### [facility] CLIA [id number] [address] [place] [address] [place] SCL-70 extractable nuclear I gG IA Qn (S)on 11-23-2024 SCLERODERMA AB QUAL Negative Normal Negative [facility] Comment on above: Order Comment: Speci men Type: BLOOD SPECIMENOrdering Facility: [facility] Address: [address] [place], [place] [address] Performed By: #### 5 1775-5, 35341-7, 68579-1, 10235-7, 54466-6, 63956-2, 15403-4, 43524-1 ####[facility] LABCLIA [id number] [address] [address] [place] SCLERODERMA IGG AB <0.2 Normal <1.0 [facility] Comment on above: Order Comment: Elysei kathie Type: BLOOD SPECIMENOrdering Facility: [facility] Address: [address] [place] [address] Result Comment: Scl- 70/Scleroderma antibody test is used as an aid in diagnosis of systemic sclerosis especially the diffuse cutaneous form. A negative result cannot rule out systemic sclerosis. The final interpretation should consider clinical picture and other test results such as anti-centromere antibody. Test Methodology: Multiplex flow immunoassay. Performed By: #### 5 5-5, 10632-7, 12622-7, 16970-3, 70538-7, 25047-3, 85304-5, 53414-6 ####[facility] LABIA [id number] [address] [address] [place] Sjogrens syndrome-A extracta ble nuclear Ab Qn (S)on 11-23-2024 SSA ANTIBODY QUAL Negative Normal Negative [facility] Comment on above: Order Comment: Dre vázquez Type: BLOOD SPECIMENOrdering Facility: [facility] Address: [address] [place] [address] Performed By: #### 5 1774-5, 09789-8, 10057-3, 38150-4, 91970-7, 70669-5, 65725-5, 81179-9 ####[facility] LABIA [id number] [address] [place] [address] [place] Sjogrens syndrome-B extracta ble nuclear Ab Qn (S)on 11-23-2024 SSB ANTIBODY QUAL Negative Normal Negative [facility] Comment on above: Order Comment: Dre [facility] Type: BLOOD SPECIMENOrdering Facility: [facility] Address: [address] [place], [place] [address] Performed By: #### 5 5-5, 83206-0, 52200-3, 16781-1, 27606-3, 05973-9, 73416-1, 45160-4 ####[facility] LABIA [id number] [address] [place] [address] [place] Lr extractable nuclear Ig G Qn (S)on 11-23-2024 SM ANTIBODY QUAL Negative Normal Negative [facility] Comment on above: Order Comment: Dre vázquez Type: BLOOD SPECIMENOrdering Facility: [facility] Address: [address] [place] [address] Result Comment: Anti -Sm (Lr) antibody is used as an aid in diagnosis of systemic lupus erythematosus and its presence is associated with renal disease. A negative result cannot rule out systemic lupus erythematosus. Clinical correlation is required. Test Methodology: Multiplex flow immunoassay. Performed By: #### 5 1775-5, 08616-5, 54313-7, 63389-7, 04897-3, 62623-3, 87674-4, 78624-2 ####[facility] LABCLIA [id number] [address] [place] cCP IgG SerPl-aCncon 025 Cyclic citrullinated peptide IgG Qn <15 Normal <20 [facility] Comment on above: Order Comment: Dre vázquez Type: BLOOD SPECIMEN Ordering Facility: [facility] Address: [address] [place] [address] Performed By: #### 3 3935-8 #### [facility] CLIA [id number] [address] [place] [address] [place] Surgical pathology reportOrd ered By: Samara Gamez on 11-18-2024 Surgical pathology study [facility] Hosiery Bagger Office Visit Reporton 11-15-2024 Hosiery Bagger Office Visit Report [facility] [address], [address] [place] [address] OFFICE VISIT Date of Service: 11/15/24 MR#: [id number] Acct: [id number] Name: AMANDA GUNN LUCIA Rep #: [id number] : 1970 Provider: Dr. Narcisa Clifton DO Age/Sex: 54/F [place] [facility] [place] Status: Signed with Addenda ADDENDUM by Dr. Narcisa Chaudhary DO on 12/21/24 at 1421 Assessment and Plan Assessment and Plan (1) Poison wendy dermatitis: Status: Acute (2) Uterine fibroid: Status: Acute (3) Thickened endometrium: Status: Acute (4) Irregular menstrual bleeding: Status: Acute (5) Abnormal uterine bleeding (AUB): Status: Acute Orders: Orders Endometrial Biopsy 11/15/24 N93.9 - Abnormal uterine and vaginal bleeding, unspecified, R93.89 - Abnormal findings on diagnostic imaging of other specified body structures Medications: New methylprednisolone PO PER PKG DIR 21 tabs 0RF Plan emb was collected and sent to lab for analysis 12/21/24 1421 Date Narcisa Chaudhary DO cc: * Signed ADDENDUM by Dr. Narcisa Chaudhary DO on 11/15/24 at 1556 Assessment and Plan Assessment and Plan (1) Poison wendy dermatitis: Status: Acute (2) Uterine fibroid: Status: Acute (3) Thickened endometrium: Status: Acute (4) Irregular menstrual bleeding: Status: Acute (5) Abnormal uterine bleeding (AUB): Status: Acute Orders: Orders Endometrial Biopsy Today N93.9 - Abnormal uterine and vaginal bleeding, unspecified, R93.89 - Abnormal findings on diagnostic imaging of other specified body structures Medications: New methylprednisolone (Medrol (Louis)) PO PER PKG DIR 21 tabs 0RF Comments Comments: EMB performed with a flexible pipelle into the uterine cavity after betadine wash. A single toothed tenaculum was used to keep the cervix stabilized. The patient tolerated the procedure well. 11/15/24 1556 Date Narcisa Chaudhary DO cc: * Signed Intake Vital Signs 10/25/24 09:01 11/12/24 09:58 11/15/24 15:10 Height 5 ft 3 in 5 ft 3 in 5 ft 3 in Weight: 151 lb 4 oz BMI 26.8 BP 134/85 H Intake Visit Reasons: EMB per CB Chief Complaint: EMB Design Lead Required: No Is patient in pain?: No Allergies topiramate Allergy (Severe, Verified 11/15/24 15:11) sores in mouth levonorgestrel (From Mirena) Adverse Reaction (Verified 11/15/24 15:11) Bleeding Medications ???Medication ???Instructions ???Recorded ???Confirmed ???Type Bacillus coagulans-inulin 1 cap PO 09/29/24 11/15/24 History billion cell-250 mg capsule (Probiotic with Prebiotic) calcium 300 mg chewable tablet mg PO 09/29/24 11/15/24 History coenzyme Q10 10 mg capsule 10 mg PO ONCE 09/29/24 11/15/24 Hi story gabapentin 600 mg tablet 600 mg PO QDAY 09/29/24 11/15/24 H istory mecobalamin (vitamin B12) 1,000 1,000 mcg PO QDAY 09/29/24 5 History mcg chewable tablet melatonin 3 mg capsule 3 mg PO HS PRN 09/29/24 11/15/24 H istory naltrexone 4.5 mg capsule mg PO 09/29/24 11/15/24 History omega-3 fatty acids 1,000 mg 1,000 mg PO QDAY 09/29/24 11/15/24 History capsule sumatriptan succinate 50 mg tablet 50 mg PO ONCE 09/29/24 11/15/24 History tizanidine 4 mg capsule 8 mg PO QHS PRN 09/29/24 11/15/24 History methylprednisolone 4 mg tablets in See Rx Instructions PO PER PKG D IR 11/15/24 11/15/24 Rx a dose pack (Medrol (Louis)) #21 tabs Post menopausal: No Patient : No : No Control Method: Vasectomy PFSH PFSH Medical History History of COVID-19 Post-COVID syndrome Anxiety Alcohol use Anemia Migraine headache Non-smoker Leg cramps Seasonal allergies Surgical History H/O endoscopy H/O prior ablation treatment History of colonoscopy History of esophagogastroduodenoscopy (EGD) Hx of [facility] teeth extracted Family History Sister Anemia Grandmother Cervical cancer Father Colon cancer Myocardial infarction, Onset Age: 59 Diabetes Heart disease Anemia Angina at rest Mother Breast cancer Hypertension Other FH: migraines Family history of high cholesterol Kidney disease Thyroid disorder Social History adopted: No household members: family housing: house number of children: 4 current occupational status: employed current occupation: [employer] current occupational exposures/hazards: No pets and animals: Yes pets and animals: cat(s) and dog(s) history of recent travel: No sexually active: Yes Smoking Status: (more content not included)... Normal [facility] Surgery Specimen Level Fan 11-15-2024 Surgery Specimen Level IV -------- Patient Age/Sex Location Account Attending Physician -------- AMANDA GUNN October/ LABSPEC [id number] Eloy Chang -------- Specimen: [id number] Received: 11/15/24 Status: SALVADOR Reynoso Num: [id number] Spec Type: ENDOM BX/C Subm Dr: Dr. Narcisa Chaudhary DO HEAD OPERATION: Endometrial biopsy PRE-OP DIAGNOSIS: Thickened endometrium TISSUE SUBMITTED: A- Endometrial tissue -------- MICROSCOPIC DIAGNOSIS A. Endometrium, biopsy: * Inactive endometrium MICROSCOPIC DESCRIPTION Slides are reviewed. GROSS DESCRIPTION A. Received in formalin labeled with the patient's name and date of . Designated as EMB is a 2.3 x 1.1 x 0.1 cm aggregate of dark red congested tissue fragments and clotted blood. Entirely submitted in 1 cassette. [place] 11/16/2024 CPT:84564 -------- Patient Age/Sex Location Account Attending Physician -------- AMANDA GUNN October [facility] [id number] Dr. Narcisa Chaudhary, [place]oy -------- Signed (signature on file) Dr. Samara Gamez, 11/18/24 1354 -------- Normal [facility] Comment on above: Performed By: #### P SUTATY #### [facility] Laboratory [address] [place], [address] Breast imaging reportOrdered By: Lana Sharpe on 11-03-2024 Study report [facility] Imaging Services [address] [place], [place] [address] SCRN MAMM (CAD)W/DEBRA BILAT MR#: [id number] Acct: [id number] Name: AMANDA GUNN OCTOBER Rep #: [id number] : 1970 F 54 From: Jakob Wyatt MD PCP: Dr. Nuria Gabriel, Status: RE G [facility] Study:SCRN MAMM (CAD)W/DEBRA BILAT Date of Exa m: 11/03/24 Exam# [id number] Ordering Dr: Ericka Lafleur DRUMS TEACHER-C EXAM: SCRN MAMM (CAD)W/DEBRA BILAT DATE: 11/03/2024 CLINICAL HISTORY: F, Age 54 y/o , SCREENING BREAST CANCER TECHNIQUE: SCRN MAMM (CAD)W/DEBRA BILAT COMPARISON: Prior exam(s) were compared FINDINGS: TISSUE DENSITY: The breasts are extremely dense, which lowers the sensitivity ofmammography. Bilateral Breast Mammographic Findings: No suspicious masses, calcifications or other abnormalities are identified. BI/SCRN MAMM (CAD)W/DEBRA BILAT IMPRESSION: No mammographic evidence of malignancy in either breast. OVERALL FINAL ASSESSMENT BI-RADS 1: NEGATIVE. RECOMMEND ANNUAL MAMMOGRAPHIC SCREENING. RECOMMENDATION: Routine annual follow-up in 1 Year A letter with findings and recommendations will be mailed to the patient. Reading Location: [id number] CC: DOROTHY Lafleur; Dr. Nuria Gabriel DO ~ Relief Pilot: Signed [facility] Pelvic w/ Transvaginalon Pelvic w/ Transvaginal [facility] Imaging Services [address] [place], [place] [address] Pelvic w/ Transvaginal MR#: [id number] Acct: [id number] Name: AMANDA GUNN OCTOBER Rep #: [id number] : 1970 F 54 From: Vitaly morin MD PCP: Dr. Nuria Gabriel DO Status: REG CLI Study: Pelvic w/ Transvaginal Date of Exam: 11/03/24 Exam# [id number] Ordering Dr: Ericka Lafleur PROCEDURE: PELVIC W/ TRANSVAGINAL 11/03/2024 REASON FOR EXAM: ABNORMAL UTERINE BLEEDING TECHNIQUE: PELVIC W/ TRANSVAGINAL FINDINGS: The uterus is anteverted and measures 11.4 x 7.8 x 9 cm. Posterior/fundal fibroid measuring 5 x 3.9 x 4.1 cm is noted. Endometrium measures 20 mm. Endometrium appears hyperechoic. Endometrial fluid is noted. Endometrium mass/polyp measuring 0.7 x 0.6 x 0.6 cm is noted. Lower uterine segment calcification measuring 0.5 x 0.6 x 0.2 cm is noted. Right ovary measures 4.3 x 3.3 x 2.5 cm. Normal blood flow is noted. Cyst measuring 3 x 2.4 x 2.1 cm is noted. Left ovary measures 4 x 3.6 x 2.6 cm. Normal flow is noted. Cyst measuring 2.4 x 2.5 x 2.2 cm. No free fluid in the posterior cul-de-sac. US/Pelvic w/ Transvaginal IMPRESSION: Thickened endometrium with possible endometrium best/polyp. Endometrial fluid is noted. MRI is advised. Uterine fibroid. Bilateral ovarian cysts. Reading Location[facility] CC: DOROTHY Lafleur; Dr. Nuria Gabriel DO Relief Pilot: Signed Normal [facility] SCRN MAMM (CAD)W/DEBRA BILATo n 11-03-2024 SCRN MAMM (CAD)W/DEBRA BILAT [facility] Imaging Services [address] [facility] [facility] [place], [place] [address] SCRN MAMM (CAD)W/DEBRA BILAT MR#: [id number] Acct: [id number] Name: AMANDA GUNN OCTOBER Rep #: [id number] : 1970 F 54 From: Lana Tomas i, MD PCP: Dr. Nuria Gabriel DO Status: REG CLI Study: SCRN MAMM (CAD)W/DEBRA BILAT Date of Exam: 06/29 Exam# [id number] Ordering Dr: Ericka Lafleur EXAM: SCRN MAMM (CAD)W/DEBRA BILAT DATE: 11/03/2024 CLINICAL HISTORY: F, Age 54 y/o , SCREENING BREAST CANCER TECHNIQUE: SCRN MAMM (CAD)W/DEBRA BILAT COMPARISON: Prior exam(s) were compared FINDINGS: TISSUE DENSITY: The breasts are extremely dense, which lowers the sensitivity of mammography. Bilateral Breast Mammographic Findings: No suspicious masses, calcifications or other abnormalities are identified. BI/SCRN MAMM (CAD)W/DEBRA BILAT IMPRESSION: No mammographic evidence of malignancy in either breast. OVERALL FINAL ASSESSMENT BI-RADS 1: NEGATIVE. RECOMMEND ANNUAL MAMMOGRAPHIC SCREENING. RECOMMENDATION: Routine annual follow-up in 1 Year A letter with findings and recommendations will be mailed to the patient. Reading Location: [id number] CC: DOROTHY Lafleur; Dr. Nuria Gabriel DO Relief Pilot: Signed Normal [facility] PAP IG HPV APTIMA 16/18,45on 10-29-2024 ADEQ Comment Normal . [facility] Comment on above: Order Comment: Speci men Comment: [id number] Specimen Comment: No. of containers..01 ThinPrep Vial Result Comment: Sati sfactory for evaluation. No endocervical component is identified. Performed By: #### L 7400.0280 #### [facility] Laboratory [address] [place], [place], [address] COMM . Normal . [facility] Comment on above: Order Comment: Speci men Comment: [id number] Specimen Comment: No. of containers..01 ThinPrep Vial Performed By: #### L 7400.0280 #### [facility] [address] [place], [address] COMMENT Comment Normal . [facility] Comment on above: Order Comment: Speci men Comment: [id number] Specimen Comment: No. of containers..01 ThinPrep Vial Result Comment: This liquid based ThinPrep(R) pap test was screened with the use of an image guided system. Performed By: #### L 7400.0280 #### [facility] [address] [place], [address] DIAG Comment Normal . [facility] Comment on above: Order Comment: Speci men Comment: [id number] Specimen Comment: No. of containers..01 ThinPrep Vial Result Comment: NEGA TIVE FOR INTRAEPITHELIAL LESION OR MALIGNANCY. Performed By: #### L 7400.0280 #### [facility] [address] [place], [address] HPV APTIMA, HR Negative Normal Negative [facility] Comment on above: Order Comment: Speci men Comment: [id number] Specimen Comment: No. of containers..01 ThinPrep Vial Result Comment: This nucleic acid amplification test detects fourteen high- risk HPV types (16,18,31,33,35,39,45,51,52,56,58,59,66,68) without differentiation. Performed By: #### L 7400.0280 #### [facility] [address] [place], [address] HPV Yesika Rfx Comment Normal . [facility] Comment on above: Order Comment: Speci men Comment: [id number] Specimen Comment: No. of containers..01 ThinPrep Vial Result Comment: Crit eria not met, HPV Genotype not performed. Performed at: [facility] [address] [place], [place] [id number] Head Stock Operator: Shana Gutierrez PhD, Phone: [phone] Performed at: [address] [id number] Head Stock Operator: Pily Law MD, Phone: [phone] Performed at: [address] [id number] Head Stock Operator: Pily Law MD, Phone: [phone] Performed By: #### L 7400.0280 #### [facility] [address] [place], [address] PAPSMR Comment Normal . [facility] Comment on above: Order Comment: Speci men Comment: [id number] Specimen Comment: No. of containers..01 ThinPrep Vial Result Comment: The Pap smear is a screening test designed to aid in the detection of premalignant and malignant conditions of the uterine cervix. It is not a diagnostic procedure and should not be used as the sole means of detecting cervical cancer. Both false-positive and false-negative reports do occur. Performed By: #### L 7400.0280 #### [facility] [address] [place], [address] PERFORM Comment Normal . [facility] Comment on above: Order Comment: Speci men Comment: [id number] Specimen Comment: No. of containers..01 ThinPrep Vial Result Comment: Serenity Escalante, House Officer (ASCP) Performed By: #### L 7400.0280 #### [facility] [address] [place], [address] Cervical or vaginal specimen microscopic examination by liquid based cytology (reportOrdered By: Ericka Lafleur on 10-25-2024 Cytology report Cyto stain.thin prep Doc (Cvx/Vag) Comment . [facility] Comment on above: Criteria not met, HP V Genotype not performed.Performed at: [address] [id number] Director: Shana Gutierrez PhD, Phone: [phone] at: [address] [id number] Director: Pily Law MD, Phone: [phone] at: =[address] [id number] Director: Pily Law MD, Phone: [phone] Cervical or vagninal specime n microscopic examination by cytology stain (reported asOrdered By: Ericka Lafleur on 10-25-2024 Cytology report Cyto stain Doc (Cvx/Vag) Comment . [facility] Comment on above: The Pap smear is a s creening test designed to aid in thedetection of premalignant and malignant conditions of theuterine cervix. It is not a diagnostic procedure andshould not be used as the sole means of detecting cervicalcancer. Both false-positive and false-negative reports dooccur. Detection in cervical specim en of any of human papilloma virus (HPV) 16, 18, 31, 33,Ordered By: Ericka Lafleur on 10-25-2024 HPV 16+18+31+33+35+39+45 +51+52+56+58+59+66+6 8 DNA Probe+sig amp Ql (Cvx) Negative Negative [facility] Comment on above: This nucleic acid am plification test detects fourteen high- risk HPV types (16,18,31,33,35,39,45,51,52,56,58,59,66,68)without differentiation. Laboratory - CytologyOrdered By: Ericka Lafleur on 10-25-2024 House Officer Cyto stain Nom (Cvx/Vag) [ID] Comment . [facility] Comment on above: Joanne Escalante, House Officer (ASCP) Laboratory - Miscellaneous t estsOrdered By: Ericka Lafleur on 10-25-2024 Service comment (Unsp spec) [Interp] . . [facility] No Panel InformationOrdered By: Ericka Lafleur on 10-25-2024 Pap Smear Specimen Adequacy Comment . [facility] Comment on above: Satisfactory for vipul luation. No endocervical component is identified. 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) Design Lead Required: No Is patient in pain?: No Allergies topiramate Allergy (Severe, Verified 10/25/24 08:58) sores in mouth levonorgestrel (From Mirena) Adverse Reaction (Verified 10/25/24 09:10) Bleeding Medications ???Medication ???Instructions ???Recorded ???Confirmed ???Type Bacillus coagulans-inulin 1 cap PO 09/29/24 10/25/24 History billion cell-250 mg capsule (Probiotic with Prebiotic) calcium 300 mg chewable tablet mg PO 09/29/24 10/25/24 History coenzyme Q10 10 mg capsule 10 mg PO ONCE 09/29/24 10/25/24 Hi story gabapentin 600 mg tablet 600 mg PO QDAY 09/29/24 10/25/24 H istory mecobalamin (vitamin B12) 1,000 1,000 mcg PO QDAY 09/29/24 5 History mcg chewable tablet melatonin 3 mg capsule 3 mg PO HS PRN 09/29/24 10/25/24 H istory naltrexone 4.5 mg capsule mg PO 09/29/24 10/25/24 History omega-3 fatty acids 1,000 mg 1,000 mg PO QDAY 09/29/24 10/25/24 History capsule sumatriptan succinate 50 mg tablet 50 mg PO ONCE 09/29/24 10/25/24 History tizanidine 4 mg capsule 8 mg PO QHS PRN 09/29/24 10/25/24 History Is last menstrual period known: Yes Last Menstrual Period: 10/03/24 Post menopausal: No Patient : No : No Do you think of yourself as: straight/heterosexual Current gender identity: female Control Method: none PFSH Medical History History of COVID-19 Post-COVID syndrome Anxiety Alcohol use Anemia Migraine headache Non-smoker Leg cramps Seasonal allergies Surgical History H/O endoscopy H/O prior ablation treatment History of colonoscopy History of esophagogastroduodenoscopy (EGD) Hx of [facility] [place] teeth extracted Family History Sister Anemia Grandmother Cervical cancer Father Colon cancer Myocardial infarction, Onset Age: 59 Diabetes Heart disease Anemia Angina at rest Mother Breast cancer Hypertension Other FH: migraines Family history of high cholesterol Kidney disease Thyroid disorder Social History (Updated 10/25/24 @ 09:01 by Betty Hugo) adopted: No household members: family housing: house number of children: 4 current occupational status: employed current occupation: [employer] current occupational exposures/hazards: No pets and animals: Yes pets and animals: cat(s) and dog(s) history of recent travel: No sexually active: Yes Smoking Status: Never smoker substance use type: does not use diet: low carbohydrate well-balanced diet: daily or most days caffeine: No eating out: 1-3 times/week during the past year weight has: decreased > 10 lbs what type of physical activity do you participate in: walking jacque/druze: Judaism seatbelt use: always do you feel safe at home: Yes additional social history: - Bill History 4 Elective abortions Hx Para 4 Spontaneous abortions Hx # Term Pregnancies Ectopic pregnancies Hx # Pregnancies Multiple births # of living children 4 HPI Encounter for routine gynecological examination Details: AMANDA GUNN is a 54 year old who presents for annual exam and to establish care. She reports she has irregular menses. She has 23 day cycles typically; however prior to this her cycles was 30 and prior 27. Within these she has had 11 days of bleeding; 13 days bleeding, and then an 87 long bleed time earlier this year (-Jul 01). Most recent blood work was completed in September (on Mychart) which CBC was stable; TSH, T4 stable. She reports she suffers from long haul covid--fatigue; lightheaded/dizzy from this but does not feel exacerbated during her menses. Previous vaginal deliveries. History of ablation (2020) s/p IUD mirena where she had reaction and bled out from this. She recently (past 2 years) was having treatment through a different provider with testosterone pellets as well as progesterone therapy. Did not notice any improvement or changes with this. Originally started due to fatigue secondary to long haul Covid. Last PAP: 2019; normal/negative. History of abnormal PAP: none. Last mammogram: 2022. History of abnormal mammogram: none Colon cancer screenin; normal; 10 year (more content not included)... Normal [facility] 25([place])D3 [facility] 2024 25-hydroxyvitamin D3 [Mass/Vol] 59.5 ng/mL Normal 31.0-80.0 [facility] Comment on above: Order Comment: Speci men Type: BLOOD SPECIMEN Ordering Facility: [facility] Address: [address] [place] [address] Result Comment: Clas sification of 25 [place] Vitamin D status: Deficiency/Insufficiency: < or = 30 ng/ml. Sufficiency/Optimal Levels: 31-80 ng/mL Toxicity: > 100 ng/mL. Test performed by chemiluminescent immunoassay. Performed By: #### 1 988-5, 30892-3 #### [facility] CLIA [id number] [address] [place] [address] [place] [address] [place] 25-hydroxyvitamin D3 [Mass/V ol]on 09-13-2024 Interpretation and review of laboratory results Normal [facility] The reference range interval was based on an analysis of samples from healthy adults and may not pertain to children from 0-18 years old. [facility] CNOVon 09-13-2024 CNOV Office Visit (PUMBHT ) AMANDA GUNN ([id number]) 1970 F Date Time Provider Department 09/13/24 9:00 AM EDUARDO ALVAREZ [facility] During your visit today, we recorded the following information about you: Temperature Pulse Blood pressure Last Period 98 degrees 72/minute 125/72 09/03/24 Eduardo Alvarez APRN.CHIEF OF PRODUCTION 09/13/2024 11:57 AM Signed [facility] Initial Evaluation [facility] at the request [...] 12/2022 HISTORY OF PRESENT ILLNESS HPI: Amanda Gunn is a 53 year old female with [...] or any previous visit (from the past 65047 hours). PFT: No textual results found for [...] Anemia COVID (more content not included)... [facility] ASMITAN Telephone (PUMT) AMANDA GUNN ([id number]) 1970 F Date Time Provider Department 09/13/24 EDUARDO ALVAREZ During your visit today, we recorded the following information about you: Klarissa Chapman PSS 09/13/2024 2:48 PM Signed ----- Message from Eduardo Alvarez APRN.CHIEF OF PRODUCTION sent at 09/13/2024 11:56 AM EDT ----- Hi there, Please assist with scheduling the following appointments/ consults as ordered; Virtual follow up with myself in 6-8 weeks. Please respond when done Thanks, Eduardo Alvarez APRN.Klarissa Stevenson PSS 09/13/2024 2:48 PM Signed Called patient to schedule 6 week virtual follow up with Eduardo Alvarez, 1st attempt, left Paulina Mckeon 09/17/2024 10:41 AM Signed 2nd attempt: LVM to schedule 3rd attempt: [...] Imbalance [R26.89] 04/05/2021 Encounter Status:Closed by KLARISSA CHAPMAN on 09/17/24 Normal [facility] CRP SerPl-mCncon 09-13-2024 CRP [Mass/Vol] mg/L Normal <0.9 [facility] Comment on above: Order Comment: Speci men Type: BLOOD SPECIMEN Ordering Facility: [facility] Address: [address] [place] [address] Performed By: #### 1 988-5, 09487-7 #### [facility] CLIA [id number] [address] [place] [address] [place] Comprehensive metabolic 2000 panelon 09-13-2024 Albumin [Mass/Vol] 4.7 g/dL Normal 3.9-4.9 [facility] Comment on above: Order Comment: Speci men Type: BLOOD SPECIMEN Ordering Facility: [facility] Address: [address] [id number] Performed By: #### 1 988-5, 50900-7 #### [facility] CLIA [id number] [address] [place] [address] [place] ALP [Catalytic activity/Vol] 53 U/L Normal 34-123 [facility] Comment on above: Order Comment: Speci men Type: BLOOD SPECIMEN Ordering Facility: [facility] Address: [address] [place], [place] [address] Performed By: #### 1 988-5, 96539-2 #### [facility] CLIA [id number] [address] [place], [place] [address] [place] ALT [Catalytic activity/Vol] 16 U/L Normal 7-38 [facility] Comment on above: Order Comment: Speci men Type: BLOOD SPECIMEN Ordering Facility: [facility] Address: [address] [place], [place] [address] Performed By: #### 1 988-5, 55556-9 #### [facility] CLIA [id number] [address] [place], [place] [address] [place] Anion gap [Moles/Vol] 11 mmol/L Normal 8-15 [facility] Comment on above: Order Comment: Speci men Type: BLOOD SPECIMEN Ordering Facility: [facility] Address: [address] [id number] Performed By: #### 1 988-5, 97377-9 #### [facility] CLIA [id number] [address] [place], [place] [address] [place] AST [Catalytic activity/Vol] 16 U/L Normal 13-35 [facility] Comment on above: Order Comment: Speci men Type: BLOOD SPECIMEN Ordering Facility: [facility] Address: [address] [place], [place] [address] Performed By: #### 1 988-5, 75143-8 #### [facility] CLIA [id number] [address] [place] [address] [place] Bilirubin [Mass/Vol] 0.3 mg/dL Normal 0.2-1.3 [facility] Comment on above: Order Comment: Speci men Type: BLOOD SPECIMEN Ordering Facility: [facility] Address: [address] [place] [address] Performed By: #### 1 988-5, #### [facility] CLIA [id number] [address] [place] [address] [place] Calcium [Mass/Vol] 10.2 mg/dL Normal 8.5-10.2 [facility] Comment on above: Order Comment: Speci men Type: BLOOD SPECIMEN Ordering Facility: [facility] Address: [address] [place] [address] Performed By: #### 1 988-5, #### [facility] CLIA [id number] [address] [place] [address] [place] Chloride [Moles/Vol] 104 mmol/L Normal 98-107 [facility] Comment on above: Order Comment: Speci men Type: BLOOD SPECIMEN Ordering Facility: [facility] Address: [address] [place] [address] Performed By: #### 1 988-5, #### [facility] CLIA [id number] [address] [place], [place] [address] [place] CO2 [Moles/Vol] 24 mmol/L Normal 22-30 [facility] Comment on above: Order Comment: Speci men Type: BLOOD SPECIMEN Ordering Facility: [facility] Address: [address] [place], [place] [address] Performed By: #### 1 988-5, 63784-9 #### [facility] CLIA [id number] [address] [place] [address] STATES [place] [facility] Creatinine [Mass/Vol] 0.81 mg/dL Normal 0.58-0.96 [facility] Comment on above: Order Comment: Dre vázquez Type: BLOOD SPECIMEN Ordering Facility: [facility] Address: [address] [place] [address] Performed By: #### 1 988-5, 49131-2 #### [facility] CLIA [id number] [address] [place] [address] Creatinine and Glomerular filtration rate.predicted panel (S/P/Bld) 88 mL/min/1.73m??? Normal >=60 [facility] Comment on above: Order Comment: Dre vázquez Type: BLOOD SPECIMEN Ordering Facility: [facility] Address: [address] [place] [address] Result Comment: Yajaira mated Glomerular Filtration Rate [...] actual GFR. Performed By: #### 1 988-5, 86061-6 #### [facility] CLIA [id number] [address] [place] [address] [place] Glucose [Mass/Vol] 95 mg/dL Normal 74-99 [facility] Comment on above: Order Comment: Dre vázquez Type: BLOOD SPECIMEN Ordering Facility: [facility] Address: [address] [place] [address] Result Comment: The [place] [employer] (ADA) provides guidance for cutoff [...] Standards of Medical Care in Diabetes 2016, [employer]. Diabetes Care. 2016.39(Suppl 1). Performed By: #### 1 988-5, 57484-8 #### [facility] CLIA [id number] [address] [place] [address] [place] Potassium [Moles/Vol] 4.1 mmol/L Normal 3.7-5.1 [facility] Comment on above: Order Comment: Speci men Type: BLOOD SPECIMEN Ordering Facility: [facility] Address: [address] [place] [address] Performed By: #### 1 988-5, 49064-2 #### [facility] CLIA [id number] [address] [place] [address] [place] Protein [Mass/Vol] 7.0 g/dL Normal 6.3-8.0 [facility] Comment on above: Order Comment: Speci men Type: BLOOD SPECIMEN Ordering Facility: [facility] Address: [address] [place] [address] Performed By: #### 1 988-5, #### [facility] CLIA [id number] [address] [place] [address] [place] Sodium [Moles/Vol] 139 mmol/L Normal 136-144 [facility] Comment on above: Order Comment: Speci men Type: BLOOD SPECIMEN Ordering Facility: [facility] Address: [address] [place] [address] Performed By: #### 1 988-5, 16067-3 #### [facility] CLIA [id number] [address] [place], [place] [address] [place] Urea nitrogen [Mass/Vol] 12 mg/dL Normal 7-21 [facility] Comment on above: Order Comment: Speci men Type: BLOOD SPECIMEN Ordering Facility: [facility] Address: [facility] [place] [address] Performed By: #### 1 988-5, 35111-4 #### [facility] CLIA [id number] [address] [place] [address] [place] VITAMIN Con 09-13-2024 VITAMIN C 58 umol/L Normal 23-114 [facility] Comment on above: Order Comment: Dre vázquez Type: BLOOD SPECIMEN Ordering Facility: [facility] Address: [address] [place] [address] Result Comment: Joe min C concentrations lower [...] developed and its performance characteristics determined by [facility]. It has not been cleared or approved by the US Food and Drug Administration. This test was performed in a CLIA certified laboratory and is intended for clinical purposes. Performed By: [facility] [address] [place] [address] Plant Culture Manager: Surendra Garcia MD, PhD [facility] Number: [id number] Performed By: #### 1 988-5, 32039-2 #### [facility] CLIA [id number] [address] [place] [address] [place] VITAMIN D 25 HYDROXYon 09-13 25-hydroxyvitamin D3 [Mass/Vol] 59.5 ng/mL 31.0 - 80.0 ng/mL [facility] Comment on above: Classification of 25 [place] Vitamin D status: Deficiency/Insufficiency: < or = 30 ng/ml. Sufficiency/Optimal Levels: 31-80 ng/mL Toxicity: > 100 ng/mL. Test performed by chemiluminescent immunoassay. CBC W Auto Differential pane l (Bld)on 09-10-2024 Basophils (Bld) [#/Vol] 0.04 10*3/uL Normal <0.11 [facility] Comment on above: Order Comment: Speci men Type: BLOOD SPECIMEN Ordering Facility: [facility] Address: [address] [place] [address] Performed By: #### 5 763-8 #### [facility] CLIA [id number] [address] [place], [place] [address] [place] Basophils/100 WBC (Bld) 0.9 % Normal [facility] Comment on above: Order Comment: Speci men Type: BLOOD SPECIMEN Ordering Facility: [facility] Address: [address] [place] [address] Performed By: #### 5 763-8 #### [facility] CLIA [id number] [address] [place] [address] [place] Differential cell count method Nom (Bld) Auto Normal [facility] Comment on above: Order Comment: Speci men Type: BLOOD SPECIMEN Ordering Facility: [facility] Address: [address] [place] [address] Performed By: #### 5 763-8 #### [facility] CLIA [id number] [address] [place] [address] [place] Eosinophils (Bld) [#/Vol] 0.06 10*3/uL Normal <0.46 [facility] Comment on above: Order Comment: Speci men Type: BLOOD SPECIMEN Ordering Facility: [facility] Address: [address] [place] [address] Performed By: #### 5 763-8 #### [facility] CLIA [id number] [address] [place], [place] [address] [place] Eosinophils/100 WBC (Bld) 1.4 % Normal [facility] Comment on above: Order Comment: Speci men Type: BLOOD SPECIMEN Ordering Facility: [facility] Address: [address] [place] [address] Performed By: #### 5 763-8 #### [facility] CLIA [id number] [address] [place], [place] [address] [place] Erythrocyte distribution width (RBC) [Ratio] 12.2 % Normal 11.5-15.0 [facility] Comment on above: Order Comment: Speci men Type: BLOOD SPECIMEN Ordering Facility: [facility] Address: [address] [place] [address] Performed By: #### 5 763-8 #### [facility] CLIA [id number] [address] [place] [address] [place] Hematocrit (Bld) [Volume fraction] 42.0 % Normal 36.0-46.0 [facility] Comment on above: Order Comment: Speci men Type: BLOOD SPECIMEN Ordering Facility: [facility] Address: [address] [place] [address] Performed By: #### 5 763-8 #### [facility] CLIA [id number] [address] [place] [address] [place] Hemoglobin (Bld) [Mass/Vol] 14.0 g/dL Normal 11.5-15.5 [facility] Comment on above: Order Comment: Speci men Type: BLOOD SPECIMEN Ordering Facility: [facility] Address: [address] [place] [address] Performed By: #### 5 763-8 #### [facility] CLIA [id number] [address] [place] [address] [place] Immature granulocytes (Bld) [#/Vol] 10*3/uL Normal <0.10 [facility] Comment on above: Order Comment: Speci men Type: BLOOD SPECIMEN Ordering Facility: [facility] Address: [address] [place] [address] Performed By: #### 5 763-8 #### [facility] CLIA [id number] [address] [place] [address] [place] Immature granulocytes/100 WBC (Bld) 0.2 % Normal [facility] Comment on above: Order Comment: Speci men Type: BLOOD SPECIMEN Ordering Facility: [facility] Address: [address] [place] [address] Performed By: #### 5 763-8 #### [facility] CLIA [id number] [address] [place] [address] [place] Lymphocytes (Bld) [#/Vol] 1.11 10*3/uL Normal 1.00-4.00 [facility] Comment on above: Order Comment: Speci men Type: BLOOD SPECIMEN Ordering Facility: [facility] Address: [address] [place] [address] Performed By: #### 5 763-8 #### [facility] CLIA [id number] [address] [place] [address] [place] Lymphocytes/100 WBC (Bld) 26.3 % Normal [facility] Comment on above: Order Comment: Speci men Type: BLOOD SPECIMEN Ordering Facility: [facility] Address: [address] [place] [address] Performed By: #### 5 763-8 #### [facility] CLIA [id number] [address] [place] [address] [place] MCH (RBC) [Entitic mass] 29.7 pg Normal 26.0-34.0 [facility] Comment on above: Order Comment: Speci men Type: BLOOD SPECIMEN Ordering Facility: [facility] Address: [address] [place] [address] Performed By: #### 5 763-8 #### [facility] CLIA [id number] [address] [place] [address] [place] MCHC (RBC) [Mass/Vol] 33.3 g/dL Normal 30.5-36.0 [facility] Comment on above: Order Comment: Speci men Type: BLOOD SPECIMEN Ordering Facility: [facility] Address: [address] [place] [address] Performed By: #### 5 763-8 #### [facility] CLIA [id number] [address] [place] [address] [place] MCV (RBC) [Entitic vol] 89.0 fL Normal 80.0-100.0 [facility] Comment on above: Order Comment: Speci men Type: BLOOD SPECIMEN Ordering Facility: [facility] Address: [address] [place] [address] Performed By: #### 5 763-8 #### [facility] CLIA [id number] [address] [place] [address] [place] Monocytes (Bld) [#/Vol] 0.32 10*3/uL Normal <0.87 [facility] Comment on above: Order Comment: Speci men Type: BLOOD SPECIMEN Ordering Facility: [facility] Address: [address] [place] [address] Performed By: #### 5 763-8 #### [facility] CLIA [id number] [address] [place] [address] [place] Monocytes/100 WBC (Bld) 7.6 % Normal [facility] Comment on above: Order Comment: Speci men Type: BLOOD SPECIMEN Ordering Facility: [facility] Address: [address] [place] [address] Performed By: #### 5 763-8 #### [facility] CLIA [id number] [address] [place] [address] [place] Neutrophils (Bld) [#/Vol] 2.68 10*3/uL Normal 1.45-7.50 [facility] Comment on above: Order Comment: Speci men Type: BLOOD SPECIMEN Ordering Facility: [facility] Address: [address] [place] [address] Performed By: #### 5 763-8 #### [facility] CLIA [id number] [address] [place] [address] [place] Neutrophils/100 WBC (Bld) 63.6 % Normal [facility] Comment on above: Order Comment: Speci men Type: BLOOD SPECIMEN Ordering Facility: [facility] Address: [address] [place] [id number] Performed By: #### 5 763-8 #### [facility] CLIA [id number] [address] [place], [place] [address] [place] Nucleated RBC (Bld) [#/Vol] Normal [facility] Comment on above: Order Comment: Speci men Type: BLOOD SPECIMEN Ordering Facility: [facility] Address: [address] [place] [address] Performed By: #### 5 763-8 #### [facility] CLIA [id number] [address] [place], [place] [address] [place] Nucleated RBC/100 WBC (Bld) [Ratio] Normal [facility] Comment on above: Order Comment: Speci men Type: BLOOD SPECIMEN Ordering Facility: [facility] Address: [address] [place] [address] Performed By: #### 5 763-8 #### [facility] CLIA [id number] [address] [place], [place] [address] [place] Platelet mean volume (Bld) [Entitic vol] 9.9 fL Normal 9.0-12.7 [facility] Comment on above: Order Comment: Speci men Type: BLOOD SPECIMEN Ordering Facility: [facility] Address: [address] [place] [address] Performed By: #### 5 763-8 #### [facility] CLIA [id number] [address] [place] [address] [place] Platelets (Bld) [#/Vol] 313 10*3/uL Normal 150-400 [facility] Comment on above: Order Comment: Speci men Type: BLOOD SPECIMEN Ordering Facility: [facility] Address: [address] [place] [address] Performed By: #### 5 763-8 #### [facility] CLIA [id number] [address] [place] [address] [place] RBC (Bld) [#/Vol] 4.72 10*6/uL Normal 3.90-5.20 [facility] Comment on above: Order Comment: Speci men Type: BLOOD SPECIMEN Ordering Facility: [facility] Address: [address] [place] [address] Performed By: #### 5 763-8 #### [facility] CLIA [id number] [address] [place] [address] [place] WBC (Bld) [#/Vol] 4.22 10*3/uL Normal 3.70-11.00 [facility] Comment on above: Order Comment: Speci men Type: BLOOD SPECIMEN Ordering Facility: [facility] Address: [address] [place] [address] Performed By: #### 5 763-8 #### [facility] CLIA [id number] [address] [place] [address] STATES OF [facility] CRP SerPl HS-mCncon 09-11-19 25 CRP High sensitivity method [Mass/Vol] 0.5 mg/L Normal <3.1 [facility] Comment on above: Order Comment: Speci men Type: BLOOD SPECIMEN Ordering Facility: [facility] Address: [address] [place] [address] Result Comment: hsCR P < 1.0 mg/L, relative risk is low hsCRP 1.0-3.0 mg/L, relative risk is average hsCRP > 3.0 mg/L, relative risk is high Reference: Hamm TA, Cong GA, Gabriel RW, et al. Markers of Inflammation and Cardiovascular Disease. Application to Clinical and Public Health Practice. A Statement for Healthcare Professionals from the Centers for Disease Control and Prevention and the [place] [employer]. Circulation 2003;107:499-511. Performed By: #### 3 051-0, 3024-7, 59654-6 #### [facility] CLIA [id number] [address] [place] Folate SerPl-mCncon 05-09-20 25 Folate [Mass/Vol] 17.7 ng/mL Normal >4.7 [facility] Comment on above: Order Comment: Speci men Type: BLOOD SPECIMEN Ordering Facility: [facility] Address: [address] [place] [address] Performed By: #### 2 132-9, 2284-8 #### [facility] CLIA [id number] [address] [place] [address] [place] GLUTATHIONE TOTALon 09-11-19 25 GLUTATHIONE, TOTAL 677 uM Normal 373-838 [facility] Comment on above: Order Comment: Speci men Type: BLOOD SPECIMEN Ordering Facility: [facility] Address: [address] [place] [address] Result Comment: The performance characteristics of the listed assay was validated by [facility]. The [place] FDA has not approved or cleared this test. The results of this assay can be used for clinical diagnosis without FDA approval. [facility] is a CLIA certified, CAP accredited laboratory for performing high complexity assays such as this one. Testing Performed at: [facility] [address] [place] [address] Performed By: #### G JOSE C #### [facility] CLIA [id number] [address] [place] [address] Hcys SerPl-sCncon 09-10-2024 Homocysteine [Moles/Vol] 8.5 umol/L Normal <15.1 [facility] Comment on above: Order Comment: Speci men Type: BLOOD SPECIMEN Ordering Facility: [facility] Address: [address] [place] [address] Performed By: #### 1 3965-9 #### [facility] CLIA [id number] [address] [place] [address] [place] Magnesium SerPl-mCncon 09-10 Magnesium [Mass/Vol] 2.3 mg/dL Normal 1.7-2.3 [facility] Comment on above: Order Comment: Speci men Type: BLOOD SPECIMEN Ordering Facility: [facility] Address: [address] [place] [address] Performed By: #### 1 9123-9, 3016-3 #### [facility] CLIA [id number] [address] [place] [id number] [place] [address] OMEGACHECKon 09-10-2024 ARACHIDONIC ACID 14.7 % by wt Normal 8.6-15.6 [facility] Comment on above: Order Comment: Speci men Type: BLOOD SPECIMEN Ordering Facility: [facility] Address: [address] [place] [address] Performed By: #### O MEGAC #### [facility] CLIA [id number] [address] [place], [place] [address] ARACHIDONIC ACID/EPA RATIO 39.0 Normal 3.7-40.7 [facility] Comment on above: Order Comment: Speci men Type: BLOOD SPECIMEN Ordering Facility: [facility] Address: [address] [place] [address] Result Comment: Rece ived Date: Performed By: #### O MEGAC #### [facility] CLIA [id number] [address] [place] [address] DHA 1.8 % by wt Normal 1.4-5.1 [facility] Comment on above: Order Comment: Speci men Type: BLOOD SPECIMEN Ordering Facility: [facility] Address: [address] [place] [address] Performed By: #### O MEGAC #### [facility] CLIA [id number] [address] [place] [address] DPA 1.2 % by wt Normal 0.8-1.8 [facility] Comment on above: Order Comment: Speci men Type: BLOOD SPECIMEN Ordering Facility: [facility] Address: [address] [place] [address] Performed By: #### O MEGAC #### [facility] CLIA [id number] [address] [place] [address] EPA 0.4 % by wt Normal 0.2-2.3 [facility] Comment on above: Order Comment: Speci men Type: BLOOD SPECIMEN Ordering Facility: [facility] Address: [address], [place] [address] Performed By: #### O MEGAC #### [facility] CLIA [id number] [address] [place] [address] LINOLEIC ACID 26.4 % by wt Normal 18.6-29.5 [facility] Comment on above: Order Comment: Speci men Type: BLOOD SPECIMEN Ordering Facility: [facility] Address: [address] [place] [id number] Performed By: #### O MEGAC #### [facility] CLIA [id number] [address] [place], [place] [address] OMEGA-3 TOTAL 3.3 % by wt Normal [facility] Comment on above: Order Comment: Speci men Type: BLOOD SPECIMEN Ordering Facility: [facility] Address: [address] [place] [address] Performed By: #### O MEGAC #### [facility] CLIA [id number] [address] [place] [address] OMEGA-6 TOTAL 44.5 % by wt Normal [facility] Comment on above: Order Comment: Speci men Type: BLOOD SPECIMEN Ordering Facility: [facility] Address: [address] [place], [place] [id number] Result Comment: [facility] measures a number of omega-6 fatty acids with AA and LA being the two most abundant forms reported. Performed By: #### O MEGAC #### [facility] CLIA [id number] [address] [place] [address] OMEGA-6/OMEGA-3 RATIO 13.3 Normal 3.7-14.4 [facility] Comment on above: Order Comment: Speci men Type: BLOOD SPECIMEN Ordering Facility: [facility] Address: [address] [place] [address] Performed By: #### O MEGAC #### [facility] CLIA [id number] [address] [place], [place] [address] OMEGACHECK 3.3 % by wt Low >5.4 [facility] Comment on above: Order Comment: Speci men Type: BLOOD SPECIMEN Ordering Facility: [facility] Address: [address] [place] [address] Result Comment: Incr easing blood levels of long-chain n-3 fatty acids are associated with a lower risk of sudden cardiac (1). Based on the top (75th percentile) and bottom (25th percentile) quartiles of the CHL reference population, the following relative risk categories [...] to 3 weeks. (Reference: 1-Reggie et al. [facility]. 2002; 346: 3289-2406).This test was developed and its analytical performance characteristics have been determined by [facility]. It has not been cleared or approved by the U.S. Food and Drug Administration. This assay has been validated pursuant to the CLIA regulations and is used for clinical purposes. Performed By: #### O MEGA #### [facility] CLIA [id number] [address] [place] [address] T3Free SerPl-mCncon 09-11-19 25 Free T3 [Mass/Vol] 3.0 pg/mL Normal 2.3-4.1 [facility] Comment on above: Order Comment: Speci men Type: BLOOD SPECIMEN Ordering Facility: [facility] Address: [address] [place] [address] Performed By: #### 5 763-8 #### [facility] CLIA [id number] [address] [place], [place] [address] [place] [address] [place] T4 Free SerPl-mCncon 025 Free T4 [Mass/Vol] 1.3 ng/dL Normal 0.9-1.7 [facility] Comment on above: Order Comment: Speci men Type: BLOOD SPECIMEN Ordering Facility: [facility] Address: [address] [place] [address] Performed By: #### 5 763-8 #### [facility] CLIA [id number] [address] [place], [place] [address] [place] TSH SerPl-aCncon 09-10-2024 TSH Qn 1.160 m[IU]/L Normal 0.270-4.200 [facility] Comment on above: Order Comment: Speci men Type: BLOOD SPECIMEN Ordering Facility: [facility] Address: [address] [place] [address] Performed By: #### 1 9123-9, 3016-3 #### [facility] CLIA [id number] [address] [place] [address] [place] VITAMIN B6/PYRIDOXINon 09-10 VITAMIN B6 65.0 nmol/L Normal 20.0-125.0 [facility] Comment on above: Order Comment: Speci men Type: BLOOD SPECIMEN Ordering Facility: [facility] Address: [address] [place] [address] Result Comment: INTE RPRETIVE INFORMATION: Vitamin B6 (Pyridoxal 5-Phosphate) Pyridoxal 5'-phosphate measured in a specimen collected following an 8-hour or overnight fast accurately indicates vitamin B6 nutritional status. Non-fasting specimen concentration reflects recent vitamin intake. This test was developed and its performance characteristics determined by [facility]. It has not been cleared or approved by the [place] Food and Drug Administration. This test was performed in a CLIA certified laboratory and is intended for clinical purposes. Performed By: [facility] [address] [place] [address] Plant Culture Manager: Surendra Garcia MD, PhD CLIA Number: [id number] Performed By: #### 5 763-8 #### [facility] CLIA [id number] [address] [place], [place] [address] [place] Vit B12 SerPl-mCncon 025 Cobalamin (Vitamin B12) [Mass/Vol] 681 pg/mL Normal 232-1245 [facility] Comment on above: Order Comment: Dre vázquez Type: BLOOD SPECIMEN Ordering Facility: [facility] Address: [address] [place] [address] Performed By: #### 2 132-9, 2284-8 #### [facility] CLIA [id number] [address] [place] [address] [place] Zinc SerPl-mCncon 09-10-2024 Zinc [Mass/Vol] 82 ug/dL Normal 60-120 [facility] Comment on above: Order Comment: Dre vázquez Type: BLOOD SPECIMEN Ordering Facility: [facility] Address: [address] [place] [address] Result Comment: This test was developed, and its performance characteristics determined by the [facility] Department of Pathology and Laboratory Medicine. It has not been cleared or approved by the FDA. The [facility] Department of Pathology and Laboratory Medicine is regulated under CLIA as qualified to perform high-complexity testing. This test is used for clinical purposes. It should not be regarded as investigational or for research. Performed By: #### 5 763-8 #### [facility] CLIA [id number] [address] [place], [place] [address] [address] [place] Tanvi 09-07-2024 [place] Telephone ([facility]) AMANDA GUNN ([id number]) 1970 F Date Time Provider Department 09/07/24 EDAURDO ALVAREZ [facility] During your visit today, we recorded the following information about you: Chiquis Hernandez, RN 09/07/2024 10:56 AM Signed Is this [...] information if they have not been sent [employer] appt reminder: [facility] functions as a referral service. You will have an initial visit as well as one follow-up visit in which all [facility] testing, imaging, and labs will be discussed. From there on it is expected that you continue to follow up with your PCP and the specialist(s) established through this program. We do not manage symptoms or follow patients intermediate. COVID [facility] intake team is not [...] that you may need to travel to [place] multiple times to get all testing done and see the consulted specialist(s). Please arrive 15 minutes early to your appointment. If you are more than 10 minutes late to your appointment you may be asked to reschedule. One week prior to your appointment you should pre-check in via [employer] to complete questionnaires that will provide valuable information to your provider to aid in your visit. You may receive a telephone call to remind you if we see they have not been completed in advance of your visit. If you have outside testing you would like to be entered into your chart, please fax it to [phone]. Records brought in same day of visit may not be reviewed until after the visit due to time constraints. *FYI Current [facility] states are [place], [place], [place], and [place] as of 11/2023. This means patients can only be seen in-person for consults AND follow-ups due to state laws. Allergies As of Date: 09/07/2024 (No Known Allergies) Date Reviewed: 09/07/2024 Reviewed by: Chiquis Hernandez RN - Fully Assessed Reason for Visit: Intake [[id number]] Cmt: [facility] pre-visit phone call Prescriptions as of 09/07/2024 [...] Encounter Status:Closed by [facility]IQUIS [facility] AMANDA GUNN ([id number]) 1970 F Date Time Provider Department 09/06/24 1:00 PM ELE CM During your visit today, we recorded the following information about you: Blood pressure Last Period 127/78 09/03/24 Ele Cm PA-C 09/06/2024 1:56 PM Signed Wellness Consultation Ms.Angela Adrianna Gunn is a 53 year old female is here for a wellness and preventive medicine initial consultation. Consultation requested by Dr. Bri Dove for an opinion regarding post covid fatigue and dizziness. My final recommendations will be communicated back to the requesting physician by way of shared Medical record. Recording using [employer] software for draft documentation of the visit was discussed with the patient/authorized brand representative; all questions welcomed and answered. 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 [...] twice lorna (more content not included)... Normal [facility] CBC panel Auto (Bld)on 10-19 Erythrocyte distribution width (RBC) [Ratio] 12.4 % Normal 11.5-15.0 [facility] Comment on above: Order Comment: Speci men Type: BLOOD SPECIMEN Ordering Facility: [facility] Address: [address] [place] [address] Performed By: #### 5 8410-2 #### [facility] CLIA [id number] [address] [place] [address] [place] Hematocrit (Bld) [Volume fraction] 40.8 % Normal 36.0-46.0 [facility] Comment on above: Order Comment: Dre vázquez Type: BLOOD SPECIMEN Ordering Facility: [facility] Address: [address] [place] [address] Performed By: #### 5 8410-2 #### [facility] CLIA [id number] [address] [place] [address] [place] Hemoglobin (Bld) [Mass/Vol] 14.3 g/dL Normal 11.5-15.5 [facility] Comment on above: Order Comment: Speci men Type: BLOOD SPECIMEN Ordering Facility: [facility] Address: [address] [place] [address] Performed By: #### 5 8410-2 #### [facility] CLIA [id number] [address] [place] [address] [place] MCH (RBC) [Entitic mass] 31.2 pg Normal 26.0-34.0 [facility] Comment on above: Order Comment: Speci men Type: BLOOD SPECIMEN Ordering Facility: [facility] Address: [address] [place] [address] Performed By: #### 5 8410-2 #### [facility] CLIA [id number] [address] [place] [address] [place] MCHC (RBC) [Mass/Vol] 35.0 g/dL Normal 30.5-36.0 [facility] Comment on above: Order Comment: Speci men Type: BLOOD SPECIMEN Ordering Facility: [facility] Address: [address] [place] [address] Performed By: #### 5 8410-2 #### [facility] CLIA [id number] [address] [place] [address] [place] MCV (RBC) [Entitic vol] 89.1 fL Normal 80.0-100.0 [facility] Comment on above: Order Comment: Speci men Type: BLOOD SPECIMEN Ordering Facility: [facility] Address: [address] [place] [address] Performed By: #### 5 8410-2 #### [facility] CLIA [id number] [address] [place] [address] [place] Platelet mean volume (Bld) [Entitic vol] 9.8 fL Normal 9.0-12.7 [facility] Comment on above: Order Comment: Speci men Type: BLOOD SPECIMEN Ordering Facility: [facility] Address: [address] [place] [address] Performed By: #### 5 8410-2 #### [facility] CLIA [id number] [address] [place] [address] [place] Platelets (Bld) [#/Vol] 261 10*3/uL Normal 150-400 [facility] Comment on above: Order Comment: Speci men Type: BLOOD SPECIMEN Ordering Facility: [facility] Address: [address] [place] [address] Performed By: #### 5 8410-2 #### [facility] CLIA [id number] [address] [place] [address] [place] RBC (Bld) [#/Vol] 4.58 10*6/uL Normal 3.90-5.20 [facility] Comment on above: Order Comment: Speci men Type: BLOOD SPECIMEN Ordering Facility: [facility] Address: [address] [place] [address] Performed By: #### 5 8410-2 #### [facility] CLIA [id number] [address] [place] [address] [place] [facility] WBC (Bld) [#/Vol] 7.66 10*3/uL Normal 3.70-11.00 [facility] Comment on above: Order Comment: Speci men Type: BLOOD SPECIMEN Ordering Facility: [facility] Address: [address] [place] [address] Performed By: #### 5 8410-2 #### [facility] CLIA [id number] [address] [place] [address] [facility] Comprehensive metabolic 2000 panelon 10-20-2023 Albumin [Mass/Vol] 4.5 g/dL Normal 3.9-4.9 [facility] Comment on above: Order Comment: Speci men Type: BLOOD SPECIMEN Ordering Facility: [facility] Address: [address] [place] [address] Performed By: #### 5 763-8 #### [facility] CLIA [id number] [address] [place] [address] [place] ALP [Catalytic activity/Vol] 61 U/L Normal 34-123 [facility] Comment on above: Order Comment: Speci men Type: BLOOD SPECIMEN Ordering Facility: [facility] Address: [address] [place] [address] Performed By: #### 5 763-8 #### [facility] CLIA [id number] [address] [id number] [address] [place] ALT With P-5'-P [Catalytic activity/Vol] 12 U/L Normal 7-38 [facility] Comment on above: Order Comment: Speci men Type: BLOOD SPECIMEN Ordering Facility: [facility] Address: [address] [place] [address] Performed By: #### 5 763-8 #### [facility] CLIA [id number] [address] [place] [address] [place] Anion gap [Moles/Vol] 10 mmol/L Normal 8-15 [facility] Comment on above: Order Comment: Speci men Type: BLOOD SPECIMEN Ordering Facility: [facility] Address: [address] [place] [address] Performed By: #### 5 763-8 #### [facility] CLIA [id number] [address] [place] [address] [place] AST With P-5'-P [Catalytic activity/Vol] 13 U/L Normal 13-35 [facility] Comment on above: Order Comment: Speci men Type: BLOOD SPECIMEN Ordering Facility: [facility] Address: [address] [place] [address] Performed By: #### 5 763-8 #### [facility] CLIA [id number] [address] [place] [address] [place] Bilirubin [Mass/Vol] 0.2 mg/dL Normal 0.2-1.3 [facility] Comment on above: Order Comment: Speci men Type: BLOOD SPECIMEN Ordering Facility: [facility] Address: [address] [place] [address] Performed By: #### 5 763-8 #### [facility] CLIA [id number] [address] [place] [address] [place] Calcium [Mass/Vol] 9.4 mg/dL Normal 8.5-10.2 [facility] Comment on above: Order Comment: Speci men Type: BLOOD SPECIMEN Ordering Facility: [facility] Address: [address] [place] [address] Performed By: #### 5 763-8 #### [facility] CLIA [id number] [address] [place] [address] [place] Chloride [Moles/Vol] 105 mmol/L Normal 98-107 [facility] Comment on above: Order Comment: Speci men Type: BLOOD SPECIMEN Ordering Facility: [facility] Address: [address] [place] [address] Performed By: #### 5 763-8 #### [facility] CLIA [id number] [address] [place] [address] [place] CO2 [Moles/Vol] 24 mmol/L Normal 22-30 [facility] Comment on above: Order Comment: Speci men Type: BLOOD SPECIMEN Ordering Facility: [facility] Address: [address] [place] [address] Performed By: #### 5 763-8 #### [facility] CLIA [id number] [address] [place] [address] [place] Creatinine [Mass/Vol] 0.88 mg/dL Normal 0.58-0.96 [facility] Comment on above: Order Comment: Speci men Type: BLOOD SPECIMEN Ordering Facility: [facility] Address: [address] [place] [address] Performed By: #### 5 763-8 #### [facility] CLIA [id number] [address] [place] [address] [place] Creatinine and Glomerular filtration rate.predicted panel (S/P/Bld) 80 mL/min/1.73m??? Normal >=60 [facility] Comment on above: Order Comment: Speci men Type: BLOOD SPECIMEN Ordering Facility: [facility] Address: [address] [place] [address] Result Comment: Yajaira mated Glomerular Filtration Rate [...] GFR. Performed By: #### 5 763-8 #### [facility] CLIA [id number] [facility] [address] [address] [place] Glucose [Mass/Vol] 104 mg/dL High 74-99 [facility] Comment on above: Order Comment: Dre vázquez Type: BLOOD SPECIMEN Ordering Facility: [facility] Address: [address] [place] [address] Result Comment: The [place] Diabetes Association (ADA) provides guidance for cutoff [...] Standards of Medical Care in Diabetes 2016, [place] [employer] Association. Diabetes Care. 2016.39(Suppl 1). Performed By: #### 5 763-8 #### [facility] CLIA [id number] [address] [place] [address] [place] Potassium [Moles/Vol] 4.1 mmol/L Normal 3.7-5.1 [facility] Comment on above: Order Comment: Dre vázquez Type: BLOOD SPECIMEN Ordering Facility: [facility] Address: [address] [place] [address] Performed By: #### 5 763-8 #### [facility] CLIA [id number] [address] [address] [place] Protein [Mass/Vol] 6.8 g/dL Normal 6.3-8.0 [facility] Comment on above: Order Comment: Speci men Type: BLOOD SPECIMEN Ordering Facility: [facility] Address: [address] [place] [address] Performed By: #### 5 763-8 #### [facility] CLIA [id number] [address] [place] [address] [place] Sodium [Moles/Vol] 139 mmol/L Normal 136-144 [facility] Comment on above: Order Comment: Speci men Type: BLOOD SPECIMEN Ordering Facility: [facility] Address: [address] [place] [address] Performed By: #### 5 763-8 #### [facility] CLIA [id number] [address] [place] [address] [place] Urea nitrogen [Mass/Vol] 9 mg/dL Normal 7-21 [facility] Comment on above: Order Comment: Speci men Type: BLOOD SPECIMEN Ordering Facility: [facility] Address: [address] [place] [address] Performed By: #### 5 763-8 #### [facility] CLIA [id number] [address] [place] [address] [place] [facility] RTon 11-28-19 [facility] Vital Signs Date Time Vital Sign Value Performing Clinician Facility 12-17-2024 13:02-0400 Body height 160.[address] Aron Ugarte MD Work Phone: [facility] 12-17-2024 13:00-0400 Body mass index (BMI) [Ratio] 27.4 kg/m2 Dr. Aron Ugarte MD Work Phone: [facility] 12-17-2024 13:00-0400 Body weight 70.[address] Aron Ugarte MD Work Phone: [facility] 12-17-2024 13:00-0400 Diastolic blood pressure 82 mm[Hg] Dr. Aron Ugarte MD Work Phone: [facility] 12-17-2024 13:00-0400 Systolic blood pressure 130 mm[Hg] Dr. Aron Ugarte MD Work Phone: [facility] 11-15-2024 15:10-0400 Body height 160.[address] Aron Ugarte MD Work Phone: [facility] 11-15-2024 15:10-0400 Body mass index (BMI) [Ratio] 26.8 kg/m2 Dr. Aron Ugarte MD Work Phone: [facility] 11-15-2024 15:10-0400 Body weight 68.[address] Aron Ugarte MD Work Phone: [facility] 11-15-2024 15:10-0400 Diastolic blood pressure 85 mm[Hg] Dr. Aron Ugarte MD Work Phone: [facility] 11-15-2024 15:10-0400 Systolic blood pressure 134 mm[Hg] Dr. Aron Ugarte MD Work Phone: [facility] 10-25-2024 09:01-0400 Body height 160.[address] Aron Ugarte MD Work Phone: [facility] 10-25-2024 08:57-0400 Body mass index (BMI) [Ratio] 26.5 kg/m2 Dr. Aron Ugarte MD Work Phone: [facility] 10-25-2024 08:57-0400 Body weight 68.[address] Aron Ugarte MD Work Phone: [facility] 10-25-2024 08:57-0400 Diastolic blood pressure 73 mm[Hg] Dr. Aron Ugarte MD Work Phone: [facility] 10-25-2024 08:57-0400 Systolic blood pressure 113 mm[Hg] Dr. Aron Ugarte MD Work Phone: [facility] 09-13-2024 08:40-0400 Body temperature 98.01 [degF] Eduardo Ayalaiss CREDIT RISK MANAGEMENT DIRECTOR.CHIEF OF PRODUCTION Work Phone: [facility] 09-13-2024 08:40-0400 Diastolic blood pressure 72 mm[Hg] Eduardo Ayalaiss CREDIT RISK MANAGEMENT DIRECTOR.CHIEF OF PRODUCTION Work Phone: [facility] 09-13-2024 08:40-0400 Heart rate 72 /min Eduardolinda Ayalaiss CREDIT RISK MANAGEMENT DIRECTOR.CHIEF OF PRODUCTION Work Phone: [facility] 09-13-2024 08:40-0400 SaO2% (BldA) [Mass fraction] 99 % Eduardolinda Ayalaiss CREDIT RISK MANAGEMENT DIRECTOR.CHIEF OF PRODUCTION Work Phone: [facility] 09-13-2024 08:40-0400 Systolic blood pressure 125 mm[Hg] Eduardo Ayalaiss CREDIT RISK MANAGEMENT DIRECTOR.CHIEF OF PRODUCTION Work Phone: [facility] 09-06-2024 13:29-0400 Diastolic blood pressure 78 mm[Hg] Ele DEVI-C Work Phone: [facility] 09-06-2024 13:29-0400 Systolic blood pressure 127 mm[Hg] Ele DEVI-C Work Phone: [facility] 04-07-2023 11:27-0500 Diastolic blood pressure 82 mm[Hg] Bri Dove MD Work Phone: [facility] 04-07-2023 11:27-0500 Heart rate 81 /min Bri Dove MD Work Phone: [facility] 04-07-2023 11:27-0500 Respiratory rate 16 /min Bri Dove MD Work Phone: [facility] 04-07-2023 11:27-0500 SaO2% (BldA) [Mass fraction] 100 % Bri Dove MD Work Phone: [facility] 04-07-2023 11:27-0500 Systolic blood pressure 124 mm[Hg] Bri Dove MD Work Phone: [facility] 12-03-2021 11:09-0400 Body weight 75.3 kg Bri Dove MD Work Phone: [facility] 12-03-2021 11:09-0400 Diastolic blood pressure 73 mm[Hg] Bri Dove MD Work Phone: [facility] 12-03-2021 11:09-0400 Heart rate 81 /min Bri Dove MD Work Phone: [facility] 12-03-2021 11:09-0400 SaO2% (BldA) [Mass fraction] 99 % Bri Dove MD Work Phone: [facility] 12-03-2021 11:09-0400 Systolic blood pressure 139 mm[Hg] Bri Dove MD Work Phone: [facility] 08-13-2021 16:37-0400 Body weight 73.94 kg Bri Dove MD Work Phone: [facility] 08-13-2021 16:37-0400 Diastolic blood pressure 68 mm[Hg] Bri Dove MD Work Phone: [facility] 08-13-2021 16:37-0400 Heart rate 82 /min Bri Dove MD Work Phone: [facility] 08-13-2021 16:37-0400 SaO2% (BldA) [Mass fraction] 100 % Bri Dove MD Work Phone: [facility] 08-13-2021 16:37-0400 Systolic blood pressure 107 mm[Hg] Bri Dove MD Work Phone: [facility] Encounters Encounter Date Encounter Type Care Provider Facility Start: 12-24-2024 ambulatory Narcisa Clark cility:[facility] Start: 12-22-2024 Encounter for other preprocedural examination Narcisa Chaudhary [facility] Start: 12-20-2024 End: 12-20-2024 Refill Bri Dove MD Work Phone: Neurology Comment on above: Refill Request Start: 12-19-2024 End: 12-19-2024 Telemedicine consultation with patient Alice Hopson PA-C Work Phone: Neurology Pain Start: 12-19-2024 End: 12-19-2024 ambulatory Alice Hopson PA-C Work Phone: Neurology Pain Comment on above: Chronic pain syndrom e (Primary Dx); Chronic fatigue syndrome; [id number] condition; Pain in right hand; Chronic low back pain with sciatica, sciatica laterality unspecified, unspecified back pain laterality; Insomnia due to medical condition; Pain in right arm Start: 12-17-2024 End: 12-17-[address] Narcisa Chaudhary DO -[facility] Work Phone: Start: 12-17-2024 End: 12-17-[address] Aron Ugarte MD Work Phone: -[facility] Start: 12-17-2024 ambulatory Nuria Gabriel Facilit y:[facility] Start: 12-15-2024 ambulatory Nuria Nery Facilit y:[facility] Start: 11-29-2024 End: 11-29-2024 Refill Bri Dove MD Work Phone: Neurology Comment on above: Refill Request Start: 11-23-2024 End: 11-23-2024 ambulatory LINDA MARCANO Facility:[facility] Start: 11-15-2024 End: 11-15-[address] Aron Ugarte MD Work Phone: -Laboratory Specimen Start: 11-15-2024 End: 11-15-[address] Narcisa Chaudhary DO -Laboratory Specimen Work Phone: Start: 11-15-2024 End: 11-15-[address] Narcisa Chaudhary DO -[facility] Work Phone: Start: 11-15-2024 End: 11-15-[address] Aron Ugarte MD Work Phone: -[facility] Start: 11-15-2024 End: 11-15-2024 ambulatory Narcisa Chaudhary Facility:[facility] Start: 11-03-2024 End: 11-03-[address] 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 Aron Ugarte MD Work Phone: -Ultrasound [facility] Start: 10-25-2024 End: 10-25-2024 Patient encounter procedure Ericka DE LA CRUZ -Ultrasound [facility] Work Phone: Start: 10-25-2024 End: 10-25-2024 Patient encounter procedure Ericka DE LA CRUZ -[facility] Start: 10-25-2024 End: 10-25-2024 Patient encounter status Ericka DE [facility]Z [facility] Start: 10-25-2024 End: 10-25-[address] Aron Ugarte MD Work Phone: 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 Comment on above: Appointment Start: 09-13-2024 End: 09-13-2024 ambulatory NURIA GABRIEL Facility:[facility] Start: 09-13-2024 End: 09-13-2024 Office outpatient new 60 minutes Eduardo Alvarez APRN.CNP Work Phone: [facility] [facility] Comment on above: Malaise and fatigue (Primary Dx); Post-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); Myalgias; Lightheadedness; Physical deconditioning; Activity intolerance; Sleep disturbance; Dizziness; Difficulty concentrating; Brain fog; Headaches; Vitamin D deficiency; Vertigo; Chronic fatigue syndrome; Neuropathy Start: 09-13-2024 End: 09-13-2024 ambulatory EDUARDO ALVAREZ Facility:[facility] Start: 09-10-2024 End: 09-10-2024 E-mail encounter from caregiver Eduardo Alvarez APRN.CNP Work Phone: [facility] Start: 09-10-2024 End: 09-10-2024 Patient encounter procedure Eduardo Alvarez APRN.CNP Work Phone: [facility] Comment on above: Welcome to [facility]! Start: 09-10-2024 End: 09-10-2024 ambulatory NURIA GABRIEL Facility:[facility] Start: 09-07-2024 End: 09-07-2024 Telephone encounter Eduardo Alvarez APRN.CNP Work Phone: [facility] Comment on above: Intake (Covid Recove r [...] Start: 09-06-2024 End: 09-06-2024 ambulatory ELE CM Facility:[facility] Start: 08-18-2024 End: 08-19-2024 ambulatory Bri Dove MD Work Phone: Neurology Start: 08-18-2024 End: 08-19-2024 Patient encounter procedure Bri Dove MD Work Phone: Neurology Comment on above: Referral to Marjan lyons [facility] Start: 08-11-2024 End: 08-11-2024 ambulatory Bri [...] Start: 10-20-2023 End: 10-20-2023 ambulatory BRI DOVE Facility:[facility] Start: 10-14-2023 End: 10-14-2023 ambulatory Bri Dove [...] m caregiver Bri Dove MD Work Phone: [facility] Start: 11-12-2022 Telephone encounter Bri Lyons Work Phone: Neurology Start: 07-03-2022 ambulatory Bri Dove MD Work Phone: Neurology Comment on above: Health Update Start: 05-21-2022 Refill Bri Dove MD Work Phone: Neurology Comment on above: Refill Request Start: 04-05-2022 ambulatory Nataly West MD Work Phone: OB/Gynecology Comment on above: Mammogram Start: 04-01-2022 Telephone encounter Bri Lyons Work Phone: Neurology Comment on above: Appointment Start: 04-01-2022 End: 04-01-2022 ambulatory Bri Dove MD Work Phone: Neurology Comment on above: 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 Start: 02-08-2022 Refill Bri Dove MD Work Phone: Neurology Comment on above: Refill Request Start: 01-29-2022 Telephone encounter Bri Lyons Work Phone: Neurology Comment on above: Insurance Authorizat ion Start: 01-28-2022 Refill Bri Dove MD Work Phone: Neurology Comment on above: Refill Request Start: 01-25-2022 ambulatory Bri Dove MD Work Phone: Neurology [...] Refill Request Start: 11-27-2021 Telephone encounter Melanie [facility] lex CREDIT RISK MANAGEMENT DIRECTOR.CHIEF OF PRODUCTION Work Phone: OB/Gynecology Comment on above: Orders Start: 11-27-2021 End: 11-27-2021 Subsequent hospital visit by physician Diagnostic Mammo [facility] Mammogram Comment on above: Breast calcification s [R92.1] Start: 11-19-2021 Refill Bri Dove MD Work Phone: Neurology Comment on above: Refill Request Start: 10-29-2021 Refill Bri Dove MD Work Phone: Neurology Comment on above: Refill Request Start: 10-23-2021 Telephone encounter Nataly Jagdish West MD Work Phone: Mammogram Comment on above: Orders Start: 08-16-2021 ambulatory Bri Dove MD Work Phone: [facility] Start: 08-16-2021 Follow-up encounter Bri Lyons Work Phone: Neurology Comment on above: Follow-Up Question Start: 08-13-2021 End: 08-13-2021 Patient encounter procedure Bri Dove MD Work Phone: Neurology Comment on above: 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 Luann Ugarte MD Work Phone: [facility] Procedures Date Procedure Procedure Detail Performing Clinician Start: 11-03-2024 Screening mammography Eloy Ugarte MD Work Phone: Start: 11-03-[address] Luann Ugarte MD Work Phone: Start: 10-25-2024 Liquid based cervica l cytology screening Dr. Aron Ugrate MD Work Phone: Comment on above: NEGATIVE FOR INTRAEP ITHELIAL LESION OR MALIGNANCY. This liquid based Th inPrep(R) pap test was screened withthe use of an image guided system. Start: 12-01-2021 Adult depression scr eening assessment Bri Dove MD Work Phone: Start: 11-27-2021 Diagnostic mammograp hy computer-aided detcj uni Melanie Harrison CREDIT RISK MANAGEMENT DIRECTOR.CHIEF OF PRODUCTION Work Phone: Start: 02-26-2021 Adult depression scr eening assessment Bri Dove MD Work Phone: Start: 07-21-2020 Lipid 1996 panel - S jan or Plasma Bri Dove MD Work Phone: Start: 05-17-2020 Colonoscopy Bri Lyons Work Phone: Start: 03-28-2020 Mammography Bri Lyons Work Phone: Plan of Treatment Date Care Activity Detail Author Start: 11-24-2027 Diabetes Screening Diabetes Screening [facility] Start: 09-14-2027 Diabetes Screening Diabetes Screening [facility] Start: 10-19-2026 Diabetes Screening Diabetes Screening [facility] Start: 03-09-2026 HPV TESTING HPV TESTING [facility] Start: 03-09-2026 PAP TESTING PAP TESTING [facility] Start: 03-09-2026 Screening for malignant neoplasm of cervix Cervical Cancer Screening [facility] Start: 10-14-2025 DIABETES SCREEN DIABETES SCREEN [facility] Start: 10-14-2025 Diabetes Screening Diabetes Screening [facility] Start: 07-21-2025 Lipid 1996 panel - Serum or Plasma Lipid Screening [facility] Start: 07-21-2025 Lipid panel Lipid Screening [facility] Start: 07-21-2025 LIPID SCREEN LIPID SCREEN [facility] Start: 05-17-2025 Colonoscopy COLONOSCOPY [facility] Start: 05-17-2025 COLORECTAL CANCER SCREENING COLORECTAL CANCER SCREENING [facility] Start: 05-17-2025 Screening for malignant neoplasm of colon [facility] Start: 05-03-2025 End: 05-03-2025 ambulatory 05/03/2025 11:00 AM EST [facility] [address] [place] [address] Bri Dove MD [address] [place] [address] PASC f/u Neurology Comment on above: PASC f/u Start: 03-28-2025 End: 03-28-2025 Follow-up encounter 03/28/2025 11:00 AM EST [facility] Neu[facility] Pain [address] [place], [place] [id number] Alice Hopson, PA-C [address] [place] [address] 3 month follow up Neurology Pain Comment on above: 3 month follow up Start: 02-18-2025 End: 02-18-2025 Patient encounter procedure 02/18/2025 1:45 PM EDT Office Visit Audiology [address] [address] Dione Gilbert, PhD [address] [place] [address] Vert[facility] Audiology Comment on above: Vertigo Start: 02-18-2025 End: 02-18-2025 Patient encounter procedure Audiology Comment on above: Vertigo Start: 01-26-2025 End: 01-26-2025 ambulatory 01/26/2025 11:00 AM EDT OT/PT/Speech Visit Speech Therapy [facility] [address] [place] [address] Marina Bonilla, [facility] [address] [place] [address] Dx: Post-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) [U09.9]; Difficulty concentrating [R41.840]; Brain fog [R41.89] Speech Therapy [facility] Comment on above: Dx: Post-acute 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 (PAS C) [U09.9]; Difficulty concentrating [R41.840]; Brain fog [R41.89] Start: 01-25-2025 End: 01-25-2025 Patient encounter procedure 01/25/2025 1:00 PM EDT Office Visit Pulmonology [facility] [address] [place] [address] La Monteiro APRN.CHIEF OF PRODUCTION [address] [place] [address] follow up Covid Recovery Pulmonology [facility] Comment on above: follow up Covid Recovery Start: 01-24-2025 End: 01-24-2025 Patient encounter procedure 01/24/2025 11:00 AM EDT Office Visit Sleep Disorders [facility] [address] [place] [address] Ally Martin DO [address] [place], [place] [id number] Dx: Post-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) [U09.9]; Malaise and fatigue [R53.81, R53.83]; Myalgias [M79.10]; Chronic fatigue syndrome [G93.32]; Neuropathy [G62.9] Sleep Disorders [facility] Comment on above: Dx: Post-acute 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 (PAS C) [U09.9]; Malaise and fatigue [R53.81, R53.83]; Myalgias [M79.10]; Chronic fatigue syndrome [G93.32]; Neuropathy [G62.9] Start: 01-03-2025 Influenza vaccination [facility] Start: 12-23-2024 End: 12-23-2024 ambulatory 12/23/2024 11:00 AM EDT OT/PT/Speech Visit Speech Therapy [facility] [address] [place] [address] Marina Bonilla CCC-[facility] [place] [address] [place] [address] Dx: Post-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) [U09.9]; Difficulty concentrating [R41.840]; Brain fog [R41.89] Speech Therapy [facility] Comment on above: Dx: Post-acute 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 (PAS C) [U09.9]; Difficulty concentrating [R41.840]; Brain fog [R41.89] Start: 12-19-2024 End: 12-19-2024 ambulatory 12/19/2024 2:00 PM EDT [facility] Neurology Pain [address] [place] [address] Alice Hopson PA-C [address] [place] [address] Chronic fatigue syndrome [G93.32] Neurology Pain Comment on above: Chronic fatigue syndrome [G93.32] Start: 12-17-2024 End: 12-17-2024 Patient encounter procedure 12/17/2024 1:30 PM EDT Office Visit Otolaryngology [address] [address] Fortino Valderrama MD [address] [place] [address] Dx: Post-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) [U09.9]; [...] 11:30 AM EDT Office Visit Rheumatology [address] [address] Linda Marcano PA-C [address] [place] [address] Dx: Post-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) [U09.9]; Malaise and fatigue [R53.81, R53.83]; Chronic fatigue syndrome [G93.32] Rheumatology Comment on above: Dx: Post-acute 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 (PAS C) [U09.9]; Malaise and fatigue [R53.81, R53.83]; Chronic fatigue syndrome [G93.32] Start: 11-03-2024 MG Breast - bilateral Screening [facility] Start: 11-01-2024 End: 11-01-2024 ambulatory 11/01/2024 11:30 AM EDT [facility] Neurology [address] [place] [address] Bri Dove MD [address] [place] [address] PAS f/u Neurology Comment on above: PASC f/u Start: 10-29-2024 End: 10-29-2024 Patient encounter procedure 10/29/2024 11:30 AM EDT Office Visit Neurology [address] [id number] Bri Dove MD [address] [place] [address] PAS f/u Neurology Comment on above: PASC f/u Start: 10-04-2024 End: 10-04-2024 ambulatory 10/04/2024 8:30 AM EDT OT/PT/Speech Visit Speech Therapy [facility] [address] [place] [address] Marina Bonilla, [facility] [address] [place] [address] Dx: Post-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) [U09.9]; Difficulty concentrating [R41.840]; Brain fog [R41.89] Speech Therapy [facility] Comment on above: Dx: Post-acute 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 (PAS C) [U09.9]; Difficulty concentrating [R41.840]; Brain fog [R41.89] Start: 09-14-2024 End: 09-14-2024 ambulatory 09/14/2024 2:30 PM EDT [facility] [place], [place] [id number] Jarod Gordon MD [address] [place] [address] Dx: Post-acute 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 [...] reactive protein [Mass/volume] in Serum or Plasma [facility] Work Phone: Comment on above: Expected: 09/13/2024, Expires: Start: 09-13-2024 End: 09-13-2024 Patient encounter procedure Pulmonology [facility] Comment on above: Covid ROSELINE Mitchell Covid ROSELINE [facility], Start: 09-06-2024 End: 12-06-2024 Ascorbate [Mass/volume] in Serum or Plasma VITAMIN C Lab Routine Chronic fatigue, unspecified Activity intolerance Expected: 09/06/2024, Expires: 12/06/2024 [facility] Comment on above: Expected: 09/06/2024, Expires: Start: 09-06-2024 End: 12-06-2024 C reactive protein [Mass/volume] in Serum or Plasma by High sensitivity method HIGH SENSITIVITY C-REACTIVE PROTEIN Lab Routine Chronic fatigue, unspecified Screening for endocrine, nutritional, metabolic and immunity disorder Expected: 09/06/2024 (Approximate), Expires: 12/06/2024 [facility] Comment on above: Expected: 09/06/2024 (Approximate), Expi res: 12/06/2024 Start: 09-06-2024 End: 12-06-2024 CBC W Auto Differential panel - Blood COMPLETE BLOOD COUNT AND DIFFERENTIAL Lab Routine Chronic fatigue, unspecified Expected: 09/06/2024, Expires: 12/06/2024 [facility] Comment on above: Expected: 09/06/2024, Expires: Start: 09-06-2024 End: 12-06-2024 Cobalamin (Vitamin B12) [Mass/volume] in Serum or Plasma VITAMIN B12 Lab Routine Chronic fatigue, unspecified Screening for endocrine, nutritional, metabolic and immunity disorder Expected: 09/06/2024, Expires: 12/06/2024 [facility] Comment on above: Expected: 09/06/2024, Expires: Start: 09-06-2024 End: 12-06-2024 Comprehensive metabolic 2000 panel - Serum or Plasma COMPREHENSIVE METABOLIC PANEL Lab Routine Chronic fatigue, unspecified Expected: 09/06/2024, Expires: 12/06/2024 [facility] Comment on above: Expected: 09/06/2024, Expires: Start: 09-06-2024 End: 12-06-2024 Folate [Mass/volume] in Serum or Plasma FOLATE, SERUM Lab Routine Chronic fatigue, unspecified Screening for endocrine, nutritional, metabolic and immunity disorder Expected: 09/06/2024, Expires: 12/06/2024 [facility] Comment on above: Expected: 09/06/2024, Expires: Start: 09-06-2024 End: 12-06-2024 GLUTATHIONE TOTAL GLUTATHIONE TOTAL Lab Routine Chronic fatigue, unspecified Screening for endocrine, nutritional, metabolic and immunity disorder Expected: 09/06/2024, Expires: 12/06/2024 [facility] Comment on above: Expected: 09/06/2024, Expires: Start: 09-06-2024 End: 12-06-2024 Homocysteine [Moles/volume] in Serum or Plasma HOMOCYSTEINE Lab Routine Chronic fatigue, unspecified Screening for endocrine, nutritional, metabolic and immunity disorder Expected: 09/06/2024, Expires: 12/06/2024 [facility] Comment on above: Expected: 09/06/2024, Expires: Start: 09-06-2024 End: 12-06-2024 Magnesium [Mass/volume] in Serum or Plasma MAGNESIUM Lab Routine Chronic fatigue, unspecified Sleep disturbance Expected: 09/06/2024, Expires: 12/06/2024 [facility] Comment on above: Expected: 09/06/2024, Expires: Start: 09-06-2024 End: 12-06-2024 OMEGACHECK OMEGACHECK Lab Routine Chronic fatigue, unspecified Screening for endocrine, nutritional, metabolic and immunity disorder Expected: 09/06/2024, Expires: 12/06/2024 [facility] Comment on above: Expected: 09/06/2024, Expires: Start: 09-06-2024 End: 12-06-2024 Pyridoxine [Mass/volume] in Serum or Plasma VITAMIN B6/PYRIDOXIN Lab Routine Chronic fatigue, unspecified Screening for endocrine, nutritional, metabolic and immunity disorder Expected: 09/06/2024, Expires: 12/06/2024 [facility] Comment on above: Expected: 09/06/2024, Expires: Start: 09-06-2024 End: 12-06-2024 Thyrotropin [Units/volume] in Serum or Plasma THYROID STIMULATING HORMONE Lab Routine Chronic fatigue, unspecified Screening for endocrine, nutritional, metabolic and immunity disorder Expected: 09/06/2024, Expires: 12/06/2024 [facility] Comment on above: Expected: 09/06/2024, Expires: Start: 09-06-2024 End: 12-06-2024 Thyroxine (T4) free [Mass/volume] in Serum or Plasma T4 FREE/FREE THYROXINE Lab Routine Chronic fatigue, unspecified Screening for endocrine, nutritional, metabolic and immunity disorder Expected: 09/06/2024, Expires: 12/06/2024 [facility] Comment on above: Expected: 09/06/2024, Expires: Start: 09-06-2024 End: 12-06-2024 Triiodothyronine (T3) Free [Mass/volume] in Serum or Plasma T3, FREE Lab Routine Chronic fatigue, unspecified Screening for endocrine, nutritional, metabolic and immunity disorder Expected: 09/06/2024, Expires: 12/06/2024 [facility] Comment on above: Expected: 09/06/2024, Expires: Start: 09-06-2024 End: 12-06-2024 Zinc [Mass/volume] in Serum or Plasma ZINC BLD Lab Routine Chronic fatigue, unspecified Screening for endocrine, nutritional, metabolic and immunity disorder Expected: 09/06/2024, Expires: 12/06/2024 [facility] Work Phone: Comment on above: Expected: 09/06/2024, Expires: Start: 04-16-2024 End: 04-16-2024 ambulatory 04/16/2024 4:00 PM [facility] Neurology [address] [place] [address] Bri Dove MD [address] [place] [address] [facility] f/u Neurology Comment on above: [facility] f/u Start: 01-04-2024 Covid-19 Vaccine ( season) Covid-19 Vaccine ( season) [facility] Start: 01-04-2024 Influenza vaccination [facility] Start: 10-20-2023 End: 10-20-2023 ambulatory 10/20/2023 1:00 PM EDT Results Only [facility] [address] [place] [address] [facility] Start: 10-14-2023 End: 01-13-2024 CBC panel - Blood by Automated count COMPLETE BLOOD COUNT Lab Routine Post-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) Expected: 10/14/2023, Expires: 01/13/2024 [facility] Work Phone: Comment on above: Expected: 10/14/2023, Expires: 4 Start: 10-14-2023 End: 01-13-2024 Comprehensive metabolic 2000 panel - Serum or Plasma COMPREHENSIVE METABOLIC PANEL Lab Routine Post-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) Expected: 10/14/2023, Expires: 01/13/2024 [facility] Comment on above: Expected: 10/14/2023, Expires: 4 Start: 07-22-2023 DIABETES SCREEN DIABETES SCREEN [facility] Start: 06-12-2023 Screening for malignant neoplasm of breast Mammogram Screening [facility] Start: 05-05-2023 Behavioral Health Screening Behavioral Health Screening [facility] Start: 01-03-2023 Covid-19 Vaccine () Covid-19 Vaccine () [facility] Start: 01-03-2023 Influenza vaccination [facility] Start: 12-01-2022 Adult depression screening assessment DEPRESSION SCREENING [facility] Start: 2022 Pneumococcal Vaccine: 50+ (1 of 1 - PCV) Pneumococcal Vaccine: 50+ (1 of 1 - PCV) [facility] Start: 2022 SHINGRIX VACCINE (1 of 2) SHINGRIX VACCINE (1 of 2) [facility] Start: 05-05-2022 DEPRESSION ASSESSMENT DEPRESSION ASSESSMENT [facility] Start: 02-26-2022 Adult depression screening assessment DEPRESSION SCREENING [facility] Start: 01-08-2022 Urine microalbumin profile [facility] Start: 01-03-2022 Influenza vaccination INFLUENZA (#1) [facility] Start: 05-05-2021 DEPRESSION ASSESSMENT DEPRESSION ASSESSMENT [facility] Start: 03-28-2021 Mammography [facility] Start: 01-18-2021 COVID-19 VACCINE (3 - Booster for Pfizer series) COVID-19 VACCINE (3 - Booster for Pfizer series) [facility] Start: 10-13-2020 COVID-19 VACCINE (3 - Booster for Pfizer series) COVID-19 VACCINE (3 - Booster for Pfizer series) [facility] Start: 10-13-2020 COVID-19 VACCINE (3 - Pfizer series) COVID-19 VACCINE (3 - Pfizer series) [facility] Start: 2017 COLOGUARD (FIT-DNA) COLOGUARD (FIT-DNA) [facility] Start: [address] COLONOGRAPHY [facility] Start: 2017 FECAL OCCULT BLOOD FECAL OCCULT BLOOD [facility] Start: 2017 Screening for malignant neoplasm of colon [facility] Start: 2017 SIGMOIDOSCOPY SIGMOIDOSCOPY [facility] Start: 10-07-1991 Hepatitis B Vaccine (1 of 3 - 19+ 3-dose series) Hepatitis B Vaccine (1 of 3 - 19+ 3-dose series) [facility] Start: 1990 Anxiety Screening Anxiety Screening [facility] Start: 1990 Depression Screening Depression Screening [facility] Start: 1972 HEPATITIS B (1 of 3 - 3-dose series) HEPATITIS B (1 of 3 - 3-dose series) [facility] Start: 1972 Hepatitis B Vaccine (1 of 3 - 3-dose series) Hepatitis B Vaccine (1 of 3 - 3-dose series) [facility] CBC W Auto Different ial panel - Blood [facility] Comprehensive metabo lic 2000 panel - Serum or Plasma [facility] End: 11-22-2022 Diagnostic mammography computer-aided detcj uni [facility] DIAGNOSTIC RT Radiology Routine Breast calcifications 1 Occurrences starting 10/23/2021 until 11/22/2022 [facility] Work Phone: Comment on above: 1 Occurrences starting 10/23/2021 until 11/22/2022 End: 12-27-2022 Diagnostic mammography computer-aided detcj uni [facility] RT Radiology Routine Follow-up examination of abnormal mammogram 1 Occurrences starting 11/27/2021 until 12/27/2022 [facility] Work Phone: Comment on above: 1 Occurrences starting 11/27/2021 until 12/27/2022 Estradiol (E2) [Mass/volume] in Serum or Plasma [facility] Follitropin and Lutr opin panel [Units/volume] - Serum or Plasma [facility] Liquid based cervica l cytology screening [facility] End: 05-05-2023 ELYSE SCREENING W DEBRA ELYES SCREENING W DEBRA Radiology Routine Encounter for screening mammogram for malignant neoplasm of breast 1 Occurrences starting 04/08/2022 until 05/05/2023 [facility] Work Phone: Comment on above: 1 Occurrences starting 04/08/2022 until 05/05/2023 T4 free measurement [facility] Testosterone measurement [facility] Thyroid stimulating hormone measurement [facility] End: 12-27-2022 Us breast uni real time with image limited US BREAST LTD RT Radiology Routine Follow-up examination of abnormal mammogram 1 Occurrences starting 11/27/2021 until 12/27/2022 [facility] Work Phone: Comment on above: 1 Occurrences starting 11/27/2021 until 12/27/[address] [facility] Immunizations Immunization Date Immunization Notes Care Provider [facility] 03-09-2021 influenza, injectabl e, quadrivalent, contains preservative Bri Dove MD Work Phone: [facility] 03-09-2021 influenza virus vaccine, unspecified formulation Bri Dove MD Work Phone: [facility] 08-18-2020 COVID-19 vaccine, ag e 12+ yr (PFIZER-BIONTECH - PURPLE TOP) Bri Dove MD Work Phone: [facility] Work Phone: 07-28-2020 COVID-19 vaccine, ag e 12+ yr (PFIZER-BIONTECH - PURPLE TOP) Bri Dove MD Work Phone: [facility] Work Phone: 01-09-2012 influenza virus vaccine, unspecified formulation Bri Dove MD Work Phone: [facility] 01-09-2012 tetanus toxoid, redu thiago diphtheria toxoid, and acellular pertussis vaccine, adsorbed Bri Dove MD Work Phone: [facility] Payers Date Payer Category Payer Self-pay [id number] 2024 Self-pay 2024 Private Health Insurance M[employer] PPO [id number] 2024 Unknown [id number] 2020 [employer] BLUE ACCE SS PPO [id number] 2020 Unknown [employer] BLUE ACCE SS PPO [id number] 2020-Present [phone] [address] [place] [address] PPO [id number] 2020 Unknown [employer] BLUE ACCE SS PPO [id number] 2020-Present [phone] [id number] [place] [address] PPO [id number] 2020 Unknown [id number] Unknown [id number] 462 Unknown [id number] 462 Unknown [id number] 462 Unknown [id number] 462 Unknown [id number] 462 Unknown [id number]. 462 Unknown [id number]. 462 Unknown [id number] 462 Unknown [id number] 462 Social History Date Type Detail Facility Start: 01-09-2012 End: 12-10-2024 Tobacco smoking status OHIS Never smoked tobacco [facility] Start: 01-09-2012 Tobacco use and exposure Smoke less tobacco non-user [facility] Start: 06-01-2021 End: 09-14-2024 Alcohol intake Current drinker of alcohol (finding) [facility] Start: 01-09-2012 History SDOH Alcohol Comment socially [facility] Start: 1970 Sex Assigned At Female C [facility] Start: 08-03-2021 End: 12-03-2021 Exposure to SARS-CoV-2 (event) Not sure [facility] Start: 10-11-2022 End: 12-16-2024 History of Social function [facility] Start: 10-11-2022 End: 12-16-2024 Tobacco use panel [facility] Start: 04-05-2012 Adult Depression Screening Assessment 1 [facility] Start: 03-26-2020 Gender identity Identifies as female gender (finding) [facility] Start: 03-26-2020 Sexual orientation Heterosexual (gagan abarca) [facility] Clinical Notes 07-24-2021 to 12-20-2024 Telephone Encounter - Rebecca Lr MA - 12/20/2024 9:13 AM EDTTelephone Encounter - Rebecca Lr MA - 12/20/2024 9:13 AM EDTPatient Bri Maki MD - 11/01/2024 11:30 AM EDT Note Date & Type Note Facility 12-20-2024 Telephone encounter Note Last office visit 06-15-24 Future appts 05-03-25 [facility] 12-20-2024 Miscellaneous Notes Last office visit 06-15-24 Future appts 05-03-25 documented in this encounter [facility] 12-19-2024 Instructions Alice Hopson PA-C - 12/19/2024 2:35 PM EDT PATIENT INSTRUCTIONS: - Begin duloxetine (Cymbalta) 30 mg once daily; prescription sent to [facility] in [place] on [facility]. - Attend the virtual shared medical appointment on sleep; the referral and details will appear in MyChart. - Follow up with me in three months to assess how you're doing with the Cymbalta; your virtual appointment information will be in MyChart. - Listed is a live url to [facility]. Please feel free to utilize as a pain distraction modality at your leisure: [email or web address] Important Patient Information: 1. To schedule Pain Recovery appointments or post-injection office visits, please call: [phone] 2. The nursing staff and medical assistants are an integral part of your pain recovery team and will be handling your phone calls and inquiries. 3. Your study results and treatment plan will be discussed during a follow-up appointment. If you do not have a follow-up appointment and wish to discuss any issues directly with me, please call: [phone] to set-up an appointment. 4. MyChart is best used for refill requests or yes or no questions. Anything more complicated will likely require a follow-up appointment that you can schedule by [phone]. 5. If you are scheduled for a ketamine infusion, you will be contacted regarding specific scheduling instructions in the future by our department. There is no need to contact our department regarding the scheduling process or your estimated wait; you will be contacted once there is an opening. documented in this encounter [facility] 12-19-2024 History of Presen t illness Narrative Images from the original note were not included. THE [facility] [place] December 19, 2024 This visit was conducted as a virtual visit. Provider Location: Non-[facility] Facility Patient Location: Patient Home or Place of Residence I have communicated my name and active licensure. The patient's identity and physical location were verified at the time of this visit. Either the patient or their legal brand representative has been informed of the risks and benefits of, and alternatives to, treatment through a remote evaluation and consents to proceed with the evaluation. Recording using Igea software was employed for draft documentation of this virtual visit. Patient/authorized brand representative agreed to proceed. Amanda Gunn is a 54 year old female She was referred by Linda Marcano PA-C; [facility] [address] [id number] This consultation was shared with the referral source via the [facility] electronic medical record. The patient understanding of the reason for referral is for evaluation for programs available through the [facility]. Chief complaint: Long COVID Syndrome SUBJECTIVE: Amanda Gunn is a 54 year old female from [place], [place] with a PMHx of long-COVID syndrome, chronic pain syndrome, nephrolithiasis, vertigo, and intractable migraine with aura who presents to [facility] today for a virtual visit for new patient evaluation of chronic pain and fatigue. Alesha reports a history of long COVID following a severe cytokine storm reaction in March 2020, which primarily affected her nervous system. She experiences chronic pain and significant fatigue, which she believes is related to vertigo. Her neurologist suggests that her fatigue may be due to constant overcorrection of balance issues. She describes her pain as neuropathic, initially affecting both arms, hands, legs, and feet, but now primarily localized to her right arm and hand. She rates her average pain as 3/10. She also experiences neck and back pain, which she attributes to balance issues from vertigo. She is currently taking gabapentin 600 mg at night, which helps manage her pain and insomnia. She has concerns about gabapentin contributing to brain fog and memory problems and has been tapering her dose to 500 mg this month. She has tried other medications, including tizanidine for muscle spasms and migraines, ibuprofen as needed for pain, and low-dose naltrexone prescribed by Dr. Jarod Gordon on September 14, though she reports no improvement with naltrexone. She has also used topical patches for back pain. She reports poor sleep, averaging five hours per night with frequent interruptions. She does not endorse a history of anxiety, depression, ADHD, PTSD, or other psychiatric conditions. She has not required outpatient therapy, counseling, or psychiatric admissions and has no history of suicide attempts, self-mutilation, or eating disorders. She does not endorse a personal history of schizophrenia. She works a part-time job a few days a week, which she describes as menial. Her pain and fatigue have somewhat limited her ability to work, but her employer provides accommodations, allowing her to sit as needed during her standing job. She finds sitting more comfortable than standing due to her back pain. She does not smoke and drinks alcohol socially, such as at weddings or dinners with her . She does not use recreational drugs. She describes her diet as good since July and walks about a mile four days a week, primarily as part of her job. She struggles with post-exertional malaise, which limits her ability to exercise. She is scheduled for a hysterectomy on January 24 due to gynecological issues. She has no history of adverse reactions to anesthesia and denies a history of congestive heart failure, uncontrolled hypertension, pulmonary hypertension, recent heart attacks, arrhythmias, atrial fibrillation, aortic stenosis, hyperthyroidism, liver failure, increased intracranial pressure, hydrocephalus, or Chiari malformation. Excerpt from new pt eval w/ Rheumatology from 11/23/2024: Alesha reports persistent fatigue, insomnia, vertigo, and brain fog since experiencing a severe COVID-19 infection in March 2020, which she describes as a cytokine storm affecting her nervous system. 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 She notes that the vertigo is constant, described as a bobbing sensation, and feels normal only when in water or on a boat. She is currently taking naltrexone to manage fatigue, insomnia, and vertigo. She has tried vestibular therapy, which exacerbated her migraines, leading to nearly 6 months of continuous migraines. Her neurologist has since managed the migraines with a rescue medication and a muscle relaxer taken at night. She has a history of migraines associated with her menstrual cycle. Alesha also experiences nerve pain, primarily in her right arm, which is being treated with gabapentin. She denies any musculoskeletal pain unrelated to overuse of her hands. She had a second COVID-19 infection in December 2022, which was mild and did not result in long-term effects. She received one COVID-19 vaccination but had adverse reactions and has not been vaccinated since. She is perimenopausal and has been experiencing gynecological issues for about a year. She is scheduled for a total hysterectomy, with plans to preserve her ovaries, in the next few months. She has been intermittently anemic for the past 3 years. She denies photosensitivity, Raynaud's phenomenon, or any new joint pain. She notes that her hands become cold and appear pale. Current Medications: Current Outpatient Medications Medication Sig tiZANidine (ZANAFLEX) 4 mg tablet Take 2 tablets by mouth daily at bedtime. progesterone micronized (PROMETRIUM) 200 mg capsule Take 200 mg by mouth daily at bedtime. (Patient not taking: Reported on 11/23/2024) naltrexone 6 mg (CPD) Take 1 tablet by mouth once daily. gabapentin (NEURONTIN) 100 mg capsule Take 6 capsules by mouth daily at bedtime for 180 days. testosterone 200 mg pllt by IMPLANTATION route. (Patient not taking: Reported on 11/23/2024) naltrexone capsule 4.5 mg (CPD) Take 4.5 mg by mouth once daily. MAGNESIUM GLYCINATE [...] Take by mouth. No current facility-administered medications for this visit. [facility] website checked and validated. No controlled substance prescriptions were reported. 12/19/2024 by Alice Hopson PA-C Allergies: Patient has no known allergies. Medication Tried: Membrane stabilizers: Gabapentin 100 mg, takes 6 capsules by mouth daily at bedtime NSAIDs: Ibuprofen 600 mg, takes 1 tablet by mouth every 6 hours as needed for pain Muscle relaxants: tizanidine Opioids: No Benzodiazepines: No Antidepressants: Yes but doesn't recall Topicals: TD lidocaine Other: Naltrexone 6 mg, takes 1 tablet by mouth once daily Functional Limitations: The patient works only a few days a week 2/2 fatigue and pain. Time spent reclining (includes time in bed, recliner, sofa, ottoman, etc.): sits most of the day 2/2 fatigue and LBP Average pain level over last 7 days: 3/10. Psychiatric History: Previous diagnoses: No Out-Patient Therapy: No Psychiatric hospital admissions: No Suicide attempts: No Self-mutilation: No Eating disorder: No Medications tried: Not for psychiatric issues Substance use: Nicotine: No Alcohol: Socially, at a wedding, dinner out Recreational drugs: No Wellness: How would you describe your diet: Good How many days a week do you exercise: walks ~ 1 mile while working maybe 4 days/week (has post-exertional malaise) How many hours do you sleep a night: 5 hours/night interrupted Patient-Entered Data: Pain Recovery Scores 12/16/2024 10:28 AM LBP over last 6 months - Ongoing back pain problem - START back screen total score - START back screen distress score - START back screen risk score - Oswestry disability index score - PCS rumination subscore 4 PCS magnification subscore 3 PCS helplessness subscore 5 PCS total score 12 12/16/2024 04/13/2024 10/12/2023 PHQ-9 Score 8 8 8 12/01/2021 MANN - 7 SCORES Score 2 12/16/2024 09/07/2024 04/13/2024 PROMIS Global Health - (T-Scores - the mean of general population = 50. Five points is a clinically meaningful difference.) Physical T-Score 39.8 37.4 42.3 Mental T-Score 48.3 48.3 48.3 No data to display KETAMINE QUESTIONNAIRE: Anesthesia: No CHF: No Uncontrolled HTN: No Pulmonary HTN: No Recent DE: No Arrythmias: No Afib: No Aortic Stenosis: No Hyperthyroid: No Liver Failure: No Increased ICP: No Schizophrenia: No : No LMP: planned hysterectomy next week, Friday12/24/2024 Previous ketamine infusions?: No The patient denies red flags. ROS: All other systems reviewed were negative. Past Medical History: PAST MEDICAL HISTORY Diagnosis Date Anemia COVID-19 Intractable migraine with aura Kidney stone Past Surgical History: PAST SURGICAL HISTORY Procedure Laterality Date COLONOSCOPY - DIAGNOSTIC 05/17/2020 EGD 05/17/2020 EYE SURGERY HX HYSTEROSCOPY, DIAGNOSTIC (SEPARATE 11/23/2020 LASIK S ABLATION GINNY [id number] 11/23/2020 Hysteroscopy, Ginny endometrial ablation @ [facility]-Dr. West UNSPECIFIED ORAL SURGERY PROCEDURE, BY REPORT wisdom teeth Social History: SOCIAL HISTORY[1] Family History FAMILY HISTORY Problem Relation Age of Onset Hypertension Mother Thyroid Mother Breast Cancer Mother Ischemic Heart Disease Father Diabetes Father Colon Cancer Father 63 Stroke Maternal Grandmother other (parkinson's) Maternal Grandfather Diabetes Paternal Grandmother Cancer Paternal Grandmother ovarian other (kidney stone) Sister Breast Cancer Paternal Aunt in her 60s OBJECTIVE: PHYSICAL EXAM: VITALS: LMP 09/03/2024 (Exact Date) There is no height or weight on file to calculate BMI. GENERAL APPEARANCE: Well appearing, well-hydrated, well nourished, alert and oriented in no acute distress LUNGS: Normal, unlabored respirations with normal diaphragmatic excursion at time of evaluation SKIN: Head, neck, trunk, and exposed extremities with no obvious rashes or lesions noted on brief inspection MUSCULOSKELETAL: Right arm, right hand, low back and neck NEURO: Cognition and cranial nerves grossly intact PSYCH: Euthymic, logical thinking, normal speech pattern, appropriate LABS: Estimated Creatinine Clearance: 72.5 mL/min (based on SCr of 0.84 mg/dL). AST Date Value Ref Range Status 11/23/2024 12 (L) 13 - 35 U/L Final ALT Date Value Ref Range Status 11/23/2024 14 7 - 38 U/L Final No ECG on file -Monitor EKG and QTc. Recalculate using ndiaye formula that takes into account her HR / tachycardia [Qtc on Ndiaye formula = Qt + 1.75 (HR - 60)] -If QTc >500 with Ndiaye formula, hold all QT prolonging medications ASSESSMENT & PLAN: 1. Chronic fatigue syndrome (G93.32) 2. Abac-XOJMT-26 condition (U09.9) - Chronic fatigue and post-exertional malaise since COVID-19 infection in March 2020. - Fatigue believed by patient to be primarily related to chronic vertigo and balance issues. - Discussed that clinic focus is on pain management, not fatigue; explained that improving pain control may indirectly benefit fatigue. - Discussed ketamine infusions as a potential option for pain, anxiety, and depression, but not directly for fatigue; reviewed risks and side effects. - Patient interested in ketamine infusions but will defer consideration until after hysterectomy and recovery. 3. Chronic pain syndrome (G89.4) 4. Pain in right hand (M79.641) 5. Chronic low back pain with sciatica, sciatica laterality unspecified, unspecified back pain laterality (M54.40) 6. Pain in right arm (M79.601) - Chronic neuropathic pain primarily in right arm and hand, previously more diffuse; average pain 3/10. - Chronic low back pain with sciatica, laterality unspecified. - Pain partially managed with gabapentin 600 mg nightly (recently self-tapered to 500 mg nightly); patient expresses desire to taper off gabapentin due to concerns about cognitive side effects. - Also using tizanidine for muscle spasms and migraines, ibuprofen PRN, and topical patches for back pain. - Low-dose naltrexone prescribed by Dr. Jarod Gordon ([facility]) on 09/14; patient reports no improvement. - Discussed use of duloxetine (Cymbalta) for chronic pain management; explained mechanism, typical dosing (start 30 mg PO daily, may increase to 60 mg daily), and that it is generally non-sedating. - Reviewed potential side effects and contraindications, including risk of mike in bipolar disorder; patient has no personal psychiatric history. - Patient elected to start duloxetine; prescription sent for 30 mg PO daily. - Discussed virtual shared medical appointments on sleep, nutrition, movement, relaxation, and science of pain; patient interested in sleep session. - Offered pain psychology evaluation (virtual or in-person). - Follow-up in 3 months (March), with option to contact sooner if needed. 7. Insomnia due to medical condition (G47.01) - Insomnia partially managed with gabapentin at night. - Patient to attend virtual shared medical appointment on sleep. Based upon today's evaluation, Amanda Gunn would be a good candidate for a ketamine infusion. Discussed r/b/a of ketamine and patient agrees to proceed. Alice Hopson PA-C December 19, 2024 2:00 PM A total of 45 minutes was spent on the date of the service which included preparing to see the patient, [id number] patient care, completing clinical documentation, obtaining and/or reviewing separately obtained history, counseling and educating the patient/family/caregiver, and ordering medications, tests, or procedures. PATIENT INSTRUCTIONS: - Begin duloxetine (Cymbalta) 30 mg once daily; prescription sent to [facility] in [place] on [facility]. - Attend the virtual shared medical appointment on sleep; the referral and details will appear in [employer]. - Follow up with me in three months to assess how you're doing with the Cymbalta; your virtual appointment information will be in MyChart. - Listed is a live url to our [facility]. Please feel free to utilize as a pain distraction modality at your leisure: [email or web address] [email or web address] Important Patient Information: 1. To schedule Pain Recovery appointments or post-injection office visits, please call: [phone] 2. The nursing staff and medical assistants are an integral part of your pain recovery team and will be handling your phone calls and inquiries. 3. Your study results and treatment plan will be discussed during a follow-up appointment. If you do not have a follow-up appointment and wish to discuss any issues directly with me, please call: [phone] to set-up an appointment. 4. MyChart is best used for refill requests or yes or no questions. Anything more complicated will likely require a follow-up appointment that you can schedule by [phone]. 5. If you are scheduled for a ketamine infusion, you will be contacted regarding specific scheduling instructions in the future by our department. There is no need to contact our department regarding the scheduling process or your estimated wait; you will be contacted once there is an opening. [1] Social History Tobacco Use Smoking status: Never Smokeless tobacco: Never Vaping Use Vaping status: Never Used Substance Use Topics Alcohol use: Yes Comment: socially Drug use: No documented in this encounter [facility] 12-19-2024 Note HNO ID: [id number] Author: ALICE HOPSON PA-C Service: ? Author Type: Physician Nail Expert Type: Progress Notes Filed: 12/19/2024 14:35 Note Text: THE [facility] [place] December 19, 2024 This visit was conducted as a virtual visit. Provider Location: Non-[facility] Facility Patient Location: Patient Home or Place of Residence I have communicated my name and active licensure. The patient's identity and physical location were verified at the time of this visit. Either the patient or their legal brand representative has been informed of the risks and benefits of, and alternatives to, treatment through a remote evaluation and consents to proceed with the evaluation. Recording using Igea software was employed for draft documentation of this virtual visit. Patient/authorized brand representative agreed to proceed. Amanda Gunn is a 54 year old female She was referred by Linda Marcano PA-C; [facility] Rheumatology [address] [id number] This consultation was shared with the referral source via the [facility] electronic medical record. The patient understanding of the reason for referral is for evaluation for programs available through the [facility]. Chief complaint: Long COVID Syndrome SUBJECTIVE: Amanda Gunn is a 54 year old female from [place], [place] with a PMHx of long-COVID syndrome, chronic pain syndrome, nephrolithiasis, vertigo, and intractable migraine with aura who presents to [facility] today for a virtual visit for new patient evaluation of chronic pain and fatigue. Alesha reports a history of long COVID following a severe cytokine storm reaction in March 2020, which primarily affected her nervous system. She experiences chronic pain and significant fatigue, which she believes is related to vertigo. Her neurologist suggests that her fatigue may be due to constant overcorrection of balance issues. She describes her pain as neuropathic, initially affecting both arms, hands, legs, and feet, but now primarily localized to her right arm and hand. She rates her average pain as 3/10. She also experiences neck and back pain, which she attributes to balance issues from vertigo. She is currently taking gabapentin 600 mg at night, which helps manage her pain and insomnia. She has concerns about gabapentin contributing to brain fog and memory problems and has been tapering her dose to 500 mg this month. She has tried other medications, including tizanidine for muscle spasms and migraines, ibuprofen as needed for pain, and low-dose naltrexone prescribed by Dr. Jarod Gordon on September 14, though she reports no improvement with naltrexone. She has also used topical patches for back pain. She reports poor sleep, averaging five hours per night with frequent interruptions. She does not endorse a history of anxiety, depression, ADHD, PTSD, or other psychiatric conditions. She has not required outpatient therapy, counseling, or psychiatric admissions and has no history of suicide attempts, self-mutilation, or eating disorders. She does not endorse a personal history of schizophrenia. She works a part-time job a few days a week, which she describes as menial. Her pain and fatigue have somewhat limited her ability to work, but her employer provides accommodations, allowing her to sit as needed during her standing job. She finds sitting more comfortable than standing due to her back pain. She does not smoke and drinks alcohol socially, such as at weddings or dinners with her . She does not use recreational drugs. She describes her diet as good since July and walks about a mile four days a week, primarily as part of her job. She struggles with post-exertional malaise, which limits her ability to exercise. She is scheduled for a hysterectomy on January 24 due to gynecological issues. She has no history of adverse reactions to anesthesia and denies a history of congestive heart failure, uncontrolled hypertension, pulmonary hypertension, recent heart attacks, arrhythmias, atrial fibrillation, aortic stenosis, hyperthyroidism, liver failure, increased intracranial pressure, hydrocephalus, or Chiari malformation. Excerpt from new pt eval w/ Rheumatology from 11/23/2024: Alesha reports persistent fatigue, insomnia, vertigo, and brain fog since experiencing a severe COVID-19 infection in March 2020, which she describes as a cytokine storm affecting her nervous system. 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 She notes that the vertigo is constant, described as a bobbing sensation, and feels normal only when in water or on a boat. She is currently taking naltrexone to manage fatigue, insomnia, and vertigo. She has tried vestibular (more content not included)... [facility] 12-17-2024 Progress note [facility] 11-29-2024 Telephone encounter Note Last office visit 10-14-23 Future [id number] [facility] 11-29-2024 Miscellaneous Notes Last office visit 10-14-23 Future [id number] documented in this encounter [facility] 11-23-2024 Note HNO ID: [id number] Author: LINDA MARCANO PA-C Service: ? Author Type: Physician Nail Expert Type: Progress Notes Filed: 12/07/2024 15:13 Note Text: [facility] Department of Rheumatic and Immunologic Diseases New Patient Date of Service: 11/23/2024 Patient: Amanda Gunn Medical Record: [id number] Primary Care Physician: Nuria Gabriel DO, DO Referring Physician: Eduardo Alvarez CNP Last Rheumatology visit: None at [facility] This consult was requested by the doctor listed for an opinion regarding the chief complaint listed below, and my final recommendations will be communicated to the requesting health care provider by way of the shared medical record for internal providers or letter via the U.S. Postal Service for external providers. Recording using [employer] software for draft documentation of the visit was discussed with the patient/authorized brand representative; all questions welcomed and answered. Patient/authorized brand representative agreed to proceed SUBJECTIVE CC: Long COVID syndrome History of Present Illness Patient is a 54 year-old female presenting for evaluation of long-COVID syndrome. Patient is the primary historian. Patient has a significant past medical history of long-COVID syndrome, chronic pain syndrome, nephrolithiasis, vertigo, and intractable migraine with aura Relevant Serology Results: 09/13/2024: Vitamin D 25 hydroxy: 59.5 09/13/2024: CRP: <0.3 Most recent renal function panel: 09/13/2024 GFR: 88 mL/min/m Cr: 0.81 mg/dL CrCl [per Cockcroft-Gault formula]: 87 mL/min Current Pertinent Medications: Gabapentin 100-mg: take 6 capsules by mouth daily at bedtime Naltrexone 6-mg: take 1 tablet by mouth once daily Ibuprofen 600-mg: take 1 tablet by mouth every 6 hours as needed for pain Past Rheumatologic Medications: none per chart review Alesha reports persistent fatigue, insomnia, vertigo, and brain fog since experiencing a severe COVID-19 infection in March 2020, which she describes as a cytokine storm affecting her nervous system. 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 She notes that the vertigo is constant, described as a bobbing sensation, and feels normal only when in water or on a boat. She is currently taking naltrexone to manage fatigue, insomnia, and vertigo. She has tried vestibular therapy, which exacerbated her migraines, leading to nearly 6 months of continuous migraines. Her neurologist has since managed the migraines with a rescue medication and a muscle relaxer taken at night. She has a history of migraines associated with her menstrual cycle. Alesha also experiences nerve pain, primarily in her right arm, which is being treated with gabapentin. She denies any musculoskeletal pain unrelated to overuse of her hands. She had a second COVID-19 infection in December 2022, which was mild and did not result in long-term effects. She received one COVID-19 vaccination but had adverse reactions and has not been vaccinated since. She is perimenopausal and has been experiencing gynecological issues for about a year. She is scheduled for a total hysterectomy, with plans to preserve her ovaries, in the next few months. She has been intermittently anemic for the past 3 years. She denies photosensitivity, Raynaud's phenomenon, or any new joint pain. She notes that her hands become cold and appear pale. Current Outpatient Medications on File Prior to Visit Medication Sig naltrexone 6 mg (CPD) Take 1 tablet by mouth once daily. gabapentin (NEURONTIN) 100 mg capsule Take 6 capsules by mouth daily at bedtime for 180 days. tiZANidine (ZANAFLEX) 4 mg tablet Take 2 tablets by mouth daily at bedtime. naltrexone capsule 4.5 mg (CPD) Take 4.5 mg by mouth once daily. MAGNESIUM GLYCINATE [...] C/FA/B12 (GENTLE IRON ORAL) Take by mouth. progesterone micronized (PROMETRIUM) 200 mg capsule Take 200 mg by mouth daily at bedtime. (Patient not taking: Reported on 11/23/2024) testosterone 200 mg pllt by IMPLANTATION route. (Patient not taking: Reported on 11/23/2024) No current facility-administered medications on file prior to visit. Review of Systems Review of Systems CONSTITUTION: Negative for: Fever and Recent weight change HEENT: Positive for: Dry mouth Negative for: Nosebleeds, Mouth sores and Trouble swallowing RESPIRATORY: Negative for: Cough, Shortness of breath and P (more content not included)... [facility] 11-08-2024 Radiology Diagnostic study note [facility] Imaging Services [address] [place], [place] [id number] Pelvic w/ Transvaginal MR#: [id number] Acct: [id number] Name: AMANDA GUNN OCTOBER Rep #: [id number] : 1970 F 54 From: Evgeny Lomas MD PCP: Dr. Nuria Gabriel DO Status: RE G CLI Study:Pelvic w/ Transvaginal Date of Exam: 11/03/24 Exam# [id number] Ordering Dr: Ericka Lafleur DRUMS TEACHERGayatri PROCEDURE: PELVIC W/ TRANSVAGINAL 11/03/2024 REASON FOR EXAM: ABNORMAL UTERINE BLEEDING TECHNIQUE: PELVIC W/ TRANSVAGINAL FINDINGS: The uterus is anteverted and measures 11.4 x 7.8 x 9 cm. Posterior/fundal fibroid measuring 5 x 3.9 x 4.1 cm is noted. Endometrium measures 20 mm. Endometrium appears hyperechoic. Endometrial fluid is noted. Endometrium mass/polyp measuring 0.7 x 0.6 x 0.6 cm is noted. Lower uterine segment calcification measuring 0.5 x 0.6 x 0.2 cm is noted. Right ovary measures 4.3 x 3.3 x 2.5 cm. Normal blood flow is noted. Cyst measuring 3 x 2.4 x 2.1 cm is noted. Left ovary measures 4 x 3.6 x 2.6 cm. Normal flow is noted. Cyst measuring 2.4x 2.5 x 2.2 cm. No free fluid in the posterior cul-de-sac. US/Pelvic w/ Transvaginal IMPRESSION: Thickened endometrium with possible endometrium best/polyp. Endometrial fluid is noted. MRI is advised. Uterine fibroid. Bilateral ovarian cysts. Reading [facility] CC: DOROTHY Lafleur; Dr. Nuria Gabriel, ~ Relief Pilot: Signed [facility] 11-01-2024 History of Presen t illness Narrative Images from the original note were not included. General Neurology Outpatient Clinic - virtual f/u visit Date: November 01, 2024 Patient Name: Amanda Gunn Referring physician: Bri Dove [address] [facility] [address] Primary physician: Aron Ugarte [address] [place] [address] Reason for Evaluation: PASC f/u I have communicated my name and active licensure. The patient's identity and physical location were verified at the time of this visit. Either the patient or their legal brand representative has been informed of the risks [...] RUE without nerve compression. Most recently seen 05/17/2023, has improvement with sleep on GBP 600mg qhs. Plan for guanfacine trial Prior headache medicines: TPM (burning mouth [...] amantadine, provigil, wellbutrin 300mg daily, namenda 10mg bid, guanfacine (more fatigue) Current fatigue medication: none Interval History: LDN has been increased to 6mg in interim. She's going to start taking NAC and NAD+ infusions as well. Nothing has helped so far. GBP still helping with tingling though doesn't take the symptoms completely away. The sensations come back when she tries to do without the GBP. Migraines have seemed to settle. She takes the imitrex about once a month for her menstrual migraine. Things are status quo symptom camacho She's going to have possible hysterectomy Son got in October. It went well. She knows she has to rest after major events like it. Another son is getting in December. OUTPATIENT MEDICATIONS Current Outpatient Medications on File Prior to Visit Medication Sig guanFACINE (INTUNIV) 1 mg ER 24 hr tablet(s) Take 1 tablet by mouth once daily. SUMAtriptan (IMITREX) 50 mg tablet Take 1 tablet by mouth as needed (at onset of headache. May repeat after 2 hours.). gabapentin (NEURONTIN) 100 mg capsule Take 6 capsules by mouth daily at bedtime for 180 days. tiZANidine (ZANAFLEX) 4 mg tablet Take 2 tablets by mouth daily at bedtime. testosterone 200 mg pllt by IMPLANTATION route. thyroid (DRUMS TEACHER THYROID) 15 mg tablet Take 15 mg by mouth once daily. naltrexone capsule 4.5 mg (CPD) Take 4.5 mg by mouth once daily. progesterone micronized (PROMETRIUM) 100 mg capsule Take 100 mg by mouth once daily. metFORMIN (GLUCOPHAGE) 500 mg tablet Take 500 mg by mouth daily with breakfast. MAGNESIUM GLYCINATE ORAL Take 350 mg by mouth daily at bedtime. cholecalciferol, vitamin D3, (VITAMIN D3 ORAL) Take 250 mcg by mouth. magnesium M-biusjb-uaalhngllkq 42 mg (500 mg)- 250 mg TbER [...] DIAGNOSTIC (SEPARATE 11/23/2020 LASIK S ABLATION GINNY [id number] 11/23/2020 Hysteroscopy, Ginny endometrial ablation @ [facility]-Dr. West UNSPECIFIED ORAL SURGERY PROCEDURE, BY REPORT [...] SYSTEMS: No fevers, chills No CP No Shortness of Breath No orthostasis No constipation, diarrhea +falls at times from the dizziness No head trauma PHYSICAL EXAM: LMP 03/03/2021 General appearance: Well appearing, alert, in no acute distress Neurological exam: Mental Status: Alert, oriented to person, place and time and Follows commands. Cranial Nerves: face symmetric, no facial droop or ptosis, no dysarthria, and tongue protrudes midline. Motor: BUE antigravity 10/10 seconds LABS/DATA: Latest Ref Rng 09/10/2024 09/13/2024 WBC 3.70 - 11.00 k/uL 4.22 RBC 3.90 - 5.20 m/uL 4.72 Hemoglobin 11.5 - 15.5 g/dL 14.0 Hematocrit 36.0 - 46.0 % 42.0 MCV 80.0 - 100.0 fL 89.0 MCH 26.0 - 34.0 pg 29.7 MCHC 30.5 - 36.0 g/dL 33.3 RDW-CV 11.5 - 15.0 % 12.2 Platelet Count 150 - 400 k/uL 313 MPV 9.0 - 12.7 fL 9.9 Neut% % 63.6 Abs Neut (ANC) 1.45 - 7.50 k/uL 2.68 Lymph% % 26.3 Abs Lymph 1.00 - 4.00 k/uL 1.11 Essex% % 7.6 Abs [place] <0.87 k/uL 0.32 Eosin% % 1.4 Abs Eosin <0.46 k/uL 0.06 Baso% % 0.9 Abs Baso <0.11 k/uL 0.04 Immature Gran % % 0.2 IMMATURE GRANS (ABS) <0.10 k/uL <0.03 DTYPE Auto Protein, Total 6.3 - 8.0 g/dL 7.0 Albumin 3.9 - 4.9 g/dL 4.7 Calcium 8.5 - 10.2 mg/dL 10.2 Bilirubin, Total 0.2 - 1.3 mg/dL 0.3 Alkaline Phosphatase 34 - 123 U/L 53 AST 13 - 35 U/L 16 ALT 7 - 38 U/L 16 Glucose 74 - 99 mg/dL 95 BUN 7 - 21 mg/dL 12 Creatinine 0.58 - 0.96 mg/dL 0.81 Sodium 136 - 144 mmol/L 139 Potassium 3.7 - 5.1 mmol/L 4.1 Chloride 98 - 107 mmol/L 104 CO2 22 - 30 mmol/L 24 Anion Gap 8 - 15 mmol/L 11 eGFR >=60 mL/min/1.73m 88 Folate >4.7 ng/mL 17.7 Free T3 2.3 - 4.1 pg/mL 3.0 Free T4 0.9 - 1.7 ng/dL 1.3 TSH 0.270 - 4.200 mIU/L 1.160 Vitamin C, Plasma 23 - 114 umol/L 58 CRP <0.9 mg/dL <0.3 Vitamin D 25 Hydroxy 31.0 - 80.0 ng/mL 59.5 ASSESSMENT: 54 year old RH female with a history of menstrual migraines who presents for follow-up of [facility]. Clinically stable on current regimen. Elected to continue PLAN: - continue current meds - f/u 6 mo virtually I spent a total of 20 minutes on the date of the service which included preparing to see the patient, [id number] patient care, completing clinical documentation, obtaining and/or reviewing separately obtained history, performing a medically appropriate examination, counseling and educating the patient/family/caregiver, ordering medications, tests, or procedures, independently interpreting results (not separately reported), communicating results to the patient/family/caregiver, and care coordination (not separately reported). Bri Dove MD Staff, General Neurology Pager: [phone] CC: Referring Physician: Bri Dove [address] [facility] [address] PCP: Aron Ugarte [address] [place] [id number] documented in this encounter [facility] 11-01-2024 Note HNO ID: [id number] Author: BRI DOVE MD Service: ? Author Type: Physician Type: Progress Notes Filed: 11/01/2024 11:38 Note Text: General Neurology Outpatient Clinic - virtual f/u visit Date: November 01, 2024 Patient Name: Amanda Gunn Referring physician: Bri Dove [address] [facility] [place] [address] Primary physician: Aron Ugarte [address] [place] [address] Reason for Evaluation: PASC f/u I have communicated my name and active licensure. The patient's identity and physical location were verified at the time of this visit. Either the patient or their legal brand representative has been informed of the risks [...] RUE without nerve compression. Most recently seen 05/17/2023, has improvement with sleep on GBP 600mg qhs. Plan for guanfacine trial Prior headache medicines: TPM (burning mouth [...] amantadine, provigil, wellbutrin 300mg daily, namenda 10mg bid, guanfacine (more fatigue) Current fatigue medication: none Interval History: LDN has been increased to 6mg in interim. She's going to start taking NAC and NAD+ infusions as well. Nothing has helped so far. GBP still helping with tingling though doesn't take the symptoms completely away. The sensations come back when she tries to do without the GBP. Migraines have seemed to settle. She takes the imitrex about once a month for her menstrual migraine. Things are status quo symptom camacho She's going to have possible hysterectomy Son got in October. It went well. She knows she has to rest after major events like it. Another son is getting in December. OUTPATIENT MEDICATIONS Current Outpatient Medications on File Prior to Visit Medication Sig guanFACINE (INTUNIV) 1 mg ER 24 hr tablet(s) Take 1 tablet by mouth once daily. SUMAtriptan (IMITREX) 50 mg tablet Take 1 tablet by mouth as needed (at onset of headache. May repeat after 2 hours.). gabapentin (NEURONTIN) 100 mg capsule Take 6 capsules by mouth daily at bedtime for 180 days. tiZANidine (ZANAFLEX) 4 mg tablet Take 2 tablets by mouth daily at bedtime. testosterone 200 mg pllt by IMPLANTATION route. thyroid (DRUMS TEACHER THYROID) 15 mg tablet Take 15 mg by mouth once daily. naltrexone capsule 4.5 mg (CPD) Take 4.5 mg by mouth once daily. progesterone micronized (PROMETRIUM) 100 mg capsule Take 100 mg by mouth once daily. metFORMIN (GLUCOPHAGE) 500 mg tablet Take 500 mg by mouth daily with breakfast. MAGNESIUM GLYCINATE ORAL Take 350 mg by mouth daily at bedtime. cholecalciferol, vitamin D3, (VITAMIN D3 ORAL) Take 250 mcg by mouth. magnesium C-pdreab-bfnjgdwmihp 42 mg (500 mg)- 250 mg TbER [...] DIAGNOSTIC (SEPARATE 11/23/2020 LASIK S ABLATION GINNY [id number] 11/23/2020 Hysteroscopy, Ginny endometrial ablation @ [facility]-Dr. West UNSPECIFIED ORAL SURGERY PROCEDURE, BY REPORT [...] Colon Cancer Father 63 Stroke Maternal Grandmother (more content not included)... [facility] 10-25-2024 Evaluation note Diagnosis Onset Date Resolution Abnormal uterine bleeding (AUB) acute October 25, 2024 8:42am Screening for colon cancer acute October 25, 2024 8:42am Encounter for routine gynecological examination noneactive October 25, 2024 8:42am [facility] Work Phone: 1(307) 337-869406-23-2025 Evaluation note* Diagnosis Onset Date Resolution Status Admit Date Abnormal uterine bleeding (AUB) acute October 25, 2024 8:42am Screening for colon cancer acute October 25, 2024 8:42am Encounter for routine gynecological examination noneactive October 042024 8:42am Abnormal uterine bleeding (AUB) acute November 15, 2024 3:03pm Irregular menstrual bleeding acute November 15, 2024 3:03pm Poison wendy dermatitis acute Nov 3:03pm Thickened endometrium acute Nov 3:03pm Uterine fibroid acute November 3:03pm [facility] Work Phone: 1(263) 415-707906-23-2025 Evaluation note* Diagnosis Onset Date Resolution Status Admit Date Abnormal uterine bleeding (AUB) acute October 25, 2024 8:42am Screening for colon cancer acute October 25, 2024 8:42am Encounter for routine gynecological examination noneactive October 042024 8:42am Abnormal uterine bleeding (AUB) acute November 15, 2024 3:03pm Irregular menstrual bleeding acute November 15, 2024 3:03pm Poison wendy dermatitis acute Nov 3:03pm Thickened endometrium acute Nov 3:03pm Uterine fibroid acute November 3:03pm Abnormal uterine bleeding (AUB) acute December 17 12:50pm Bilateral ovarian cysts acute A ugust 2024 12:50pm Uterine fibroid acute December 172024 12:50pm [facility] Work Phone: [phone]) [phone] Telephone encounter Note* Telephone Encounter - Paulina Tate - 09/17/2024 10:41 AM EDT 2nd attempt: LVM to schedule 3rd attempt: Sent MC message [facility]05-16-2025 Miscellaneous Notes* Telephone Encounter - Paulina Tate - 09/17/2024 10:41 AM EDT 2nd attempt: LVM to schedule 3rd attempt: Sent MC message * Telephone Encounter - Klarissa Chapman PSS - 09/13/2024 2:48 PM EDT Called patient to schedule 6 week virtual follow up with Eduardo Alvarez, 1st attempt, left VM. * Telephone Encounter - Klarissa Chapman PSS - 09/13/2024 2:48 PM EDT ----- Message from Eduardo Alvarez APRN.CHIEF OF PRODUCTION sent at 09/13/2024 11:56 AM EDT ----- Hi there, Please assist with scheduling the following appointments/ consults as ordered; Virtual follow up with myself in 6-8 weeks. Please respond when done Thanks, Gilmar Alvarez APRN.CHIEF OF PRODUCTION documented in this encounter[facility] History of Present illness Narrative* Jarod Gordon MD - 09/14/2024 2:30 PM EDT Images from the original note were not included. Consultation requested by Eduardo Alvarez APRN, ASMITA for an opinion regarding Long COVID. My finalrecommendations will be communicated back to the requesting physician by way of shared Medical record or letter to requesting physician via [place] mail. 53 year old female virtual visit for an Integrative Medicine consultation (Dept of Wellness & Preventive Medicine, [facility]) I have communicated my name and active licensure. The patient's identity and physical location wereverified at the time of this visit. Either the patient or their legal brand representative has been informed of the risks and benefits of -- and alternatives to -- treatment through a remote evaluation andconsents to proceed with the evaluation remotely. ASSESSMENT [...] start date of LDN 6 mg (via [employer] message) HISTORY OF PRESENT ILLNESS: Chief complaint [...] DIAGNOSTIC (SEPARATE 11/23/2020 LASIK S ABLATION GINNY [id number] 11/23/2020 Hysteroscopy, Ginny endometrial ablation @ [facility]-Dr. West UNSPECIFIED ORAL SURGERY PROCEDURE, BY REPORT [...] which included preparing to see the patient, [id number] patient care, completing clinical documentation, obtaining and/or reviewing separately obtained history, performing a medically appropriate examination, counseling and educating the pat ient/family/caregiver, and ordering medications, tests, or procedures. Jarod Gordon MD 09/14/2024 * Nayana Moncada MA - 09/14/2024 1:53 PM EDT Weight 144 5ft 3in documented in this encounterPark[facility]25 NoteHNO ID: [id number] Author: JAROD GORDON MD Service: ? Author Type: Physician Type: Progress Notes Filed: 09/14/2024 14:59 Note Text: Consultation requested by Eduardo Alvarez APRN, CNP for an opinion regarding Long COVID. My final recommendations will be communicated back to the requesting physician by way of shared Medical record or letter to requesting physician via [place] mail. 53 year old female virtual visit for an Integrative Medicine consultation (Dept of Wellness AND Preventive Medicine, [facility]) I have communicated my name and active licensure. The patient's identity and physical location were verified at the time of this visit. Either the patient or their legal brand representative has been informed of the risks [...] start date of LDN 6 mg (via [employer] message) HISTORY OF PRESENT ILLNESS: Chief complaint [...] DIAGNOSTIC (SEPARATE 11/23/2020 LASIK S ABLATION GINNY [id number] 11/23/2020 Hysteroscopy, Ginny endometrial ablation @ [facility]-Dr. West UNSPECIFIED ORAL SURGERY PROCEDURE, BY REPORT [...] mouth twice daily. riboflavin, (more content not included)...[facility]05-13-2025 NoteHNO ID: [id number] Author: NAYANA MONCADA MA Service: ? Author Type: Balance Wheel Screw Hole Tapper Type: Progress Notes Filed: 09/14/2024 14:59 Note Text: [facility] Telephone encounter Note* Telephone Encounter - Klarissa Chapman PSS - 09/13/2024 2:48 PM EDT Called patient to schedule 6 week virtual follow up with Eduardo Alvarez, 1st attempt, left VM. [facility]05-12-2025 Telephone encounter Note* Telephone Encounter - Klarissa Chapman PSS - 09/13/2024 2:48 PM EDT ----- Message from Eduardo Alvarez APRN.CNP sent at 09/13/2024 11:56 AM EDT ----- Hi there, Please assist with scheduling the following appointments/ consults as ordered; Virtual follow up with myself in 6-8 weeks. Please respond when done Gilmar Casey APRN.CNP [facility]05-12-2025 Instructions* Patient Instructions* Eduardo Alvarez APRN.CNP - 09/13/2024 9:28 AM EDT Welcome to [facility]'s [facility]! The 'COV' represents SARS-CoV-2, also known as COVID-19. Our clinic's mission is to assess and guide individuals who are experiencing long-term effects of COVID-19 to state of the art care paths tailored to fit each person. You just had your initial visit with the [facility] Next, you will be undergoing additional tests [...] 12 months following your visit to the [facility] Department. You will receive an invitation in your [employer] account asking you to complete questionnaires at 3, 6. 9 and 12 months after your visit to the department. The questionnaires will be similar to those you completed prior to your visit asking about fatigue, mental function, sleep disturbance, depression, anxiety and your quality of life. - The [facility] Team You may have your labs as walk-in appointments at a [facility] facility. We will schedule you for and our virtual follow up today before you leave. If you need to reach us the best way is to call [phone] and ask for [facility]. documented in this encounterPark[facility]05-[facility] History of Present illness Narrative* Eduardo Alvarez APRN.CNP - 09/13/2024 9:00 AM EDT Images from the original note were not included. [facility] Initial Evaluation Amanda Gunn presents to [facility] at the request of Bri Dove MD for evaluation of prolonged, > 28 days, symptoms attributed to COVID-19 infection. They have requested this consultation via eConsult and will be communicated to via the EMR or [place] Post Office Correspondence. Positive COVID-19 Test: yes Date of Positive Test: : 03/08/2020 (presumed, tested positive in ER) 12/2022 HISTORY OF PRESENT ILLNESS HPI: Amanda Gunn is a 53 year old female with [...] 4.5 mg for at least 2 years anddoes not notice a benefit She has had [...] or any previous visit (from the past 51471 hours). PFT: No textual results found for [...] BP Cuff Size: Regular Adult) Pulse 72 Temp36.7 C (98 F) (Temporal) LMP 09/03/2024 (Exact [...] which included preparing to see the patient, [id number]-fimq patient care, completing clinical documentation, obtaining and/or reviewing separately obtained history, performing a medically appropriate examination, counseling and educating the pat ient/family/caregiver, ordering medications, tests, or procedures, independently interpreting results (not separately reported), communicating results to the patient/family/caregiver, and care coordination (not separately reported). Gilmar Alvarez APRN.CHIEF OF PRODUCTION CC: Nuria Gabriel DO, DO & Bri Dove [address] [facility] [address] documented in this encounterParkview Health [facility]05-12-2025 NoteHNO ID: [id number] Author: EDUARDO ALVAREZ APRN.CHIEF OF PRODUCTION Service: ? Author Type: Nurse Practitioner Type: Progress Notes Filed: 09/13/2024 11:57 Note Text: [facility] Initial Evaluation Amanda [facility] presents to [facility] at the request [...] 12/2022 HISTORY OF PRESENT ILLNESS HPI: Amanda Gunn is a 53 year old female with [...] or any previous visit (from the past [id number] hours). PFT: No textual results found for [...] 180 days. tiZANidine ( (more content not included)...[facility]05-06-2025 Telephone encounter Note* Telephone Encounter - Chiquis Hernandez RN - 09/07/2024 10:46 AM EDT Is this upcoming visit related to a covid vaccine reaction? 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 COVID [facility] intake team is not able to assist with disability requests, including work restrictions or clearances as we do not do active treatment and management of long-COVID symptoms, and are not actively involved in long-term care after your 2 visits. Your primary care provider and the consulted specialists we discuss during our visit(s) are better suited for assisting with disabilityrequests. Those providers are welcome use our office note and testing to help support their plans of care. Patients will be expected to have labs, testing, and consults done through [facility]; we cannot fax orders to outside facilities, and do not have access to outside providers. Please be prepared that you may need to travel to [place] multiple times to get all testing done and see the consulted specialist(s). Please arrive 15 minutes early to your appointment. If you are more than 10 minutes late to your appointment you may be asked to reschedule. One week prior to your appointment you should pre-check in via [employer] to complete questionnaires that will provide valuable information to your provider to aid in your visit. You may receive a telephone call to remind you if we see they have not been completed in advance of your visit. If you have outside testing you would like to be entered into your chart, please fax it to [phone]. Records brought in same day of visit may not be reviewed until after the visit due to time constraints. *FYI Current [facility] states are [place], [place], [place], and [place] as of 11/2023. This means patients can only be seen in-person for consults AND follow-ups due to state laws. [facility]05-06-2025 Miscellaneous Notes* Telephone Encounter - Chiquis Hernandez RN - 09/07/2024 10:46 AM EDT Is this upcoming visit related to a covid vaccine reaction? No Did the patient have confirmed or presumed COVID-19 infection after June 2019 and are continuing to have symptoms for at least 90 days (antibody testing NOT accepted): Yes Date of positive test and/or presumed infection(s): 03/08/2020 (presumed, tested positive inER) 12/2022 Type of test (home test or [...] information if they have not been sent [employer] reminder: [facility] functions as a referral service. You will have an initial visit as well as one follow-up visit in which all [facility] testing, imaging, and labs will be discussed. From there on it is expected that you continue to follow up with your PCP and the specialist(s) established through this program. We do not manage symptoms or follow patients intermediate. COVID [facility] intake team is not able to assist with disability requests, including work restrictions or clearances as we do not do active treatment and management of long-COVID symptoms, and are not actively involved in long-term care after your 2 visits. Your primary care provider and the consulted specialists we discuss during our visit(s) are better suited for assisting with disabilityrequests. Those providers are welcome use our office note and testing to help support their plans of care. Patients will be expected to have labs, testing, and consults done through [facility]; we cannot fax orders to outside facilities, and do not have access to outside providers. Please be prepared that you may need to travel to [place] multiple times to get all testing done and see the consulted specialist(s). Please arrive 15 minutes early to your appointment. If you are more than 10 minutes late to your appointment you may be asked to reschedule. One week prior to your appointment you should pre-check in via [employer] to complete questionnaires that will provide valuable information to your provider to aid in your visit. You may receive a telephone call to remind you if we see they have not been completed in advance of your visit. If you have outside testing you would like to be entered into your chart, please fax it to [phone]. Records brought in same day of visit may not be reviewed until after the visit due to time constraints. *FYI Current [facility] states are [place], [place], [place], and [place] as of 11/2023. This means patients can only be seen in-person for consults AND follow-ups due to state laws. documented in this encounterParkview Health [facility]pel[facility]05-05-2025 Instructions* Patient Instructions* Ele Cm PA-C - 09/06/2024 1:15 PM EDT Alesha, I would like to thank you for spending time with me today and taking time to invest in your health. Below I have outlined some recommendations, I highly encourage you to work on. My recommendations only go so far, you have to do the work. Please reach our for support and questions via [employer]. Nutrition: It is also very important to [...] restful sleep everynight (if melatonin is needed thatis ok). Sleep hygiene recommendations: - Create a [...] immune system by working on calming activities. [facility] wellness videos Go to [email or web address] or Ins[employer] is a great free chantel Yoga - Come As You Are (gentle chair yoga) Kg Chi Relaxation for chronic pain - guided meditations Relieve, Relax, Recharge - different meditations available Additional support as recommended by a healing patient: [email or web address]?source_[email or web address]&share_locati on=player_overflow It is also very important to eat an anti-inflammatory diet (<25 grams added sugars), fruits, vegetables, lean meat, salmon, fish, chicken. Healthy fats such as avocado, nuts and seeds support cellmembrane health. Move daily with walks, yoga. Don't overstress while healing. documented in this encounterParkview Health [facility]pel[facility]05-05-2025 History of Present illness Narrative* lEe Cm PA-C - 09/06/2024 1:00 PM EDT Images from the original note were not included. Wellness Consultation Ms.Angela Adrianna Gunn is a 53 year old female is here for a wellness and preventive medicine initial consultation. Consultation requested by Dr. Bri Dove for an opinion regarding post covid fatigue and dizziness. My final recommendations will be communicated back to the requesting physician by way of shared Medical record. Recording using [employer] software for draft documentation of the visit was discussed with the patient/authorized brand representative; all questions welcomed and answered. Patient/authorized brand representative agreed to proceed Chief complaint: fatigue, [...] and she experienced anosmia, ageusia, and fatigue. Shewas not hospitalized and had minimal respiratory symptoms. Since the initial infection, she has experienced persistent symptoms, including chronic fatigue, vertigo described as a constant bobbing sensation, and memory issues. She also reports some brain fog. These symptoms have not improved sincethe initial infection. She has a history of anemia following her COVID-19 infection and reports low ferritin levels recently. Her hemoglobin is currently normal. She is taking iron supplements. She also reports low vitaminD levels and is taking supplements, but her levels have not improved. She is perimenopausal and hasbeen experiencing heavy periods, with one lasting 87 days. She is currently menstruating. She has been under the care of a neurologist, Dr. Dove, who started her on gabapentin 600 mg in February 2021, which has helped with migraines and nerve pain. She also tried vestibular therapy from April 2021 to July or August 2021, but it triggered continuous migraines. She has been on naltrexonefor at least 2 years and had an [...] >2/3day HF: avocado, nuts, cream cheese, british yogurt LES: Eating window: Water: not great [...] which limits her ability to exercise. 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 [...] 100.0 ng/mL 29.5 (L) IMPRESSION: Ms. Amanda Gunn is a 53 year old year old female referred by Dr. Bri Dove for a wellness and preventive medicine consultation regarding post covid fatigue and dizziness. She is already doing manyof the things I would typically entertain including [...] gabapentin 600 mg, naltrexone, and various supplements. Dietis low-carb, high-protein, and low-sugar. Patient has tried [...] gradual increase in physical activity using the Knowta chantel to monitor and manage activity levels. - Previously referred to [facility] for further evaluation and management by pulmonologists. [...] been a pleasure to see Ms. Amanda Gunn for a wellness and preventive medicine consultation. I have asked Amanda Gunn to return to see me 3 months . Thank you for the referral or interest in caring for your whole body and mind. I spent a total of 57 minutes on the date of the service which included preparing to see the patient, tpsf-nr-pcei patient care, completing clinical documentation, obtaining and/or reviewing separately obtained history, performing a medically appropriate examination, counseling and educating the pat ient/family/caregiver, ordering medications, tests, or procedures, communicating with other HCPs (not separately reported), independently interpreting results (not separately reported), and communicating results to the patient/family/caregiver. documented in this encounterParkview Health [facility]05-05-2025 NoteHNO ID: [id number] Author: ELE CM PA-C Service: ? Author Type: Physician Nail Expert Type: Progress Notes Filed: 09/06/2024 13:56 Note Text: Wellness Consultation Ms.Angela Adrianna Gunn is a 53 year old female is here for a wellness and preventive medicine initial consultation. Consultation requested by Dr. Bri Dove for an opinion regarding post covid fatigue and dizziness. My final recommendations will be communicated back to the requesting physician by way of shared Medical record. Recording using [employer] software for draft documentation of the visit was discussed with the patient/authorized brand representative; all questions welcomed and answered. 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 [...] needed. loratadine (CLARITIN) 1 (more content not included)...[id number] Telephone encounter Note* Telephone Encounter - Dajuan Barger RN - 08/19/2024 8:46 AM EDT SARAH: 04/16/2024 NOV: 11/01/2024 [facility]04-17-2025 Miscellaneous Notes* Telephone Encounter - Dajuan Barger RN - 08/19/2024 8:46 AM EDT SARAH: 04/16/2024 NOV: 11/01/2024 documented in this encounterParkview Health [facility]03-20-2025 Telephone encounter Note * Telephone Encounter - Dajuan Barger RN - 07/22/2024 2:23 PM EDT SARAH: 04/16/2024 NOV: 11/01/2024 trial guanfacine 1mg daily, side effects reviewed, patient to provide update in 1mo [facility]03-20-2025 Miscellaneous Notes* Telephone Encounter - Dajuan Barger RN - 07/22/2024 2:23 PM EDT SARAH: 04/16/2024 NOV: 11/01/2024 trial guanfacine 1mg daily, side effects reviewed, patient to provide update in 1mo documented in this encounterParkview Health [facility]02-11-2025 Telephone encounter Note * Telephone Encounter - Sylvie Newman MA - 06/15/2024 8:38 AM EST Last office visit 04/07/23 Future Appt 11/01/24 [facility]02-11-2025 Miscellaneous Notes* Telephone Encounter - Sylvie Newman MA - 06/15/2024 8:38 AM EST Last office visit 04/07/23 Future Appt 11/01/24 documented in this encounterParkview Health [facility]12-13-2024 History of Present illness Narrative* Bri Dove MD - 04/16/2024 4:00 PM EST Images from the original note were not included. General Neurology Outpatient Clinic - virtual f/u visit Date: April 16, 2024 Patient Name: Amanda Gunn Referring physician: Bri Dove [address] [facility] [address] Primary physician: Aron Ugarte [address] [place] [id number] Reason for Evaluation: [facility] f/u I have communicated my name and active licensure. The patient's identity and physical location wereverified at the time of this visit. Either the patient or their legal brand representative has been informed of the risks and benefits of -- and alternatives to -- treatment through a remote evaluation andconsents to proceed with the evaluation remotely. Initially [...] (doesn't help with headaches but helps with paresthesiasand brain buzzing), tizanidine 8mg qhs, coQ10 Current headache abortive: sumatriptan 50mg Prior fatigue medication trial: amantadine, provigil, wellbutrin 300mg daily, namenda 10mg bid Current fatigue medication: none Interval History: She changed to gabapentin at night with stronger dose and it's really helping with sleep. Headachesare mostly with periods or dental work/vision test. [...] 200 mg pllt by IMPLANTATION route. 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 magnesium H-qynmcl-xudztgcskjj 42 mg (500 mg)- 250 mg TbER [...] DIAGNOSTIC (SEPARATE 11/23/2020 LASIK S ABLATION GINNY [id number] 11/23/2020 Hysteroscopy, Ginny endometrial ablation @ [facility]-Dr. West UNSPECIFIED ORAL SURGERY PROCEDURE, BY REPORT [...] menstrual migraines who presents for follow-up of [facility]. Sleep improved on increased dose of GBP, [...] which included preparing to see the patient, ngkw-qf-qhhq patient care, completing clinical documentation, obtaining and/or reviewing separately obtained history, performing a medically appropriate examination, counseling and educating the pat ient/family/caregiver, ordering medications, tests, or procedures, independently interpreting results (not separately reported), and care coordination (not separately reported). Bri Dove MD Staff, General Neurology Pager: [phone] CC: Referring Physician: Bri Dove [address] [place] [id number] PCP: Aron Ugarte [address] [place] [address] [place] [address] documented in this encounterParkview Health [facility]12-13-2024 NoteHNO ID: [id number] Author: BRI DOVE MD Service: ? Author Type: Physician Type: Progress Notes Filed: 04/16/2024 16:07 Note Text: General Neurology Outpatient Clinic - virtual f/u visit Date: April 16, 2024 Patient Name: Amanda Gunn Referring physician: Bri Dove [address] [facility] [address] Primary physician: Aron Ugarte [address] [place] [address] Reason for Evaluation: [facility] f/u I have communicated my name and active licensure. The patient's identity and physical location were verified at the time of this visit. Either the patient or their legal brand representative has been informed of the risks and benefits of -- and alternatives to -- treatment through a remote evaluation and consents to proceed with the evaluation remotely. Initially seen 03/01/2021 for evaluation of [facility]. Most troublesome symptoms included: dizziness/imbalance, fatigue, paresthesias, [...] 200 mg pllt by IMPLANTATION route. 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 magnesium F-ubbpyf-qdjminfkeym 42 mg (500 mg)- 250 mg TbER [...] DIAGNOSTIC (SEPARATE 11/23/2020 LASIK S ABLATION GINNY [id number] 11/23/2020 Hysteroscopy, Ginny endometrial ablation @ [facility]-Dr. West UNSPECIFIED ORAL SURGERY PROCEDURE, BY REPORT [...] ALLERGIES No Known Al (more content not included)...[facility]10-23-2024 Telephone encounter Note* Telephone Encounter - Rebecca Lr MA - 02/25/2024 9:11 AM EDT Last office visit 10-14-23 Future appts 04-16-24 [facility]10-[facility] Miscellaneous Notes* Telephone Encounter - Rebecca Lr MA - 02/25/2024 9:11 AM EDT Last office visit 10-14-23 Future appts 04-16-24 documented in this encounterParkview Health [facility]08-14-2024 Telephone encounter Note * Telephone Encounter - Sylvie Newman MA - 12/17/2023 7:46 AM EDT Last office visit 04/07/23 Future Appt 04/16/24 [facility]08-[facility] Miscellaneous Notes* Telephone Encounter - Sylvie Newman MA - 12/17/2023 7:46 AM EDT Last office visit 04/07/23 Future Appt 04/16/24 documented in this encounterParkview Health [facility]07-29-2024 Telephone encounter Note * Telephone Encounter - Sylvie Newman MA - 12/01/2023 8:07 AM EDT Last office visit 04/07/23 Future Appt 04/16/24 [facility] Miscellaneous Notes* Telephone Encounter - Sylvie Newman MA - 12/01/2023 8:07 AM EDT Last office visit 04/07/23 Future Appt 04/16/24 documented in this encounterParkview Health [facility]06-11-2024 History of Present illness Narrative* Bri Dove MD - 10/14/2023 4:00 PM EDT Images from the original note were not included. General Neurology Outpatient Clinic - virtual f/u visit Date: October 14, 2023 Patient Name: Amanda Gunn Referring physician: No referring provider defined for this encounter. Primary physician: Aron Ugarte [address] [place] [id number] Reason for Evaluation: [facility] f/u I have communicated my name and active licensure. The patient's identity and physical location wereverified at the time of this visit. Either the patient or their legal brand representative has been informed of the risks and benefits of -- and alternatives to -- treatment through a remote evaluation andconsents to proceed with the evaluation remotely. Initially [...] (doesn't help with headaches but helps with paresthesiasand brain buzzing), tizanidine 8mg qhs, coQ10 Current [...] 200 mg pllt by IMPLANTATION route. 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 magnesium J-ygcqyd-yiidtfnrdxo 42 mg (500 mg)- 250 mg TbER [...] DIAGNOSTIC (SEPARATE 11/23/2020 LASIK S ABLATION GINNY [id number] 11/23/2020 Hysteroscopy, Ginny endometrial ablation @ [facility]-Dr. West UNSPECIFIED ORAL SURGERY PROCEDURE, BY REPORT [...] menstrual migraines who presents for follow-up of [facility]. She's had improvement in migraines but unfortuantely did not benefit from namenda for fatigue. Still has dizziness and intermittent pareshtesias. PLAN: - update CBC, CMP - increase night-time dose of GBP - f/u 6mo virtually I spent a total of 20 minutes on the date of the service which included preparing to see the patient, jybo-ep-ogcj patient care, completing clinical documentation, obtaining and/or reviewing separately obtained history, performing a medically appropriate examination, counseling and educating the pat ient/family/caregiver, ordering medications, tests, or procedures, and care coordination (not separately reported). Bri Dove MD Staff, General Neurology Pager: [phone] CC: Referring Physician: No referring provider defined for this encounter. PCP: Aron Ugarte [address] [place] [id number] documented in this encounterParkview Health [facility]12-04-2023 History of Present illness Narrative* Bri Dove MD - 04/07/2023 11:30 AM EST General Neurology Outpatient Clinic - f/u visit Date: April 07, 2023 Patient Name: Amanda Gunn Referring physician: No referring provider defined for this encounter. Primary physician: Aron Ugarte NO FORWARDING ADDRESS Reason for Evaluation: [facility] f/u Initially seen 03/01/2021 for evaluation of [facility]. Most troublesome symptoms included: dizziness/imbalance, fatigue, paresthesias, headaches. Started on GBP for symptomatic management. Referred to vestibular therapy and advised to use elbow brace on right arm. EMG without neuropathy, US RUE without nerve compression. Most recently seen with clinical improvement after starting progesterone,testosterone pellets, low dose naltrexone, metformin with [facility] doctor. Planning daughter's wedding in November Prior [...] 200 mg pllt by IMPLANTATION route. 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 magnesium J-reddhd-rfbzjbjcimt 42 mg (500 mg)- 250 mg TbER [...] DIAGNOSTIC (SEPARATE 11/23/2020 LASIK S ABLATION GINNY [id number] 11/23/2020 Hysteroscopy, Ginny endometrial ablation @ [facility]-Dr. West UNSPECIFIED ORAL SURGERY PROCEDURE, BY REPORT [...] 5 Triceps: 5 Biceps: 5 Biceps: 5 Rn Ostomy: 5 Rn Ostomy: 5 Finger abduction: 5 Finger abduction: 5 [...] proprioception Coordination: Finger-to- nose-finger intact bilaterally and Rnxc-ne-vkqu intact bilaterally. Gait: normal-based. Normal tiptoe, heel. [...] Abs Lymph 1.00 - 4.00 k/uL 1.30 [place]% % 7.6 Abs [place] <0.87 k/uL 0.39 Eosin% % 2.7 Abs [...] menstrual migraines who presents for follow-up of [facility]. Headaches improved in interim, able to wean down on GBP dosing. PLAN: - continue gabapentin 300mg qhs, tizanidine 8mg qhs - continue sumatriptan 50mg prn - trial namenda, side effects reviewed, uptitrate as needed/tolerated - f/u 6mo virtually I spent a total of 25 minutes on the date of the service which included preparing to see the patient, yphi-pm-wxsp patient care, completing clinical documentation, obtaining and/or reviewing separately obtained history, performing a medically appropriate examination, counseling and educating the pat ient/family/caregiver, ordering medications, tests, or procedures, and independently interpreting results (not separately reported). Bri Dove MD Staff, General Neurology Pager: [phone] CC: Referring Physician: No referring provider defined for this encounter. PCP: Aron Ugarte NO FORWARDING ADDRESS documented in this encounterParkview Health [facility]08-02-2023 Miscellaneous Notes* Telephone Encounter - Olimpia Limon OCCA - 12/04/2022 2:15 PM EDT Last office visit 10-11-22 No Future appt documented in this encounterParkview Health [facility]03-02-2023 Miscellaneous Notes* Telephone Encounter - Dajuan Barger RN - 07/04/2022 8:08 AM EST SARAH: 04/01/22 NOV: 10/11/22 documented in this encounterParkview Health [facility]01-18-2023 Miscellaneous Notes* Telephone Encounter - Tona Edmar Aurora Meyers - 05/22/2022 7:48 AM EST Patient requesting refills as follows: Requested Prescriptions Pending Prescriptions Disp Refills gabapentin (NEURONTIN) 300 mg capsule 60 capsule 2 Sig: Take 1 capsule by mouth twice daily for 90 days. SARAH: 04/01/2022 ([facility]) Upcoming Appointment: 10/11/2022 Please review and advise. Thank You, Tona Simon Ma May 22, 2022 7:48 AM documented in this [facility]12-07-2022 Miscellaneous Notes* Telephone Encounter - Dione Loera - 04/10/2022 8:06 AM EST Patient scheduled. documented in this encounterPark[facility]12-05-2022 Miscellaneous Notes* Telephone Encounter - Nataly West MD - 04/08/2022 7:50 AM EST Signed. * Telephone Encounter - Rebecca Arora LPN - 04/05/2022 2:55 PM EST See pended order below. Pt wanting to schedule. Rebecca Arora LPN documented in this encounterParkview Health [facility]pel[facility]11-28-2022 History of Present illness Narrative* Bri Dove MD - 04/01/2022 11:00 AM EST Images from the original note were not included. General Neurology Outpatient Clinic - virtual f/u visit Date: April 01, 2022 Patient Name: Amanda Gunn Referring physician: Bri Dove [address] [facility] [address] Primary physician: [place] [address] Reason for Evaluation: PASC, headaches f/u Initially [...] (doesn't help with headaches but helps with paresthesiasand brain buzzing), tizanidine 8mg qhs, periactin 4mg [...] ORAL) Take 250 mcg by mouth. magnesium Y-bucqnr-fvojusdxevp 42 mg (500 mg)- 250 mg TbER [...] DIAGNOSTIC (SEPARATE 11/23/2020 LASIK S ABLATION GINNY [id number] 11/23/2020 Hysteroscopy, Ginny endometrial ablation @ [facility]-Dr. West UNSPECIFIED ORAL SURGERY PROCEDURE, BY REPORT [...] menstrual migraines who presents for follow-up of [facility]. Shehas had benefit from mediations for headaches though [...] which included preparing to see the patient, ffpw-iv-xylz patient care, completing clinical documentation, obtaining and/or reviewing separately obtained history, performing a medically appropriate examination, counseling and educating the pat ient/family/caregiver, ordering medications, tests, or procedures, and care coordination (not separately reported). Bri Dove MD Staff, General Neurology Pager: [phone] CC: Referring Physician: Bri Dove [address] [facility] [address] PCP: Aron Ugarte [address] [place] [phone] documented in this encounterParkview [facility]10-10-2022 Miscellaneous Notes* Telephone Encounter - Rebecca Lr Ma - 02/11/2022 8:37 AM EDT Last office visit 03-01-21 Future appts 04-01-22 documented in this encounterParkview Health [facility]09-27-2022 Miscellaneous Notes* Telephone Encounter - Rebecca Lr Ma - 01/29/2022 1:59 PM EDT Martinez [id number] Last name Jermaine Manuel 1970 Modafinil 100 mg tablets PA Case: [id number], Status: Approved, Coverage Starts on: 01/29/2022 12:00:00 AM, Coverage Ends on: 01/29/2023 12:00:00 AM. documented in this encounterParkview Health [facility]09-27-2022 Miscellaneous Notes* Telephone Encounter - Rebecca Lr Ma - 01/29/2022 8:27 AM EDT Last office visit 03-01-21 Future appts 04-01-22 documented in this encounterParkview Health [facility]09-23-2022 Miscellaneous Notes* Telephone Encounter - Tona Simon Ma - 01/25/2022 1:09 PM EDT Please review and advise. Thank You, Tona Simon Ma January 25, 2022 1:09 PM documented in this encounterParkview Health [facility]08-29-2022 Miscellaneous Notes* Telephone Encounter - Susan Barrera - 12/31/2021 8:51 AM EDT Last office visit: 12/03/21 Next office visit: [...] and advise. Susan Barrera documented in this encounterParkview Health [facility]pel[facility]08-24-2022 Miscellaneous Notes* Telephone Encounter - Tona Simon Ma - 12/26/2021 8:51 AM EDT SARAH: 12/03/2021 Please review and advise. Thank You, Tona Simon Ma December 26, 2021 8:51 AM documented in this encounterParkview Health [facility]08-01-2022 Instructions* Patient Instructions* Bri Dove MD - 12/03/2021 11:31 AM EDT I'm so glad the headaches are better! We're going to switch you from benadryl at night to a medicine called periactin. It is also a histamine. We often use it for kids with migraines or ladies who have migraines. We'll start at4mg at bedtime but we can certainly increase or decrease the dose as needed. Please keep me updatedon how you do! We'll see each other in 3 months virtually for an update but please don't hesitate to reach out before then! documented in this encounterParkview Health [facility]08-01-2022 History of Present illness Narrative* Bri Dove MD - 12/03/2021 11:30 AM EDT Images from the original note were not included. General Neurology Outpatient Clinic - f/u visit Date: December 03, 2021 Patient Name: Amanda Gunn Referring physician: No referring provider defined for this encounter. Primary physician: Aron Ugarte [address] [place] [id number] Reason for Evaluation: PASC f/u Initially seen [...] (doesn't help with headaches but helps with paresthesiasand brain buzzing), tizanidine 8mg qhs Current headache abortive: sumatriptan 50mg Interval History: Patient did not have benefit from zonisamide and so switched to tizanidine for headache preventive.She does feel neck tightness. Did help some, dose increased to 8mg qhs and has had benefit on overall frequency of headaches. Now at 8-10/mo but these always abort with imitrex. 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 She's wondering if she should [...] ORAL) Take 250 mcg by mouth. magnesium K-ifbpvv-yzvvnblnsqq 42 mg (500 mg)- 250 mg TbER [...] DIAGNOSTIC (SEPARATE 11/23/2020 LASIK S ABLATION GINNY [id number] 11/23/2020 Hysteroscopy, Ginny endometrial ablation @ [facility]-Dr. West UNSPECIFIED ORAL SURGERY PROCEDURE, BY REPORT [...] 5 Triceps: 5 Biceps: 5 Biceps: 5 Rn Ostomy: 5 Rn Ostomy: 5 Finger abduction: 5 Finger abduction: 5 [...] pinprick Coordination: Finger-to- nose-finger intact bilaterally and Xdhy-yy-bjls intact bilaterally. Gait: normal-based. Normal tiptoe, heel, tandem gait Romberg: neg ASSESSMENT: 51 year old RH female with a history of menstrual migraines who presents for follow-up of [facility]. Herfatigue and RUE paresthesias remain stable. Her sensation of brain buzzing has been helped by GBP. Headache frequency has decreased overall in tizanidine. She is curious if she should wean off benadryl which she has been using for sleeping. Discussed possibility of initiating periactin, which can also help with headaches, to replace benadryl since it's also an anti- histamine. Patient would like to try PLAN: - continue GBP 300mg bid - continue tizanidine 8mg qhs, sumatriptan 50mg prn for headaches - stop benadryl - start periactin 4mg qhs, reviewed side effects, titrate as needed/tolerated - f/u 3mo virtually for update I spent a total of 25 minutes on the date of the service which included preparing to see the patient, tnwl-bj-scja patient care, completing clinical documentation, obtaining and/or reviewing separately obtained history, performing a medically appropriate examination, counseling and educating the pat ient/family/caregiver and ordering medications, tests, or procedures. Bri Dove MD Staff, General Neurology Pager: [phone] CC: Referring Physician: No referring provider defined for this encounter. PCP: [place] [address] documented in this encounterParkview Health [facility]07-19-2022 Miscellaneous Notes* Telephone Encounter - Tona Simon Ma - 11/20/2021 7:34 AM EDT Patient requesting refills as follows: Pending Prescriptions Disp Refills SUMATRIPTAN 50 MG TABLET 8 tablet 0 Sig: Take 1 tablet by mouth as needed (at onset of headache. May repeat after 2 hours.). VIV: No SARAH: 08/13/2021 Upcoming Appointment: 12/03/2021 Please review and advise. Thank You, Tona Simon Ma November 20, 2021 8:09 AM documented in this encounterParkview Health [facility]06-27-2022 Miscellaneous Notes* Telephone Encounter - Tona Simon Ma - 10/29/2021 8:08 AM EDT Patient requesting refills as follows: Pending Prescriptions Disp Refills GABAPENTIN 300 MG CAPSULE 60 capsule 2 Sig: Take 1 capsule by mouth twice daily for 90 days. VIV: No SARAH: 08/13/2021 Upcoming Appointment: 12/03/2021 Please review and advise. Thank You, Tona Simon Ma October 29, 2021 8:10 AM documented in this [facility]06-21-2022 Miscellaneous Notes* Telephone Encounter - Melanie Medina APRN.CNP - 10/23/2021 3:15 PM EDT Orders filed. Melanie Medina APRN.CNP * Telephone Encounter - Rebecca Arora LPN - 10/23/2021 2:18 PM EDT Please see pended order below. Pt scheduled for this. Rebecca Arora LPN * Telephone Encounter - Christina Vee, RT(R) - 10/23/2021 2:06 PM EDT Pt is due for her 6 month fu of right breast. Please enter Diagnostic Mammogram of Right (calcifications so no US needed) tx! documented in this encounterParkview Health [facility]04-15-2022 Miscellaneous Notes* Telephone Encounter - Tona Simon Ma - 08/17/2021 8:51 AM EDT SARAH: 08/13/2021 Please review and advise. Thank You, Tona Simon Ma August 17, 2021 8:51 AM documented in this encounterParkview Health [facility]04-11-2022 Instructions* Patient Instructions* Bri Dove MD - 08/13/2021 5:02 PM EDT We're going to start topamax at bedtime to see if it can help with the headaches. It can cause morenumbness/tingling which usually improves with time. It can cause dizziness and sleepiness as well documented in this encounterParkview Health [facility]04-11-2022 History of Present illness Narrative* Bri Dove MD - 08/13/2021 4:30 PM EDT Images from the original note were not included. General Neurology Outpatient Clinic - f/u visit Date: August 13, 2021 Patient Name: Amanda Gunn Referring physician: Bri Dove [address] [facility] [address] Primary physician: Aron Ugarte [address] [place] [id number] Reason for Evaluation: [facility] f/u Initially seen 03/01/2021 for evaluation of post COVID syndrome. Most troublesome symptoms included: dizziness/imbalance, fatigue, paresthesias, headaches. Started on GBP for symptomatic management. Referred to vestibular therapy and advised to use elbow brace on right arm. Most recently seen 022 for follow-up, plan for amantadine trial for fatigue and switch to naratriptan for menstrual migraines Interval History: Stopped amantadine in June because it wasn't helping symptomatically and actually made her feelworse. Completed total 13 PT sessions for dizziness. [...] days, THEN 1 capsule twice daily. magnesium J-hkgcft-ikgaeqhplto 42 mg (500 mg)- 250 mg TbER [...] DIAGNOSTIC (SEPARATE 11/23/2020 LASIK S ABLATION GINNY [id number] 11/23/2020 Hysteroscopy, Ginny endometrial ablation @ [facility]-Dr. West UNSPECIFIED ORAL SURGERY PROCEDURE, BY REPORT [...] 5 Triceps: 5 Biceps: 5 Biceps: 5 Rn Ostomy: 5 Rn Ostomy: 5 Finger abduction: 5 Finger abduction: 5 [...] proprioception Coordination: Finger-to- nose-finger intact bilaterally and Gvyt-mp-ppzf intact bilaterally. Gait: normal-based. Normal tiptoe, tandem [...] abnormality of the adjacent tendons or bone isidentified. ASSESSMENT: a 50 year old RH female with a history of menstrual migraines who presents for follow-up of post-COVID syndrome. EMG without median neruopathy or cervical radiculopathy. Paresthesias manageable on GBP. She has been having almost daily headaches since May similar to her menstrual migraines. Mildbut annoying PLAN: - continue GBP 300mg bid - add TPM qhs for headaches - f/u 3mo I spent a total of 30 minutes on the date of the service which included preparing to see the patient, fooi-pd-smih patient care, completing clinical documentation, obtaining and/or reviewing separately obtained history, performing a medically appropriate examination, counseling and educating the pat ient/family/caregiver, ordering medications, tests, or procedures and independently interpreting results (not separately reported). Bri Dove MD Staff, General Neurology Pager: [phone] CC: Referring Physician: Bri Dove [address] [facility] [address] PCP: Aron Ugarte [address] [place] [phone] documented in this encounterParkview Health [facility]03-31-2022 History of Present illness Narrative* Robinson Farrell, PT - 08/02/2021 12:35 PM EDT Episode Visit Count: 13 Therapist That Will Oversee The Plan Of Care: Robinson Esteveza Start of Care Date: 03/12/21 Onset Date: 03/19/20 Patient Identified by Name and Date of : Yes [facility]Y PHYSICAL THERAPY DISCONTINUANCE OF CARE PLAN OF CARE UPDATE: Assessment: Amanda Gunn is discontinued from Physical Therapy services due to goal achievement and maximal benefit.. Patient was seen for 13 visits from Start of Care Date: 03/12/21 to 08/03/2021 and treatment included: Therapeutic exercise, Neuromuscular re-education, Manual therapy, Therapeuticactivities, Self-snf management, Gait training and Patient/Family/Caregiver Education. Patient [...] on 03/12/21 Patient will improve FGA to in order to perform functional tasks with improved stability: Not met: . Patient will demonstrate normal active cervical spine range of motion to restore posture and complete ADLS with trace report of dizziness/imbalance: MOSTLY MET: ROM WFL but she adopts a mildly forward head posture in sitting. Improved awareness and self correction. Dizziness unchanged with cervicalROM and is at min-moderate levels. Patient will [...] Minutes (timed and untimed codes) : 56 Robinson Farrell PT documented in this encounterParkview Health [facility]03-22-2022 Miscellaneous Notes* Telephone Encounter - Tona Simon Ma - 07/24/2021 8:23 AM EDT Patient requesting refills as follows: Pending Prescriptions Disp Refills GABAPENTIN 300 MG CAPSULE 60 capsule 2 Sig: Take 1 capsule by mouth twice daily for 90 days. VIV: No SARAH: 06/01/2021 Upcoming Appointment: 08/31/2021 Please review and advise. 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 Menstrual migraine without status migrainosus, not intractable Menstrual migraine, without mention of intractable migraine without mention of status migrainosus documented in this encounter [facility]* Diagnosis Menstrual migraine without status migrainosus, not intractable Menstrual migraine, without mention of intractable migraine without mention of status migrainosus [facility] Diagnosis Breast calcifications- Primary Other (abnormal) findings on radiological examination of breast documented in this encounter [facility]* Diagnosis Menstrual migraine without status migrainosus, not intractable Menstrual migraine, without mention of intractable migraine without mention of status migrainosus [facility]* Diagnosis Follow-up examination of abnormal mammogram- Primary Abnormal mammogram, unspecified [facility]* Diagnosis Breast calcifications Other (abnormal) findings on radiological examination of breast [facility]* Diagnosis 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 Menstrual migraine without status migrainosus, not intractable Menstrual migraine, without mention of intractable migraine without mention of status migrainosus Chronic daily headache Headache documented in this encounter [facility]* Diagnosis 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 Other fatigue [facility]* Diagnosis Menstrual migraine without status migrainosus, not intractable Menstrual migraine, without mention of intractable migraine without mention of status migrainosus documented in this encounter [facility]* Diagnosis 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 Chronic daily headache Headache Chronic insomnia Insomnia, unspecified Postviral fatigue syndrome Chronic fatigue syndrome Menstrual migraine without status migrainosus, not intractable Menstrual migraine, without mention of intractable migraine without mention of status migrainosus documented in this encounter [facility]* Diagnosis Encounter for screening mammogram for malignant neoplasm of breast- Primary Other screening mammogram [facility] Diagnosis 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 Chronic daily headache Headache [facility]* Diagnosis 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 [facility]* Diagnosis Menstrual migraine without status migrainosus, not intractable Menstrual migraine, without mention of intractable migraine without mention of status migrainosus documented in this encounter [facility]* Diagnosis Post-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) documented in this encounter [facility] note* Diagnosis 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 documented in this encounter [facility]* Diagnosis 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 Chronic fatigue, unspecified Activity intolerance Other general symptoms Dizziness Dizziness and giddiness Screening for endocrine, nutritional, metabolic and immunity disorder Screening for other and unspecified endocrine, nutritional, metabolic, and immunity disorders Sleep disturbance Sleep disturbance, unspecified Perimenopausal disorder Unspecified menopausal and postmenopausal disorder Vitamin D deficiency Unspecified vitamin D deficiency [facility]* Diagnosis Malaise and fatigue- Primary Other [...] of unspecified site documented in this encounter [facility]* Diagnosis 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 documented in this encounter [facility]* Diagnosis Chronic pain syndrome- Primary Chronic fatigue syndrome [id number] condition Pain in right hand Chronic low back pain with sciatica, sciatica laterality unspecified, unspecified back pain laterality Insomnia due to medical condition Insomnia due to medical condition classified elsewhere Pain in right arm documented in this encounter [facility] Author Narcisa English [facility] Note Date/Time December 17, 2024 1: 24pm [facility] [address] [place] [address], [address] [place] [address] OFFICE VISIT Date of Service: 12/17/24 MR#: [id number] Acct: [id number] Name: AMANDA GUNN OCTOBER Rep #: [id number] : 1970 Provider: Dr. 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: No Is patient in pain?: No Allergies topiramate Allergy (Severe, Verified 12/17/24 13:00) sores in mouth levonorgestrel (From Mirena) Adverse Reaction (Verified 12/17/24 13:00) Bleeding Medications ?Medication ?Instructions ?Recorded ?Confirmed ?Type gabapentin 600 mg tablet 600 mg PO QDAY 09/29/2412/03 History melatonin 3 mg capsule 3 mg PO HS PRN sleep 5 12/17/24 History naltrexone 4.5 mg capsule 6 mg PO .hs 09/29/24 5 History sumatriptan succinate 50 mg tablet 50 mg PO ONCE PRN m igraine headache 09/29/24 12/17/24 History tizanidine 4 mg capsule 8 mg PO QHS PRN muscle spast icity 09/29/24 12/17/24 History Post menopausal: No Patient : No : No PFSH Medical History Post-menopausal History of COVID-19 Post-COVID syndrome Anxiety Alcohol use Anemia Migraine headache Non-smoker Leg cramps Seasonal allergies Surgical History H/O endoscopy H/O prior ablation treatment History of colonoscopy History of esophagogastroduodenoscopy (EGD) Hx of [facility] [place] teeth extracted Family History Sister Anemia Grandmother Cervical cancer Father Colon cancer Myocardial infarction, Onset Age: 59 Diabetes Heart disease Anemia Angina at rest Mother Breast cancer Hypertension Other FH: migraines Family history of high cholesterol Kidney disease Thyroid disorder Social History adopted: No household members: family housing: house number of children: 4 current occupational status: employed current occupation: [employer] current occupational exposures/hazards: No pets and animals: Yes pets and animals: cat(s) and dog(s) history of recent travel: No sexually active: Yes Smoking Status: Never smoker substance use type: does not use diet: low carbohydrate well-balanced diet: daily or most days caffeine: No eating out: 1-3 times/week during the past year weight has: decreased > 10 lbs what type of physical activity do you participate in: walking jacque/druze: Judaism seatbelt use: always do you feel safe at home: Yes additional social history: - [place] HPI TRH BS Cysto Details: AMANDA GUNN is a 54 year old (vaginal) who presents for discussion about hysterectomy and EMB. She reports she has irregular menses. She has 23 daycycles typically; however prior to this her cycles was 30 and prior 27. Within these she has had 11 days of bleeding; 13 days bleeding, and then an 87 long bleed time earlier this year (-Jul 01). Most recent blood work was completed in September (on Mychart) which CBC was stable; TSH, T4 stable. She reports she suffers from long haul covid--fatigue; lightheaded/dizzy from this but does not feel exacerbated during her menses. Previous vaginal deliveries. History of ablation (2020) s/p IUD mirena where she had reaction and bled out from this. She recently (past 2 years) was having treatment through a different provider with testosterone pellets as well as progesterone therapy. Did not notice any improvement or changes with this. Originally started due to fatigue secondary tolong haul Covid. Last PAP: 2019; normal/negative. History of abnormal PAP: none. ultrasound shows the following: FINDINGS: The uterus is anteverted and measures 11.4 x 7.8 x 9 cm. Posterior/fundal fibroid measuring 5 x 3.9 x 4.1 cm is noted. Endometrium measures 20 mm. Endometrium appears hyperechoic. Endometrial fluid is noted. Endometrium mass/polyp measuring 0.7 x 0.6 x 0.6 cm is noted. Lower uterine segment calcification measuring 0.5 x 0.6 x 0.2 cm is noted. Right ovary measures 4.3 x 3.3 x 2.5 cm. Normal blood flow is noted. Cyst measuring 3 x 2.4 x 2.1 cm is noted. Left ovary measures 4 x 3.6 x 2.6 cm. Normal flow is noted. Cyst measuring 2.4x 2.5 x 2.2 cm. No free fluid in the posterior cul-de-sac. US/Pelvic w/ Transvaginal IMPRESSION: Thickened endometrium with possible endometrium best/polyp. Endometrial fluid is noted. MRI is advised. Uterine fibroid. Bilateral ovarian cysts. History 4 Elective abortions Hx Para 4 Spontaneous abortions Hx # Term Pregnancies Ectopic pregnancies Hx # Pregnancies Multiple births # of living children 4 ROS Const ROS Unobtainable: All systems reviewed & are unremarkable except as noted in H Resp Resp: Reports system reviewed and no additional complaints, except as documented; Denies cough GI GI: Reports as per HPI Psych Psych: Reports system reviewed and no additional complaints, except as documented Exam Const General: cooperative, healthy appearing, comfortable and no acute distress Resp Effort & Inspection: normal respiratory effort Skin General: no rashes or lesions noted Psych Appearance: grossly normal Speech and Movement: speech and movement normal Coding Level of Care Code Off vis,est,level 4 Diagnoses Bilateral ovarian cysts N83.201; N83.202 Uterine fibroid D25.9 Abnormal uterine bleeding (AUB) N93.9 Assessment and Plan Assessment and Plan (1) Bilateral ovarian cysts: Status: Acute (2) Uterine fibroid: Status: Acute (3) Abnormal uterine bleeding (AUB): Status: Acute Plan AMANDA GUNN is a 54 year old (vaginal) who presents for discussion abouthysterectomy and EMB. She reports she has irregular menses. She has 23 day cycles typically; however prior to this her cycles was 30 and prior 27. Within these she has had 11 days of bleeding; 13 days bleeding, and then an 87 long bleed time earlier this year (-Jul 01). Most recent blood work was completed in September (on Mychart) which CBC was stable; TSH, T4 stable. She reports she suffers from long haul covid--fatigue; lightheaded/dizzy from this but does not feel exacerbated during her menses. Previous vaginal deliveries. After discussing the patient's diagnosis and treatment plan options, patient wishes to proceed with surgical management. I have discussed with the patient the risks, benefits, and alternatives of the procedure which include but are notlimited to risks of anesthesia, bleeding, infection, possible damage to bowel, bladder, or surrounding vasculature which could lead to additional surgery to evaluate any complications. Patient agrees to procedure and wishes to proceed. ACOG/uptodate references given for additional information regarding procedure. plan is for total robotic hyst, bs, cysto, possible lysis of endometriosis and adhesions 12/17/24 1324 <Electronically signed by Narcisa Reed DO> Date _ Narcisa Chaudhary DO Cosigner Signature: Date (if applicable) CC: ~ [place] [employer] Work Phone: Reason for referral (narrative)* Diagnostic Procedure Only (Routine) - Pending Review Specialty Diagnoses / Procedures Referred By Contac t Referred To Contact [facility] Diagnoses Breast calcifications Procedures ELYSE DIAGNOSTIC RT DIAGNOSTIC MAMMOGRAPHY COMPUTER-AIDED [facility] Melanie Medina APRN.CHIEF OF PRODUCTION [address] [place] [address] [facility] [address] [place] [address] Referral ID Status Reason Start Date Expiration Date Visits Requested Visits Authorized [id number] Pending Review Auto-Generat ed Referral 10/23/2021 11/22/2022 1 1 [facility] for referral (narrative)* Diagnostic Procedure Only (Routine) - Pending Review Specialty Diagnoses / Procedures Referred By Contac t Referred To Contact [facility] Diagnoses Follow-up examination of abnormal mammogram Procedures US BREAST LTD RT US BREAST UNI REAL TIME WITH IMAGE LIMITED Melanie Medina APRN.CHIEF OF PRODUCTION [address] [place] [address] [facility] [address] [email or web address] [address] Referral ID Status Reason Start Date Expiration Date Visits Requested Visits Authorized [id number] Pending Review Auto-Generat ed Referral 11/27/2021 12/27/2022 1 1 * Diagnostic Procedure Only (Routine) - Pending Review Specialty Diagnoses / Procedures Referred By Contac t Referred To Contact [facility] Diagnoses Follow-up examination of abnormal mammogram Procedures ELYSE DIAGNOSTIC RT DIAGNOSTIC MAMMOGRAPHY COMPUTER-AIDED [facility] Melanie Lake APRN.CHIEF OF PRODUCTION [address] [place] [address] [facility] [address] [email or web address] [address] Referral ID Status Reason Start Date Expiration Date Visits Requested Visits Authorized [id number] Pending Review Auto-Generat ed Referral 11/27/2021 12/27/2022 1 1 [facility] for referral (narrative)* Diagnostic Procedure Only (Routine) - Closed Specialty Diagnoses / Procedures Referred By Contac t Referred To Contact [facility] Diagnoses Breast calcifications Procedures ELYSE DIAGNOSTIC RT DIAGNOSTIC MAMMOGRAPHY COMPUTER-AIDED [facility] Melanie Lake APRN.CHIEF OF PRODUCTION [address] [place] [address] [facility] [address] [place] [id number] Referral ID Status Reason Start Date Expiration Date V isits Requested Visits Authorized [id number] Closed Auto-Generate d Referral 10/23/2021 11/22/2022 1 1 [facility] for referral (narrative)* Diagnostic Procedure Only (Routine) - Authorized Specialty Diagnoses / Procedures Referred By Contac t Referred To Contact [facility] Diagnoses Encounter for screening mammogram for malignant neoplasm of breast Procedures ELYSE SCREENING W DEBRA SCREENING DIGITAL BREAST TOMOSYNTHESIS BI SCREENING MAMMOGRAPHY BI 2-VIEW BREAST INC CAD Nataly Baker MD [address] [place] [address] [facility] [address] [place] [address] Referral ID Status Reason Start Date Expiration Date Visits Requested Visits Authorized [id number] Authorized Auto-Generat ed Referral 04/08/2022 05/05/2023 1 1 [facility] for referral (narrative)No reason for referral information [facility] Work Phone: Reason for visit Narrative* Diagnostic Procedure Only (Routine) - Closed Specialty Diagnoses / Procedures Referred By Bre t Referred To Contact [facility] Diagnoses Breast calcifications Procedures ELYSE DIAGNOSTIC RT DIAGNOSTIC MAMMOGRAPHY COMPUTER-AIDED [facility] Melanie Lake APRN.CHIEF OF PRODUCTION [address] [place] [address] [facility] [address] [place] [address] Referral ID Status Reason Start Date Expiration Date V isits Requested Visits Authorized [id number] Closed Auto-Generate d Referral 10/23/2021 11/22/2022 1 1 [facility] Advance Directives No Advanced Directives Records FoundDocuments on File Type Date Recorded Patient Roll Out Manager Expl anation Advance Directive(s) 05/17/2020 9:07 AM Advance Directive(s) 05/17/2020 9:09 AM Advance Directive(s) 05/04/2020 2:41 PM Documents on File Type Date Recorded Patient Roll Out Manager Expl anation Advance Directive(s) 05/17/2020 9:07 AM Advance Directive(s) 05/17/2020 9:09 AM Advance Directive(s) 05/04/2020 2:41 PM Reason for Referral Specialty Diagnoses / Procedures Referred By Bre t Referred To Contact Diagnoses Post-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) Procedures PROVIDER ORDERED FOLLOW UP OFFICE/OUTPATIENT [facility] 60 MINUTES Bri Dove MD [address] [place] [address] Referral ID Status Reason Start Date Expiration Date Visits Requested Visits Authorized [id number] Authorized PCP Requested Referral 10/13/2024 1 1 Referral ID Status Reason Start Date Expiration Date Visits Requested Visits Authorized [id number] Authorized PCP Requested Referral 10/15/2024 04/16/2025 1 1 Summary Purpose Family History No Family History Records Found Relationship Condition Age at Onset Recorded Date/T [...] Malignant neoplasm of breast Unknown Hypertension Unknown Chief Complaint and Reason for Visit Chief Complaint Admit Date Annual (NUT CULLER) October 25, 2024 8:42 am Reason for Visit Admit Date Irregular menstrual bleeding October 25, 2024 8:42am Screening for colon cancer October 25 8:42am Encounter for routine gynecological exam ination October 25, 2024 8:42am Chief Complaint Admit Date Annual (NUT CULLER) October 25, 2024 8:42 am AUB October 25, 2024 4:50 pm Reason for Visit Admit Date Abnormal uterine bleeding (AUB) October 8:42am Screening for colon cancer October 25 8:42am Encounter for routine gynecological exam ination October 25, 2024 8:42am Chief Complaint Admit Date Annual (NUT CULLER) October 25, 2024 8:42 am AUB October 25, 2024 4:50 pm screening breast cancer November 03, 2024 7 :39am Chief Complaint Admit Date Annual (NUT CULLER) October 25, 2024 8:42 am AUB October 25, 2024 4:50 pm screening breast cancer November 03, 2024 7 :39am EMB per CB November 15, 2024 3:03 pm Reason for Visit Admit Date Abnormal uterine bleeding (AUB) October 8:42am Screening for colon cancer October 25 8:42am Encounter for routine gynecological exam ination October 25, 2024 8:42am Abnormal uterine bleeding (AUB) November 3:03pm Irregular menstrual bleeding November 15, 2024 3:03pm Poison wendy dermatitis November 15, 2024 3: 03pm Thickened endometrium November 15, 2024 3: 03pm Uterine fibroid November 15, 2024 3:03 pm Chief Complaint Admit Date Annual (NUT CULLER) October 25, 2024 8:42 am AUB October 25, 2024 4:50 pm screening breast cancer November 03, 2024 7 :39am EMB per CB November 15, 2024 3:03 pm TRH BS Cysto December 17, 2024 12 :50pm Reason for Visit Admit Date Abnormal uterine bleeding (AUB) October 8:42am Screening for colon cancer October 25 8:42am Encounter for routine gynecological exam ination October 25, 2024 8:42am Abnormal uterine bleeding (AUB) November 3:03pm Irregular menstrual bleeding November 15, 2024 3:03pm Poison wendy dermatitis November 15, 2024 3: 03pm Thickened endometrium November 15, 2024 3: 03pm Uterine fibroid November 15, 2024 3:03 pm Abnormal uterine bleeding (AUB) December 032024 12:50pm Bilateral ovarian cysts December 17 12:50pm Uterine fibroid December 17, 2024 12 :50pm Additional Source Comments Source Comments (unrecognize d section and content) In the event this informatio n is protected by the Federal Confidentiality of Alcohol and Drug Abuse Patient Records regulations: The Federal rules restrict any use of the information to criminally investigate or prosecute any alcohol or drug abuse patient.[facility] the event this information is protected by the Federal Confidentiality of Alcohol and Drug Abuse Patient Records regulations: The Federal rules restrict any use of the information to criminally investigate or prosecute any alcohol or drug abuse patient.[facility] HospitalIn the event this information is protected by the Federal Confidentiality of Alcohol and Drug Abuse Patient Records regulations: The Federal rules restrict any use of the information to criminally investigate or prosecute any alcohol or drug abuse patient.[facility] HospitalIn the event this information is protected by the Federal Confidentiality of Alcohol and Drug Abuse Patient Records regulations: The Federal rules restrict any use of the information to criminally investigate or prosecute any alcohol or drug abuse patient.[facility] HospitalIn the event this information is protected by the Federal Confidentiality of Alcohol and Drug Abuse Patient Records regulations: The Federal rules restrict any use of the information to criminally investigate or prosecute any alcohol or drug abuse patient.[facility] HospitalIn the event this information is protected by the Federal Confidentiality of Alcohol and Drug Abuse Patient Records regulations: The Federal rules restrict any use of the information to criminally investigate or prosecute any alcohol or drug abuse patient.[facility] HospitalIn the event this information is protected by the Federal Confidentiality of Alcohol and Drug Abuse Patient Records regulations: The Federal rules restrict any use of the information to criminally investigate or prosecute any alcohol or drug abuse patient.[facility] HospitalIn the event this information is protected by the Federal Confidentiality of Alcohol and Drug Abuse Patient Records regulations: The Federal rules restrict any use of the information to criminally investigate or prosecute any alcohol or drug abuse patient.[facility] HospitalIn the event this information is protected by the Federal Confidentiality of Alcohol and Drug Abuse Patient Records regulations: The Federal rules restrict any use of the information to criminally investigate or prosecute any alcohol or drug abuse patient.[facility] HospitalIn the event this information is protected by the Federal Confidentiality of Alcohol and Drug Abuse Patient Records regulations: The Federal rules restrict any use of the information to criminally investigate or prosecute any alcohol or drug abuse patient.[facility] HospitalIn the event this information is protected by the Federal Confidentiality of Alcohol and Drug Abuse Patient Records regulations: The Federal rules restrict any use of the information to criminally investigate or prosecute any alcohol or drug abuse patient.[facility] HospitalIn the event this information is protected by the Federal Confidentiality of Alcohol and Drug Abuse Patient Records regulations: The Federal rules restrict any use of the information to criminally investigate or prosecute any alcohol or drug abuse patient.[facility] HospitalIn the event this information is protected by the Federal Confidentiality of Alcohol and Drug Abuse Patient Records regulations: The Federal rules restrict any use of the information to criminally investigate or prosecute any alcohol or drug abuse patient.[facility] HospitalIn the event this information is protected by the Federal Confidentiality of Alcohol and Drug Abuse Patient Records regulations: The Federal rules restrict any use of the information to criminally investigate or prosecute any alcohol or drug abuse patient.[facility] HospitalIn the event this information is protected by the Federal Confidentiality of Alcohol and Drug Abuse Patient Records regulations: The Federal rules restrict any use of the information to criminally investigate or prosecute any alcohol or drug abuse patient.[facility] HospitalIn the event this information is protected by the Federal Confidentiality of Alcohol and Drug Abuse Patient Records regulations: The Federal rules restrict any use of the information to criminally investigate or prosecute any alcohol or drug abuse patient.[facility] HospitalIn the event this information is protected by the Federal Confidentiality of Alcohol and Drug Abuse Patient Records regulations: The Federal rules restrict any use of the information to criminally investigate or prosecute any alcohol or drug abuse patient.[facility] HospitalIn the event this information is protected by the Federal Confidentiality of Alcohol and Drug Abuse Patient Records regulations: The Federal rules restrict any use of the information to criminally investigate or prosecute any alcohol or drug abuse patient.[facility] HospitalIn the event this information is protected by the Federal Confidentiality of Alcohol and Drug Abuse Patient Records regulations: The Federal rules restrict any use of the information to criminally investigate or prosecute any alcohol or drug abuse patient.[facility] HospitalIn the event this information is protected by the Federal Confidentiality of Alcohol and Drug Abuse Patient Records regulations: The Federal rules restrict any use of the information to criminally investigate or prosecute any alcohol or drug abuse patient.[facility] HospitalIn the event this information is protected by the Federal Confidentiality of Alcohol and Drug Abuse Patient Records regulations: The Federal rules restrict any use of the information to criminally investigate or prosecute any alcohol or drug abuse patient.[facility] HospitalIn the event this information is protected by the Federal Confidentiality of Alcohol and Drug Abuse Patient Records regulations: The Federal rules restrict any use of the information to criminally investigate or prosecute any alcohol or drug abuse patient.[facility] HospitalIn the event this information is protected by the Federal Confidentiality of Alcohol and Drug Abuse Patient Records regulations: The Federal rules restrict any use of the information to criminally investigate or prosecute any alcohol or drug abuse patient.[facility] HospitalIn the event this information is protected by the Federal Confidentiality of Alcohol and Drug Abuse Patient Records regulations: The Federal rules restrict any use of the information to criminally investigate or prosecute any alcohol or drug abuse patient.[facility] HospitalIn the event this information is protected by the Federal Confidentiality of Alcohol and Drug Abuse Patient Records regulations: The Federal rules restrict any use of the information to criminally investigate or prosecute any alcohol or drug abuse patient.[facility] HospitalIn the event this information is protected by the Federal Confidentiality of Alcohol and Drug Abuse Patient Records regulations: The Federal rules restrict any use of the information to criminally investigate or prosecute any alcohol or drug abuse patient.[facility] HospitalIn the event this information is protected by the Federal Confidentiality of Alcohol and Drug Abuse Patient Records regulations: The Federal rules restrict any use of the information to criminally investigate or prosecute any alcohol or drug abuse patient.[facility] HospitalIn the event this information is protected by the Federal Confidentiality of Alcohol and Drug Abuse Patient Records regulations: The Federal rules restrict any use of the information to criminally investigate or prosecute any alcohol or drug abuse patient.[facility] HospitalIn the event this information is protected by the Federal Confidentiality of Alcohol and Drug Abuse Patient Records regulations: The Federal rules restrict any use of the information to criminally investigate or prosecute any alcohol or drug abuse patient.[facility] HospitalIn the event this information is protected by the Federal Confidentiality of Alcohol and Drug Abuse Patient Records regulations: The Federal rules restrict any use of the information to criminally investigate or prosecute any alcohol or drug abuse patient.[facility] HospitalIn the event this information is protected by the Federal Confidentiality of Alcohol and Drug Abuse Patient Records regulations: The Federal rules restrict any use of the information to criminally investigate or prosecute any alcohol or drug abuse patient.[facility] HospitalIn the event this information is protected by the Federal Confidentiality of Alcohol and Drug Abuse Patient Records regulations: The Federal rules restrict any use of the information to criminally investigate or prosecute any alcohol or drug abuse patient.[facility] HospitalIn the event this information is protected by the Federal Confidentiality of Alcohol and Drug Abuse Patient Records regulations: The Federal rules restrict any use of the information to criminally investigate or prosecute any alcohol or drug abuse patient.[facility] HospitalIn the event this information is protected by the Federal Confidentiality of Alcohol and Drug Abuse Patient Records regulations: The Federal rules restrict any use of the information to criminally investigate or prosecute any alcohol or drug abuse patient.[facility] HospitalIn the event this information is protected by the Federal Confidentiality of Alcohol and Drug Abuse Patient Records regulations: The Federal rules restrict any use of the information to criminally investigate or prosecute any alcohol or drug abuse patient.[facility] HospitalIn the event this information is protected by the Federal Confidentiality of Alcohol and Drug Abuse Patient Records regulations: The Federal rules restrict any use of the information to criminally investigate or prosecute any alcohol or drug abuse patient.[facility] HospitalIn the event this information is protected by the Federal Confidentiality of Alcohol and Drug Abuse Patient Records regulations: The Federal rules restrict any use of the information to criminally investigate or prosecute any alcohol or drug abuse patient.[facility] HospitalIn the event this information is protected by the Federal Confidentiality of Alcohol and Drug Abuse Patient Records regulations: The Federal rules restrict any use of the information to criminally investigate or prosecute any alcohol or drug abuse patient.[facility] HospitalIn the event this information is protected by the Federal Confidentiality of Alcohol and Drug Abuse Patient Records regulations: The Federal rules restrict any use of the information to criminally investigate or prosecute any alcohol or drug abuse patient.[facility] HospitalIn the event this information is protected by the Federal Confidentiality of Alcohol and Drug Abuse Patient Records regulations: The Federal rules restrict any use of the information to criminally investigate or prosecute any alcohol or drug abuse patient.[facility] HospitalIn the event this information is protected by the Federal Confidentiality of Alcohol and Drug Abuse Patient Records regulations: The Federal rules restrict any use of the information to criminally investigate or prosecute any alcohol or drug abuse patient.[facility] HospitalIn the event this information is protected by the Federal Confidentiality of Alcohol and Drug Abuse Patient Records regulations: The Federal rules restrict any use of the information to criminally investigate or prosecute any alcohol or drug abuse patient.[facility] HospitalIn the event this information is protected by the Federal Confidentiality of Alcohol and Drug Abuse Patient Records regulations: The Federal rules restrict any use of the information to criminally investigate or prosecute any alcohol or drug abuse patient.[facility] HospitalIn the event this information is protected by the Federal Confidentiality of Alcohol and Drug Abuse Patient Records regulations: The Federal rules restrict any use of the information to criminally investigate or prosecute any alcohol or drug abuse patient.[facility] HospitalIn the event this information is protected by the Federal Confidentiality of Alcohol and Drug Abuse Patient Records regulations: The Federal rules restrict any use of the information to criminally investigate or prosecute any alcohol or drug abuse patient.[facility] HospitalIn the event this information is protected by the Federal Confidentiality of Alcohol and Drug Abuse Patient Records regulations: The Federal rules restrict any use of the information to criminally investigate or prosecute any alcohol or drug abuse patient.[facility] Reason for Visit (unrecogniz ed section and content) Reason Comments Follow Up Specialty Diagnoses / Procedures Referred By Bre eckert Referred To Contact Diagnoses Post-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) Procedures PROVIDER ORDERED FOLLOW UP OFFICE/OUTPATIENT NEW HIGH MDM 60 MINUTES Bri Dove MD [address] [place] [address] Phone: tel: fax: Referral ID Status Reason Start Date Expiration Date V isits Requested Visits Authorized [id number] Closed PCP Requested Referral 10/15/2024 04/16/2025 1 1 Reason Onset Date Comments Refill Request 07/24/2021 Reason Comments PT Discharge Specialty Diagnoses / Procedures Referred By Bre eckert Referred To Contact [facility] Diagnoses Dizziness Imbalance Procedures PT REHAB FOLLOW UP ORDER THERAPEUTIC EXERCISES RE, EA 15 MIN. Bri Dove MD [address] [place] [address] [facility] [facility] [address] [place] [address] Referral ID Status Reason Start Date Expiration Date Visits Requested Visits Authorized [id number] Authorized PCP Requested Referral Auto-Generate d Referral [...] Onset Date Comments Refill Request 12/04/2022 Reason Onset Date Comments Refill Request 11/28/2023 Reason Onset Date Comments Refill Request 12/16/2023 Reason Comments Refill Request Reason Comments Follow Up Established Patient Specialty Diagnoses / Procedures Referred By Bre t Referred To Contact Diagnoses Post-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) Procedures PROVIDER ORDERED FOLLOW UP OFFICE/OUTPATIENT NEW HIGH MDM 60 MINUTES Bri Dove MD [address] [place] [address] Referral ID Status Reason Start Date Expiration Date V isits Requested Visits Authorized [id number] Closed PCP Requested Referral 04/14/2024 10/13/2024 1 1 Reason Onset Date Comments Refill Request 06/15/2024 Reason Comments fatigue and vertigo Specialty Diagnoses / Procedures Referred By Bre t Referred To Contact Diagnoses Post-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) Procedures CONSULT TO LONG COVID SMA OFFICE/OUTPATIENT NEW HIGH [facility] 60 MINUTES Bri Dove MD [address] [place] [address] Phone: tel: fax: Referral ID Status Reason Start Date Expiration Date V isits Requested Visits Authorized [id number] Closed PCP Requested Referral 08/19/2024 08/19/2025 1 1 Reason Comments Intake [facility] pre-visit phone call Reason Comments Consult Post Covid Symptoms Specialty Diagnoses / Procedures Referred By Bre eckert Referred To Contact [facility]ULM COVID [facility] Diagnoses Post-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) Procedures CONSULT TO [facility] Bri Dove MD [address] [place] [address] Phone: tel: fax: [facility] [address] [place], [place] [address] Phone: tel: fax: Referral ID Status Reason Start Date Expiration Date Visits Requested Visits Authorized [id number] Authorized PCP Requested Referral 08/19/2024 08/19/2025 3 3 Reason Comments New Patient Long covid Specialty Diagnoses / Procedures Referred By Contgaby t Referred To Contact Diagnoses Post-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) Malaise and fatigue Myalgias Lightheadedness Physical deconditioning Activity intolerance Sleep disturbance Dizziness Difficulty concentrating Brain fog Headaches Vitamin D deficiency Vertigo Chronic fatigue syndrome Procedures CONSULT TO WELLNESS PHYSICIAN OFFICE/OUTPATIENT [facility] 60 MINUTES Eduardo Alvarez APRN.CHIEF OF PRODUCTION [address] [place] [address] Phone: tel: fax: Referral ID Status Reason Start Date Expiration Date V isits Requested Visits Authorized [id number] Closed PCP Requested Referral 09/13/2024 09/13/2025 1 1 Reason Comments chronic pain syndrome long-COVID syndrome Specialty Diagnoses / Procedures Referred By Bre eckert Referred To Contact [facility] Diagnoses Chronic fatigue syndrome Procedures OFFICE/OUTPATIENT [facility] 60 MINUTES Linda Marcano PA-C [address] [place] [id number] Phone: tel: fax: Outpatient Referral [address] [place] [id number] Referral ID Status Reason Start Date Expiration Date Visits Requested Visits Authorized [id number] Authorized PCP Requested Referral 05/05/2024 05/04/2025 99 99 Care Teams (unrecognized sec tion and content) Chartered Accountant Relationship Specialty Start Date End Date Aron Ugarte MD [address] [place] [id number] PCP - General Internal Medicine 07/20/20 Chartered Accountant Relationship Specialty Start Date End Date Aron Ugarte MD [address] [place] [address] PCP - General Internal Medicine 07/20/20 Chartered Accountant Relationship Specialty Start Date End Date Aron Ugarte MD [address] [place] [address] PCP - General Internal Medicine 07/20/20 Chartered Accountant Relationship Specialty Start Date End Date Aron Ugarte MD [address] [place] [address] [place] [address] PCP - General Internal Medicine 07/20/20 Chartered Accountant Relationship Specialty Start Date End Date Tanya Ugarte MD [address] [facility] [place] [address] PCP - General Internal Medicine 07/20/20 Chartered Accountant Relationship Specialty Start Date End Date Tanya Ugarte MD [address] [facility] [place] [address] PCP - General Internal Medicine 07/20/20 Chartered Accountant Relationship Specialty Start Date End Date Tanya Ugarte MD [address] [facility] [place] [address] PCP - General Internal Medicine 07/20/20 Chartered Accountant Relationship Specialty Start Date End Date Tanya Ugarte MD [address] [facility] [place] [address] PCP - General Internal Medicine 07/20/20 Chartered Accountant Relationship Specialty Start Date End Date Tanya Ugarte MD [address] [facility] [place] [address] PCP - General Internal Medicine 07/20/20 Chartered Accountant Relationship Specialty Start Date End Date Tanya Ugarte MD [address] [facility] [place] [address] PCP - General Internal Medicine 07/20/20 Chartered Accountant Relationship Specialty Start Date End Date Tanya Ugarte MD [address] [facility] [place] [address] PCP - General Internal Medicine 07/20/20 Chartered Accountant Relationship Specialty Start Date End Date Tanya Ugarte MD [address] [facility] [place] [address] PCP - General Internal Medicine 07/20/20 Chartered Accountant Relationship Specialty Start Date End Date Tanya Ugarte MD [address] [place] [address] PCP - General Internal Medicine 07/20/20 Chartered Accountant Relationship Specialty Start Date End Date Aron Ugarte MD PCP - General Internal Medicine 07/20/20 Chartered Accountant Relationship Specialty Start Date End Date Aron Ugarte MD PCP - General Internal Medicine 07/20/20 Chartered Accountant Relationship Specialty Start Date End Date Aron Ugarte MD PCP - General Internal Medicine 07/20/20 Chartered Accountant Relationship Specialty Start Date End Date Aron Ugarte MD PCP - General Internal Medicine 07/20/20 Chartered Accountant Relationship Specialty Start Date End Date Aron Ugarte MD PCP - General Internal Medicine 07/20/20 Chartered Accountant Relationship Specialty Start Date End Date Aron Ugarte MD PCP - General Internal Medicine 07/20/20 Chartered Accountant Relationship Specialty Start Date End Date Aron Ugarte MD PCP - General Internal Medicine 07/20/20 Chartered Accountant Relationship Specialty Start Date End Date Aron Ugarte MD PCP - General Internal Medicine 07/20/20 Chartered Accountant Relationship Specialty Start Date End Date Aron Ugarte MD PCP - General Internal Medicine 07/20/20 Chartered Accountant Relationship Specialty Start Date End Date Aron Ugarte MD PCP - General Internal Medicine 07/20/20 Chartered Accountant Relationship Specialty Start Date End Date Aron Ugarte MD PCP - General Internal Medicine 07/20/20 Chartered Accountant Relationship Specialty Start Date End Date Aron Ugarte MD PCP - General Internal Medicine 07/20/20 Chartered Accountant Relationship Specialty Start Date End Date Aron Ugarte MD PCP - General Internal Medicine 07/20/20 Chartered Accountant Relationship Specialty Start Date End Date Nuria Gabriel DO [address] [place] [address] PCP - General Internal Medicine 09/07/24 Chartered Accountant Relationship Specialty Start Date End Date Nuria Gabriel DO [address] [place] [address] PCP - General Internal Medicine 09/07/24 Chartered Accountant Relationship Specialty Start Date End Date Nuria Gabriel DO [address] [place] [address] PCP - General Internal Medicine 09/07/24 Chartered Accountant Relationship Specialty Start Date End Date Nuria Gabriel DO [address] [place] [address] PCP - General Internal Medicine 09/07/24 Chartered Accountant Relationship Specialty Start Date End Date Nuria Gabriel DO [address] [place] [address] PCP - General Internal Medicine 09/07/24 Team Status: Active Member Role Status Dates Dr. Arno Ugarte MD Primary Care Provider Active Team Status: Inactive Member Role Status Dates Dr. Aron Ugarte MD Primary Care Provider Active Start: October 25, 2024 End: October 25, 2024 Dr. Aron Ugarte MD Referring Provider Active Start: October 25, 2024 End: October 25, 2024 DOROTHY Nolasco Attending Provider Active Start: October 25, 2024 End: October 25, 2024 Team Status: Active Member Role/Relationship Status Dates Dr. Nuria Gabriel DO Primary Care Provider Active Team Status: Inactive Member Role/Relationship Status Dates Dr. Aron Ugarte MD Primary Care Provider Active Start: October 25, 2024 End: October 25, 2024 Dr. Aron Ugarte MD Referring Provider Active Start: October 25, 2024 End: October 25, 2024 DOROTHY Nolasco Attending Provider Active Start: October 25, 2024 End: October 25, 2024 Team Status: Inactive Member Role/Relationship Status Dates DOROTHY Nolasco Attending Provider Active Start: October 25, 2024 End: October 25, 2024 Dr. Nuria Gabriel DO Primary Care Provider Active Start: October 25, 2024 End: October 25, 2024 Chartered Accountant Relationship Specialty Start Date End Date Nuria Gabriel DO [address] [facility] [address] [place] [address] PCP - General Internal Medicine 09/07/24 Team Status: Inactive Member Role/Relationship Status Dates DOROTHY Nolasco Attending Provider Active Start: November 03, 2024 End: November 03, 2024 DOROTHY Nolasco Referring Provider Active Start: November 03, 2024 End: November 03, 2024 Dr. Nuria Gabriel DO Primary Care Provider Active Start: November 03, 2024 End: November 03, 2024 Team Status: Inactive Member Role/Relationship Status Dates Dr. Nuria Gabriel DO Primary Care Provider Active Start: November 15, 2024 End: November 15, 2024 Dr. Nuria Gabriel DO Referring Provider Active Start: November 15, 2024 End: November 15, 2024 Dr. Narcisa Chaudhary DO Attending Provider Activ e Start: November 15, 2024 End: November 15, 2024 Team Status: Inactive Member Role/Relationship Status Dates Dr. Nuria Gabriel DO Primary Care Provider Active Start: November 15, 2024 End: November 15, 2024 Dr. Narcisa Chaudhary DO Attending Provider Activ e Start: November 15, 2024 End: November 15, 2024 Chartered Accountant Relationship Specialty Start Date End Date Nuria Gabriel DO [address] [place], [place] [address] 238- PCP - General Internal Medicine 09/07/24 Chartered Accountant Relationship Specialty Start Date End Date Nuria Gabriel DO [address] [place], [place] [address] [phone] PCP - General Internal Medicine 09/07/24 Team Status: Inactive Member Role/Relationship Status Dates Dr. Nuria Gabriel DO Primary Care Provider Active Start: December 17, 2024 End: December 17, 2024 Dr. Nuria Gabriel DO Referring Provider Active Start: December 17, 2024 End: December 17, 2024 Dr. Narcisa Chaudhary DO Attending Provider Activ e Start: December 17, 2024 End: December 17, 2024 Chartered Accountant Relationship Specialty Start Date End Date Nuria Gabriel DO [address] [place], [place] [phone] PCP - General Internal Medicine 09/07/24 Chartered Accountant Relationship Specialty Start Date End Date Nuria Gabriel DO [address] [place], [place] [address]- PCP - General Internal Medicine 09/07/24 INFORMATION SOURCE (unrecogn ized section and content) DATE CREATED AUTHOR 10/01/2024 [facility] DATE CREATED AUTHOR AUTHOR'S ORGANIZ ATION 11/25/2024 [facility] DATE CREATED AUTHOR AUTHOR'S ORGANIZ ATION 12/20/2024 [facility] DATE CREATED AUTHOR AUTHOR'S ORGANIZ ATION 12/22/2024 [facility] Goals (unrecognized section and content) Goals may be documented in a n alternate sectionGoals may be documented in an alternate sectionGoals may be documented in an alternate sectionGoals may be documented in an alternate sectionGoals may be documented in an alternate sectionGoals may be documented in an alternate section FOR RECORDS PERTAINING TO PATIENTS [...] BE BASED ON THE PRIMARY CLINICAL RECORDS. [facility]. provides no warranty or guarantee of the accuracy or completeness of information in this document.
[2024-12-24 05:49] LABS: Internal QC Validated? YES +Cl - CLEAR BKGD; Pregnancy, Urine Negative Negative
[2024-12-24 05:50] LABS: Record Kit Lot#,Urine Preg 0000964736
[2024-12-24] MEDS: Lactated Ringers 1,000 ML 40 ML IV (06:12)
[2024-12-24] MEDS: Magnesium 1 GM over 15 mins IV (06:12)
[2024-12-24] MEDS: Scopolamine 1mg/72hr Patch 1 PATCH TD (06:15)
--- NOTE | 2024-12-24 06:34 | PRE.ANES_ITS ---
ASA Classification* ASA Classification ASA Classification: 2 Assessment & Plan Anesthesia* Anesthesia Assessment Anesthesia Assessment: Discussed sedation and/or anesthesia options, risks, benefits, and alternatives with patient/parents/legal guardian/POA. Questions invited. The patient/parents/legal guardian/POA seems to understand and agrees to proceed with anesthesia plan. Reviewed the physical assessment, medical history, allergy history and patient home medications list prior to surgery/procedure/anesthetic and documented any changes. Performed airway and anesthesia risk assessments. Anesthesia Type Anesthesia Type: General History Source History Obtained from:: Patient and Chart Anesthesia Focused Assessment* Temperature: 97.4 F Pulse Rate: 73 Blood Pressure: 117/85 Respiratory Rate: 16 Pulse Ox: 100 Oxygen Delivery Method: Room Air Airway Assessment Mouth opens: >3 cm Mallampati Score: IV Teeth Condition: Caps/Crowns (Patient has several crowns. They are all tight.) Neck Range of motion (ROM): Full ROM Labs Anesthesia Preop lab: CBC WBC 5.7 K/mm3 (4.4-11.0) 12/17/24 13:23 12/17/24 RBC 4.41 M/mm3 (4.2-5.4) 12/17/24 13:23 12/17/24 Hgb 12.9 g/dL (12.0-15.0) 12/17/24 13:23 12/17/24 Hct 38.1 % (37-47) 12/17/24 13:23 12/17/24 Plt Count 278 K/mm3 (150-450) 12/17/24 13:23 12/17/24 CHEMISTRY Potassium 3.9 mmol/L (3.5-5.1) 04/12/20 18:54 04/12/20 Sodium 142 mmol/L (136-145) 04/12/20 18:54 04/12/20 Magnesium 2.2 mg/dL (1.5-2.2) 12/17/24 13:23 12/17/24 BUN 19 mg/dL (7-18) H 04/12/20 18:54 04/12/20 Creatinine 0.97 mg/dL (0.55-1.02) 04/12/20 18:54 04/12/20 Glucose 87 mg/dL (74-106) 04/12/20 18:54 04/12/20 TSH 0.95 uIU/mL (0.358-3.74) 04/12/20 18:54 COAG Urine Test Negative Negative 12/24/24 05:35 12/24/24 Pre-Assessment Diagnosis/Proposed Procedure Planned Operative Procedure(s): (B) Lap Total Robotic Hysterectomy Rehan Salping, Cystoscopy Anesthesia History 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 When Was Last Pacemaker Check QUESTION #4 FULL TEXT: You/Your Family Experience fever (hyperthermia) with Anesthesia Last Oral Intake Last Oral intake: Last Oral Intake NPO since 04:00 12/24/24 06:01 Meds taken in AM with sips of water? 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 - web designer developer Female Yes 12/10/24 09:28 HX of Motion Sickness Yes 12/10/24 09:28 HX of N/V After Surgery No 12/10/24 09:28 Non-Smoker Yes 12/10/24 09:28 Duration of Surgery greater Yes 12/10/24 09:28 than 60 minutes Number of Risk Factors 4 12/10/24 09:28 PONV Score Severe Risk 12/10/24 09:28 Height & Weight Height & Weight: Anesthesia: Height & Weight Height 5 ft 3 in 12/24/24 06:01 Weight: 70.307 kg 12/24/24 06:01 Body Mass Index (BMI) 27.4 12/24/24 06:01 Respiratory Assessment Respiratory Assessment - web designer developer: Respiratory Tract Infection Hx - web designer developer Hx Respiratory Tract Infection No 12/10/24 11:10 STOP Sleep Apnea STOP Sleep Apnea - web designer developer: STOP Sleep Apnea - web designer developer Hx Hypertension No 12/10/24 11:10 Hx Sleep Apnea No 12/10/24 11:10 CPAP BIPAP Do you snore loudly (louder No 12/10/24 09:28 than talking or can be heard Do you often feel tired/ No 12/10/24 09:28 fatigued/ sleepy during daytime? Has anyone observed you stop No 12/10/24 09:28 breathing during sleep? STOP Results Negative 12/10/24 09:28 QUESTION #5 FULL TEXT : Do you snore loudly (louder than talking or can be heard through closed doors)? 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 Specify any problems Hx of Preganancy in last 3 No 12/10/24 09:28 Months Nurse Filling Out Transfusion JZOLLIRENA 12/10/24 09:28 & Questions: Date: 12/10/24 12/10/24 09:28 Time: 09:30 12/10/24 09:28 Patient unable to answer at this time (ie. confused, unrespo /Reproduction History /Reproductive History - web designer developer: /Reproductive Hx- web designer developer Hx Now No 12/10/24 09:28 Gestational Age (in weeks): EDC: Hx Hx Para Hx Section SAB No 12/17/24 13:02 Active Medications Active Medications: Current Medications Generic Name Dose Route Start Last Admin Trade Name Freq PRN Reason Stop Dose Admin Acetaminophen 1,000 mg 12/24/24 07:30 12/24/24 06:14 Acetaminophen 500 Mg Tablet PO 12/24/24 07:31 1,000 mg PREOP ONE Administration Celecoxib 400 mg 12/24/24 07:30 12/24/24 06:14 Celecoxib 200 Mg Capsule PO 12/24/24 07:31 400 mg PREOP ONE Administration Gabapentin 600 mg 12/24/24 07:30 12/24/24 06:14 Gabapentin 600 Mg Tablet PO 12/24/24 07:31 600 mg PREOP ONE Administration Lactated Ringer's 1,000 mls @ 40 mls/hr 12/24/24 07:30 12/24/24 06:12 IV 40 mls/hr .Q25H GET Administration Cefazolin Sodium 2 gm/ Sodium 110 mls @ 150 mls/hr 12/24/24 07:30 Chloride IV 12/24/24 08:13 INTRAOP ONE Lactated Ringer's 1,000 mls @ 70 mls/hr 12/24/24 07:30 IV .[id number] GET Magnesium Sulfate 1 gm/ 102 mls @ 408 mls/hr 12/24/24 07:30 12/24/24 06:30 Dextrose IV 12/24/24 07:44 Infused PREOP ONE Infusion Insulin Human Lispro 0 unit 12/24/24 07:30 Insulin Lispro 100 Unit/Ml Insuln.Pen SC Q4H PRN PRN BG >/= 180, SEE PROTOCOL Protocol Ondansetron HCl 4 mg 12/24/24 07:30 Ondansetron 4 Mg/2 Ml Vial IV 12/24/24 07:31 INTRAOP ONE Phenazopyridine HCl 190 mg 12/24/24 07:30 12/24/24 06:14 Phenazopyridine 95 Mg Tablet PO 12/24/24 07:31 190 mg PREOP ONE Administration Scopolamine HBr 1 patch 12/24/24 07:30 12/24/24 06:15 Scopolamine 1mg/72hr Patch TD 12/24/24 07:31 1 patch PREOP ONE Administration PFSH Medical History Post-menopausal History of COVID-19 Post-COVID syndrome Anxiety Alcohol use Anemia Migraine headache Non-smoker Leg cramps Seasonal allergies Home Medications ?Medication ?Instructions ?Recorded ?Last Taken ?Type gabapentin 600 mg tablet 600 mg PO QDAY 09/29/2412/04 History melatonin 3 mg capsule 3 mg PO HS PRN sleep 5 12/23/24 History naltrexone 4.5 mg capsule 6 mg PO .hs 09/29/24 5 History sumatriptan succinate 50 mg tablet 50 mg PO ONCE PRN m igraine headache 09/29/24 12/23/24 History tizanidine 4 mg capsule 8 mg PO QHS PRN muscle spast icity 09/29/24 Unknown History Allergy/AdvReac Type Severity Reaction Status Date / Time topiramate Allergy Severe sores in Verified 12/24/24 06:01 mouth levonorgestrel (From Mirena) AdvReac Bleeding Verified 12/24/24 06:01 Family History Sister Anemia Grandmother Cervical cancer Father Colon cancer Myocardial infarction, Onset Age: 59 Diabetes Heart disease Anemia Angina at rest Mother Breast cancer Hypertension Other FH: migraines Family history of high cholesterol Kidney disease Thyroid disorder Surgical History H/O endoscopy H/O prior ablation treatment History of colonoscopy History of esophagogastroduodenoscopy (EGD) Hx of LASIK [place] teeth extracted Social History adopted: No household members: family housing: house number of children: 4 current occupational status: employed current occupation: [employer]) current occupational exposures/hazards: No pets and animals: Yes pets and animals: cat(s) and dog(s) history of recent travel: No sexually active: Yes Smoking Status: Never smoker substance use type: does not use diet: low carbohydrate well-balanced diet: daily or most days caffeine: No eating out: 1-3 times/week during the past year weight has: decreased > 10 lbs what type of physical activity do you participate in: walking jacque/restorationism: Evangelical seatbelt use: always do you feel safe at home: Yes additional social history: - Bill Review of Systems (Anesthesia) ROS Narrative System reviewed and no additional complaints, except as documented.
--- NOTE | 2024-12-24 07:26 | HP.PCM_ITS ---
History and Physical Date of Admission: 12/24/24 Intake Vital Signs 10/25/2508:01 11/12/2508:58 11/15/2514:10 Height 5 ft 3 in 5 ft 3 in 5 ft 3 in Weight: 151 lb 4 oz BMI 26.8 BP 134/85 H Intake Visit Reasons: EMB per CB Chief Complaint: EMB [employer] Required: No Is patient in pain?: No Allergies topiramate Allergy (Severe, Verified 11/15/24 15:11) sores in mouthlevonorgestrel (From Mirena) Adverse Reaction (Verified 11/15/24 15:11) Bleeding Medications ?Medication ?Instructions ?Recorded ?Confirmed ?Type Bacillus coagulans-inulin 1 cap PO 09/29/24 11/15/24 History billion cell-250 mg capsule (Probiotic with Prebiotic) calcium 300 mg chewable tablet mg PO 09/29/24 11/15/24 History coenzyme Q10 10 mg capsule 10 mg PO ONCE 09/29/24 11/15/24 History gabapentin 600 mg tablet 600 mg PO QDAY 09/29/24 11/15/24 History mecobalamin (vitamin B12) 1,000 1,000 mcg PO QDAY 09/29/24 11/15/24 Hist ory mcg chewable tablet melatonin 3 mg capsule 3 mg PO HS PRN 09/29/24 11/15/24 History naltrexone 4.5 mg capsule mg PO 09/29/24 11/15/24 History omega-3 fatty acids 1,000 mg 1,000 mg PO QDAY 09/29/24 11/15/24 Histo ry capsule sumatriptan succinate 50 mg tablet 50 mg PO ONCE 09/29/24 11/15/24 History tizanidine 4 mg capsule 8 mg PO QHS PRN 09/29/24 11/15/24 Histor y methylprednisolone 4 mg tablets in See Rx Instructions PO PER PKG DIR 11/15/24 11/15/24 Rx a dose pack (Medrol (Louis)) #21 tabs Post menopausal: No Patient : No : No Control Method: Vasectomy [facility] Medical History History of COVID-19 Post-COVID syndrome Anxiety Alcohol use Anemia Migraine headache Non-smoker Leg cramps Seasonal allergies Surgical History H/O endoscopy H/O prior ablation treatment History of colonoscopy History of esophagogastroduodenoscopy (EGD) Hx of LASIK Thurman teeth extracted Family History Sister AnemiaGrandmother Cervical cancerFather Colon cancer Myocardial infarction, Onset Age: 61 Diabetes Heart disease Anemia Angina at restMother Breast cancer HypertensionOther FH: migraines Family history of high cholesterol Kidney disease Thyroid disorder Social History adopted: No household members: family housing: house number of children: 4 current occupational status: employed current occupation: [employer] current occupational exposures/hazards: No pets and animals: Yes pets and animals: cat(s) and dog(s) history of recent travel: No sexually active: Yes Smoking Status: Never smoker substance use type: does not use diet: low carbohydrate well-balanced diet: daily or most days caffeine: No eating out: 1-3 times/week during the past year weight has: decreased > 10 lbs what type of physical activity do you participate in: walking jacque/mu-ism: Mosque seatbelt use: always do you feel safe at home: Yes additional social history: - Bill History 4 Elective abortions Hx Para 4 Spontaneous abortions Hx # Term Pregnancies Ectopic pregnancies Hx # Pregnancies Multiple births # of living children 4 HPI Details: MELISSA GUNN is a 54 year old (vaginal) who presents for discussion about hysterectomy and EMB. She reports she has irregular menses. She has 23 day cycles typically; however prior to this her cycles was 30 and prior 27. Within these she has had 11 days of bleeding; 13 days bleeding, and then an 87 long bleed time earlier this year (-Jul 01). Most recent blood work was completed in September (on [employer]) which CBC was stable; TSH, T4 stable. She reports she suffers from long haul covid--fatigue; lightheaded/dizzy from this but does not feel exacerbated during her menses. Previous vaginal deliveries. History of ablation (2020) s/p IUD mirena where she had reaction and bled out from this. She recently (past 2 years) was having treatment through a different provider with testosterone pellets as well as progesterone therapy. Did not notice any improvement or changes with this. Originally started due to fatigue secondary to long haul Covid. Last PAP: 2019; normal/negative. History of abnormal PAP: none. ultrasound shows the following: FINDINGS: The uterus is anteverted and measures 11.4 x 7.8 x 9 cm. Posterior/fundal fibroid measuring 5 x 3.9 x 4.1 cm is noted. Endometrium measures 20 mm. Endometrium appears hyperechoic. Endometrial fluid is noted. Endometrium mass/polyp measuring 0.7 x 0.6 x 0.6 cm is noted. Lower uterine segment calcification measuring 0.5 x 0.6 x 0.2 cm is noted. Right ovary measures 4.3 x 3.3 x 2.5 cm. Normal blood flow is noted. Cyst measuring 3 x 2.4 x 2.1 cm is noted. Left ovary measures 4 x 3.6 x 2.6 cm. Normal flow is noted. Cyst measuring 2.4 x 2.5 x 2.2 cm. No free fluid in the posterior cul-de-sac. ROS Const ROS Unobtainable: All systems reviewed & are unremarkable except as noted in H Resp Resp: Reports system reviewed and no additional complaints, except as documented; Denies cough GI GI: Reports as per HPI Psych Psych: Reports system reviewed and no additional complaints, except as documented Exam Const General: cooperative, healthy appearing, comfortable and no acute distress Resp Effort & Inspection: normal respiratory effort General: bimanual renal exam normal bilaterally External Female Exam: normal appearance of the urethra Urethra: normal appearance of the urethra Speculum Exam - Vagina: normal appearance of the vagina Speculum Exam - Cervix: normal appearance of the cervix Bimanual Exam- Adnexa, other: normal adnexae and normal Pelvic Support: normal Skin Rashes: rashes noted (on arms and legs. consistent with poison wendy) Psych Appearance: grossly normal Speech and Movement: speech and movement normal Coding Level of Care Code Off vis,est,level 4 Diagnoses Poison wendy dermatitis L23.7 Uterine fibroid D25.9 Thickened endometrium R93.89 Irregular menstrual bleeding N92.6 Abnormal uterine bleeding (AUB) N93.9 Assessment and Plan Assessment and Plan (1) Poison wendy dermatitis: Status: Acute (2) Uterine fibroid: Status: Acute (3) Thickened endometrium: Status: Acute (4) Irregular menstrual bleeding: Status: Acute (5) Abnormal uterine bleeding (AUB): Status: Acute Orders: Orders Medications: New methylprednisolone (Medrol (Louis)) PO PER PKG DIR 21 tabs 0RF Plan After discussing the patient's diagnosis and treatment plan options, patient wishes to proceed with surgical management. I have discussed with the patient the risks, benefits, and alternatives of the procedure which include but are not limited to risks of anesthesia, bleeding, infection, possible damage to bowel, b ladder, or surrounding vasculature which could lead to additional surgery to evaluate any complications. Patient agrees to procedure and wishes to proceed. ACOG/uptodate references given for additional information regarding procedure. plan for total robotic hyst, bs, cysto.
[2024-12-24] MEDS: Lactated Ringers 1,000 ML 1000 ML IV (07:30)
--- NOTE | 2024-12-24 07:30 | UT_PTH ---
PATIENT: MELISSA GUNN OCTOBER [place] [facility] [place] [facility] [place][id number] AGE/SX: 54/F ROOM: RE12/24/[address]: Dr. Narcisa Chaudhary DO : 1970 BED: DIS: 12/24/2024 SPEC #: [id number] RECD: 12/24/24 10:33 STATUS: SALVADOR RAFIQ #: [id number] JOSE C: 12/24/24 07:[address]: Narcisa Chaudhary DEPT: SURGICAL PATHOLOGY RECD BY: Rogerio Velasco ENTERED: 12/24/24 12:47 SP TYPE: UTERUS OTHR DR: Dr. Nuria Hurt DO Tissues: A - Uterus, NOS Procedures: Surgery Specimen Level V HEADER OPERATION: Laparoscopic total robotic hysterectomy, bilateral salpingectomy, cystoscopy PRE-OP DIAGNOSIS: Uterine fibroid, thickened endometrium, irregular menstrual bleeding, abnormal uterine bleeding TISSUE SUBMITTED: A- Uterus, bilateral tubes MICROSCOPIC DIAGNOSIS A. Uterus and fallopian tubes, total robotic hysterectomy with bilateral salpingectomy: - Cervix: mild chronic inflammation, mild hyperkeratosis. - Endometrium: mildly disordered proliferative endometrium. - Myometrium: adenomyosis, hyalinized leiomyoma (5.2 cm). - Left fallopian tube: paratubal cysts. - Right fallopian tube: paratubal cysts. MICROSCOPIC DESCRIPTION Slides are reviewed. GROSS DESCRIPTION A. Received in formalin labeled with the patient's name and date of . Designated as uterus and bilateral tubes is a 239.1 g, 9.7 x 6.9 x 6.9 cm somewhat distorted and irregular uterus with attached adnexa. The serosa is medeiros-pink with focal erythema and a 0.5 cm subserosal leiomyoma. The attached cervix is medeiros-pink and focally erythematous, measuring 4.5 x 4.4 cm; the 1.3 cm os is is patent with surrounding, granular erythema and expelling slightly hemorrhagic mucoid material. Mucoid containing cyst are present. The specimen is inked as follows: [id number]-uussnCnndybvpfby-orange. Opening reveals a 6.4 x 3.4 cm endometrial canal lined by medeiros-pink to red, granular and somewhat lush endometrium that measures up to 0.1 cm thick. The myometrium is medeiros-pink and trabeculated, measuring up to 2.8 cm thick. Multiple intramural leiomyomas are identified, up to 5.2 cm. The red-purple bilateral fallopian tubes are fimbriated and measure 7.5 x 0.8 cm (L) and 7.6 x 0.7 cm (R). Multiple paratubal cysts are identified, 0.1 cm to 0.4 cm Timing Inspector sections are submitted as follows: A1: Anterior cervixA2: Posterior cervixA3: Anterior endomyometriumA4: Posterior endomyometriumA5: Left fallopian tubeA6: Right fallopian tubeA7: Largest intramural leiomyoma, subserosal leiomyoma [place] 12/24/2024 CPT:29207
--- NOTE | 2024-12-24 07:36 | DCINST_ITS ---
Discharge Instructions DC O2, CPAP, BIPAP needs Home O2 Discharge instructions: No Dressing / Incision Discharge Activity: May Shower May resume sexual activity in: 8 weeks Weight Bearing Status: Full weight bearing Lifting Restrictions: 10 pounds for 2 weeks Dressing / Incision Call your doctor if your incision/area has: Continuous Slow Oozing, Sudden I ncreased Bleeding, Increased Pain/ Swelling, Increased Redness and Foul Smelling Discharge Call your doctor if you observe: Fever of 101 or Higher, Using more than 1 pad per hour, Shortness of breath, Chest pain and Uncontrolled pain Suture Line Care: Avoid Pulling/Pushing and Avoid Pinching/Bending Remove Dressing in: 1 week (if present) Cleanse incision/area with: Soap & Water and Keep Dressing Clean & Dry Follow Up Care Please Follow Up With: Narcisa Chaudhary DO When: Call to make an appointment with your doctor for a postop visit in 2 and 6 weeks Test Results: Test results from this visit will be discussed in further detail at your follow- up appointment, if applicable. Discharge Plan Admission Primary Reason for Your Visit: hysterectomy Attending Provider: Narcisa Chaudhary Primary Care Provider: Nuria Hurt Instructions Print Language: Angolan Discharge Orders/Prescriptions Prescriptions: New docusate sodium [Colace] 100 mg capsule 100 mg PO DAILY Qty: 30 0RF ibuprofen 800 mg tablet 800 mg PO Q8H PRN (Reason: pain) Qty: 30 0RF ondansetron HCl 4 mg tablet 4 mg PO Q6H PRN (Reason: nausea and vomiting) Qty: 20 0RF oxycodone-acetaminophen [Percocet] 5-325 mg tablet 1 tab PO Q4H PRN (Reason: pain) 7 Days Qty: 20 0RF Continued gabapentin 600 mg tablet 600 mg PO QDAY tizanidine 4 mg capsule 8 mg PO QHS PRN (Reason: muscle spasticity) sumatriptan succinate 50 mg tablet 50 mg PO ONCE PRN (Reason: migraine headache) melatonin 3 mg capsule 3 mg PO HS PRN (Reason: sleep) Held naltrexone 4.5 mg capsule 6 mg PO .hs Hold Instructions: Resume on 01/07/25. do not use until you have stopped using the oxycodone for pain Other Ambulatory Orders: ,Urine (Routine) Timeframe: 20241215 Facility: [facility] - Location: Laboratory Ordered By: Dr. J Carlos Beltre Referrals / Follow Up: Nuria Hurt DO [Primary Care Provider] - Disposition Disposition (needs filled in before D/C Order can be placed): Home, Self Care
[2024-12-24] MEDS: Cefazolin 1 GM/5 ML Vial 2 GM IV (07:40)
[2024-12-24] MEDS: Midazolam 2 MG/2 ML Syringe IV (09:05)
[2024-12-24] MEDS: fentaNYL 100 MCG/2 ML Ampul 200 MCG IV (09:05)
[2024-12-24] MEDS: Lidocaine 1% (5 ml sdv) 5 ML Vial 6 ML IV (09:05)
--- NOTE | 2024-12-24 09:11 | PCM.OPRPT ---
Problems Associated Problem List Diagnoses (1) Uterine fibroid: (2) Irregular menstrual bleeding: (3) Abnormal uterine bleeding (AUB): Multi Select Codes Urinary/Genital Urinary/Genital CPT Codes: 65595 Cystoscopy and 81403 TLH+BS/O >250gr uterus Operative Report (Standard) Operative Information Date of Procedure: 12/24/24 Pre-Operative Diagnosis: enlarged fibroid uterus, menorrhagia Post-Operative Diagnosis: enlarged fibroid uterus, menorrhagia Surgery/Procedure Performed: total robotic hysterectomy, bilateral salpingectomy, cystoscopy reset merchandiser: Yes Medical Imaging Director: Dee Yeager Tasks completed by assistant inventory manager: Closing, Trocar and Other (irrigation and suction ) Additional anesthesiologist assistant certified?: No Type of Anesthesia: General RN Documented Start/Stop Times: Operation Date: 12/24/24 07:30 Case Time Into Pre-Op 12/24/24 05:41 Out of Pre-Op 12/24/24 07:25 Anesthesia Start 12/24/24 07:30 Into Room 12/24/24 07:30 Procedure Start 12/24/24 07:57 Procedure Start Time: 07:57 Procedure Stop Time: 09:20 Select all DRAINS/GRAFTS/IMPLANTS that apply: None Estimated Blood Loss: 50cc Specimen collected: Yes Description of specimen(s) removed: uterus, cervix, and fallopian tubes Description of surgery: Findings: 12 cm size uterus, normal appearing ovaries and tubes. On exploration of the abdominal cavity the uterus, adnexa, bowel, and liver were found to be normal. Cystoscopy showed no evidence of leaking at approximately 250 cc of normal saline, positive ureteral orifices and jet flow are seen and no suture material was appreciated in the bladder. Specimens removed: Uterus and cervix, Bilateral tubes Reason for surgery: This is a 54-year-old G3 , P3 who presented to my office with history of heavy bleeding, pelvic pressure, and finding of enlarged fibroid uterus on ultrasound. the planned procedure is for a robotic hysterectomy the risks benefits and alternatives were discussed with the patient the patient had a clear understanding of the procedure and a consent form was signed. Procedure: The patient was placed in the dorsal low lithotomy position and prepped and draped in the normal sterile fashion both abdominally and in the perineum. Her legs were placed in stirrups a Umaña catheter was inserted into the urethra without difficulty. A weighted speculum was placed in the vagina and a single-tooth tenaculum was used to grasp the anterior lip of the cervix. An advincula uterine manipulator was inserted through the cervix without complication. It was then tied into place at the 2 and 10:00 locations on the cervix. Gloves were changed and attention was turned towards the abdomen. Approximately 23 cm above the pubic symphysis in the midline, and after Marcaine injection, a 8 mm incision was made. An 8 mm trocar was inserted through the laparoscope, then inserted into the abdomen under direct visualization using the laparoscope. Good abdominal placement was noted and no complications were appreciated. An air seal device was utilized to create pneumoperitoneum. At 12 cm lateral to the midline on the left and right sides 8 mm accessory ports were placed. Next a left upper quadrant 8 mm anesthesiologist assistant certified port site was placed. The patient was placed in steep Trendelenburg position. The robot was docked. The hysterectomy was initiated first by taking down the round ligament on each side using the vessel sealer device. The fallopian tubes were grasped and the underlying mesosalpinx were cauterized and cut, removing the fallopian tubes from up to the level of the coruna. The broad ligament was then and taken down using the vessel sealer device. Next the bladder flap was taken down without complication. This was done using monopolar cautery to the level of the cervical vaginal junction. After the bladder flap was created, uterine vessels were then isolated and cauterized using the vessel sealer device and EndoShears. At this point the uterine vessels were taken down further starting from the ascending branch, dissecting along the edges of the cervix to the level of the cervical vaginal junction with hemostasis appreciated. The cervical vaginal junction was then using monopolar cautery in a circumferential pattern across the superior aspect of the cervix. The specimen was delivered through the vagina and sent to pathology. The remaining vaginal cuff was then closed using a V lock suture. This was performed in a running technique. Excellent hemostasis was obtained and good closure was noted. Irrigation was then performed. All operative sites were noted to be hemostatic. A cystoscopy was performed with a 70 degree cystoscope through the urethra into the bladder without complication. The bladder was instilled with approximately 250 cc of normal saline. Intraoperative images were made. Ureteral orifices and jets were identified. No suture material was appreciated in the bladder. The bladder was then drained and cystoscope was removed. The abdominal cavity was again examined using the laparoscope. All operative sites were noted to be hemostatic. The trochars were removed under direct visualization without complication and pneumoperitoneum was reduced. At this point the skin was then closed using 4-0 Monocryl subcuticular stitch and sealed with surgical glue. The patient tolerated the procedure well sponge lap and needle counts were correct x2 the patient was taken to the recovery room in stable condition. Surgical Findings: enlarged fibroid uterus measuring 258 grams in the OR Complications Complications: No Admit VTE Documentation VTE Present on Admission: Yes VTE Mechan Device Prophylaxis: SCD's VTE Pharm Prophylaxis ordered?: Yes Reason prophylaxis not ordered: Treatment Not Indicated
--- NOTE | 2024-12-24 09:42 | PCM.POST.ANE ---
Anesthesia: Postop Eval I Current Vital Signs Temperature: 97.2 F Pulse Rate: 83 Blood Pressure: 122/66 Respiratory Rate: 20 Pulse Ox: 98 Oxygen Delivery Method: Nasal Cannula Oxygen Flow Rate (L/min): 3 Assessment Airway patent: Yes Spontaneous unlabored respirations: Yes Mental status: Awake nausea: No Vomiting: No Anesthesia Complication: No Fluid Hydration Crystalloid volume administer (ml): 800 Total IV fluid infused: 800 Progress Note Anesthesia document: Postop Eval 1 completed: Yes
--- NOTE | 2024-12-24 09:44 | PCM.POST.ANE ---
Anesthesia: Postop Eval I Current Vital Signs Temperature: 97.2 F Pulse Rate: 83 Blood Pressure: 122/66 Respiratory Rate: 20 Pulse Ox: 98 Oxygen Delivery Method: Nasal Cannula Oxygen Flow Rate (L/min): 4 Assessment Airway patent: Yes Spontaneous unlabored respirations: Yes Mental status: Awake nausea: No Vomiting: No Anesthesia Complication: No Fluid Hydration Crystalloid volume administer (ml): 800 Total IV fluid infused: 800 Progress Note Anesthesia document: Postop Eval 1 completed: Yes
[2024-12-24] MEDS: Lactated Ringers @ 70 MLS/HR 70 ML IV (10:36)
[2024-12-24] MEDS: HYDROcodone Bitartrate/Apap 5/325 Tablet PO (11:49)
--- NOTE | 2024-12-24 12:02 | PCM.POST.ANE ---
Anesthesia: Postop Eval I Current Vital Signs Temperature: 97.3 F Pulse Rate: 92 Blood Pressure: 127/72 Respiratory Rate: 20 Pulse Ox: 95 Oxygen Delivery Method: Venturi Mask Oxygen Flow Rate (L/min): 8 Assessment Airway patent: Yes Spontaneous unlabored respirations: Yes Mental status: Awake nausea: No Vomiting: No Anesthesia Complication: No Fluid Hydration Crystalloid volume administer (ml): 700 Total IV fluid infused: 700 Progress Note Anesthesia document: Postop Eval 1 completed: Yes
--- NOTE | 2024-12-24 16:12 | POSTOPAN2_ITS ---
Anesthesia Postop Eval I Sum Postop Eval Completion status Anesthesia document: Postop Eval 1 completed: Yes Anesthesia Postop Eval I Summary Anesthesia Postop Eval I Summary: Anesthesia Postop Eval I: Assessment Summary Airway patent Yes 12/24/24 12:03 FRENCH TRANSLATOR.[email or web address] Spontaneous unlabored Yes 12/24/24 12:03 FRENCH TRANSLATOR.[email or web address] respirations Mental status Awake 12/24/24 12:03 FRENCH TRANSLATOR.[email or web address] nausea No 12/24/24 12:03 FRENCH TRANSLATOR.[email or web address] Vomiting No 12/24/24 12:03 FRENCH TRANSLATOR.[email or web address] Anesthesia Postop Eval I: Fluid Summary Crystalloid volume administer 700 12/24/24 12:03 FRENCH TRANSLATOR.[email or web address] (ml) Colloids volume administered ( ml) Blood Product volume administered (ml) Total IV fluid infused 700 12/24/24 12:03 FRENCH TRANSLATOR.[email or web address] Anesthesia Postop Eval I: Summary Notes Anesthesia Complication No 12/24/24 12:03 FRENCH TRANSLATOR.[email or web address] Anesthesia Complication Comment: Post-operative progress note Anesthesia: Postop Eval II Evaluation Mental status: Awake and Calm Pain Level: 3 nausea: No Vomiting: No Complications Anesthesia Complication: No
--- NOTE | 2024-12-24 16:12 | PCM.POSTANE2 ---
Anesthesia Postop Eval I Sum Postop Eval Completion status Anesthesia document: Postop Eval 1 completed: Yes Anesthesia Postop Eval I Summary Anesthesia Postop Eval I Summary: Anesthesia Postop Eval I: Assessment Summary Airway patent Yes 12/24/24 12:03 SWITCHBOARD AND CONTROL ROOM OPERATOR.[email or web address] Spontaneous unlabored Yes 12/24/24 12:03 SWITCHBOARD AND CONTROL ROOM OPERATOR.JGIU respirations Mental status Awake 12/24/24 12:03 SWITCHBOARD AND CONTROL ROOM OPERATOR.JGIU nausea No 12/24/24 12:03 SWITCHBOARD AND CONTROL ROOM OPERATOR.JGIU Vomiting No 12/24/24 12:03 SWITCHBOARD AND CONTROL ROOM OPERATOR.[email or web address] Anesthesia Postop Eval I: Fluid Summary Crystalloid volume administer 700 12/24/24 12:03 SWITCHBOARD AND CONTROL ROOM OPERATOR.JGIU (ml) Colloids volume administered ( ml) Blood Product volume administered (ml) Total IV fluid infused 700 12/24/24 12:03 SWITCHBOARD AND CONTROL ROOM OPERATOR.JGIU Anesthesia Postop Eval I: Summary Notes Anesthesia Complication No 12/24/24 12:03 SWITCHBOARD AND CONTROL ROOM OPERATOR.JGIU Anesthesia Complication Comment: Post-operative progress note Anesthesia: Postop Eval II Evaluation Mental status: Awake and Calm Pain Level: 3 nausea: No Vomiting: No Complications Anesthesia Complication: No
== END 2024-12-24 12:28 | disposition home or self-care (01) ==
LOC: SDC 05:27 → AC 05:30
PROVIDERS: Anesthesiology; PCP Internal Medicine; Referring Provider Obstetrics & Gynecology; Visit Provider Obstetrics & Gynecology
PROC: 0UT90ZZ Resection of Uterus, Open Approach (ICD-10-PCS; CPT 58571; principal; 2024-12-24 07:10)
DX: N80.03 Adenomyosis of the uterus (principal); N83.8 Other noninflammatory disorders of ovary, fallopian tube and broad ligament; D25.9 Leiomyoma of uterus, unspecified; N92.0 Excessive and frequent menstruation with regular cycle; R20.2 Paresthesia of skin; U09.9 Post COVID-19 condition, unspecified; G43.909 Migraine, unspecified, not intractable, without status migrainosus; Z79.899 Other long term (current) drug therapy
CPT/HCPCS: 58571; 00840; 81025; 82962; 83735; 85027; 86850; 86900; 86901; 88307; 93005; J2405; J3475